=== PATIENT | male | born 1955 | race Caucasian/White ===

== ENCOUNTER 2019-06-12 08:02 | Outpatient (CLI) | payer BC, SELFPAY ==
--- NOTE | ~2019-06-12 | US_ITS ---
EXAMINATION: US art doppler w press LE BI EXAM DATE: 06/12/2019 08:48 INDICATION: Claudication at 3 blocks, 5 minute recovery time. High blood pressure. Cardiac stent. Atr ial fibrillation. TECHNIQUE: Segmental pressures and plethysmographic and Doppler waveforms of the brachial and lower e xtremity arteries were obtained. There is no prior study for comparison. FINDINGS: Right and left brachial artery pressures of 165 mm Hg and 183 mm Hg, respectively, are concordant (no rmal difference <= 30 mmHg). The right and left thigh-brachial pressure indices are 0.97, 0.97, resp ectively (normal > 1.2). RIGHT LEG: The ankle-brachial index (WERNER) is 0.89 (normal >= 0.9-1). The great toe-brachial index (TBI) is 0.37 (normal >= 0.65). The lower extremity ratios, segmental pressure gradients as follows; Proximal superficial femoral artery:- 0.97 (178 mmHg). Distal superficial femoral artery: ----- 0.96 (176 mmHg). Popliteal: 0.65 (119 mmHg). Dorsalis pedis: 0.89 (162 mmHg). Posterior tibial: 0.74 (136 mmHg). (Normal gradients <= 20-30 mmHg between adjacent levels on the same leg or the same levels on the two legs). Arterial waveforms are biphasic through popliteal, monophas ic below. LEFT LEG: The ankle-brachial index (WERNER) is 0.57 (normal >= 0.9-1). The great toe-brachial index (TBI) is 0.64 (normal >= 0.65). The lower extremity ratios, segmental pressure gradients as follows; Proximal superficial femoral artery:- 0.97 (177 mmHg). Distal superficial femoral artery: ----- 0.62 (114 mmHg). Popliteal: 0.56 (102 mmHg). Dorsalis pedis: 0.50 (91 mmHg). Posterior tibial: 0.57 (105 mmHg). (Normal gradients <= 20-30 mmHg between adjacent levels on the same leg or the same levels on the two legs). Arterial waveforms are monophasic. IMPRESSION: 1. Right ankle-brachial index 0.89, normal. 2. Left ankle-brachial index 0.57, moderately decreased. 3. Segmental pressures as above. Reviewed, dictated and finalized at location B. S [employer]
== END 2019-06-12 08:03 | disposition home or self-care (01) ==
LOC: ANHIMG 08:05
PROVIDERS: PCP Family Medicine; Visit Provider Internal Medicine Cardiovascular Disease
DX: I25.118 Atherosclerotic heart disease of native coronary artery with other forms of angina pectoris (principal); I73.9 Peripheral vascular disease, unspecified
CPT/HCPCS: 93923

== ENCOUNTER → 2020-09-09 08:39 | Outpatient (CLI) | payer BC, SELFPAY ==
--- NOTE | ~2020-09-09 | CT_ITS ---
EXAMINATION: CT lung screening DATE: 09/09/2020 08:52 INDICATION: History of nicotine dependence TECHNIQUE: Computed tomography (CT) of the chest was performed without intravenous contrast. The dose -length product was 193.71 mGy-cm. Automated exposure control and iterative reconstruction technique were employed. COMPARISON: CT dated 08/01/2011 FINDINGS: Heart size is normal. No significant pleural or pericardial effusion. There is atherosclero sis of the aorta and coronary arteries. No focal airspace consolidation. No endobronchial lesions. No thoracic lymphadenopathy. No suspicious pulmonary nodules or masses. 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 IMPRESSION: 1. Lung-RADS category 1: Negative. Continue annual screening with noncontrast low-dose chest CT in 12 months. Reviewed, dictated and finalized at location B. IMPRESSION: 1. Lung-RADS category 1: Negative. Continue annual screening with noncontrast l ow-dose chest CT in 12 months.
== END ==
PROVIDERS: PCP Emergency Medicine; Visit Provider Emergency Medicine
DX: Z12.2 Encounter for screening for malignant neoplasm of respiratory organs (principal); Z87.891 Personal history of nicotine dependence
CPT/HCPCS: 71271

== ENCOUNTER 2022-08-07 02:21 | Inpatient (IN) | payer MEDICARE, SELFPAY ==
[2022-08-07] VITALS (48 sets, daily range): BP systolic 107–174; BP diastolic 65–143; PULSE 94–142; RESP 16–34; TEMP 36.3–36.9; O2SAT 94–100; BMI 26.7
--- NOTE | ~2022-08-07 | CT_ITS ---
EXAMINATION: CTA brain carotid DATE: 08/07/2022 03:49 INDICATION: Slurred speech and left-sided numbness and weakness TECHNIQUE: Computed tomographic angiography (CTA) of the head was performed without and with 100 mL O mnipaque-350 intravenous contrast. CTA of the neck was performed with intravenous contrast. The dose- length product was 1208.72 mGy-cm. Maximum intensity projection and volume rendered 3D-reconstruction s were created by the technologist on a separate workstation. Automated exposure control and iterativ e reconstruction technique were employed. COMPARISON: None. FINDINGS: HEAD CTA: There is no acute intraparenchymal hemorrhage. No evidence of mass lesion. No evidence of a cute infarction. There are old lacunar infarcts of the right basal ganglia and left thalamus. There i s mild periventricular and subcortical hypodensity probably related to small vessel ischemic disease. There is mild prominence of the sulci and ventricles related to cerebral atrophy. Intracranial calci fied cerebral atherosclerosis is noted. There are no extra-axial collections. There is no mass effect or midline shift. The orbits and soft tissues are unremarkable. There is near complete opacification of the right maxillary sinus. There is no significant stenosis of the basilar artery or posterior cerebral arteries. There is no si gnificant stenosis of the intracranial internal carotid arteries or the anterior or middle cerebral a rteries. The anterior communicating artery and posterior communicating arteries are normal. There is no aneurysm. NECK CTA: The thyroid gland is unremarkable. The submandibular and parotid glands are symmetric. Ther e is no lymphadenopathy. There are no masses identified. The airway is unremarkable. There is mild ce rvical spondylosis. There is mediastinal lymphadenopathy. There is 35% stenosis of the proximal right internal carotid artery relative to normal distal artery lumen diameter (NASCET criteria). There is 39% stenosis of the proximal left internal carotid artery relative to normal distal artery lumen diameter. IMPRESSION: 1. No acute intracranial abnormality. Normal head CTA. 2. 35% stenosis of the proximal right internal carotid artery relative to normal distal artery lumen diameter (NASCET criteria). 3. 39% stenosis of the proximal left internal carotid artery relative to normal distal artery lumen d iameter. 4. Mediastinal lymphadenopathy of unclear etiology which could be reactive or reflect metastatic dise ase. Consider dedicated chest CT. Reviewed, dictated and finalized at location A. IMPRESSION: 1. No acute intracranial abnormality. Normal head CTA. 2. 35% stenosis of the proximal right internal carotid artery relative to rolando l distal artery lumen diameter (NASCET criteria). 3. 39% stenosis of the proximal left internal carotid artery relative to normal distal artery lumen diameter. 4. Mediastinal lymphadenopathy of unclear etiology which could be reactive or r eflect metastatic disease. Consider dedicated chest CT.
--- NOTE | ~2022-08-07 | XR_ITS ---
EXAMINATION: XR abdomen NG/feed tube insert DATE: 08/14/2022 09:41 INDICATION: Nasogastric tube placement. TECHNIQUE: A semierect view of the abdomen was obtained. COMPARISON: Chest CT 08/08/2022 FINDINGS: The lower abdomen is excluded. The nasogastric tube tip is in the stomach. There is mild at electasis at the lung bases. Cardiomegaly is noted. IMPRESSION: 1. Nasogastric tube tip in the stomach. Reviewed, dictated and finalized at location A.
--- NOTE | ~2022-08-07 | XR_ITS ---
EXAMINATION: XR chest 1V portable DATE: 08/18/2022 05:41 INDICATION: Respiratory failure TECHNIQUE: frontal view of the chest was obtained. COMPARISON: Chest radiograph dated 08/17/2022 FINDINGS: Near complete resolution of the prior opacities in the right mid and lower lung zones. Residual mild blunting at the right costophrenic angle consistent with tiny pleural effusion. No pneumothorax. Card iomegaly. IMPRESSION: 1. Near complete resolution of opacities in the right mid and lower lung consistent with improving at electasis or pneumonia. 2. Tiny right pleural effusion. 3. Cardiomegaly. Reviewed, dictated and finalized at location A. IMPRESSION: 1. Near complete resolution of opacities in the right mid and lower lung consis tent with improving atelectasis or pneumonia. 2. Tiny right pleural effusion. 3. Cardiomegaly.
--- NOTE | ~2022-08-07 | XR_ITS ---
EXAMINATION: XR chest 1V portable DATE: 08/09/2022 06:32 INDICATION: Chest congestion. TECHNIQUE: A single frontal view of the chest was obtained. COMPARISON: Chest single view 08/07/2022, chest CT 08/08/2022 FINDINGS: There are small pleural effusions. Morena B-lines are noted, consistent with mild pulmonary edema. No pneumothorax. Cardiomegaly is noted. IMPRESSION: 1. Mild pulmonary edema. 2. Small pleural effusions. 3. Cardiomegaly. Reviewed, dictated and finalized at location A.
--- NOTE | ~2022-08-07 | US_ITS ---
EXAMINATION: US venous doppler [facility] DATE: 08/07/2022 10:32 INDICATION: Bilateral lower limb swelling TECHNIQUE: [place] scale images without and with compression and Doppler images of the bilateral lower e xtremity veins were obtained. COMPARISON: None FINDINGS: The right common femoral vein, profunda femoral vein, femoral vein, popliteal vein, peroneal trunk, p osterior tibial veins, and greater saphenous vein are patent. The left common femoral vein, profunda femoral vein, femoral vein, popliteal vein, peroneal trunk, po sterior tibial veins, and greater saphenous vein are patent. IMPRESSION: 1. Patent bilateral lower extremity veins. No evidence of deep venous thrombosis. Reviewed, dictated and finalized at location A. IMPRESSION: 1. Patent bilateral lower extremity veins. No evidence of deep venous thrombosi s.
--- NOTE | ~2022-08-07 | XR_ITS ---
Portable chest x-ray Comparison: 08/09/2022 Clinical History: Pneumonia Findings: Stable interstitial prominence and mild groundglass opacity in the lungs. No definite pleu ral effusion. Cardiomediastinal silhouette is stable. Bones and soft tissues are unremarkable. Impression: Stable mild groundglass pulmonary disease with interstitial prominence. Correlate for chronic interst itial disease versus mild pulmonary edema or infection. Reviewed, dictated and finalized at [facility]. Impression: Stable mild groundglass pulmonary disease with interstitial prominence. Correla te for chronic interstitial disease versus mild pulmonary edema or infection.
--- NOTE | ~2022-08-07 | XR_ITS ---
EXAMINATION: XR chest 1V portable Exam Date/Time: 08/23/2022 13:35 CDT HISTORY: respiratory failure Comparison: 08/21/2022. RESULT: Lines, tubes, and devices: Right upper extremity PICC terminating in the distal SVC. Lungs and pleura: Interval decrease in the diffuse reticular opacities and bibasilar opacities, lung s essentially clear. Cardiomediastinal silhouette: Stable. Other: No acute osseous or upper abdominal finding. IMPRESSION: No acute cardiopulmonary process. Reviewed, dictated and finalized at location K.
--- NOTE | ~2022-08-07 | MR_ITS ---
EXAMINATION: MR brain/brain stem wo/w con DATE: 08/08/2022 14:55 INDICATION: Left-sided numbness and weakness. TECHNIQUE: Magnetic resonance imaging (MRI) of the brain and brainstem was performed without intraven ous contrast. The exam was terminated by the patient before injection of contrast. COMPARISON: Head CT 08/07/2022 FINDINGS: There is an acute infarct in the posterior right frontal lobe. There are scattered areas of nonspecific increased T2-weighted signal intensity in the cerebral white matter. There is no intrac ranial hemorrhage or abnormal mass lesion. The ventricles are normal in size. The orbits are normal. There is mucosal thickening in the paranasal sinuses. The mastoid air cells are normal. IMPRESSION: 1. Acute infarct in posterior right frontal lobe. 2. Moderate nonspecific cerebral white matter disease, which likely represents chronic small vessel i schemic disease. Reviewed, dictated and finalized at location A. IMPRESSION: 1. Acute infarct in posterior right frontal lobe. 2. Moderate nonspecific cerebral white matter disease, which likely represents chronic small vessel ischemic disease.
--- NOTE | ~2022-08-07 | XR_ITS ---
EXAMINATION: XR chest ET placement INDICATION: Endotracheal tube placement TECHNIQUE: Portable AP chest at 2105 hours COMPARISON: 0521 hours FINDINGS: The endotracheal tube ends approximately 2.9 cm above the virgen. The nasogastric tube is f ollowed as far as the stomach. Its tip is beyond the inferior margin of the radiograph. Cardiomegaly is noted. Diffuse interstitial and airspace opacities are present. No pleural effusion or pneumothora x. IMPRESSION: 1. Support tubes in adequate position. 2. Cardiomegaly. 3. Diffuse lung disease, consistent with pneumonia and/or pulmonary edema. Reviewed, dictated and finalized at location F.
--- NOTE | ~2022-08-07 | CT_ITS ---
EXAMINATION: CT brain wo con INDICATION: Transient alteration of awareness COMPARISON: 08/07/2022; MRI, 08/08/2022 TECHNIQUE: Standard unenhanced head CT. The dose-length product (DLP) was 681.00 mGy-cm. The mA was a djusted according to patient size. Iterative reconstruction technique was employed. FINDINGS: There is no acute intraparenchymal hemorrhage. No evidence of mass lesion. There is an evol ving subacute infarct in the posterior right frontal lobe. There is mild periventricular and subcorti elmer hypodensity probably related to small vessel ischemic disease. There is mild prominence of the cool lci and ventricles related to cerebral atrophy. Intracranial calcified cerebral atherosclerosis is no juan. There are no extra-axial collections. There is no mass effect or midline shift. The orbits and s oft tissues are unremarkable. There is moderate opacification of the right maxillary sinus. IMPRESSION: 1. Evolving subacute infarct in the posterior right frontal lobe. 2. Age related findings. As per stroke protocol, I called these results to the ICU and discussed with Dr. Bobbi Lawson MD at 08/10/2022 20:32 CDT. Reviewed, dictated and finalized at location F. IMPRESSION: 1. Evolving subacute infarct in the posterior right frontal lobe. 2. Age related findings. As per stroke protocol, I called these results to the ICU and discussed with Dr Chris Lawson MD at 08/10/2022 20:32 CDT.
--- NOTE | ~2022-08-07 | XR_ITS ---
EXAMINATION: XR chest 1V portable DATE: 08/13/2022 05:22 INDICATION: Respiratory failure. TECHNIQUE: A single frontal view of the chest was obtained. COMPARISON: Chest single view 08/12/22, chest CT 08/08/2022 FINDINGS: There are mild airspace opacities in the lower lung zones. There is a small right pleural e ffusion. No pneumothorax. Cardiomegaly is noted. The endotracheal tube tip is 4.0 cm above the virgen . The nasogastric tube tip is in the stomach. IMPRESSION: 1. Stable airspace opacities in the lower lung zones, consistent with atelectasis versus pneumonia. 2. Stable small right pleural effusion. 3. Cardiomegaly. Reviewed, dictated and finalized at location A. IMPRESSION: 1. Stable airspace opacities in the lower lung zones, consistent with atelectas is versus pneumonia. 2. Stable small right pleural effusion. 3. Cardiomegaly.
--- NOTE | ~2022-08-07 | CT_ITS ---
EXAMINATION:CT diagnostic chest w con DATE: 08/08/2022 09:30 INDICATION: Lymphadenopathy. TECHNIQUE: Computed tomography (CT) of the chest was performed with 75 mL Omnipaque 350 intravenous c ontrast. Automated exposure control and iterative reconstruction technique were employed. The dose-le ngth product (DLP) was 281.18 mGy-cm. COMPARISON: Chest CT 09/09/2020 FINDINGS: There is mild emphysema. There is septal thickening in the lungs bilaterally, consistent wi th mild pulmonary edema. There is a 10 mm nodule in superior segment right lower lobe. There is mild atelectasis bilaterally. There are small bilateral pleural effusions. There is pleural thickening on the right. The liver demonstrates a nodular surface contour, consistent with cirrhosis. There is a sm all volume of perihepatic ascites. 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 Cardiomega ly is noted. There are coronary artery calcifications. There are calcifications of aortic valve. No p ericardial effusion. There is no pulmonary embolus. There is bilateral gynecomastia. There is mild me diastinal lymphadenopathy. The largest node measures 2.3 x 1.2 cm. There are bridging endplate osteop hytes at multiple levels in the spine, consistent with diffuse idiopathic skeletal hyperostosis (DISH ). There is mild chronic anterior wedging of multiple vertebral bodies. IMPRESSION: 1. Mild pulmonary edema. 2. Small pleural effusions with right-sided pleural thickening. Right-sided ultrasound-guided thorace ntesis is recommended. 3. 10 mm nodule in superior segment right lower lobe suspicious for infection or malignancy. Noncontr ast chest CT is recommended in 3 months. 4. Mild mediastinal lymphadenopathy. 5. Mild emphysema. Reviewed, dictated and finalized at location A. IMPRESSION: 1. Mild pulmonary edema. 2. Small pleural effusions with right-sided pleural thickening. Right-sided ult rasound-guided thoracentesis is recommended. 3. 10 mm nodule in superior segment right lower lobe suspicious for infection o r malignancy. Noncontrast chest CT is recommended in 3 months. 4. Mild mediastinal lymphadenopathy. 5. Mild emphysema.
--- NOTE | ~2022-08-07 | XR_ITS ---
EXAMINATION: XR chest 1V portable DATE: 08/14/2022 06:52 INDICATION: Respiratory failure. TECHNIQUE: A single frontal view of the chest was obtained. COMPARISON: Chest single view 08/13/2022 FINDINGS: There are airspace opacities in the lower lung zones. No pleural effusion or pneumothorax. Cardiomediastinal is noted. The endotracheal tube tip is 2.6 cm above the virgen. The nasogastric tub e tip is in the stomach. IMPRESSION: 1. Stable airspace opacities in the lower lung zones, consistent with atelectasis versus pneumonia. 2. Cardiomegaly. Reviewed, dictated and finalized at location A. IMPRESSION: 1. Stable airspace opacities in the lower lung zones, consistent with atelectas is versus pneumonia. 2. Cardiomegaly.
--- NOTE | ~2022-08-07 | XR_ITS ---
MODIFIED ESOPHAGRAM HISTORY: Dysphagia post stroke. TECHNIQUE: Modified barium esophagram was performed on 08/15/2022. I administered fluoroscopy and perfo rmed the exam with speech pathologist. Patient was seated for lateral fluoroscopic imaging for inges tion of thin liquids, pudding, solids and quantified amounts, followed by thin liquids in uncontrolle d amounts. This was recorded on tape. A single fluoroscopic spot image was also recorded. The DAP for this procedure was 1.186 Gycm2. The amount of fluoroscopy time used during this procedure was 1.5 mi nutes. FINDINGS: Oral stage: Reduced lingual movement. Pharyngeal stage: Reduced laryngeal elevation and adduction, tongue base retraction and pharyngeal sq ueeze. Significant residue in the vallecula, piriform sinus and pharyngeal wall. There is recurrent l aryngeal penetration and aspiration with both thin liquid and pudding consistencies. Cervical/esophageal stage: Adequate function. IMPRESSION: Oral and pharyngeal dysphagia with recurrent laryngeal penetration and aspiration. Pleas e correlate with speech pathologist findings and specific feeding recommendations. Reviewed, dictated and finalized at location A. IMPRESSION: Oral and pharyngeal dysphagia with recurrent laryngeal penetration and aspiration. Please correlate with speech pathologist findings and specific feeding recommendations.
--- NOTE | ~2022-08-07 | XR_ITS ---
EXAMINATION: XR chest 1V portable INDICATION: Weakness and shortness of breath TECHNIQUE: Portable AP chest at 0255 hours COMPARISON: 08/25/2011 FINDINGS: Diffuse interstitial and airspace opacities are present. There are small pleural effusions. No pneumothorax is identified. The heart size is upper limits of normal for technique. IMPRESSION: 1. Diffuse lung disease, consistent with pneumonia and/or pulmonary edema. 2. Small pleural effusions. Reviewed, dictated and finalized at location A.
--- NOTE | ~2022-08-07 | XR_ITS ---
Portable chest x-ray Comparison: 08/11/2022 Clinical History: Respiratory failure Findings: Endotracheal tube, NG tube are in satisfactory positions. Probable minimal groundglass pul monary disease present. Cardiomediastinal silhouette is stable. Bones and soft tissues are unremarka ble. Impression: Probable minimal groundglass pulmonary disease present. Support tubes, as above. Reviewed, dictated and finalized at location . Impression: Probable minimal groundglass pulmonary disease present. Support tubes, as above.
--- NOTE | ~2022-08-07 | US_ITS ---
EXAMINATION: US arterial ankle brachial ind DATE: 08/11/2022 12:14 INDICATION: Peripheral arterial disease. TECHNIQUE: Segmental pressures and plethysmographic and Doppler waveforms of the brachial and lower e xtremity arteries were obtained. COMPARISON: None. FINDINGS: Right and left brachial artery pressures of 104 mm Hg and 101 mm Hg, respectively, are concordant (no rmal difference <= 30 mmHg). The right ankle-brachial index (WERNER) is 0.38 (normal >= 0.9-1.0). The right great toe-brachial index (TBI) is 0.01 (normal >= 0.65). Arterial Doppler waveforms are biphasic at the ankle. The left WERNER is 0.34. There is no detectable flow in left dorsalis pedis. The left TBI is 0.05. Arter ial Doppler waveforms are biphasic in posterior tibial artery. IMPRESSION: 1. Severely decreased bilateral ABIs, consistent with arterial occlusive disease. 2. Total occlusion of left dorsalis pedis. Reviewed, dictated and finalized at location A. IMPRESSION: 1. Severely decreased bilateral ABIs, consistent with arterial occlusive diseas e. 2. Total occlusion of left dorsalis pedis.
--- NOTE | ~2022-08-07 | XR_ITS ---
EXAMINATION: XR chest 1V portable INDICATION: Respiratory failure TECHNIQUE: Portable AP chest at 0518 hours COMPARISON: 08/16/2022 FINDINGS: The nasogastric tube has been removed. Airspace opacities of the lung bases and right midlu ng zone persist but have improved. A right upper extremity PICC ends with its tip at the superior cav oatrial junction. There is a small, stable right pleural effusion. No pneumothorax is identified. Car diomegaly is noted. IMPRESSION: 1. Improving airspace opacities of the lung bases and right midlung zone, consistent with atelectasis versus pneumonia. Reviewed, dictated and finalized at location F. IMPRESSION: 1. Improving airspace opacities of the lung bases and right midlung zone, consi stent with atelectasis versus pneumonia.
--- NOTE | ~2022-08-07 | XR_ITS ---
EXAMINATION: XR chest PICC line DATE: 08/14/2022 13:04 INDICATION: Central line placement. TECHNIQUE: A single frontal view of the chest was obtained. COMPARISON: Chest single view 08/14/2022 at 5:19 AM FINDINGS: There are airspace opacities in the right mid and lower lung zones and left lower lung zone . No pleural effusion or pneumothorax. Cardiomegaly is noted. The nasogastric tube tip is beyond the inferior margin of the radiograph, but at least to the stomach. A right upper extremity peripherally inserted central venous catheter (PICC) is seen with tip in the superior vena cava. IMPRESSION: 1. PICC tip in the superior vena cava. 2. Stable airspace opacities in the right mid and lower lung zones and left lower lung zone, consiste nt with atelectasis versus pneumonia. 3. Cardiomegaly. Reviewed, dictated and finalized at location A. IMPRESSION: 1. PICC tip in the superior vena cava. 2. Stable airspace opacities in the right mid and lower lung zones and left low er lung zone, consistent with atelectasis versus pneumonia. 3. Cardiomegaly.
--- NOTE | ~2022-08-07 | XR_ITS ---
EXAMINATION: XR chest 1V portable DATE: 08/19/2022 05:31 INDICATION: Respiratory failure TECHNIQUE: frontal view of the chest was obtained. COMPARISON: Chest radiograph dated 08/18/2022 FINDINGS: Right upper extremity peripherally inserted central venous catheter (PICC) tip at the cephalad super ior vena cava. Interval development of a mildly increased interstitial pattern in the perihilar regions and lower arnoldo ng zones. Tiny right pleural effusion with blunting at the costophrenic angle. No pneumothorax. Cardi omegaly. IMPRESSION: 1. Increasing interstitial pattern in the perihilar regions and lower lungs with differential includi ng mild pulmonary edema versus less likely pneumonia. 2. Cardiomegaly. 3. Tiny right pleural effusion. Reviewed, dictated and finalized at location A. IMPRESSION: 1. Increasing interstitial pattern in the perihilar regions and lower lungs wit h differential including mild pulmonary edema versus less likely pneumonia. 2. Cardiomegaly. 3. Tiny right pleural effusion.
--- NOTE | ~2022-08-07 | XR_ITS ---
EXAMINATION: XR abdomen NG/feed tube insert DATE: 08/15/2022 08:57 INDICATION: Nasogastric tube insertion TECHNIQUE: A supine view of the abdomen and lower chest was obtained for evaluation of feeding tube placement. COMPARISON: None. FINDINGS: Nasogastric tube tip in proximal side port in the body of the stomach. There is some oral contrast ma terial at the stomach from the median the prior modified swallow study. Mild bibasilar opacities whic h could represent atelectasis or pneumonia. Small right pleural effusion. Heart size is normal. IMPRESSION: 1. Nasogastric tube in the stomach. 2. Mild bibasilar opacities which could represent atelectasis or pneumonia. 3. Small right pleural effusion. Reviewed, dictated and finalized at location A.
--- NOTE | ~2022-08-07 | XR_ITS ---
EXAMINATION: XR abdomen NG/feed tube insert INDICATION: OG placement TECHNIQUE: Portable AP KUB-NG at 2104 hours COMPARISON: None FINDINGS: The OG tube is in the stomach. The bowel gas pattern is nonspecific. There are minimal airs pace opacities of the visualized lung bases. IMPRESSION: 1. OG tube in the stomach. Reviewed, dictated and finalized at location F. IMPRESSION: 1. OG tube in the stomach.
--- NOTE | ~2022-08-07 | XR_ITS ---
Portable chest x-ray Comparison: 08/10/2022 Clinical History: Respiratory failure Findings: Endotracheal tube and NG tube are in satisfactory positions. Probable minimal residual bib asilar pulmonary edema. Cardiomediastinal silhouette is stable. Bones and soft tissues are unremarka ble. Impression: Probable minimal residual bibasilar pulmonary edema/atelectasis, improved from prior exam. Support tubes, as above. Reviewed, dictated and finalized at location . Impression: Probable minimal residual bibasilar pulmonary edema/atelectasis, improved from prior exam. Support tubes, as above.
--- NOTE | ~2022-08-07 | XR_ITS ---
EXAMINATION: XR chest 1V portable DATE: 08/16/2022 05:51 INDICATION: Respiratory failure. TECHNIQUE: A single frontal view of the chest was obtained. COMPARISON: Chest one view 08/15/2022, chest CT 08/08/2022 FINDINGS: There are airspace opacities in right mid and lower lung zones and left lower lung zone. Th ere is a small right pleural effusion. No pneumothorax. Cardiomegaly is noted. The nasogastric tube t ip is beyond the inferior margin of the radiograph, but at least to the stomach. A right upper extrem ity peripherally inserted central venous catheter (PICC) is seen with tip at the superior cavoatrial junction. IMPRESSION: 1. Stable airspace opacities in right mid and lower lung zones and left lower lung zone, consistent w ith atelectasis versus pneumonia. 2. Stable small right pleural effusion. 3. Cardiomegaly. Reviewed, dictated and finalized at location A. IMPRESSION: 1. Stable airspace opacities in right mid and lower lung zones and left lower l laura zone, consistent with atelectasis versus pneumonia. 2. Stable small right pleural effusion. 3. Cardiomegaly.
--- NOTE | ~2022-08-07 | XR_ITS ---
EXAMINATION: XR chest 1V portable DATE: 08/15/2022 05:35 INDICATION: Respiratory failure TECHNIQUE: frontal view of the chest was obtained. COMPARISON: Chest radiograph dated 08/14/2022 FINDINGS: Persistent opacities in the bilateral mid and lower lung zones. Small right pleural effusion. No pneu mothorax. Heart size is normal. Right upper extremity peripherally inserted central venous catheter ( PICC) tip at the caudal superior vena cava. IMPRESSION: 1. Unchanged opacities in the bilateral mid and lower lung zones which could represent atelectasis or pneumonia. 2. Small right pleural effusion. Reviewed, dictated and finalized at location A. IMPRESSION: 1. Unchanged opacities in the bilateral mid and lower lung zones which could re present atelectasis or pneumonia. 2. Small right pleural effusion.
--- NOTE | ~2022-08-07 | XR_ITS ---
XR chest 1V portable DATE: 08/21/2022 05:22 INDICATION: Shortness of breath TECHNIQUE: Portable AP chest on August 21, 2022 at 0512 hours COMPARISON: August 19, 2022 portable AP chest at 0526 hours FINDINGS: Right upper extremity PIC catheter tip is situated near superior cavoatrial junction. Cardiomegaly is suggested. Is aortic arch calcification, mild aortic unfolding. Mild pulmonary vascular congestion and pulmonary interstitial prominence including Morena B-lines, cool ggesting mild congestive changes. There may be minimal pleural effusions. No pneumothorax. There is mild infiltrate or atelectasis in the lower lung zones, left greater than right. Left lower lobe infiltrate or atelectasis is improved 08/19/2022. IMPRESSION: Mild pulmonary vascular congestion and pulmonary interstitial edema Diminished left lower lobe infiltrate or atelectasis since 08/19/2022 Reviewed, dictated and finalized at location A.
--- NOTE | 2022-08-07 02:34 | ECG_ITS ---
Measurements Intervals [place] Rate: 141 P: NM: 0 QRS: 106 QRSD: 92 T: 25 QT: 279 QTc: 427 Interpretive Statements ATRIAL FIBRILLATION WITH RAPID VENTRICULAR RESPONSE RIGHT AXIS DEVIATION INCOMPLETE RIGHT BUNDLE BRANCH BLOCK NONSPECIFIC ST & T-WAVE ABNORMALITY- INF/LAT LEADS ABNORMAL ECG NO PREVIOUS ECG AVAILABLE FOR COMPARISON Electronically Signed On 08-07-2022 7:44:16 CDT by Inderjit Garcia D.O.
[2022-08-07 02:56] LABS: Basophils Percent Auto 0.7 % (0.2-1.2); Eosinophils Absolute Auto 0.1 K/mm3 (0-0.3); Eosinophils Percent Auto 2.3 % (0-4.4); Hematocrit 44.1 % (42.0-52.0); Hemoglobin 14.7 g/dL (14.0-18.0); Immature Granulocyte Absolute 0.01 K/mm3 (0.00-0.031); Immature Granulocyte Percent A 0.2 % (0-0.5); Lymphocytes Absolute Auto 1.48 K/mm3 (0.9-3.2); Lymphocytes Percent Auto 26.7 % (18.3-44.2); Mean Corpuscular HGB Conc 33.3 g/dl (32-36); Mean Corpuscular Hemoglobin 35.2 pg (26-34); Mean Corpuscular Volume 105.5 fl (80-100); Mean Platelet Volume 11.1 fl (7.4-10.4); Monocytes Absolute Auto 0.5 K/mm3 (0.1-0.6); Monocytes Percent Auto 8.7 % (2.6-8.5); Neutrophils Absolute Auto 3.4 K/mm3 (1.3-6.7); Neutrophils Percent Auto 61.4 % (45.5-73.1); Platelet Count Result 195 k/mm3 (150-375); Red Blood Count 4.18 M/mm3 (4.6-6.20); Red Cell Distribution Width 13.5 % (11.5-14.5); White Blood Count 5.5 K/mm3 (4.5-10.0)
--- NOTE | 2022-08-07 03:00 | PC.NURSE ---
Patient has obvious left sided facial droop and left sided weakness present.
[2022-08-07] MEDS: METOPROLOL TARTRATE INJ 5 MG/5 ML VIAL IV PUSH ×2 (03:04→05:36)
[2022-08-07 03:05] LABS: Alanine Aminotransferase 27 U/L (6-50); Albumin Level 3.8 g/dL (3.5-5.1); Alkaline Phosphatase 138 U/L (38-126); Anion Gap 5 mmol/L (8-16); Aspartate Amino Transferase 60 U/L (17-59); Bilirubin,Total 0.9 mg/dL (0.2-1.3); Blood Urea Nitrogen 8 mg/dL (9-20); Carbon Dioxide 25 mmol/L (22-30); Chloride 104 mmol/L (98-107); Estimated CRCL calculation 113 ml/min; Estimated Glomerular Filt Rate > 60; Glucose 196 mg/dL (65-110); Potassium 4.2 mmol/L (3.4-5.0); Sodium 134 mmol/L (137-145)
[2022-08-07 03:20] LABS: NT Pro B Type Natriuretic Pept 5800 pg/mL (19.9-100); Troponin I 0.083 ng/mL (0.000-0.034)
--- NOTE | 2022-08-07 03:22 | ED.GENADULT ---
HPI - General Adult General Chief complaint: Neuro Symptoms/Deficit Stated complaint: L hand numbness, slurred speech Time Seen by Provider: 08/07/22 02:33 History of Present Illness HPI narrative: Patient is 67-year-old gentleman who presents the emergency department with chief complaint of left-sided weakness slurred speech. The patient reports that he was last known well around 9 PM whenever he went to sleep. Patient states that he woke up approximately 1 hour prior to arrival and called EMS the patient was evaluated by EMS at the scene and the patient refused EMS transport. Patient does report that he has history of atrial fibrillation and is currently on a DOAC patient reports he has not missed any doses of his medications and reports that the symptoms or not improved by anything. Patient reports no prior history of stroke patient Related Data Allergies Allergy/AdvReac Type Severity Reaction Status Date / Time No Known Allergies Allergy Unverified 03/08/12 06:57 Review of Systems Review of Systems: A 10 system review of systems was completed on the patient and is negative except for what is stated in the HPI. Nursing and ancillary documentation was reviewed. [facility] Family History Family History Other Diabetes mellitus Family history of arthritis Family history of gout Hypertension Social History Social History Smoking status: Current every day smoker Alcohol intake: current Exam Narrative: GENERAL: Well-appearing, well-nourished, and in no acute distress. HEAD: Normocephalic, atraumatic. EYES: PERRLA and EOMI. ENT: Nares clear, no rhinorrhea or epistaxis. Mucous membranes moist. NECK: Supple. CHEST: Clear to auscultation. No respiratory distress. HEART: Tachycardic irregular rate and rhythm. No murmur heard. Normal peripheral pulses. ABDOMEN: Soft, nontender, nondistended, normal active bowel sounds. EXTREMITIES: Normal range of motion. +1 edema. SKIN: Warm, dry, no rash. NEURO: Speech somewhat slurred, mild left-sided weakness. Alert and oriented x3. PSYCH: Normal mood and affect. Course Vital Signs Vital signs: Vital Signs Temperature 36.8 C 08/07/22 02:28 Pulse Rate 137 H 08/07/22 02:28 Respiratory Rate 18 08/07/22 02:28 Blood Pressure 168/88 H 08/07/22 02:28 Pulse Oximetry 100 08/07/22 02:28 Oxygen Delivery Room Air 08/07/22 02:28 Temperature 36.8 C 08/07/22 02:28 Pulse Rate 126 H 08/07/22 03:16 Respiratory Rate 23 H 08/07/22 03:16 Blood Pressure 158/101 H 08/07/22 03:16 Pulse Oximetry 100 08/07/22 03:16 Oxygen Delivery Room Air 08/07/22 02:28 Medical Decision Making MDM Narrative Medical decision making narrative: Differential diagnosis includes CVA, large vessel occlusion, hemorrhagic stroke, dysrhythmia A-fib with RVR, electrolyte abnormality EKG is atrial fibrillation with rapid ventricular response with a rate of 141 Laboratory studies showed a mildly elevated troponin at 0.083 BNP was 5800 Vital Signs Vital Signs: Vital Signs Temperature 36.8 C 08/07/22 02:28 Pulse Rate 137 H 08/07/22 02:28 Respiratory Rate 18 08/07/22 02:28 Blood Pressure 168/88 H 08/07/22 02:28 Pulse Oximetry 100 08/07/22 02:28 Oxygen Delivery Room Air 08/07/22 02:28 Temperature 36.8 C 08/07/22 02:28 Pulse Rate 126 H 08/07/22 03:16 Respiratory Rate 23 H 08/07/22 03:16 Blood Pressure 158/101 H 08/07/22 03:16 Pulse Oximetry 100 08/07/22 03:16 Oxygen Delivery Room Air 08/07/22 02:28 Lab Data 08/07/22 02:43 08/07/22 02:43 Labs: Lab Results 08/07/22 08/07/22 08/07/22 Range/Units 02:43 02:43 02:43 WBC 5.5 (4.5-10.0) K/mm3 RBC 4.18 L (4.6-6.20) M/mm3 Hgb 14.7 (14.0-18.0) g/dL Hct 44.1 (42.0-52.0) % MCV 105.5 H (80-100) fl MCH 35.2
[2022-08-07 03:48] LABS: INR 1.1; Prothrombin Time 14.1 Seconds (11.1-14.7)
[2022-08-07 03:49] LABS: Partial Thromboplastin Time 32.3 SECONDS (22.3-36.8)
[2022-08-07 04:50] LABS: Appearance Urine Clear (Clear); Bacteria Urine None Seen /hpf; Bilirubin Urine Negative (Negative); Blood Urine Negative (Negative); Color Urine Dark Yellow (Yellow); Glucose Urine UA Negative (Negative); Ketones Urine Trace mg/dL (Negative); Leukocyte Esterase Ur Negative LEU/UL (Negative); Nitrate Urine Negative (Negative); Non Pathogenic Casts 0-2; Protein Urine 1+ mg/dL (Negative); RBC Urine 0-2 /hpf (0-2); Squamous Epithelial Cell Urine None seen /hpf (Few); WBC Urine 0-5 /hpf; pH Urine 5.5 (5.0-9.0)
[2022-08-07 05:01] LABS: Amphetamine Screen Urine Negative (Negative); Barbiturate Screen Urine Negative (Negative); Benzodiazepines Screen Urine Negative (Negative); Cannabinoid Screen Urine Negative (Negative); Cocaine Screen Urine Negative (Negative); Methadone Screen Urine Negative (Negative); Opiate Screen Urine Negative (Negative)
[2022-08-07 05:03] LABS: Add Urine Microscopic? YES; Specific Grav Ur 1.062 (1.001-1.035)
[2022-08-07 05:28] LABS: Phencyclidine Screen Urine Negative (Negative)
--- NOTE | 2022-08-07 05:47 | PM.IMHP ---
H&P: HPI History of Present Illness Date/Time: 08/07/22 05:47 Chief Complaint: Left-sided weakness Narrative: 67-year-old male with past medical history significant for atrial fibrillation rate controlled anticoagulated. Presented to the emergency room via EMS after waking up and having weakness of the left side and speech disturbance. Patient has been having shortness of breath and bilateral lower extremity swelling for the last 2 weeks, denies any chest pain, denies lightheadedness, near-syncope, syncope, denies vision changes denies headaches , denies chest pain, no fevers, no rigors, no chills, no cough, no sputum production. Patient is still complaining of left-sided weakness. Preliminary workup was significant for: FINDINGS: HEAD CTA: There is no acute intraparenchymal hemorrhage. No evidence of mass lesion. No evidence of acute infarction. There are old lacunar infarcts of the right basal ganglia and left thalamus. There is mild periventricular and subcortical hypodensity probably related to small vessel ischemic disease. There is mild prominence of the sulci and ventricles related to cerebral atrophy. Intracranial calcified cerebral atherosclerosis is noted. There are no extra-axial collections. There is no mass effect or midline shift. The orbits and soft tissues are unremarkable. There is near complete opacification of the right maxillary sinus. There is no significant stenosis of the basilar artery or posterior cerebral arteries. There is no significant stenosis of the intracranial internal carotid arteries or the anterior or middle cerebral arteries. The anterior communicating artery and posterior communicating arteries are normal. There is no aneurysm. NECK CTA: The thyroid gland is unremarkable. The submandibular and parotid glands are symmetric. There is no lymphadenopathy. There are no masses identified. The airway is unremarkable. There is mild cervical spondylosis. There is mediastinal lymphadenopathy. ? ? There is 35% stenosis of the proximal right internal carotid artery relative to normal distal artery lumen diameter (NASCET criteria). There is 39% stenosis of the proximal left internal carotid artery relative to normal distal artery lumen diameter. IMPRESSION: 1. No acute intracranial abnormality. Normal head CTA. 2. 35% stenosis of the proximal right internal carotid artery relative to normal distal artery lumen diameter (NASCET criteria). 3. 39% stenosis of the proximal left internal carotid artery relative to normal distal artery lumen diameter. 4. Mediastinal lymphadenopathy of unclear etiology which could be reactive or reflect metastatic disease. Consider dedicated chest CT. Review of Systems Review of Systems: Left-sided weakness Constitutional: Constitutional: Denies chills, Denies fatigue, Denies fever(s), Denies lethargy, Denies malaise and Denies poor appetite Eyes: Eyes: Denies change in vision ENT: Denies dysphagia and Denies odynophagia Cardiovascular: Cardiovascular: Denies chest pain, Denies syncope, Denies lightheadedness and Denies palpitations Respiratory: Respiratory: Denies chest congestion, Denies pain on inspiration, Denies dyspnea and Denies dyspnea on exertion Gastrointestinal: Gastrointestinal: Denies abdominal pain, Denies dyspepsia, Denies heartburn, Denies diarrhea, Denies nausea and Denies vomiting Genitourinary: Genitourinary: Denies dysuria Musculoskeletal: Musculoskeletal: Denies back pain Integumentary/Breasts: Skin/Breast: Denies rash Neurologic: Reports focal weakness (Left-sided) and Denies Sensory deficit (Neuro) Endocrine: Endocrine: Denies cold intolerance, Denies flushing, Denies heat intolerance, Denies polyphagia, Denies polydipsia and Denies palpitations Hematologic/Lymphatic: Hematologic/Lymphatic: Reports no additional hematologic/lymphatic complaints and Reports as per HPI [facility] Family History Family History (Updated 08/07/22 @ 07:32 by Kassi Ennis RN) [place]
--- NOTE | 2022-08-07 05:57 | PC.NURSE ---
Patient sitting up in recliner at this time, at bedside.
--- NOTE | 2022-08-07 07:00 | ADMGEN ---
This patient, Jere Mcallister, was admitted to IMU Room 209-01 on 08/07/22 at 0659. Patient/family oriented to hospital policies and general routines including ID bracelet, bed and alarms, visiting hours, pain management, procedures, bathroom and other care routines, personal items, smoking policy, room service/diet, and visiting hours. Information on how to activate the Rapid Response Team has been discussed. Patient/Family are encouraged to report perceived risks to care and to ask questions if they do not understand what they are told or what they should do.
--- NOTE | 2022-08-07 08:44 | PC.NURSE ---
Patient admitted to drinking a bottle of Vodka daily and a bottle of wine for 3 years since the pandemic began. He stated he most recently only drinks wine daily. Notified Dr. Portillo. [facility] protocol in place.
[2022-08-07] MEDS: METOPROLOL TARTRATE 50 MG TAB 100 MG PO ×2 (10:49→21:20)
[2022-08-07] MEDS: SERTRALINE HCL 50 MG TABLET PO (10:49)
[2022-08-07] MEDS: ATORVASTATIN 40 MG TABLET 80 MG PO (10:49)
[2022-08-07] MEDS: VALSARTAN 80 MG TABLET PO (10:49)
[2022-08-07] MEDS: EZETIMIBE 10 MG TABLET PO (10:49)
[2022-08-07] MEDS: CLOPIDOGREL BISULFATE 75 MG TABLET PO (10:49)
[2022-08-07] MEDS: chlordiazePOXIDE (*CRX) 25 MG CAPSULE PO ×2 (10:57→17:23)
[2022-08-07 11:44] LABS: Troponin I 0.099 ng/mL (0.000-0.034)
[2022-08-07] MEDS: cilostazoL 100 MG TABLET PO (17:22)
[2022-08-07] MEDS: APIXABAN 5 MG TABLET PO (17:22)
[2022-08-07] MEDS: metFORMIN HCL XR 500 MG TAB.SR.24H 1000 MG PO (17:22)
--- NOTE | 2022-08-07 17:25 | PC.NURSE ---
Patient was taken to MRI but he was missing a stent card. MRI was not able to be preformed. went home to find stent card and brought it back to the hospital. All stent card copies have been placed on the front of patient chart. MRI was called to notify and they had left for the day. will notify in the morning.
[2022-08-07 17:37] LABS: Glucose Point of Care 198 mg/dl (65-105)
[2022-08-07 18:23] LABS: Troponin I 0.097 ng/mL (0.000-0.034)
[2022-08-07] MEDS: LORazepam INJ (*CRX) 2 MG/ML VIAL IV PUSH (21:22)
[2022-08-08] VITALS (11 sets, daily range): BP systolic 101–133; BP diastolic 61–86; PULSE 88–116; RESP 20–24; TEMP 36.3–36.7; O2SAT 95–99
[2022-08-08 00:06] LABS: Glucose Point of Care 178 mg/dl (65-105)
[2022-08-08] MEDS: chlordiazePOXIDE (*CRX) 25 MG CAPSULE PO ×4 (05:19→23:38)
[2022-08-08 05:34] LABS: Basophils Percent Auto 0.6 % (0.2-1.2); Eosinophils Absolute Auto 0.1 K/mm3 (0-0.3); Eosinophils Percent Auto 0.9 % (0-4.4); Hematocrit 42.7 % (42.0-52.0); Hemoglobin 14.4 g/dL (14.0-18.0); Immature Granulocyte Absolute 0.02 K/mm3 (0.00-0.031); Immature Granulocyte Percent A 0.3 % (0-0.5); Lymphocytes Absolute Auto 1.55 K/mm3 (0.9-3.2); Lymphocytes Percent Auto 22.8 % (18.3-44.2); Mean Corpuscular HGB Conc 33.7 g/dl (32-36); Mean Corpuscular Hemoglobin 34.8 pg (26-34); Mean Corpuscular Volume 103.1 fl (80-100); Mean Platelet Volume 10.9 fl (7.4-10.4); Monocytes Absolute Auto 0.5 K/mm3 (0.1-0.6); Neutrophils Absolute Auto 4.6 K/mm3 (1.3-6.7); Neutrophils Percent Auto 67.4 % (45.5-73.1); Platelet Count Result 217 k/mm3 (150-375); Red Blood Count 4.14 M/mm3 (4.6-6.20); Red Cell Distribution Width 13.6 % (11.5-14.5); White Blood Count 6.8 K/mm3 (4.5-10.0)
[2022-08-08 05:44] LABS: Anion Gap 5 mmol/L (8-16); Blood Urea Nitrogen 8 mg/dL (9-20); Calcium 8.9 mg/dL (8.4-10.2); Carbon Dioxide 25 mmol/L (22-30); Chloride 107 mmol/L (98-107); Estimated CRCL calculation 113 ml/min; Estimated Glomerular Filt Rate > 60; Glucose 156 mg/dL (65-110); Sodium 137 mmol/L (137-145)
--- NOTE | 2022-08-08 06:00 | ECHO_ITS ---
Patient Info Name: Jere Mcallister Age: 67 years : 1955 Gender: Male Ht: 72 in Wt: 197 lbs BSA: 2.14 m2 BP: 125 / 74 mmHg Heart Rhythm: Atrial Fibrillation Exam Date: 08/08/2022 8:35 AM Exam Location: [facility] Patient Status: Inpatient Admit Date: 08/07/2022 Staff Ordering Physician: Porfirio Miguel MD Laundry Marker Supervisor: Ash Christianson, RDCS, RT Attending Provider: Bing Bautista MD Referring Physician: Myriam TONEY; Exam Type: CA echo dop color flow w con Study Info Indications - CVA Complete two-dimensional, color flow and Doppler transthoracic echocardiogram is performed with contrast to opacify the left ventricle and to improve the deliniation of the left ventricle endocardial borders. Summary 1. Four-chamber cardiac dilation. 2. Severe left ventricular systolic dysfunction ejection fraction 15-20%. 3. Mildly sclerotic aortic valve with no stenosis. 4. Mild to moderate mitral regurgitation resulting from mitral annular dilation. 5. Right ventricular systolic dysfunction. 6. Definity contrast injected to improve visualization. Left Ventricle Left ventricular chamber dimension is severely enlarged. Left ventricular systolic function is severely reduced, estimated at 15-20%. The left ventricular diastolic function is abnormal. Right Ventricle Right ventricular chamber dimension is moderately enlarged. Left Atria Left atrial chamber dimension is severely enlarged. Right Atria Right atrial chamber dimension is severely enlarged. Aortic Valve The aortic valve is trileaflet. There is mild aortic valve sclerosis. Pulmonic Valve The pulmonic valve is not well visualized. Mitral Valve The mitral valve has normal leaflets. There is mild to moderate mitral valve regurgitation. Tricuspid Valve The tricuspid valve leaflets are normal. There is mild tricuspid valve regurgitation. Pericardium/Pleural The pericardium appears normal. Aorta The aortic root size at the sinus of Valsalva is normal. Left Ventricular Outflow Tract Name Value Normal LVOT 2D LVOT Diameter 2.10 cm LVOT Doppler LVOT Peak Gradient 2 mmHg LVOT Mean Gradient 1 mmHg LVOT VTI 12.74 cm LVOT VTI/AV VTI Ratio 0.89 LVOT Stroke Volume 43.99 ml LVOT CO 3.11 l/min LVOT CI 1.45 L/min/m2 Mitral Valve Name Value Normal MV Doppler MV Peak Gradient 1 mmHg MV Mean Gradient 0 mmHg MV Decel Harlan 427.34 cm/s2 MV PHT 0 s MV Area (PHT) 8.45 cm2 4.00-5.00 MV Area (Cont Eq VTI) 9.57 cm2
[2022-08-08] MEDS: METOPROLOL TARTRATE 50 MG TAB 100 MG PO ×2 (08:23→20:42)
[2022-08-08] MEDS: metFORMIN HCL XR 500 MG TAB.SR.24H 1000 MG PO ×2 (08:23→17:14)
[2022-08-08] MEDS: ATORVASTATIN 40 MG TABLET 80 MG PO (08:23)
[2022-08-08] MEDS: CLOPIDOGREL BISULFATE 75 MG TABLET PO (08:23)
[2022-08-08] MEDS: APIXABAN 5 MG TABLET PO ×2 (08:23→17:14)
[2022-08-08] MEDS: VALSARTAN 80 MG TABLET PO (08:24)
[2022-08-08] MEDS: SERTRALINE HCL 50 MG TABLET PO (08:24)
[2022-08-08] MEDS: EZETIMIBE 10 MG TABLET PO (08:24)
[2022-08-08] MEDS: cilostazoL 100 MG TABLET PO ×2 (08:24→17:14)
[2022-08-08] MEDS: PERFLUTREN LIPID MICROSPHERES 1.5 ML VIAL DILUTED TO 10 ML TOTAL VOLUME IV PUSH (08:58)
--- NOTE | 2022-08-08 08:58 | IVDEFINITY ---
Prior to administration of IV Definity the patient was educated on the risks and benefits of the imaging enhancing agent including potential adverse side effects. The patient verbalized understanding. Allergies were verified. No exclusion criteria were identified and at least one of the following inclusion criteria were met: 1) physician request, 2) patient technically difficult to image (per the [place] [employer] guidelines of two or more segments not discernable within the apical view), or 3) questionable left ventricular function. ?
--- NOTE | 2022-08-08 10:05 | WPDNEURCNPN ---
Assessment and Plan Assessment and plan (1) Cerebrovascular accident: Code(s): I63.9 - Cerebral infarction, unspecified Status: Acute (2) Atrial fibrillation with rapid ventricular response: Code(s): I48.91 - Unspecified atrial fibrillation Status: Acute (3) T2DM (type 2 diabetes mellitus): Code(s): E11.9 - Type 2 diabetes mellitus without complications Status: Acute (4) Hypertension: Code(s): I10 - Essential (primary) hypertension Status: Acute (5) Diabetes: Code(s): E11.9 - Type 2 diabetes mellitus without complications Status: Acute (6) Hyperlipidemia: Code(s): E78.5 - Hyperlipidemia, unspecified Status: Acute Plan Jere Mcallister is a 67 year old male with a history of atrial fibrillation, hypertension, hyperlipidemia, diabetes, and chronic smoking presenting due to concerns for stroke/TIA. Presenting symptoms were L sided weakness and slurred speech. Concern for stroke in the setting of NOAC non-compliance. - MRI brain - Surface echo - Continue Eliquis 5mg BID -- discussed importance of medication compliance - Continue Lipitor and Ezetimibe - Counselled on smoking cessation Consult date: 08/08/22 Reason for consult: Concern for stroke/TIA HPI: Jere Mcallister is a 67 year old male with a history of atrial fibrillation, hypertension, hyperlipidemia, diabetes, and chronic smoking presenting due to concerns for stroke/TIA. Patient's last known well was about 2100 on 08/06. Patient woke up the following morning with left sided weakness and slurred speech. EMS was called and patient was transferred to [place] ED. His EKG showed atrial fibrillation with RVR. His blood pressure was in the 150-160s. CT head was negative for acute process. CTA brain/carotid showed 35% stenosis of the proximal R ICA and 39% stenosis of the proximal L ICA. There was also mediastinal LAD noted. CT chest showed 10mm nodule in the superior segments of the right lower lobe suspicious for infection or malignancy. Patient is supposed to take Eliquis 5mg BID, but he has not taken it in the past year (per ). He is also on Lipitor 80mg, Ezetimibe, and Plavix 75mg daily. He has been smoking about 2ppd since age 14. Review of Systems Constitutional: Constitutional: Reports no additional constitutional complaints Eyes: Eyes: Reports no additional eye complaints ENT: Reports system reviewed and no additional complaints, except as documented Cardiovascular: Cardiovascular: Reports no additional cardiovascular complaints Respiratory: Respiratory: Reports cough and Reports dyspnea Gastrointestinal: Gastrointestinal: Reports no additional gastrointestinal complaints Genitourinary: Genitourinary: Reports no additional male genitourinary complaints Musculoskeletal: Musculoskeletal: Reports no additional musculoskeletal complaints Integumentary/Breasts: Skin/Breast: Reports system reviewed and no additional complaints, except as docu Neurologic: Reports as per HPI Psychiatric: Psychiatric: Reports no additional psychiatric complaints PMFSH Family History Family History Father Diabetes mellitus Gout Hypertension Mother Diabetes mellitus Hypertension Social History Social History Smoking packs per day: 1.5 Smoking cigarettes per day: 30.0 Years smoked: 40 Smoking pack-years: 60.00 Smoking status: Current every day smoker Tobacco type: cigarettes Second hand tobacco smoke exposure: Yes Alcohol intake: current Substance use: never Other substance usage details: I bottle of wine daily Last use: 08/06/22 Lack of Transportation: No Lack of Food: Never True Current Housing: I Have Housing Concerned About Future Housing: No Difficulty Paying Gas/Electric Bills: No Difficulty Paying for Meds: No Currently Unemployed: No Education: Hi
--- NOTE | 2022-08-08 11:17 | PM.CNCAR ---
Assessment and Plan Assessment and plan (1) Cerebrovascular accident: Code(s): I63.9 - Cerebral infarction, unspecified Status: Acute (2) Atrial fibrillation with rapid ventricular response: Code(s): I48.91 - Unspecified atrial fibrillation Status: Acute (3) T2DM (type 2 diabetes mellitus): Code(s): E11.9 - Type 2 diabetes mellitus without complications Status: Acute (4) Hypertension: Code(s): I10 - Essential (primary) hypertension Status: Acute (5) Diabetes: Code(s): E11.9 - Type 2 diabetes mellitus without complications Status: Acute (6) Hyperlipidemia: Code(s): E78.5 - Hyperlipidemia, unspecified Status: Acute Plan This is a 67-year-old man with chronic atrial fibrillation coronary artery disease and peripheral vascular disease. He has ongoing cigarette smoking and ethanol abuse. He enters the hospital unfortunately after experiencing a CVA he has a left hemiplegia and slurring of his speech. Sadly this is almost certainly because of noncompliance with his anticoagulation regimen, ongoing cigarette smoking and alcohol abuse. His troponin levels are slightly elevated in a pattern that is not of any significant concern at this time. There is no reason to conduct an ischemia workup at this time. Obviously he will need rehab from a stroke and resumption of his anticoagulation and ongoing follow-up. His echocardiogram will be reviewed later to determine any other medical therapy that would be appropriate to/indicated. We will ensure following discharge that follow-up is scheduled in our office once again but the patient unfortunately has a much worse prognosis at this time given the fact that he has a sustained this CVA and sadly has been noncompliant with a medication presumably some degree of depression has been a very problematic in the last couple of years. Jhon Barrow MD [facility] History of Present Illness History of Present Illness Consult date/time: 08/08/22 11:17 Reason For Visit: CVA, troponin leak, afib w RVR Narrative: This is a 67-year-old man I am seeing at the request of the hospitalist today because of elevation in his troponin level at the request of the hospitalist. The patient is apparently known to my partner, Dr. Foley and has a history of chronic atrial fibrillation, coronary artery disease and peripheral vascular disease. The patient has not been seen by myself prior to this. He was brought to the emergency room yesterday when at home he was found to have a slowing of his speech and a left hemiplegia. Of course is felt to be having had a stroke. He is scheduled for a MRI of his brain later this morning which has not yet occurred. The patient is in atrial fibrillation with somewhat rapid ventricular response at admission his ventricular response is now controlled. He has slurring of the speech at this time a but does answer questions appropriately and does not have any active cardiovascular complaints. He is asking to get out of bed I told him he should not be getting up while OR without assistance. He denies any sense of chest pain palpitations orthopnea PND. The patient has a history of coronary artery disease with percutaneous stenting of his right coronary artery back in 2011. He has had more recent lower extremity revascularization with iliac stenting done at [facility] within the last several years. 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 He is supposed to be taking apixaban and clopidogrel as well as metoprolol and a glipizide with metformin. He is not taking any of his medication for a long time. They do not think he has had an appointment wi
--- NOTE | 2022-08-08 14:54 | PM.IMPN ---
Progress Note: A&P Assessment and Plan (1) Cerebrovascular accident: Code(s): I63.9 - Cerebral infarction, unspecified Status: Acute Assessment and Plan: Admit to IMU Neurochecks q.[address] of the head reviewed CTA of head and neck reviewed Supportive care Continue to monitor MRI in a.m. (2) Elevated troponin: Code(s): R77.8 - Other specified abnormalities of plasma proteins Status: Acute Assessment and Plan: Continue to trend Chest pain-free (3) Atrial fibrillation with rapid ventricular response: Code(s): I48.91 - Unspecified atrial fibrillation Status: Acute Assessment and Plan: Rate controlled and anticoagulated (4) T2DM (type 2 diabetes mellitus): Code(s): E11.9 - Type 2 diabetes mellitus without complications Status: Acute Assessment and Plan: Holding metformin Insulin sliding scale as needed Accu-Cheks AC and HS (5) Lymphadenopathy: Code(s): R59.1 - Generalized enlarged lymph nodes Status: Acute Assessment and Plan: ct scan chest ordered Subjective Date/time seen: 08/08/22 14:54 no new complaints Exam Narrative: Patient is sitting in chair Const: General: comfortable, no acute distress, well developed, alert, awake and average body habitus Nutritional Appearance: average body habitus Orientation/consciousness: patient oriented x3 HENMT: Head: normal to inspection, normocephalic and atraumatic Ears: hearing grossly normal bilaterally Face/Nose/Sinus: normal facial exam Face and sinus: normal facial exam Eyes: General: appearance normal, both eyes and all related structures Pupils: Equal, round and reactive pupils present EOM: EOMs intact bilaterally Neck: Neck: full ROM, no lymphadenopathy and no JVD Thyroid: thyroid normal Lymphatic: no lymphadenopathy noted Resp: Effort & Inspection: normal respiratory effort and able to speak in complete sentences Auscultation: clear to auscultation bilaterally Cardio: Jugular venous distension: no JVD Rate: regular rate Rhythm: regular rhythm Heart sounds: S1 normal heart sound present and S2 normal heart sound present : General: Yes deferred Skin: Rashes: no rashes Wounds: no wounds Neuro: General: patient oriented x3, CN's II-XI intact bilaterally and Unable to assess gait Cranial nerves: Yes CN's II-XII intact bilaterally and Yes Equal, round and reactive pupils present Cognition (Neuro): normal cognition Speech: normal speech Gait exam (Neuro): Normal gait present and Unable to assess gait Motor exam (neuro): 5/5 motor strength present throughout Sensory Exam: No Sensory deficit (Neuro) Extrem: General: normal to inspection, full ROM, no joint enlargement, no pedal edema and edema bilateral Objective Data Vital Signs Vital Signs: Vital Signs - 24 hr 08/07/22 16:00 08/07/22 16:00 08/07/22 16:00 Temperature Pulse Rate 109 H Pulse Rate [Bilateral Pedal (Dorsalis Pedis) Palpation] 112 H Respiratory Rate Blood Pressure Pulse Oximetry 98 Oxygen Delivery Room Air 08/07/22 16:00 08/07/22 18:00 08/07/22 20:00 Temperature 98.5 F 97.9 F Pulse Rate 108 H 94 110 H Pulse Rate [Bilateral Pedal (Dorsalis Pedis) Palpation] Respiratory Rate 16 20 Blood Pressure 107/75 119/85 Pulse Oximetry 96 96 Oxygen Delivery 08/07/22 21:20 08/07/22 20:00 08/07/22 20:00 Temperature Pulse Rate 122 H 122 H Pulse Rate [Bilateral Pedal (Dorsalis Pedis) Palpation] 122 H Respiratory Rate 20 Blood Pressure 119/85 Pulse Oximetry 96 Oxygen Delivery Room Air 08/07/22 20:00 08/07/22 21:58 08/08/22 00:00 Temperature 97.8 F Pulse Rate 107 H 100 116 H Pulse Rate [Bilateral Pedal (Dorsalis Pedis) Palpation] Respiratory Rate 20 Blood Pressure 101/61 Pulse Oximetry 95 Oxygen Delivery 08/08/22 00:00 08/08/22 00:00 08/08/22 00:00 Temperature Pulse Rate 111 H 106 H Pulse Rate [Bilateral Pedal (D
[2022-08-08 16:46] LABS: Glucose Point of Care 166 mg/dl (65-105)
[2022-08-08 17:47] LABS: Glucose Point of Care 135 mg/dl (65-105)
[2022-08-08 20:07] LABS: Glucose Point of Care 133 mg/dl (65-105)
--- NOTE | 2022-08-08 22:09 | PC.NURSE ---
This patient, Jere Mcallister, was transferred to [[id number]] on 08/08/22 at 2145. Personal belongings sent with patient. Report given to [[email or web address] ]. Appropriate documentation sent with patient.
[2022-08-09] VITALS (12 sets, daily range): BP systolic 100–155; BP diastolic 65–83; PULSE 59–116; RESP 14–20; TEMP 36.1–37.9; O2SAT 95–97
[2022-08-09 00:05] LABS: Glucose Point of Care 133 mg/dl (65-105)
[2022-08-09] MEDS: LEVALBUTEROL NEB 1.25 MG/3 ML (06:01)
[2022-08-09] MEDS: chlordiazePOXIDE (*CRX) 25 MG CAPSULE PO ×3 (06:13→17:09)
[2022-08-09] MEDS: ACETAMINOPHEN 500 MG TABLET 1000 MG PO (06:15)
[2022-08-09 08:38] LABS: Glucose Point of Care 123 mg/dl (65-105)
--- NOTE | 2022-08-09 10:36 | PM.PNCARD ---
Progress Note: A&P Assessment and Plan (1) Heart failure with reduced ejection fraction: Code(s): I50.20 - Unspecified systolic (congestive) heart failure Status: Acute Assessment and Plan: Echocardiogram shows LVEF 15-20%, mild-moderate MR, and right ventricular systolic dysfunction. CXR and CT imaging did show pulmonary edema/pleural effusions. I will give a one time dose of IV Lasix 40mg. As for GDMT: --Continue Valsartan 80mg daily. Will not plan to switch to Entresto at this time, as Entresto is a BID medication, and patient already has issues with medication noncompliance therefore a BID medication will make it more difficult for the patient. --Will switch his Metoprolol tartrate to succinate --Add Spironolactone 08/09 (2) Cerebrovascular accident: Code(s): I63.9 - Cerebral infarction, unspecified Status: Acute Assessment and Plan: Brain MRI shows acute infarct in posterior right frontal lobe. Neurology consulted. (3) Elevated troponin: Code(s): R77.8 - Other specified abnormalities of plasma proteins Status: Acute Assessment and Plan: No evidence of acute coronary syndrome (4) Atrial fibrillation with rapid ventricular response: Code(s): I48.91 - Unspecified atrial fibrillation Status: Acute Assessment and Plan: Continue Toprol Continue Eliquis 5mg BID (5) T2DM (type 2 diabetes mellitus): Code(s): E11.9 - Type 2 diabetes mellitus without complications Status: Acute Assessment and Plan: Management as per primary (6) Hypertension: Code(s): I10 - Essential (primary) hypertension Status: Acute Assessment and Plan: Blood pressure is stable. Continue with Valsartan, beta cherelle (7) Hyperlipidemia: Code(s): E78.5 - Hyperlipidemia, unspecified Status: Acute Assessment and Plan: Continue high-intensity statin Subjective Date/time seen: 08/09/22 10:36 Interval history: Reason for visit: Acute CVA, troponin leak, AFIB HPI: This is a 67-year-old man I am seeing at the request of the hospitalist today because of elevation in his troponin level at the request of the hospitalist.? The patient is apparently known to my partner, Dr. Foley and has a history of chronic atrial fibrillation, coronary artery disease and peripheral vascular disease.? The patient has not been seen by myself prior to this.? He was brought to the emergency room yesterday when at home he was found to have a slowing of his speech and a left hemiplegia.? Of course is felt to be having had a stroke.? He is scheduled for a MRI of his brain later this morning which has not yet occurred.? The patient is in atrial fibrillation with somewhat rapid ventricular response at admission his ventricular response is now controlled.? He has slurring of the speech at this time a but does answer questions appropriately and does not have any active cardiovascular complaints.? He is asking to get out of bed I told him he should not be getting up while OR without assistance.? He denies any sense of chest pain palpitations orthopnea PND.? The patient has a history of coronary artery disease with percutaneous stenting of his right coronary artery back in 2011.? He has had more recent lower extremity revascularization with iliac stenting done at [facility] within the last several years.? 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 He is supposed to be taking apixaban and clopidogrel as well as metoprolol and a glipizide with metformin.? He is not taking any of his medication for a long time.? They do not think he has had an appointment with Dr. Foley? in over a year. Date of servi
[2022-08-09] MEDS: FUROSEMIDE INJ 40 MG/4 ML VIAL IV PUSH (10:46)
[2022-08-09] MEDS: METOPROLOL TARTRATE 50 MG TAB 100 MG PO ×2 (10:49→21:07)
[2022-08-09] MEDS: CLOPIDOGREL BISULFATE 75 MG TABLET PO (10:49)
[2022-08-09] MEDS: EZETIMIBE 10 MG TABLET PO (10:49)
[2022-08-09] MEDS: ATORVASTATIN 40 MG TABLET 80 MG PO (10:49)
[2022-08-09] MEDS: cilostazoL 100 MG TABLET PO ×2 (10:50→17:09)
[2022-08-09] MEDS: VALSARTAN 80 MG TABLET PO (10:50)
[2022-08-09] MEDS: metFORMIN HCL XR 500 MG TAB.SR.24H 1000 MG PO ×2 (10:50→17:09)
[2022-08-09] MEDS: APIXABAN 5 MG TABLET PO ×2 (10:50→17:09)
[2022-08-09] MEDS: SERTRALINE HCL 50 MG TABLET PO (10:50)
[2022-08-09] MEDS: SPIRONOLACTONE 12.5 MG TABLET PO (11:05)
[2022-08-09 12:02] LABS: Glucose Point of Care 135 mg/dl (65-105)
--- NOTE | 2022-08-09 12:03 | PM.IMPN ---
Progress Note: A&P Assessment and Plan (1) Cerebrovascular accident: Code(s): I63.9 - Cerebral infarction, unspecified Status: Acute Assessment and Plan: Admit to IMU Neurochecks q.[address] of the head reviewed CTA of head and neck reviewed Supportive care Continue to monitor MRI noted to have acute stroke. Likely represent embolic. Patient is on anticoagulation. To note patient had a low-grade temperature overnight. Chest x-ray did not show any pneumonia. He does appear to have trouble clearing oral secretions. Will have speech therapy evaluate the patient. Repeat chest x-ray in the morning. (2) Elevated troponin: Code(s): R77.8 - Other specified abnormalities of plasma proteins Status: Acute Assessment and Plan: Likely noncardiac. Denies chest pain. (3) Atrial fibrillation with rapid ventricular response: Code(s): I48.91 - Unspecified atrial fibrillation Status: Acute Assessment and Plan: Rate controlled and anticoagulated (4) T2DM (type 2 diabetes mellitus): Code(s): E11.9 - Type 2 diabetes mellitus without complications Status: Acute Assessment and Plan: Holding metformin Insulin sliding scale as needed Accu-Cheks AC and HS (5) Lymphadenopathy: Code(s): R59.1 - Generalized enlarged lymph nodes Status: Acute Assessment and Plan: ct scan chest ordered Subjective Date/time seen: 08/09/22 12:03 Patient is doing well without any new complaints. Appears to have trouble clearing oral secretions. Low-grade temperature overnight. Exam Narrative: Patient is sitting in chair Const: General: comfortable, no acute distress, well developed, alert, awake and average body habitus Nutritional Appearance: average body habitus Orientation/consciousness: patient oriented x3 HENMT: Head: normal to inspection, normocephalic and atraumatic Ears: hearing grossly normal bilaterally Face/Nose/Sinus: normal facial exam Face and sinus: normal facial exam Eyes: General: appearance normal, both eyes and all related structures Pupils: Equal, round and reactive pupils present EOM: EOMs intact bilaterally Neck: Neck: full ROM, no lymphadenopathy and no JVD Thyroid: thyroid normal Lymphatic: no lymphadenopathy noted Resp: Effort & Inspection: normal respiratory effort and able to speak in complete sentences Auscultation: clear to auscultation bilaterally Cardio: Jugular venous distension: no JVD Rate: regular rate Rhythm: regular rhythm Heart sounds: S1 normal heart sound present and S2 normal heart sound present : General: Yes deferred Skin: Rashes: no rashes Wounds: no wounds Neuro: General: patient oriented x3, CN's II-XI intact bilaterally and Unable to assess gait Cranial nerves: Yes CN's II-XII intact bilaterally and Yes Equal, round and reactive pupils present Cognition (Neuro): normal cognition Speech: normal speech Gait exam (Neuro): Normal gait present and Unable to assess gait Motor exam (neuro): 5/5 motor strength present throughout Sensory Exam: No Sensory deficit (Neuro) Extrem: General: normal to inspection, full ROM, no joint enlargement, no pedal edema and edema bilateral Objective Data Vital Signs Vital Signs: Vital Signs - 24 hr 08/08/22 16:00 08/08/22 16:00 08/08/22 16:00 Temperature 97.9 F Pulse Rate 104 H 88 Pulse Rate [Bilateral Pedal (Dorsalis Pedis) Palpation] 88 Respiratory Rate 24 H Blood Pressure 124/77 Pulse Oximetry 99 Oxygen Delivery 08/08/22 20:42 08/08/22 20:00 08/08/22 20:00 Temperature Pulse Rate 99 99 Pulse Rate [Bilateral Pedal (Dorsalis Pedis) Palpation] 99 Respiratory Rate Blood Pressure 124/77 Pulse Oximetry Oxygen Delivery 08/08/22 20:00 08/09/22 00:00 08/09/22 00:00 Temperature 100.2 F H Pulse Rate 99 88 102 H Pulse Rate [Bilateral Pedal (Dorsalis Pedis) Palpation] Respiratory Rate 24 H 14 Blood Pressure 137/82
[2022-08-09 16:24] LABS: Glucose Point of Care 120 mg/dl (65-105)
[2022-08-09 22:34] LABS: Glucose Point of Care 128 mg/dl (65-105)
[2022-08-10] VITALS (29 sets, daily range): BP systolic 57–170; BP diastolic 44–112; PULSE 89–164; RESP 16–44; TEMP 36.1–40.2; O2SAT 94–100
[2022-08-10] MEDS: chlordiazePOXIDE (*CRX) 25 MG CAPSULE PO ×2 (01:06→05:47)
[2022-08-10] MEDS: metFORMIN HCL XR 500 MG TAB.SR.24H 1000 MG PO (08:25)
[2022-08-10] MEDS: VALSARTAN 80 MG TABLET PO (08:25)
[2022-08-10] MEDS: cilostazoL 100 MG TABLET PO (08:26)
[2022-08-10] MEDS: EZETIMIBE 10 MG TABLET PO (08:26)
[2022-08-10] MEDS: SPIRONOLACTONE 12.5 MG TABLET PO (08:26)
[2022-08-10] MEDS: ATORVASTATIN 40 MG TABLET 80 MG PO (08:26)
[2022-08-10] MEDS: CLOPIDOGREL BISULFATE 75 MG TABLET PO (08:26)
[2022-08-10] MEDS: APIXABAN 5 MG TABLET PO (08:26)
[2022-08-10] MEDS: SERTRALINE HCL 50 MG TABLET PO (08:26)
[2022-08-10] MEDS: METOPROLOL SUCCINATE EXT REL 100 MG TABCR 200 MG PO (08:27)
[2022-08-10 08:40] LABS: Glucose Point of Care 103 mg/dl (65-105)
[2022-08-10 10:06] LABS: Anion Gap 5 mmol/L (8-16); Blood Urea Nitrogen 10 mg/dL (9-20); Calcium 8.4 mg/dL (8.4-10.2); Carbon Dioxide 27 mmol/L (22-30); Chloride 106 mmol/L (98-107); Estimated CRCL calculation 113 ml/min; Estimated Glomerular Filt Rate > 60; Glucose 105 mg/dL (65-110); Potassium 3.4 mmol/L (3.4-5.0); Sodium 138 mmol/L (137-145)
--- NOTE | 2022-08-10 10:34 | PM.PNCARD ---
Progress Note: A&P Assessment and Plan (1) Heart failure with reduced ejection fraction: Code(s): I50.20 - Unspecified systolic (congestive) heart failure Status: Acute Assessment and Plan: Echocardiogram shows LVEF 15-20%, mild-moderate MR, and right ventricular systolic dysfunction. CXR and CT imaging did show pulmonary edema/pleural effusions. Given IV Lasix 40mg IV x 1 on 08/09. Repeat CXR 08/10 shows stable mild ground glass opacities with interstitial prominence, mild pulmonary edema vs chronic interstitial lung disease. Will repeat IV Lasix today. As for GDMT: --Continue Valsartan 80mg daily. Will not plan to switch to Entresto at this time, as Entresto is a BID medication, and patient already has issues with medication noncompliance therefore a BID medication will make it more difficult for the patient. --Switched his Metoprolol tartrate to succinate --Added Spironolactone 08/09 (2) Cerebrovascular accident: Code(s): I63.9 - Cerebral infarction, unspecified Status: Acute Assessment and Plan: Brain MRI shows acute infarct in posterior right frontal lobe. Neurology consulted. (3) Elevated troponin: Code(s): R77.8 - Other specified abnormalities of plasma proteins Status: Acute Assessment and Plan: No evidence of acute coronary syndrome (4) Atrial fibrillation with rapid ventricular response: Code(s): I48.91 - Unspecified atrial fibrillation Status: Acute Assessment and Plan: Continue Toprol Continue Eliquis 5mg BID (5) T2DM (type 2 diabetes mellitus): Code(s): E11.9 - Type 2 diabetes mellitus without complications Status: Acute Assessment and Plan: Management as per primary (6) Hypertension: Code(s): I10 - Essential (primary) hypertension Status: Acute Assessment and Plan: Blood pressure is stable. Continue with Valsartan, beta cherelle (7) Hyperlipidemia: Code(s): E78.5 - Hyperlipidemia, unspecified Status: Acute Assessment and Plan: Continue high-intensity statin Subjective Date/time seen: 08/10/22 10:34 Interval history: Reason for visit: Acute CVA, troponin leak, AFIB HPI: This is a 67-year-old man I am seeing at the request of the hospitalist today because of elevation in his troponin level at the request of the hospitalist.? The patient is apparently known to my partner, Dr. Foley and has a history of chronic atrial fibrillation, coronary artery disease and peripheral vascular disease.? The patient has not been seen by myself prior to this.? He was brought to the emergency room yesterday when at home he was found to have a slowing of his speech and a left hemiplegia.? Of course is felt to be having had a stroke.? He is scheduled for a MRI of his brain later this morning which has not yet occurred.? The patient is in atrial fibrillation with somewhat rapid ventricular response at admission his ventricular response is now controlled.? He has slurring of the speech at this time a but does answer questions appropriately and does not have any active cardiovascular complaints.? He is asking to get out of bed I told him he should not be getting up while OR without assistance.? He denies any sense of chest pain palpitations orthopnea PND.? The patient has a history of coronary artery disease with percutaneous stenting of his right coronary artery back in 2011.? He has had more recent lower extremity revascularization with iliac stenting done at [facility] within the last several years.? 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 He is supposed to be taking apixaban and clopidogrel as well as metoprolol and a glipizide
[2022-08-10] MEDS: FUROSEMIDE INJ 40 MG/4 ML VIAL IV PUSH (10:49)
[2022-08-10 11:55] LABS: Glucose Point of Care 118 mg/dl (65-105)
--- NOTE | 2022-08-10 12:08 | PCSTNOTE ---
Please refer to the Bedside Swallow Evaluation in the EMR. Please note, silent aspiration cannot be ruled out at bedside.
--- NOTE | 2022-08-10 15:12 | PC.NURSE ---
On 08/10/22, the student, Jaimee Gonzalez, provided care and completed [facility] documentation on this patient. I have reviewed the student's documentation and agree with the findings.
--- NOTE | 2022-08-10 16:34 | PM.IMPN ---
Progress Note: A&P Assessment and Plan (1) Cerebrovascular accident: Code(s): I63.9 - Cerebral infarction, unspecified Status: Acute Assessment and Plan: Admit to IMU Neurochecks q.[address] of the head reviewed CTA of head and neck reviewed Supportive care Continue to monitor MRI noted to have acute stroke. Likely represent embolic. Patient is on anticoagulation. To note patient had a low-grade temperature overnight. Chest x-ray did not show any pneumonia. He does appear to have trouble clearing oral secretions. Will have speech therapy evaluate the patient. Repeat chest x-ray in the morning. 08/10/2022 interval history: 67 y/o male with history of alcohol abuse and noncompliant with his medications, is fount to have acute infarct in posterior right frontal lobe, echo showed LVEF 15-20% and patient is being treated with IV Lasix, patient has diffictuly swallowing, due to alcohol withdrawal, will hold libiriium as patient CIWA scores are low and and somnolent, poor PO intake, (2) Elevated troponin: Code(s): R77.8 - Other specified abnormalities of plasma proteins Status: Acute Assessment and Plan: Likely noncardiac. Denies chest pain. (3) Atrial fibrillation with rapid ventricular response: Code(s): I48.91 - Unspecified atrial fibrillation Status: Acute Assessment and Plan: Rate controlled and anticoagulated (4) T2DM (type 2 diabetes mellitus): Code(s): E11.9 - Type 2 diabetes mellitus without complications Status: Acute Assessment and Plan: Holding metformin Insulin sliding scale as needed Accu-Cheks AC and HS (5) Lymphadenopathy: Code(s): R59.1 - Generalized enlarged lymph nodes Status: Acute Assessment and Plan: ct scan chest ordered Subjective Date/time seen: 08/10/22 16:34 08/10/2022 interval history: 67 y/o male with history of alcohol abuse and noncompliant with his medications, is fount to have acute infarct in posterior right frontal lobe, echo showed LVEF 15-20% and patient is being treated with IV Lasix, patient has diffictuly swallowing, due to alcohol withdrawal, will hold libiriium as patient CIWA scores are low and and somnolent, poor PO intake, Review of Systems Review of Systems: ROS unobtainable: Yes unobtainable due to medical condition Exam Narrative: Appears chronically ill older than his age Patient is comfortable, NAD HEENT: eyes are clear and none icteric LUNGS: Normal respiratory effort ABD: Not distended Lower extremities: no edema SKIN: nonjaundiced Neuro: grossly intact somnolent. Objective Data Vital Signs Vital Signs: Vital Signs - 24 hr 08/09/22 21:09 08/09/22 22:02 08/09/22 20:00 Temperature 97.7 F 98 F Pulse Rate 108 H 59 L 59 L Pulse Rate [Bilateral Pedal (Dorsalis Pedis) Palpation] Respiratory Rate 20 20 20 Blood Pressure 123/65 155/83 H Pulse Oximetry 97 97 Oxygen Delivery Room Air 08/09/22 20:00 08/10/22 00:00 08/09/22 20:00 Temperature Pulse Rate 116 H Pulse Rate [Bilateral Pedal (Dorsalis Pedis) Palpation] 99 99 Respiratory Rate Blood Pressure Pulse Oximetry Oxygen Delivery 08/10/22 00:00 08/10/22 04:00 08/10/22 04:00 Temperature Pulse Rate 98 96 Pulse Rate [Bilateral Pedal (Dorsalis Pedis) Palpation] 96 Respiratory Rate Blood Pressure Pulse Oximetry Oxygen Delivery 08/10/22 05:59 08/10/22 08:27 08/10/22 08:00 Temperature 97 F L Pulse Rate 101 H 99 99 Pulse Rate [Bilateral Pedal (Dorsalis Pedis) Palpation] Respiratory Rate 18 Blood Pressure 151/83 H Pulse Oximetry 96 Oxygen Delivery 08/10/22 12:00 08/10/22 13:30 08/10/22 14:41 Temperature 97.4 F L Pulse Rate 120 H 96 Pulse Rate [Bilateral Pedal (Dorsalis Pedis) Palpation] Respiratory Rate 16 Blood Pressure 134/70 Pulse Oximetry 99 Oxygen Delivery Room Air Intake/Output Intake/Output: Intake
[2022-08-10 16:58] LABS: Glucose Point of Care 125 mg/dl (65-105)
--- NOTE | 2022-08-10 20:00 | PC.NURSE ---
Came into patient room at this time after overhead page of rapid response. Per Charge Nurse, patient's telemetry showed patient was in Afib rvr with HR 160 and greater. She came to room and patient was not very responsive. Rapid response team came to the room and patient hooked up to monitors. Patient responding to commands at this time and squeezing right hand when asked. Patient has had garbled speech since admission. Pupils equal and responsive. Audible coarse, crackles noted with rapid abdominal breathing and SOB as well. Patient was taken to Stat CT and then transferred to ICU. Report given to ICU nurse and staff.
[2022-08-10] MEDS: METOPROLOL TARTRATE INJ 5 MG/5 ML VIAL (20:05)
[2022-08-10 20:06] LABS: Glucose Point of Care 140 mg/dl (65-105)
[2022-08-10 20:42] LABS: Alveolar/Arterial O2 Gradient 464.6 mmHg; Base Excess ABG -1.1 mEq/l (+/-2.0); Fractional Inspired Oxygen 100 %; HCO3 ABG 22.1 mEq/l (22.0-26.0); Oxygen Content ABG 23.1 %vol (16.0-22.0); Oxygen Saturation ABG 99.5 % (95.0-100.0); Oxyhemoglobin 97.9 % THb (90.0-100.0); PCO2 ABG 33.1 mmHg (35.0-45.0); PO2 ABG 215.3 mmHg (80.0-100.0); PO2 FiO2 Ratio Arterial Blood 2.15 %; Total Hemoglobin 16.5 g/dL (12.0-18.0); pH ABG 7.442 (7.350-7.450)
[2022-08-10 20:43] LABS: Device NON-REBREATHER MASK; Site Drawn RIGHT BRACHIAL
[2022-08-10 20:49] LABS: Hematocrit 47.7 % (42.0-52.0); Hemoglobin 16.1 g/dL (14.0-18.0); Mean Corpuscular HGB Conc 33.8 g/dl (32-36); Mean Corpuscular Hemoglobin 35.5 pg (26-34); Mean Corpuscular Volume 105.1 fl (80-100); Mean Platelet Volume 10.6 fl (7.4-10.4); Platelet Count Result 245 k/mm3 (150-375); Red Blood Count 4.54 M/mm3 (4.6-6.20); Red Cell Distribution Width 13.6 % (11.5-14.5); White Blood Count 9.4 K/mm3 (4.5-10.0)
[2022-08-10] MEDS: SUCCINYLCHOLINE CHLORIDE 20 MG/ML 10 ML VIAL 100 MG IV PUSH (20:50)
[2022-08-10] MEDS: FENTANYL 2,500MCG/NS250ML(*CRX 2,500 MCG/250 ML BAG IV CONT (20:52)
[2022-08-10] MEDS: MIDAZOLAM 100MG/NS 100ML(*CRX) 100 MG/100 ML BAG IV CONT (20:53)
[2022-08-10 21:01] LABS: INR 1.4; Prothrombin Time 16.7 Seconds (11.1-14.7)
[2022-08-10 21:02] LABS: Alanine Aminotransferase 24 U/L (6-50); Albumin Level 3.8 g/dL (3.5-5.1); Alkaline Phosphatase 125 U/L (38-126); Anion Gap 9 mmol/L (8-16); Aspartate Amino Transferase 48 U/L (17-59); Bilirubin,Total 1.5 mg/dL (0.2-1.3); Blood Urea Nitrogen 10 mg/dL (9-20); Calcium 8.7 mg/dL (8.4-10.2); Carbon Dioxide 27 mmol/L (22-30); Chloride 102 mmol/L (98-107); Estimated CRCL calculation 78 ml/min; Estimated Glomerular Filt Rate > 60; Glucose 138 mg/dL (65-110); Magnesium 1.4 mg/dL (1.6-2.3); Potassium 3.7 mmol/L (3.4-5.0); Sodium 138 mmol/L (137-145)
--- NOTE | 2022-08-10 21:18 | P.PCNBED_ITS ---
Procedures Intubation Intubation Date: 08/10/22 Intubation Time: 20:47 Consent: Patient and gave consent. A pre-procedural Time-Out was completed immediately before starting the procedure and confirmed: Patient Identification, Site, Procedure, Patient Position and the Availability of Requisite Equipment: Yes Sedative: etomidate Mg given: 20 Paralytic: succinylcholine Mg given: 100 Laryngoscope: fiber optic video scope Assist device used: fiber optic device ET tube size: 7.5 Tube secured depth (cm): 24 Tube secured location: lips Tube placement confirmation: visualized tube passing through cords, equal breath sounds bilaterally, no breath sounds over epigastrium and confirmation by capnometry Patient tolerated procedure: well Intubation complications: none Additional comments: Rapid response was called followed shortly by Michael Carrera. Patient was taken for stat brain CT and taken to the ICU thereafter. I received a phone call that the patient appeared to be in respiratory distress. I came to evaluate the patient immediately. He was tachycardic, in atrial fibrillation with rapid chas tricular response with rates in the 150s to 160s. He was also quite tachypneic with respiratory rates in the 40s with signs of respiratory distress and abdominal breathing. Decision was made to intubate pending respiratory failure. Patient had courses crackles and rhonchi throughout the lung lim. He was mottled on the trunk and extremities. He was alert but seemed disoriented but was able to shake his head yes when discussing intubation. His also gave verbal consent. He was preoxygenated on a non-rebreather mask to 100%. Etomidate and succinylcholine were given for rapid sequence intubation. He was intubated easily and atraumatically on 1st attempt with a 7.5 ET tube, which was visualized passing through the vocal cords. Equal breath sounds were auscultated bilaterally, mist was noted in the ET tube, and there was positive color change by capnometry. Chest x-ray was reviewed at bedside and ET tube looked in satisfactory position, about 3 cm above the virgen. Chest x-ray showed diffuse bilateral pulmonary infiltrates, right greater than left with concerns for pulmonary edema and pneumonia, possible aspiration has there were some reports that his had fed him mashed potatoes not long prior. Vital signs were stable throughout the procedure and he maintained his SpO2 in the high 90s the entire time. Blood pressures have been high/stable. Temperature has peaked at 104.4? F. Temporary vent settings include a tidal volume of 460, respiratory rate 18, peep of 5, FiO2 50%.
[2022-08-10 21:21] LABS: Troponin I 0.118 ng/mL (0.000-0.034)
[2022-08-10] MEDS: ETOMIDATE 20 MG/10 ML AMPUL IV PUSH (21:27)
--- NOTE | 2022-08-10 21:47 | PM.IMPN ---
Progress Note: A&P Assessment and Plan (1) Heart failure with reduced ejection fraction: Code(s): I50.20 - Unspecified systolic (congestive) heart failure Status: Acute Assessment and Plan: patient with EF of 15-20%, cardiology on board, maximize medical management (2) Cerebrovascular accident: Code(s): I63.9 - Cerebral infarction, unspecified Status: Acute Assessment and Plan: neurochecks q.4 hours, no new lesions on repeat CT scan (3) Atrial fibrillation with rapid ventricular response: Code(s): I48.91 - Unspecified atrial fibrillation Status: Acute Assessment and Plan: will start amiodarone drip for rate control. Given metoprolol by Cardiology. Already on Eliquis and clopidogrel. Plan Called for rapid response as patient was noted to be in rapid atrial fibrillation with altered mental status. Patient has known CVA with left-sided weakness and is now presenting with increased altered mental status and tachycardia. Patient was not following commands, not tracking, and seemed more confused according to the nurse. Patient immediately brought down to CT scan for repeat imaging due to concerns of worsening CVA with hemorrhagic transformation. Discussed with radiologist foreign law consultant, CT shows anticipated CVA changes, no bleeding seen. Patient was then transferred to the ICU for further monitoring. Case discussed with patient's and son Ash and they have agreed to proceed with all interventions necessary as per patient's wishes of being full code. He was having shallow respirations and was tachypneic to 40 a minute respiratory rate. A decision was made to intubate patient due to his respiratory failure. Initial vent settings tidal volume of 460 rate of 18, 100% FiO2 and PEEP of 5. Patient was given fentanyl and Versed for sedation. Patient initially given metoprolol IV push however continued to be in rapid AFib. patient was then started on an amiodarone drip due to persistent tachycardia. His blood pressure was on the lower side which prevented use of diltiazem drip. Computer was warning against drug interaction with cilostazol and so cilostazol was discontinued instead. Patient had chest x-ray done which showed increased opacities questionable for pneumonia versus pulmonary edema. As per nurse sign out, patient had choking episodes earlier in the day when his was trying to feed him so there was concern for aspiration pneumonia. Patient empirically started on some Zosyn. Case discussed with foreign law consultant Dr. Abbasi. Time Spent With Patient Time: over 60 minutes Subjective Date/time seen: 08/10/22 21:47 Review of Systems Review of Systems: Unable to obtain as patient with altered mental status Objective Data Vital Signs Vital Signs: Vital Signs - 24 hr 08/09/22 22:02 08/10/22 00:00 08/10/22 00:00 Temperature 98 F Pulse Rate 59 L 98 Pulse Rate [Bilateral Pedal (Dorsalis Pedis) Palpation] 99 Respiratory Rate 20 Blood Pressure 155/83 H Pulse Oximetry 97 Oxygen Delivery Fraction of Inspired Oxygen 08/10/22 04:00 08/10/22 04:00 08/10/22 05:59 Temperature 97 F L Pulse Rate 96 101 H Pulse Rate [Bilateral Pedal (Dorsalis Pedis) Palpation] 96 Respiratory Rate 18 Blood Pressure 151/83 H Pulse Oximetry 96 Oxygen Delivery Fraction of Inspired Oxygen 08/10/22 08:27 08/10/22 08:00 08/10/22 12:00 Temperature Pulse Rate 99 99 120 H Pulse Rate [Bilateral Pedal (Dorsalis Pedis) Palpation] Respiratory Rate Blood Pressure Pulse Oximetry Oxygen Delivery Fraction of Inspired Oxygen 08/10/22 13:30 08/10/22 14:41 08/10/22 16:00 Temperature 97.4 F L Pulse Rate 96 106 H Pulse Rate [Bilateral Pedal (Dorsalis Pedis) Palpation] Respiratory Rate 16 Blood Pressure 134/70 Pulse Oximetry 99 Oxygen Delivery Room Air Fraction of Inspired Oxygen 08/10/22 20:52 08/10/22 20:53
[2022-08-10] MEDS: NOREPINEPHRINE 8 MG/D5W 250 ML 8 MG/250 ML BAG 9.38 MG IV CONT (22:35)
[2022-08-10] MEDS: PIPERACILLN/TAZ 3.375GM/NS50ML 3.375 GM/50 ML BAG IVPB (22:40)
[2022-08-10] MEDS: SODIUM CHLORIDE 0.9% IV 500 ML 999 ML IV CONT (22:40)
[2022-08-10] MEDS: MINERAL OIL/WHITE PETROLATUM OINTMENT 1 APPLIC EACH EYE (23:07)
[2022-08-10 23:08] LABS: Alveolar/Arterial O2 Gradient 182.4 mmHg; Base Excess ABG -1.3 mEq/l (+/-2.0); Carboxyhemoglobin 0.4 % THb (0-2.0); Fractional Inspired Oxygen 50 %; HCO3 ABG 23.2 mEq/l (22.0-26.0); Methemoglobin ABG 0.4 %THb (0-1.5); Oxygen Content ABG 19.8 %vol (16.0-22.0); Oxygen Saturation ABG 98.6 % (95.0-100.0); Oxyhemoglobin 97.3 % THb (90.0-100.0); PCO2 ABG 38.1 mmHg (35.0-45.0); PO2 ABG 131.2 mmHg (80.0-100.0); PO2 FiO2 Ratio Arterial Blood 2.62 %; Reduced Hemoglobin 1.9 %THb (0-5.0); Total Hemoglobin 14.3 g/dL (12.0-18.0); pH ABG 7.402 (7.350-7.450)
[2022-08-10 23:11] LABS: Arterial Blood Gas PEEP 5 cmH2O; Arterial Blood Gas Tidal Volume 460 ml; Arterial Blood Gas Vent Mode CMV; Arterial Blood Gas Ventilator rate 18 /MIN; Device VENTILATOR; Site Drawn LEFT BRACHIAL
--- NOTE | 2022-08-10 23:50 | P.PCNBED_ITS ---
Procedures Central Line Placement Right Femoral: Central Line Date: 08/10/22 Central Line Time: 23:50 Discussed w/ the patient/family/POA,the placement of a central venous catheter, including its clinical necessity/indication & associated potential risks, benifits and alternatives.: Yes Consent: I have discussed with the patient and/or surrogate, the non-emergent placement of a central venous catheter, including its clinical necessity/indication and associated potential risks and complications. The patient and/or surrogate understand(s) and acknowledge(s) the need to proceed with central venous catheter insertion as an important element of the patient's clinical management. Time Out Performed: Yes Patient Position: supine Patient placed on monitor/pulse ox: Yes Provider Prep: mask, sterile gown, sterile gloves, Max. sterile barrier precautions, cap and hand hygiene with conventional soap/water or alcohol based hand rub Central line prep: 2% Chlorhexidine scrub Local anesthesia used: lidocaine 1% Amount of anesthesia used (ml): 5 Sterile US Technique with sterile gel/sterile probe covers: Yes Central line lumen inserted: triple Estonian: 7 Length (cm): 20 Post Procedure: sutured in place, good blood return, all ports aspirated, flushed, capped, transparent dressing, antimicrobial product, securement product and aseptic technique maintained throughout procedure Post procedure x-ray: other (n/a with femoral placement) Complications: none
[2022-08-11] VITALS (36 sets, daily range): BP systolic 63–141; BP diastolic 42–90; PULSE 77–112; RESP 18; TEMP 36.7–40.2; O2SAT 90–98; BMI 24.2
[2022-08-11 01:17] LABS: Glucose Point of Care 148 mg/dl (65-105)
[2022-08-11 01:27] LABS: Troponin I 0.236 ng/mL (0.000-0.034)
[2022-08-11 04:06] LABS: Hematocrit 41.2 % (42.0-52.0); Hemoglobin 14.1 g/dL (14.0-18.0); Mean Corpuscular HGB Conc 34.2 g/dl (32-36); Mean Corpuscular Hemoglobin 35.7 pg (26-34); Mean Corpuscular Volume 104.3 fl (80-100); Mean Platelet Volume 10.7 fl (7.4-10.4); Platelet Count Result 201 k/mm3 (150-375); Red Blood Count 3.95 M/mm3 (4.6-6.20); Red Cell Distribution Width 13.5 % (11.5-14.5); White Blood Count 10.4 K/mm3 (4.5-10.0)
[2022-08-11 04:21] LABS: Anion Gap 9 mmol/L (8-16); Blood Urea Nitrogen 13 mg/dL (9-20); Calcium 8.3 mg/dL (8.4-10.2); Carbon Dioxide 26 mmol/L (22-30); Chloride 102 mmol/L (98-107); Estimated CRCL calculation 70 ml/min; Estimated Glomerular Filt Rate > 60; Glucose 165 mg/dL (65-110); Lactic Acid Reflex 1.3 mmol/L (0.7-2.0); Magnesium 1.3 mg/dL (1.6-2.3); Sodium 137 mmol/L (137-145)
[2022-08-11] MEDS: PIPERACILLN/TAZ 3.375GM/NS50ML 3.375 GM/50 ML BAG IVPB ×3 (05:01→17:27)
[2022-08-11] MEDS: CENTRAL LINE FLUSH 10 ML IV PUSH ×4 (05:02→20:49)
[2022-08-11 05:49] LABS: Troponin I 0.215 ng/mL (0.000-0.034)
[2022-08-11 05:59] LABS: Alveolar/Arterial O2 Gradient 173.6 mmHg; Base Excess ABG -1.3 mEq/l (+/-2.0); Carboxyhemoglobin 0.5 % THb (0-2.0); Fractional Inspired Oxygen 40 %; HCO3 ABG 22.2 mEq/l (22.0-26.0); Methemoglobin ABG 0.4 %THb (0-1.5); Oxygen Content ABG 20.2 %vol (16.0-22.0); Oxygen Saturation ABG 95.2 % (95.0-100.0); Oxyhemoglobin 93.4 % THb (90.0-100.0); PO2 ABG 72.5 mmHg (80.0-100.0); PO2 FiO2 Ratio Arterial Blood 1.81 %; Reduced Hemoglobin 5.7 %THb (0-5.0); Total Hemoglobin 15.4 g/dL (12.0-18.0); pH ABG 7.433 (7.350-7.450)
[2022-08-11 06:02] LABS: Device VENTILATOR; Modified Allen's Test Pass; Site Drawn RIGHT RADIAL
[2022-08-11 06:03] LABS: Arterial Blood Gas PEEP 5 cmH2O; Arterial Blood Gas Tidal Volume 460 ml; Arterial Blood Gas Vent Mode CMV; Arterial Blood Gas Ventilator rate 18 /MIN
[2022-08-11] MEDS: POTASSIUM CHLORIDE 20 MEQ PACKET (FOR LIQUID) 40 MEQ PO (08:08)
[2022-08-11] MEDS: MAGNESIUM SULF 2 GM/WATER 50ML 2 GM/50 ML BAG IVPB (08:09)
[2022-08-11] MEDS: KCL 40 MEQ/WATER 100 ML 100 ML 25 ML IVPB (08:09)
--- NOTE | 2022-08-11 08:31 | PCOTNOTE ---
Pt. to be d/c from occupational therapy services at this time due to change in medical status, currently intubated. Re-order when appropriate for services.
[2022-08-11] MEDS: MINERAL OIL/WHITE PETROLATUM OINTMENT 1 APPLIC EACH EYE ×2 (08:54→20:50)
[2022-08-11] MEDS: ENOXAPARIN 100 MG/ML SYRINGE 90 MG SUB-Q ×2 (08:54→20:49)
[2022-08-11 08:55] LABS: Glucose Point of Care 166 mg/dl (65-105)
--- NOTE | 2022-08-11 09:31 | PCSTNOTE ---
Patient placed on mechanical ventilation last night. At this time discharge from speech therapy is recommended.
[2022-08-11] MEDS: ATORVASTATIN 40 MG TABLET 80 MG PO (09:45)
[2022-08-11] MEDS: EZETIMIBE 10 MG TABLET PO (09:45)
[2022-08-11] MEDS: CLOPIDOGREL BISULFATE 75 MG TABLET PO (09:45)
--- NOTE | 2022-08-11 11:01 | WPDCNINT ---
Assessment and Plan Assessment and plan (1) Hyperlipidemia: Code(s): E78.5 - Hyperlipidemia, unspecified Status: Acute Assessment and Plan: Continue Lipitor and Zetia (2) Diabetes: Code(s): E11.9 - Type 2 diabetes mellitus without complications Status: Acute Assessment and Plan: Sliding scale insulin Start tube feeds (3) Cardiomyopathy: Code(s): I42.9 - Cardiomyopathy, unspecified Status: Acute Assessment and Plan: Echo Summary ? 1. Four-chamber cardiac dilation. ? 2. Severe left ventricular systolic dysfunction ejection fraction 15-20%. ? 3. Mildly sclerotic aortic valve with no stenosis. ? 4. Mild to moderate mitral regurgitation resulting from mitral annular dilation. ? 5. Right ventricular systolic dysfunction. ? 6. Definity contrast injected to improve visualization. Cardiology following (4) Cerebrovascular accident: Code(s): I63.9 - Cerebral infarction, unspecified Status: Acute Assessment and Plan: Likely embolic from AFib Continue aspirin statin and Lovenox (5) Atrial fibrillation with rapid ventricular response: Code(s): I48.91 - Unspecified atrial fibrillation Status: Acute Assessment and Plan: Currently ventricular rate is controlled. Not on any rate control medication Anticoagulated with Lovenox (6) Acute respiratory failure: Code(s): J96.00 - Acute respiratory failure, unspecified whether with hypoxia or hypercapnia Status: Acute Assessment and Plan: Acute Respiratory failure secondary to pulmonary edema, aspiration pneumonia, encephalopathy and inability to protect airway Continue full mechanical ventilation support to prevent hypoxemia/hypercarbia and end organ damage. ABG and PCXR reviewed and will repeat in am. Low tidal volume ventilation strategy to prevent volutrauma Will attempt SBT when ready to wean. (7) Pulmonary edema: Code(s): J81.1 - Chronic pulmonary edema Status: Acute Assessment and Plan: Improved after intubation and positive pressure ventilation Hold diuretics as patient is hypertensive (8) Aspiration pneumonia: Code(s): J69.0 - Pneumonitis due to inhalation of food and vomit Status: Acute Assessment and Plan: Blood and sputum cultures ordered Continue empiric Zosyn (9) Encephalopathy: Code(s): G93.40 - Encephalopathy, unspecified Status: Acute Assessment and Plan: Multifactorial secondary to CVA and benzodiazepine Currently sedated with Versed and fentanyl for mechanical ventilation Repeat head CT 08/10 showed Evolving subacute infarct in the posterior right frontal lobe (10) Shock: Code(s): R57.9 - Shock, unspecified Status: Acute Assessment and Plan: Likely multifactorial with combination of sepsis from aspiration mode, cardiogenic, positive pressure ventilation and sedation Patient was given 500 cc of fluid bolus post intubation Continue Levophed 10 mean arterial pressure (11) Peripheral arterial disease: Code(s): I73.9 - Peripheral vascular disease, unspecified Status: Acute Assessment and Plan: Patient had WERNER is done in 2020 which showed a peripheral arterial disease. Patient is currently on Pletal and anticoagulation. Patient's both feet are cold below mid legs and toes are mottled. Unable to feel or Doppler bilateral dorsalis pedis but posterior tibial pulses are dopplerable. This is likely secondary to peripheral artery disease and cardiogenic shock rather than acute ischemia. I will repeat a WERNER Plan DVT prophylaxis -Lovenox Stress ulcer prophylaxis -add PPI Nutrition -start Tube Feeds Code Status - Full Code Total Critical Care Time - 40 minutes Due to a high probability of clinically significant, life threatening deterioration, the patient required my highest level of preparedness to intervene emergently and I personally spent this critical care t
--- NOTE | 2022-08-11 11:47 | PM.PNCARD ---
Progress Note: A&P Assessment and Plan (1) Heart failure with reduced ejection fraction: Code(s): I50.20 - Unspecified systolic (congestive) heart failure Status: Acute Assessment and Plan: Echocardiogram shows LVEF 15-20%, mild-moderate MR, and right ventricular systolic dysfunction. GDMT now on hold as patient requiring pressors. Resume GDMT once patient no longer has pressor requirements. (2) Cerebrovascular accident: Code(s): I63.9 - Cerebral infarction, unspecified Status: Acute Assessment and Plan: Brain MRI shows acute infarct in posterior right frontal lobe. Neurology consulted. (3) Elevated troponin: Code(s): R77.8 - Other specified abnormalities of plasma proteins Status: Acute Assessment and Plan: No evidence of acute coronary syndrome (4) Atrial fibrillation with rapid ventricular response: Code(s): I48.91 - Unspecified atrial fibrillation Status: Acute Assessment and Plan: Continue Eliquis 5mg BID If patient goes back into RVR while on pressors, would use Amiodarone then. Resume beta cherelle once no longer on pressors (5) T2DM (type 2 diabetes mellitus): Code(s): E11.9 - Type 2 diabetes mellitus without complications Status: Acute Assessment and Plan: Management as per primary (6) Hypertension: Code(s): I10 - Essential (primary) hypertension Status: Acute Assessment and Plan: Holding antihypertensives as patient now on pressors (7) Hyperlipidemia: Code(s): E78.5 - Hyperlipidemia, unspecified Status: Acute Assessment and Plan: Continue high-intensity statin (8) Aspiration pneumonia: Code(s): J69.0 - Pneumonitis due to inhalation of food and vomit Status: Acute Assessment and Plan: On antibiotics as per ICU team. (9) Acute respiratory failure: Code(s): J96.00 - Acute respiratory failure, unspecified whether with hypoxia or hypercapnia Status: Acute Assessment and Plan: Intubated and sedated. (10) Shock: Code(s): R57.9 - Shock, unspecified Status: Acute Assessment and Plan: Management as per ICU team. On pressors currently. Subjective Date/time seen: 08/11/22 11:47 Interval history: Reason for visit: Acute CVA, troponin leak, AFIB HPI: This is a 67-year-old man I am seeing at the request of the hospitalist today because of elevation in his troponin level at the request of the hospitalist.? The patient is apparently known to my partner, Dr. Foley and has a history of chronic atrial fibrillation, coronary artery disease and peripheral vascular disease.? The patient has not been seen by myself prior to this.? He was brought to the emergency room yesterday when at home he was found to have a slowing of his speech and a left hemiplegia.? Of course is felt to be having had a stroke.? He is scheduled for a MRI of his brain later this morning which has not yet occurred.? The patient is in atrial fibrillation with somewhat rapid ventricular response at admission his ventricular response is now controlled.? He has slurring of the speech at this time a but does answer questions appropriately and does not have any active cardiovascular complaints.? He is asking to get out of bed I told him he should not be getting up while OR without assistance.? He denies any sense of chest pain palpitations orthopnea PND.? The patient has a history of coronary artery disease with percutaneous stenting of his right coronary artery back in 2011.? He has had more recent lower extremity revascularization with iliac stenting done at [facility] within the last several years.? 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
[2022-08-11 12:02] LABS: Glucose Point of Care 169 mg/dl (65-105)
[2022-08-11 12:04] LABS: Anion Gap 4 mmol/L (8-16); Blood Urea Nitrogen 13 mg/dL (9-20); Calcium 8.4 mg/dL (8.4-10.2); Carbon Dioxide 29 mmol/L (22-30); Chloride 105 mmol/L (98-107); Estimated CRCL calculation 78 ml/min; Estimated Glomerular Filt Rate > 60; Glucose 154 mg/dL (65-110); Potassium 4.2 mmol/L (3.4-5.0); Sodium 138 mmol/L (137-145)
[2022-08-11 13:42] LABS: SARS-CoV-2 RNA PCR Negative
--- NOTE | 2022-08-11 15:26 | PM.IMPN ---
Progress Note: A&P Assessment and Plan (1) Heart failure with reduced ejection fraction: Code(s): I50.20 - Unspecified systolic (congestive) heart failure Status: Acute Assessment and Plan: patient with EF of 15-20%, cardiology on board, maximize medical management (2) Cerebrovascular accident: Code(s): I63.9 - Cerebral infarction, unspecified Status: Acute Assessment and Plan: neurochecks q.4 hours, no new lesions on repeat CT scan (3) Atrial fibrillation with rapid ventricular response: Code(s): I48.91 - Unspecified atrial fibrillation Status: Acute Assessment and Plan: will start amiodarone drip for rate control. Given metoprolol by Cardiology. Already on Eliquis and clopidogrel. Plan Cardiopulmonary Technician And Eeg Tech: Called for rapid response as patient was noted to be in rapid atrial fibrillation with altered mental status. Patient has known CVA with left-sided weakness and is now presenting with increased altered mental status and tachycardia. Patient was not following commands, not tracking, and seemed more confused according to the nurse. Patient immediately brought down to CT scan for repeat imaging due to concerns of worsening CVA with hemorrhagic transformation. Discussed with radiologist numerical control machine tool operator, CT shows anticipated CVA changes, no bleeding seen. Patient was then transferred to the ICU for further monitoring. Case discussed with patient's and son Ash and they have agreed to proceed with all interventions necessary as per patient's wishes of being full code. He was having shallow respirations and was tachypneic to 40 a minute respiratory rate. A decision was made to intubate patient due to his respiratory failure. Initial vent settings tidal volume of 460 rate of 18, 100% FiO2 and PEEP of 5. Patient was given fentanyl and Versed for sedation. Patient initially given metoprolol IV push however continued to be in rapid AFib. patient was then started on an amiodarone drip due to persistent tachycardia. His blood pressure was on the lower side which prevented use of diltiazem drip. Computer was warning against drug interaction with cilostazol and so cilostazol was discontinued instead. Patient had chest x-ray done which showed increased opacities questionable for pneumonia versus pulmonary edema. As per nurse sign out, patient had choking episodes earlier in the day when his was trying to feed him so there was concern for aspiration pneumonia. Patient empirically started on some Zosyn. Case discussed with steel unloader Dr. Abbasi. 08/11/2022 interval history:?67 y/o male with history of alcohol abuse and noncompliant with his medications,? is fount to have?acute infarct in posterior right frontal lobe, echo showed LVEF 15-20% and patient is being treated with IV Lasix, patient has difficulty swallowing, due to alcohol withdrawal, held his libiriium as patient CIWA scores are low and was somnolent, however last night patient became hypoxic went to respiratory failure and was intubated and currently on vent and seen by steel unloader and reliability specialist, today again discussed with patient's patient had been noncompliants with medication and had not seen his primary care provider for over 3 yrs. Subjective Date/time seen: 08/11/22 15:26 08/11/2022 interval history:?67 y/o male with history of alcohol abuse and noncompliant with his medications,? is fount to have?acute infarct in posterior right frontal lobe, echo showed LVEF 15-20% and patient is being treated with IV Lasix, patient has difficulty swallowing, due to alcohol withdrawal, held his libiriium as patient CIWA scores are low and was somnolent, however last night patient became hypoxic went to respiratory failure and was intubated and currently on vent and seen by steel unloader and reliability specialist, today again discussed with patient's patient had been noncompliants with medication and had not seen his primary care provider for o
[2022-08-11 16:21] LABS: Glucose Point of Care 171 mg/dl (65-105)
[2022-08-11] MEDS: cilostazoL 100 MG TABLET FEED TUBE (16:22)
[2022-08-11] MEDS: NOREPINEPHRINE 8 MG/D5W 250 ML 8 MG/250 ML BAG 11.25 MG IV CONT (17:27)
[2022-08-11 21:01] LABS: Glucose Point of Care 200 mg/dl (65-105)
[2022-08-12] VITALS (52 sets, daily range): BP systolic 65–121; BP diastolic 47–75; PULSE 88–137; RESP 8–25; TEMP 36.7–37.9; O2SAT 92–97
[2022-08-12] MEDS: PIPERACILLN/TAZ 3.375GM/NS50ML 3.375 GM/50 ML BAG IVPB ×4 (00:15→17:22)
[2022-08-12] MEDS: INSULIN ASPART (*BKC) 100 UNITS/ML SUB-Q ×5 (00:18→20:29)
[2022-08-12 00:20] LABS: Glucose Point of Care 224 mg/dl (65-105)
[2022-08-12] MEDS: MIDAZOLAM 100MG/NS 100ML(*CRX) 100 MG/100 ML BAG IV CONT (03:05)
[2022-08-12] MEDS: ACETAMINOPHEN ELIXIR 325 MG/10.15 ML UDC 650 MG PO (04:25)
[2022-08-12] MEDS: CENTRAL LINE FLUSH 10 ML IV PUSH ×3 (05:09→20:31)
[2022-08-12] MEDS: cilostazoL 100 MG TABLET FEED TUBE ×2 (05:09→17:21)
[2022-08-12 05:12] LABS: Glucose Point of Care 195 mg/dl (65-105)
[2022-08-12 05:13] LABS: Hematocrit 44.8 % (42.0-52.0); Hemoglobin 14.5 g/dL (14.0-18.0); Mean Corpuscular HGB Conc 32.4 g/dl (32-36); Mean Corpuscular Hemoglobin 34.5 pg (26-34); Mean Corpuscular Volume 106.7 fl (80-100); Mean Platelet Volume 10.8 fl (7.4-10.4); Platelet Count Result 197 k/mm3 (150-375); Red Cell Distribution Width 13.8 % (11.5-14.5); White Blood Count 9.2 K/mm3 (4.5-10.0)
[2022-08-12 05:25] LABS: Anion Gap 6 mmol/L (8-16); Blood Urea Nitrogen 17 mg/dL (9-20); Calcium 8.1 mg/dL (8.4-10.2); Carbon Dioxide 29 mmol/L (22-30); Chloride 105 mmol/L (98-107); Estimated CRCL calculation 78 ml/min; Estimated Glomerular Filt Rate > 60; Glucose 193 mg/dL (65-110); Magnesium 1.9 mg/dL (1.6-2.3); Potassium 3.4 mmol/L (3.4-5.0); Sodium 140 mmol/L (137-145)
[2022-08-12 05:37] LABS: Alveolar/Arterial O2 Gradient 226.3 mmHg; Base Excess ABG 1.9 mEq/l (+/-2.0); Carboxyhemoglobin 0.2 % THb (0-2.0); Device VENTILATOR; Fractional Inspired Oxygen 50 %; Methemoglobin ABG 0.4 %THb (0-1.5); Modified Allen's Test Pass; Oxygen Content ABG 20.4 %vol (16.0-22.0); Oxyhemoglobin 94.9 % THb (90.0-100.0); PCO2 ABG 43.7 mmHg (35.0-45.0); PO2 FiO2 Ratio Arterial Blood 1.62 %; Reduced Hemoglobin 4.5 %THb (0-5.0); Site Drawn RIGHT RADIAL; Total Hemoglobin 15.3 g/dL (12.0-18.0); pH ABG 7.408 (7.350-7.450)
[2022-08-12 05:38] LABS: Arterial Blood Gas PEEP 5 cmH2O; Arterial Blood Gas Tidal Volume 460 ml; Arterial Blood Gas Vent Mode CMV; Arterial Blood Gas Ventilator rate 18 /MIN
[2022-08-12] MEDS: POTASSIUM CHLORIDE 20 MEQ PACKET (FOR LIQUID) 40 MEQ FEED TUBE ×2 (08:28→13:32)
[2022-08-12] MEDS: FUROSEMIDE INJ 40 MG/4 ML VIAL 20 MG IV PUSH (08:28)
[2022-08-12] MEDS: PANTOPRAZOLE SODIUM IV 40 MG VIAL IV PUSH ×2 (08:29→20:31)
[2022-08-12] MEDS: MINERAL OIL/WHITE PETROLATUM OINTMENT 1 APPLIC EACH EYE ×2 (08:29→20:31)
[2022-08-12] MEDS: ENOXAPARIN 100 MG/ML SYRINGE 90 MG SUB-Q ×2 (08:31→20:30)
[2022-08-12] MEDS: EZETIMIBE 10 MG TABLET PO (08:31)
[2022-08-12] MEDS: ATORVASTATIN 40 MG TABLET 80 MG PO (08:31)
[2022-08-12] MEDS: CLOPIDOGREL BISULFATE 75 MG TABLET PO (08:31)
--- NOTE | 2022-08-12 09:20 | WPDINTPN ---
Progress Note: A&P Assessment and Plan (1) Acute respiratory failure: Code(s): J96.00 - Acute respiratory failure, unspecified whether with hypoxia or hypercapnia Status: Acute Assessment and Plan: Acute Respiratory failure secondary to pulmonary edema, aspiration pneumonia, encephalopathy and inability to protect airway Continue full mechanical ventilation support to prevent hypoxemia/hypercarbia and end organ damage. ABG and PCXR reviewed and will repeat in am. Lasix IV x1 ordered Low tidal volume ventilation strategy to prevent volutrauma Will attempt SBT when ready to wean. (2) Aspiration pneumonia: Code(s): J69.0 - Pneumonitis due to inhalation of food and vomit Status: Acute Assessment and Plan: Blood and sputum cultures ordered Continue empiric Zosyn (3) Pulmonary edema: Code(s): J81.1 - Chronic pulmonary edema Status: Acute Assessment and Plan: Improved after intubation and positive pressure ventilation Lasix IV x1 today (4) Peripheral arterial disease: Code(s): I73.9 - Peripheral vascular disease, unspecified Status: Acute Assessment and Plan: Patient had WERNER is done in 2019 which showed a peripheral arterial disease. Patient is currently on Pletal and anticoagulation. Patient's both feet are cold below mid legs. Left foot appears worse than right. Exam as above 08/12 WERNER IMPRESSION: 1. Severely decreased bilateral ABIs, consistent with arterial occlusive disease. 2. Total occlusion of left dorsalis pedis Likely worsened by patient shock which is combination of sepsis and cardiogenic. Embolic phenomena secondary to AFib and noncompliance with anticoagulation is also possibility. Discussed with Dr. Barrow from Cardiology. Not a candidate for mechanical intervention.. Patient not a candidate for tPA due to his recent large stroke. Recommends continuing conservative management anticoagulation and antiplatelet agent that patient is already on (5) Hyperlipidemia: Code(s): E78.5 - Hyperlipidemia, unspecified Status: Acute Assessment and Plan: Continue Lipitor and Zetia (6) Diabetes: Code(s): E11.9 - Type 2 diabetes mellitus without complications Status: Acute Assessment and Plan: Continue sliding scale insulin Continue tube feeds (7) Cardiomyopathy: Code(s): I42.9 - Cardiomyopathy, unspecified Status: Acute Assessment and Plan: Echo Summary ? 1. Four-chamber cardiac dilation. ? 2. Severe left ventricular systolic dysfunction ejection fraction 15-20%. ? 3. Mildly sclerotic aortic valve with no stenosis. ? 4. Mild to moderate mitral regurgitation resulting from mitral annular dilation. ? 5. Right ventricular systolic dysfunction. ? 6. Definity contrast injected to improve visualization. Cardiology following (8) Cerebrovascular accident: Code(s): I63.9 - Cerebral infarction, unspecified Status: Acute Assessment and Plan: Likely embolic from AFib Continue aspirin statin and Lovenox (9) Atrial fibrillation with rapid ventricular response: Code(s): I48.91 - Unspecified atrial fibrillation Status: Acute Assessment and Plan: Currently ventricular rate is controlled. Not requiring any rate control medication Anticoagulated with Lovenox Also on Plavix (10) Encephalopathy: Code(s): G93.40 - Encephalopathy, unspecified Status: Acute Assessment and Plan: Multifactorial secondary to CVA and benzodiazepine Currently sedated with Versed and fentanyl for mechanical ventilation Repeat head CT 08/10 showed Evolving subacute infarct in the posterior right frontal lobe (11) Shock: Code(s): R57.9 - Shock, unspecified Status: Acute Assessment and Plan: Likely multifactorial with combination of sepsis from aspiration mode, cardiogenic, positive pressure ventilation and sedation Patient was given 500 cc of flui
--- NOTE | 2022-08-12 09:31 | P.PNCA_ITS ---
Progress Note: A&P Assessment and Plan (1) Heart failure with reduced ejection fraction: Code(s): I50.20 - Unspecified systolic (congestive) heart failure Status: Acute Assessment and Plan: Echocardiogram shows LVEF 15-20%, mild-moderate MR, and right ventricular systolic dysfunction. GDMT now on hold as patient requiring pressors. Resume GDMT once patient no longer has pressor requirements. (2) Cerebrovascular accident: Code(s): I63.9 - Cerebral infarction, unspecified Status: Acute Assessment and Plan: Brain MRI shows acute infarct in posterior right frontal lobe. Neurology consulted. (3) Elevated troponin: Code(s): R77.8 - Other specified abnormalities of plasma proteins Status: Acute Assessment and Plan: No evidence of acute coronary syndrome (4) Atrial fibrillation with rapid ventricular response: Code(s): I48.91 - Unspecified atrial fibrillation Status: Acute Assessment and Plan: Continue Eliquis 5mg BID If patient goes back into RVR while on pressors, would use Amiodarone then. Resume beta cherelle once no longer on pressors (5) T2DM (type 2 diabetes mellitus): Code(s): E11.9 - Type 2 diabetes mellitus without complications Status: Acute Assessment and Plan: Management as per primary (6) Hypertension: Code(s): I10 - Essential (primary) hypertension Status: Acute Assessment and Plan: Holding antihypertensives as patient now on pressors (7) Hyperlipidemia: Code(s): E78.5 - Hyperlipidemia, unspecified Status: Acute Assessment and Plan: Continue high-intensity statin (8) Aspiration pneumonia: Code(s): J69.0 - Pneumonitis due to inhalation of food and vomit Status: Acute Assessment and Plan: On antibiotics as per ICU team. (9) Acute respiratory failure: Code(s): J96.00 - Acute respiratory failure, unspecified whether with hypoxia or hypercapnia Status: Acute Assessment and Plan: Intubated and sedated. (10) Shock: Code(s): R57.9 - Shock, unspecified Status: Acute Assessment and Plan: Management as per ICU team. On pressors currently. Subjective Date/time seen: 08/12/22 09:31 Interval history: Reason for visit: Acute CVA, troponin leak, AFIB HPI: This is a 67-year-old man I am seeing at the request of the hospitalist today because of elevation in his troponin level at the request of the hospitalist.? The patient is apparently known to my partner, Dr. Foley and has a history of chronic atrial fibrillation, coronary artery disease and peripheral vascular disease.? The patient has not been seen by myself prior to this.? He was brought to the emergency room yesterday when at home he was found to have a slowing of his speech and a left hemiplegia.? Of course is felt to be having had a stroke.? He is scheduled for a MRI of his brain later this morning which has not yet occurred.? The patient is in atrial fibrillation with somewhat rapid ventricular response at admission his ventricular response is now controlled.? He has slurring of the speech at this time a but does answer questions appropriately and does not have any active cardiovascular complaints.? He is asking to get out of bed I told him he should not be getting up while OR without assistance.? He denies any sense of chest pain palpitations orthopnea PND.? The patient has a history of coronary artery disease with percutaneous stenting of his right coronary artery back in 2011.? He has had more recent lower extremity gary
[2022-08-12 09:33] LABS: Glucose Point of Care 233 mg/dl (65-105)
--- NOTE | 2022-08-12 10:44 | PCNFU ---
Nutrition Follow-Up Complete: Inadequate Oral Intake as related to mechanical vent as evidenced by NPO. Goal: Meet estimated nutritional needs. Patient will continue current goal. Pt current nutrition is Vital AF 1.2. Nutrition recommendation: Formula change to Vital 1.5 at 60 ml/hr Last recorded weight is 81.3 kg. Bowel Motility:+Bm reported 08/09 Labs Reviewed:Glu 195 Meds Noted:Levo, Protonix, Zosyn Skin: WNL Additional Notes: Patient remains on mechanical vent and tube feedings of Vital AF 1.2 at 40 ml/hr. Residuals around 190 today. Plans for tube feeding change to Vital 1.5 goal rate at 60 ml/hr. Tube feeding at goal rate will providing 1980 kcals/89 gms protein/1008 ml water. Flush 30 ml q 4 hours. Recommend adding Reglan for GI motility. Agree with diet orders. Will monitor in ICU rounds and reassess skin,labs,meds every Monday and Monday.
[2022-08-12] MEDS: THIAMINE HCL 100 MG TABLET FEED TUBE (10:57)
[2022-08-12] MEDS: NOREPINEPHRINE 8 MG/D5W 250 ML 8 MG/250 ML BAG 15 MG IV CONT (10:57)
[2022-08-12] MEDS: FOLIC ACID 1 MG TABLET FEED TUBE (10:57)
[2022-08-12 11:41] LABS: Glucose Point of Care 238 mg/dl (65-105)
--- NOTE | 2022-08-12 14:04 | PM.IMPN ---
Progress Note: A&P Assessment and Plan (1) Heart failure with reduced ejection fraction: Code(s): I50.20 - Unspecified systolic (congestive) heart failure Status: Acute Assessment and Plan: patient with EF of 15-20%, cardiology on board, maximize medical management (2) Cerebrovascular accident: Code(s): I63.9 - Cerebral infarction, unspecified Status: Acute Assessment and Plan: neurochecks q.4 hours, no new lesions on repeat CT scan (3) Atrial fibrillation with rapid ventricular response: Code(s): I48.91 - Unspecified atrial fibrillation Status: Acute Assessment and Plan: will start amiodarone drip for rate control. Given metoprolol by Cardiology. Already on Eliquis and clopidogrel. Plan Fiberglasser: Called for rapid response as patient was noted to be in rapid atrial fibrillation with altered mental status. Patient has known CVA with left-sided weakness and is now presenting with increased altered mental status and tachycardia. Patient was not following commands, not tracking, and seemed more confused according to the nurse. Patient immediately brought down to CT scan for repeat imaging due to concerns of worsening CVA with hemorrhagic transformation. Discussed with radiologist documentation spec, CT shows anticipated CVA changes, no bleeding seen. Patient was then transferred to the ICU for further monitoring. Case discussed with patient's and son Ash and they have agreed to proceed with all interventions necessary as per patient's wishes of being full code. He was having shallow respirations and was tachypneic to 40 a minute respiratory rate. A decision was made to intubate patient due to his respiratory failure. Initial vent settings tidal volume of 460 rate of 18, 100% FiO2 and PEEP of 5. Patient was given fentanyl and Versed for sedation. Patient initially given metoprolol IV push however continued to be in rapid AFib. patient was then started on an amiodarone drip due to persistent tachycardia. His blood pressure was on the lower side which prevented use of diltiazem drip. Computer was warning against drug interaction with cilostazol and so cilostazol was discontinued instead. Patient had chest x-ray done which showed increased opacities questionable for pneumonia versus pulmonary edema. As per nurse sign out, patient had choking episodes earlier in the day when his was trying to feed him so there was concern for aspiration pneumonia. Patient empirically started on some Zosyn. Case discussed with airborne mission systems superintendent Dr. Abbasi. 08/12/2022 interval history:?67 y/o male with history of alcohol abuse and noncompliant with his medications,? is fount to have?acute infarct in posterior right frontal lobe, echo showed LVEF 15-20% and patient is being treated with IV Lasix, patient has difficulty swallowing, due to alcohol withdrawal, held his libiriium as patient CIWA scores were low and patient was somnolent, however on night of patient became hypoxic went to respiratory failure and was intubated and currently on vent and seen by airborne mission systems superintendent suspect patient has aspiration pneumonia and patient severe cardiomyopathy seen sfdc solution architect,today again discussed with patient's daughter today patient had been noncompliants with medication and had not seen his primary care provider for over 3 yrs. Subjective Date/time seen: 08/12/22 14:04 08/12/2022 interval history:?67 y/o male with history of alcohol abuse and noncompliant with his medications,? is fount to have?acute infarct in posterior right frontal lobe, echo showed LVEF 15-20% and patient is being treated with IV Lasix, patient has difficulty swallowing, due to alcohol withdrawal, held his libiriium as patient CIWA scores were low and patient was somnolent, however on night of patient became hypoxic went to respiratory failure and was intubated and currently on vent and seen by airborne mission systems superintendent suspect patient has aspiration pneumonia and
[2022-08-12 16:32] LABS: Glucose Point of Care 217 mg/dl (65-105)
[2022-08-12] MEDS: FENTANYL 2,500MCG/NS250ML(*CRX 2,500 MCG/250 ML BAG 7.5 MCG IV CONT (19:32)
[2022-08-12 21:29] LABS: Glucose Point of Care 217 mg/dl (65-105)
[2022-08-12] MEDS: METOCLOPRAMIDE HCL 10 MG/10 ML SOLN UDC PO (21:44)
[2022-08-13] VITALS (70 sets, daily range): BP systolic 77–163; BP diastolic 50–93; PULSE 72–180; RESP 14–29; TEMP 36.6–37.9; O2SAT 93–99
[2022-08-13 00:09] LABS: Glucose Point of Care 180 mg/dl (65-105)
[2022-08-13] MEDS: PIPERACILLN/TAZ 3.375GM/NS50ML 3.375 GM/50 ML BAG IVPB ×4 (00:09→17:16)
--- NOTE | 2022-08-13 04:52 | ECG_ITS ---
Measurements Intervals [place] Rate: 132 P: LA: 0 QRS: 124 QRSD: 120 T: -22 QT: 327 QTc: 485 Interpretive Statements ATRIAL FIBRILLATION WITH RAPID VENTRICULAR RESPONSE RIGHT BUNDLE BRANCH BLOCK LEFT POSTERIOR FASCICULAR BLOCK ST DEVIATION AND T-WAVE ABNORMALITY, CONSIDER ISCHEMIA COMPARED TO ECG 08/07/2022 02:43:19 RIGHT BUNDLE-BRANCH BLOCK NOW PRESENT LEFT POSTERIOR FASCICULAR BLOCK NOW PRESENT Electronically Signed On 08-13-2022 10:19:38 CDT by Joel Foley M.D.
[2022-08-13 04:57] LABS: Hematocrit 40.1 % (42.0-52.0); Hemoglobin 13.2 g/dL (14.0-18.0); Mean Corpuscular HGB Conc 32.9 g/dl (32-36); Mean Corpuscular Hemoglobin 34.6 pg (26-34); Mean Corpuscular Volume 105.2 fl (80-100); Mean Platelet Volume 11.1 fl (7.4-10.4); Platelet Count Result 186 k/mm3 (150-375); Red Blood Count 3.81 M/mm3 (4.6-6.20); Red Cell Distribution Width 13.9 % (11.5-14.5); White Blood Count 6.9 K/mm3 (4.5-10.0)
[2022-08-13] MEDS: INSULIN ASPART (*BKC) 100 UNITS/ML SUB-Q ×3 (04:58→20:11)
[2022-08-13] MEDS: ACETAMINOPHEN ELIXIR 325 MG/10.15 ML UDC 650 MG PO ×2 (04:58→16:54)
[2022-08-13] MEDS: METOCLOPRAMIDE HCL 10 MG/10 ML SOLN UDC PO ×4 (04:59→20:10)
[2022-08-13 05:03] LABS: Glucose Point of Care 232 mg/dl (65-105)
[2022-08-13 05:10] LABS: Anion Gap 2 mmol/L (8-16); Blood Urea Nitrogen 16 mg/dL (9-20); Calcium 8.1 mg/dL (8.4-10.2); Carbon Dioxide 31 mmol/L (22-30); Chloride 106 mmol/L (98-107); Estimated CRCL calculation 78 ml/min; Estimated Glomerular Filt Rate > 60; Glucose 232 mg/dL (65-110); Magnesium 1.6 mg/dL (1.6-2.3); Potassium 3.5 mmol/L (3.4-5.0); Sodium 139 mmol/L (137-145)
[2022-08-13 05:35] LABS: Alveolar/Arterial O2 Gradient 183.8 mmHg; Base Excess ABG 0.2 mEq/l (+/-2.0); Carboxyhemoglobin 1.4 % THb (0-2.0); Device VENTILATOR; Fractional Inspired Oxygen 45 %; HCO3 ABG 26.5 mEq/l (22.0-26.0); Methemoglobin ABG 0.1 %THb (0-1.5); Modified Allen's Test Pass; Oxygen Content ABG 19.4 %vol (16.0-22.0); Oxygen Saturation ABG 95.3 % (95.0-100.0); Oxyhemoglobin 93.8 % THb (90.0-100.0); PCO2 ABG 49.3 mmHg (35.0-45.0); Reduced Hemoglobin 4.7 %THb (0-5.0); Site Drawn RIGHT RADIAL; Total Hemoglobin 14.7 g/dL (12.0-18.0); pH ABG 7.348 (7.350-7.450)
[2022-08-13 05:36] LABS: Arterial Blood Gas PEEP 5 cmH2O; Arterial Blood Gas Tidal Volume 460 ml; Arterial Blood Gas Vent Mode CMV; Arterial Blood Gas Ventilator rate 18 /MIN
[2022-08-13] MEDS: CENTRAL LINE FLUSH 10 ML IV PUSH ×3 (06:09→20:12)
[2022-08-13] MEDS: cilostazoL 100 MG TABLET FEED TUBE (06:09)
[2022-08-13] MEDS: NOREPINEPHRINE 8 MG/D5W 250 ML 8 MG/250 ML BAG 16.88 MG IV CONT (06:42)
[2022-08-13] MEDS: POTASSIUM CHLORIDE 20 MEQ PACKET (FOR LIQUID) 40 MEQ FEED TUBE (08:42)
[2022-08-13] MEDS: FOLIC ACID 1 MG TABLET FEED TUBE (08:42)
[2022-08-13] MEDS: FUROSEMIDE INJ 40 MG/4 ML VIAL IV PUSH (08:42)
[2022-08-13] MEDS: MAGNESIUM SULF 2 GM/WATER 50ML 2 GM/50 ML BAG IVPB (08:42)
[2022-08-13] MEDS: ATORVASTATIN 40 MG TABLET 80 MG PO (08:43)
[2022-08-13] MEDS: EZETIMIBE 10 MG TABLET PO (08:43)
[2022-08-13] MEDS: THIAMINE HCL 100 MG TABLET FEED TUBE (08:43)
[2022-08-13] MEDS: PANTOPRAZOLE SODIUM IV 40 MG VIAL IV PUSH ×2 (08:43→20:11)
[2022-08-13] MEDS: INSULIN GLARGINE (*BKC) 100 UNITS/ML 15 UNITS SUB-Q (08:44)
[2022-08-13] MEDS: MINERAL OIL/WHITE PETROLATUM OINTMENT 1 APPLIC EACH EYE ×2 (08:44→20:11)
[2022-08-13] MEDS: ENOXAPARIN 100 MG/ML SYRINGE 90 MG SUB-Q ×2 (08:48→20:10)
[2022-08-13] MEDS: CLOPIDOGREL BISULFATE 75 MG TABLET PO (08:48)
[2022-08-13] MEDS: dexmedeTOMIDine 400 MCG/100 ML 400 MCG/100 ML BAG IV CONT (09:05)
--- NOTE | 2022-08-13 09:39 | WPDINTPN ---
Progress Note: A&P Assessment and Plan (1) Acute respiratory failure: Code(s): J96.00 - Acute respiratory failure, unspecified whether with hypoxia or hypercapnia Status: Acute Assessment and Plan: Acute Respiratory failure secondary to pulmonary edema, aspiration pneumonia, encephalopathy and inability to protect airway Continue full mechanical ventilation support to prevent hypoxemia/hypercarbia and end organ damage. ABG and PCXR reviewed and will repeat in am. Currently on 45%. Increased respiratory rate to 20 Repeat lasix IV x1 ordered Will perform sedation holiday and evaluate for a PSV trial (2) Aspiration pneumonia: Code(s): J69.0 - Pneumonitis due to inhalation of food and vomit Status: Acute Assessment and Plan: Blood and sputum cultures ordered Continue empiric Zosyn (3) Pulmonary edema: Code(s): J81.1 - Chronic pulmonary edema Status: Acute Assessment and Plan: Improved after intubation and positive pressure ventilation Repeat lasix IV x1 today (4) Peripheral arterial disease: Code(s): I73.9 - Peripheral vascular disease, unspecified Status: Acute Assessment and Plan: Patient had WERNER is done in 2019 which showed a peripheral arterial disease. Patient is currently on Pletal and anticoagulation. Patient's both feet are cold below mid legs. Left foot appears worse than right. Exam as above 08/12 WERNER IMPRESSION: 1. Severely decreased bilateral ABIs, consistent with arterial occlusive disease. 2. Total occlusion of left dorsalis pedis Likely worsened by patient shock which is combination of sepsis and cardiogenic. Embolic phenomena secondary to AFib and noncompliance with anticoagulation is also possibility. 08/[address] Barrow from Cardiology. Not a candidate for mechanical intervention.. Patient not a candidate for tPA due to his recent large stroke. Recommends continuing conservative management anticoagulation and antiplatelet agent that patient is already on (5) Hyperlipidemia: Code(s): E78.5 - Hyperlipidemia, unspecified Status: Acute Assessment and Plan: Continue Lipitor and Zetia (6) Diabetes: Code(s): E11.9 - Type 2 diabetes mellitus without complications Status: Acute Assessment and Plan: Continue sliding scale insulin Add Lantus Continue tube feeds (7) Cardiomyopathy: Code(s): I42.9 - Cardiomyopathy, unspecified Status: Acute Assessment and Plan: Echo Summary ? 1. Four-chamber cardiac dilation. ? 2. Severe left ventricular systolic dysfunction ejection fraction 15-20%. ? 3. Mildly sclerotic aortic valve with no stenosis. ? 4. Mild to moderate mitral regurgitation resulting from mitral annular dilation. ? 5. Right ventricular systolic dysfunction. ? 6. Definity contrast injected to improve visualization. Cardiology following (8) Cerebrovascular accident: Code(s): I63.9 - Cerebral infarction, unspecified Status: Acute Assessment and Plan: Likely embolic from AFib Continue aspirin statin and Lovenox (9) Atrial fibrillation with rapid ventricular response: Code(s): I48.91 - Unspecified atrial fibrillation Status: Acute Assessment and Plan: Currently ventricular rate is controlled. Not requiring any rate control medication Anticoagulated with Lovenox Also on Plavix (10) Encephalopathy: Code(s): G93.40 - Encephalopathy, unspecified Status: Acute Assessment and Plan: Multifactorial secondary to CVA and benzodiazepine Currently sedated with Versed and fentanyl for mechanical ventilation Repeat head CT 08/10 showed Evolving subacute infarct in the posterior right frontal lobe (11) Shock: Code(s): R57.9 - Shock, unspecified Status: Acute Assessment and Plan: Likely multifactorial with combination of sepsis from aspiration mode, cardiogenic, positive pressure ventilation an
[2022-08-13 09:44] LABS: Glucose Point of Care 251 mg/dl (65-105)
--- NOTE | 2022-08-13 10:55 | PM.PNCARD ---
Progress Note: A&P Assessment and Plan (1) Heart failure with reduced ejection fraction: Code(s): I50.20 - Unspecified systolic (congestive) heart failure Status: Acute Assessment and Plan: Patient has CHF with severely reduced ejection fraction with echocardiogram during this hospitalization showing LVEF 15-20%. GDMT now on hold as patient requiring pressors. Resume GDMT once patient Is hemodynamically stable. Due to LV dysfunction /CHF, discontinue cilostazol. (2) Cerebrovascular accident: Code(s): I63.9 - Cerebral infarction, unspecified Status: Acute Assessment and Plan: Brain MRI shows acute infarct in posterior right frontal lobe. Neurology consulted. Management as per primary team and Neurology. (3) Elevated troponin: Code(s): R77.8 - Other specified abnormalities of plasma proteins Status: Acute Assessment and Plan: No evidence of acute coronary syndrome (4) Atrial fibrillation with rapid ventricular response: Code(s): I48.91 - Unspecified atrial fibrillation Status: Acute Assessment and Plan: Patient has episodes of AFib with RVR. Is currently on pressor support. May use amiodarone if heart rates remain persistently elevated. Anticoagulation with low-molecular weight heparin at present. To be switched to apixaban later. (5) T2DM (type 2 diabetes mellitus): Code(s): E11.9 - Type 2 diabetes mellitus without complications Status: Acute Assessment and Plan: Management as per primary (6) Hypertension: Code(s): I10 - Essential (primary) hypertension Status: Acute Assessment and Plan: Holding antihypertensives as patient now on pressors (7) Hyperlipidemia: Code(s): E78.5 - Hyperlipidemia, unspecified Status: Acute Assessment and Plan: Continue high-intensity statin (8) Aspiration pneumonia: Code(s): J69.0 - Pneumonitis due to inhalation of food and vomit Status: Acute Assessment and Plan: On antibiotics as per ICU team. (9) Acute respiratory failure: Code(s): J96.00 - Acute respiratory failure, unspecified whether with hypoxia or hypercapnia Status: Acute Assessment and Plan: Intubated and sedated. (10) Shock: Code(s): R57.9 - Shock, unspecified Status: Acute Assessment and Plan: Management as per ICU team. On pressors currently. Subjective Date/time seen: 08/13/22 10:55 Interval history: Reason for visit: Acute CVA, troponin leak, AFIB HPI: This is a 67-year-old man I am seeing at the request of the hospitalist today because of elevation in his troponin level at the request of the hospitalist.? The patient is apparently known to my partner, Dr. Foley and has a history of chronic atrial fibrillation, coronary artery disease and peripheral vascular disease.? The patient has not been seen by myself prior to this.? He was brought to the emergency room yesterday when at home he was found to have a slowing of his speech and a left hemiplegia.? Of course is felt to be having had a stroke.? He is scheduled for a MRI of his brain later this morning which has not yet occurred.? The patient is in atrial fibrillation with somewhat rapid ventricular response at admission his ventricular response is now controlled.? He has slurring of the speech at this time a but does answer questions appropriately and does not have any active cardiovascular complaints.? He is asking to get out of bed I told him he should not be getting up while OR without assistance.? He denies any sense of chest pain palpitations orthopnea PND.? The patient has a history of coronary artery disease with percutaneous stenting of his right coronary artery back in 2011.? He has had more recent lower extremity revascularization with iliac stenting done at [facility] within the last several years.? 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
[2022-08-13 13:00] LABS: Alveolar/Arterial O2 Gradient 182.4 mmHg; Base Excess ABG 1.9 mEq/l (+/-2.0); Fractional Inspired Oxygen 45 %; Oxygen Content ABG 19.5 %vol (16.0-22.0); Oxygen Saturation ABG 95.8 % (95.0-100.0); Oxyhemoglobin 94.8 % THb (90.0-100.0); PCO2 ABG 48.9 mmHg (35.0-45.0); PO2 ABG 82.8 mmHg (80.0-100.0); PO2 FiO2 Ratio Arterial Blood 1.84 %; Total Hemoglobin 14.6 g/dL (12.0-18.0); pH ABG 7.375 (7.350-7.450)
[2022-08-13 13:01] LABS: Device VENTILATOR; Modified Allen's Test Pass; Site Drawn RIGHT RADIAL
[2022-08-13 13:02] LABS: Arterial Blood Gas PEEP 5 cmH2O; Arterial Blood Gas Vent Mode SPONTANEOUS
[2022-08-13 13:03] LABS: Arterial Blood Gas Pressure Support 5 cmH2O
[2022-08-13 13:49] LABS: Glucose Point of Care 167 mg/dl (65-105)
--- NOTE | 2022-08-13 14:47 | PM.IMPN ---
Progress Note: A&P Assessment and Plan (1) Heart failure with reduced ejection fraction: Code(s): I50.20 - Unspecified systolic (congestive) heart failure Status: Acute Assessment and Plan: patient with EF of 15-20%, cardiology on board, maximize medical management (2) Cerebrovascular accident: Code(s): I63.9 - Cerebral infarction, unspecified Status: Acute Assessment and Plan: neurochecks q.4 hours, no new lesions on repeat CT scan (3) Atrial fibrillation with rapid ventricular response: Code(s): I48.91 - Unspecified atrial fibrillation Status: Acute Assessment and Plan: will start amiodarone drip for rate control. Given metoprolol by Cardiology. Already on Eliquis and clopidogrel. Plan Judicial Assistant: Called for rapid response as patient was noted to be in rapid atrial fibrillation with altered mental status. Patient has known CVA with left-sided weakness and is now presenting with increased altered mental status and tachycardia. Patient was not following commands, not tracking, and seemed more confused according to the nurse. Patient immediately brought down to CT scan for repeat imaging due to concerns of worsening CVA with hemorrhagic transformation. Discussed with radiologist health outcomes liaison, CT shows anticipated CVA changes, no bleeding seen. Patient was then transferred to the ICU for further monitoring. Case discussed with patient's and son Ash and they have agreed to proceed with all interventions necessary as per patient's wishes of being full code. He was having shallow respirations and was tachypneic to 40 a minute respiratory rate. A decision was made to intubate patient due to his respiratory failure. Initial vent settings tidal volume of 460 rate of 18, 100% FiO2 and PEEP of 5. Patient was given fentanyl and Versed for sedation. Patient initially given metoprolol IV push however continued to be in rapid AFib. patient was then started on an amiodarone drip due to persistent tachycardia. His blood pressure was on the lower side which prevented use of diltiazem drip. Computer was warning against drug interaction with cilostazol and so cilostazol was discontinued instead. Patient had chest x-ray done which showed increased opacities questionable for pneumonia versus pulmonary edema. As per nurse sign out, patient had choking episodes earlier in the day when his was trying to feed him so there was concern for aspiration pneumonia. Patient empirically started on some Zosyn. Case discussed with mat packer Dr. Abbasi. 08/13/2022 interval history:?67 y/o male with history of alcohol abuse and noncompliant with his medications,? is fount to have?acute infarct in posterior right frontal lobe, echo showed LVEF 15-20% and patient is being treated with IV Lasix, patient has difficulty swallowing, due to alcohol withdrawal, held his libiriium as patient CIWA scores were low and patient was somnolent, however on night of 08/10 patient became hypoxic went to respiratory failure and was intubated and currently on vent and seen by mat packer suspect patient has aspiration pneumonia and patient severe cardiomyopathy seen account receivable associate,today again discussed with patient's daughter, and his today patient had been noncompliants with medication and had not seen his primary care provider for over 3 yrs. today discuss with mat packer no significant changes will CPM and monitor, Subjective Date/time seen: 08/13/22 14:47 08/13/2022 interval history:?67 y/o male with history of alcohol abuse and noncompliant with his medications,? is fount to have?acute infarct in posterior right frontal lobe, echo showed LVEF 15-20% and patient is being treated with IV Lasix, patient has difficulty swallowing, due to alcohol withdrawal, held his libiriium as patient CIWA scores were low and patient was somnolent, however on night of 08/10 patient became hypoxic went to respiratory failure and was intub
[2022-08-13 16:31] LABS: Glucose Point of Care 179 mg/dl (65-105)
[2022-08-13] MEDS: AMIODARONE 150 MG/D5W 100 ML 150 MG/100 ML BAG 600 MG IV CONT (16:53)
[2022-08-13] MEDS: AMIODARONE 360 MG/D5W 200 ML 360 MG/200 ML BAG 33.33 MG IV CONT (17:25)
[2022-08-13 20:08] LABS: Glucose Point of Care 233 mg/dl (65-105)
[2022-08-14] VITALS (65 sets, daily range): BP systolic 72–169; BP diastolic 52–103; PULSE 68–164; RESP 19–31; TEMP 36.4–38; O2SAT 91–100
[2022-08-14] MEDS: AMIODARONE 360 MG/D5W 200 ML 360 MG/200 ML BAG 16.67 MG IV CONT ×2 (00:14→10:30)
[2022-08-14] MEDS: PIPERACILLN/TAZ 3.375GM/NS50ML 3.375 GM/50 ML BAG IVPB ×4 (00:18→17:41)
[2022-08-14] MEDS: INSULIN ASPART (*BKC) 100 UNITS/ML SUB-Q ×3 (00:23→08:11)
[2022-08-14 00:24] LABS: Glucose Point of Care 238 mg/dl (65-105)
[2022-08-14] MEDS: METOCLOPRAMIDE HCL 10 MG/10 ML SOLN UDC PO ×2 (02:37→07:46)
[2022-08-14 04:39] LABS: Hematocrit 38.3 % (42.0-52.0); Hemoglobin 12.6 g/dL (14.0-18.0); Mean Corpuscular HGB Conc 32.9 g/dl (32-36); Mean Corpuscular Hemoglobin 34.5 pg (26-34); Mean Corpuscular Volume 104.9 fl (80-100); Mean Platelet Volume 11.2 fl (7.4-10.4); Platelet Count Result 182 k/mm3 (150-375); Red Blood Count 3.65 M/mm3 (4.6-6.20); Red Cell Distribution Width 13.7 % (11.5-14.5); White Blood Count 5.4 K/mm3 (4.5-10.0)
[2022-08-14 04:48] LABS: Anion Gap 3 mmol/L (8-16); Blood Urea Nitrogen 15 mg/dL (9-20); Carbon Dioxide 31 mmol/L (22-30); Chloride 104 mmol/L (98-107); Estimated CRCL calculation 87 ml/min; Estimated Glomerular Filt Rate > 60; Glucose 216 mg/dL (65-110); Magnesium 1.9 mg/dL (1.6-2.3); Potassium 3.1 mmol/L (3.4-5.0); Sodium 138 mmol/L (137-145)
[2022-08-14] MEDS: CENTRAL LINE FLUSH 10 ML IV PUSH ×4 (04:54→20:49)
[2022-08-14 05:30] LABS: Alveolar/Arterial O2 Gradient 192.8 mmHg; Base Excess ABG 3.7 mEq/l (+/-2.0); Carboxyhemoglobin 0.2 % THb (0-2.0); Fractional Inspired Oxygen 45 %; HCO3 ABG 28.2 mEq/l (22.0-26.0); Methemoglobin ABG 0.2 %THb (0-1.5); Oxygen Saturation ABG 96.2 % (95.0-100.0); Oxyhemoglobin 95.6 % THb (90.0-100.0); PCO2 ABG 42.4 mmHg (35.0-45.0); PO2 ABG 79.8 mmHg (80.0-100.0); PO2 FiO2 Ratio Arterial Blood 1.77 %; Total Hemoglobin 14.1 g/dL (12.0-18.0); pH ABG 7.441 (7.350-7.450)
[2022-08-14 05:32] LABS: Arterial Blood Gas Vent Mode CMV; Arterial Blood Gas Ventilator rate 20 /MIN; Device VENTILATOR; Modified Allen's Test Pass; Site Drawn RIGHT RADIAL
[2022-08-14 05:33] LABS: Arterial Blood Gas PEEP 5 cmH2O; Arterial Blood Gas Tidal Volume 460 ml
[2022-08-14] MEDS: POTASSIUM CHLORIDE 20 MEQ PACKET (FOR LIQUID) 40 MEQ FEED TUBE (07:46)
--- NOTE | 2022-08-14 07:53 | WPDINTPN ---
Progress Note: A&P Assessment and Plan (1) Acute respiratory failure: Code(s): J96.00 - Acute respiratory failure, unspecified whether with hypoxia or hypercapnia Status: Acute Assessment and Plan: Acute Respiratory failure secondary to pulmonary edema, aspiration pneumonia, encephalopathy and inability to protect airway Continue full mechanical ventilation support to prevent hypoxemia/hypercarbia and end organ damage. ABG and PCXR reviewed and will repeat in am. Currently on 45%. Increased respiratory rate to 20 08/13 patient tolerated PSV trial and had adequate ABG but but was not awake for extubation Continue Lasix today Will perform sedation holiday and and perform a PSV trial again today (2) Aspiration pneumonia: Code(s): J69.0 - Pneumonitis due to inhalation of food and vomit Status: Acute Assessment and Plan: Blood and sputum cultures ordered Continue empiric Zosyn (3) Pulmonary edema: Code(s): J81.1 - Chronic pulmonary edema Status: Acute Assessment and Plan: Improved after intubation and positive pressure ventilation Repeat lasix IV today (4) Peripheral arterial disease: Code(s): I73.9 - Peripheral vascular disease, unspecified Status: Acute Assessment and Plan: Patient had WERNER is done in 2019 which showed a peripheral arterial disease. Patient is currently on Pletal and anticoagulation. Patient's both feet are cold below mid legs. Left foot appears worse than right. Exam as above 08/12 WERNER IMPRESSION: 1. Severely decreased bilateral ABIs, consistent with arterial occlusive disease. 2. Total occlusion of left dorsalis pedis Likely worsened by patient shock which is combination of sepsis and cardiogenic. Embolic phenomena secondary to AFib and noncompliance with anticoagulation is also possibility. 08/[address] Barrow from Cardiology. Not a candidate for mechanical intervention.. Patient not a candidate for tPA due to his recent large stroke. Recommends continuing conservative management anticoagulation and antiplatelet agent that patient is already on 08/13 the overall color and the temperature of the foot seems to be improving although that was still are mottled (5) Hyperlipidemia: Code(s): E78.5 - Hyperlipidemia, unspecified Status: Acute Assessment and Plan: Continue Lipitor and Zetia (6) Diabetes: Code(s): E11.9 - Type 2 diabetes mellitus without complications Status: Acute Assessment and Plan: Continue sliding scale insulin Continue lantus Continue tube feeds (7) Cardiomyopathy: Code(s): I42.9 - Cardiomyopathy, unspecified Status: Acute Assessment and Plan: Echo Summary ? 1. Four-chamber cardiac dilation. ? 2. Severe left ventricular systolic dysfunction ejection fraction 15-20%. ? 3. Mildly sclerotic aortic valve with no stenosis. ? 4. Mild to moderate mitral regurgitation resulting from mitral annular dilation. ? 5. Right ventricular systolic dysfunction. ? 6. Definity contrast injected to improve visualization. Cardiology following (8) Cerebrovascular accident: Code(s): I63.9 - Cerebral infarction, unspecified Status: Acute Assessment and Plan: Likely embolic from AFib Continue aspirin statin and Lovenox (9) Atrial fibrillation with rapid ventricular response: Code(s): I48.91 - Unspecified atrial fibrillation Status: Acute Assessment and Plan: Currently ventricular rate is controlled. Not requiring any rate control medication Anticoagulated with Lovenox Also on Plavix (10) Encephalopathy: Code(s): G93.40 - Encephalopathy, unspecified Status: Acute Assessment and Plan: Multifactorial secondary to CVA and benzodiazepine Currently sedated with Versed and fentanyl for mechanical ventilation Repeat head CT 08/10 showed Evolving subacute infarct in the posterior right frontal lobe (11) Shock:
[2022-08-14 07:56] LABS: Glucose Point of Care 297 mg/dl (65-105)
[2022-08-14] MEDS: ENOXAPARIN 100 MG/ML SYRINGE 90 MG SUB-Q ×2 (08:10→20:49)
[2022-08-14] MEDS: CLOPIDOGREL BISULFATE 75 MG TABLET PO (08:10)
[2022-08-14] MEDS: ATORVASTATIN 40 MG TABLET 80 MG PO (08:10)
[2022-08-14] MEDS: EZETIMIBE 10 MG TABLET PO (08:10)
[2022-08-14] MEDS: FOLIC ACID 1 MG TABLET FEED TUBE (08:10)
[2022-08-14] MEDS: KCL 40 MEQ/WATER 100 ML 100 ML 25 ML IVPB (08:10)
[2022-08-14] MEDS: PANTOPRAZOLE SODIUM IV 40 MG VIAL IV PUSH ×2 (08:10→20:49)
[2022-08-14] MEDS: INSULIN GLARGINE (*BKC) 100 UNITS/ML 15 UNITS SUB-Q (08:11)
[2022-08-14] MEDS: THIAMINE HCL 100 MG TABLET FEED TUBE (08:11)
[2022-08-14] MEDS: MINERAL OIL/WHITE PETROLATUM OINTMENT 1 APPLIC EACH EYE ×2 (08:11→20:48)
[2022-08-14 08:50] LABS: Alveolar/Arterial O2 Gradient 185.3 mmHg; Base Excess ABG -1.3 mEq/l (+/-2.0); Fractional Inspired Oxygen 45 %; HCO3 ABG 23.8 mEq/l (22.0-26.0); Oxygen Content ABG 19.4 %vol (16.0-22.0); Oxygen Saturation ABG 96.6 % (95.0-100.0); Oxyhemoglobin 96.1 % THb (90.0-100.0); PCO2 ABG 41.3 mmHg (35.0-45.0); PO2 ABG 88.6 mmHg (80.0-100.0); PO2 FiO2 Ratio Arterial Blood 1.97 %; Total Hemoglobin 14.3 g/dL (12.0-18.0); pH ABG 7.379 (7.350-7.450)
[2022-08-14 08:51] LABS: Device VENTILATOR; Modified Allen's Test Pass; Site Drawn RIGHT RADIAL
[2022-08-14 08:52] LABS: Arterial Blood Gas PEEP 5 cmH2O; Arterial Blood Gas Pressure Support 5 cmH2O; Arterial Blood Gas Vent Mode SPONTANEOUS
--- NOTE | 2022-08-14 09:26 | PM.PNCARD ---
Progress Note: A&P Assessment and Plan (1) Heart failure with reduced ejection fraction: Code(s): I50.20 - Unspecified systolic (congestive) heart failure Status: Acute Assessment and Plan: Patient has CHF with severely reduced ejection fraction with echocardiogram during this hospitalization showing LVEF 15-20%. GDMT now on hold as patient has been requiring pressors. Resume GDMT once patient is hemodynamically stable. Due to LV dysfunction/CHF, cilastazol was discontinued yesterday. (2) Cerebrovascular accident: Code(s): I63.9 - Cerebral infarction, unspecified Status: Acute Assessment and Plan: Brain MRI shows acute infarct in posterior right frontal lobe. Neurology consulted. Management as per primary team and Neurology. Patient will need rehab. (3) Elevated troponin: Code(s): R77.8 - Other specified abnormalities of plasma proteins Status: Acute Assessment and Plan: No evidence of acute coronary syndrome (4) Atrial fibrillation with rapid ventricular response: Code(s): I48.91 - Unspecified atrial fibrillation Status: Acute Assessment and Plan: Patient has episodes of AFib with RVR. Continue IV amiodarone. May use IV esmolol as a supplement for rate control as necessary, if blood pressure allows. DC cardioversion for any hemodynamically unstable AFib with RVR. Anticoagulation with low-molecular weight heparin at present. To be switched to apixaban later. (5) T2DM (type 2 diabetes mellitus): Code(s): E11.9 - Type 2 diabetes mellitus without complications Status: Acute Assessment and Plan: Management as per primary (6) Hypertension: Code(s): I10 - Essential (primary) hypertension Status: Acute Assessment and Plan: Holding antihypertensives as patient now on pressors (7) Hyperlipidemia: Code(s): E78.5 - Hyperlipidemia, unspecified Status: Acute Assessment and Plan: Continue high-intensity statin (8) Aspiration pneumonia: Code(s): J69.0 - Pneumonitis due to inhalation of food and vomit Status: Acute Assessment and Plan: On antibiotics as per ICU team. (9) Acute respiratory failure: Code(s): J96.00 - Acute respiratory failure, unspecified whether with hypoxia or hypercapnia Status: Acute Assessment and Plan: Intubated and sedated. Plans on extubation today. (10) Shock: Code(s): R57.9 - Shock, unspecified Status: Acute Time Spent With Patient Time with patient: 25 - 35 minutes Subjective Date/time seen: 08/14/22 09:26 Interval history: Reason for visit: Acute CVA, troponin leak, AFIB HPI: This is a 67-year-old man I am seeing at the request of the hospitalist today because of elevation in his troponin level at the request of the hospitalist.? The patient is apparently known to my partner, Dr. Foley and has a history of chronic atrial fibrillation, coronary artery disease and peripheral vascular disease.? The patient has not been seen by myself prior to this.? He was brought to the emergency room yesterday when at home he was found to have a slowing of his speech and a left hemiplegia.? Of course is felt to be having had a stroke.? He is scheduled for a MRI of his brain later this morning which has not yet occurred.? The patient is in atrial fibrillation with somewhat rapid ventricular response at admission his ventricular response is now controlled.? He has slurring of the speech at this time a but does answer questions appropriately and does not have any active cardiovascular complaints.? He is asking to get out of bed I told him he should not be getting up while OR without assistance.? He denies any sense of chest pain palpitations orthopnea PND.? The patient has a history of coronary artery disease with percutaneous stenting of his right coronary artery back in 2011.? He has had more recent lower extremity revascularization
[2022-08-14] MEDS: FUROSEMIDE INJ 40 MG/4 ML VIAL IV PUSH ×2 (10:13→17:41)
[2022-08-14] MEDS: AMIODARONE 150 MG/D5W 100 ML 150 MG/100 ML BAG 600 MG IV CONT ×2 (12:27→14:36)
[2022-08-14 13:38] LABS: Glucose Point of Care 148 mg/dl (65-105)
[2022-08-14] MEDS: dexmedeTOMIDine 400 MCG/100 ML 400 MCG/100 ML BAG IV CONT (14:34)
[2022-08-14] MEDS: METOPROLOL TARTRATE INJ 5 MG/5 ML VIAL IV PUSH (15:32)
--- NOTE | 2022-08-14 16:08 | PC.NURSE ---
At 1545, this nurse went to assess patient. Patient was found with NG tube laying on lap. Patient drowsy and oriented x2 stating he does not know why he pulled the NG out it was bothering him . MD updated and notified for further care and management.
[2022-08-14 16:21] LABS: Glucose Point of Care 117 mg/dl (65-105)
--- NOTE | 2022-08-14 16:22 | PM.IMPN ---
Progress Note: A&P Assessment and Plan (1) Heart failure with reduced ejection fraction: Code(s): I50.20 - Unspecified systolic (congestive) heart failure Status: Acute Assessment and Plan: patient with EF of 15-20%, cardiology on board, maximize medical management (2) Cerebrovascular accident: Code(s): I63.9 - Cerebral infarction, unspecified Status: Acute Assessment and Plan: neurochecks q.4 hours, no new lesions on repeat CT scan (3) Atrial fibrillation with rapid ventricular response: Code(s): I48.91 - Unspecified atrial fibrillation Status: Acute Assessment and Plan: will start amiodarone drip for rate control. Given metoprolol by Cardiology. Already on Eliquis and clopidogrel. Plan Telegraph Office Manager: Called for rapid response as patient was noted to be in rapid atrial fibrillation with altered mental status. Patient has known CVA with left-sided weakness and is now presenting with increased altered mental status and tachycardia. Patient was not following commands, not tracking, and seemed more confused according to the nurse. Patient immediately brought down to CT scan for repeat imaging due to concerns of worsening CVA with hemorrhagic transformation. Discussed with radiologist operator electronic warfare, CT shows anticipated CVA changes, no bleeding seen. Patient was then transferred to the ICU for further monitoring. Case discussed with patient's and son Ash and they have agreed to proceed with all interventions necessary as per patient's wishes of being full code. He was having shallow respirations and was tachypneic to 40 a minute respiratory rate. A decision was made to intubate patient due to his respiratory failure. Initial vent settings tidal volume of 460 rate of 18, 100% FiO2 and PEEP of 5. Patient was given fentanyl and Versed for sedation. Patient initially given metoprolol IV push however continued to be in rapid AFib. patient was then started on an amiodarone drip due to persistent tachycardia. His blood pressure was on the lower side which prevented use of diltiazem drip. Computer was warning against drug interaction with cilostazol and so cilostazol was discontinued instead. Patient had chest x-ray done which showed increased opacities questionable for pneumonia versus pulmonary edema. As per nurse sign out, patient had choking episodes earlier in the day when his was trying to feed him so there was concern for aspiration pneumonia. Patient empirically started on some Zosyn. Case discussed with welfare director Dr. Abbasi. 08/14/2022 interval history:?67 y/o male with history of alcohol abuse and noncompliant with his medications,? is fount to have?acute infarct in posterior right frontal lobe, echo showed LVEF 15-20% and patient is being treated with IV Lasix, patient has difficulty swallowing, due to alcohol withdrawal, held his libiriium as patient CIWA scores were low and patient was somnolent, however on night of 08/10 patient became hypoxic went to respiratory failure and was intubated and currently on vent and seen by welfare director suspect patient has aspiration pneumonia and patient severe cardiomyopathy seen game agent,today, today patient was given weaning trial off ventilator patient was able to tolerate and patient was extubated, still somnolent unable to provide any review of symptoms will continue to monitor and further recommendation to follow. Subjective Date/time seen: 08/14/22 16:22 Telegraph Office Manager: Called for rapid response as patient was noted to be in rapid atrial fibrillation with altered mental status. Patient has known CVA with left-sided weakness and is now presenting with increased altered mental status and tachycardia. Patient was not following commands, not tracking, and seemed more confused according to the nurse. Patient immediately brought down to CT scan for repeat imaging due to concerns of worsening CVA with hemorrhagic transformation. Discussed wit
[2022-08-14] MEDS: AMIODARONE 360 MG/D5W 200 ML 360 MG/200 ML BAG 33.33 MG IV CONT (17:43)
[2022-08-14 21:04] LABS: Glucose Point of Care 109 mg/dl (65-105)
[2022-08-15] VITALS (28 sets, daily range): BP systolic 113–159; BP diastolic 52–93; PULSE 77–122; RESP 20–35; TEMP 36.6–37.3; O2SAT 92–100
[2022-08-15] MEDS: AMIODARONE 360 MG/D5W 200 ML 360 MG/200 ML BAG 33.33 MG IV CONT ×2 (00:28→06:32)
[2022-08-15] MEDS: PIPERACILLN/TAZ 3.375GM/NS50ML 3.375 GM/50 ML BAG IVPB ×4 (00:28→17:12)
[2022-08-15 00:33] LABS: Glucose Point of Care 104 mg/dl (65-105)
[2022-08-15 04:56] LABS: Hematocrit 41.4 % (42.0-52.0); Hemoglobin 13.5 g/dL (14.0-18.0); Mean Corpuscular HGB Conc 32.6 g/dl (32-36); Mean Corpuscular Hemoglobin 34.2 pg (26-34); Mean Corpuscular Volume 104.8 fl (80-100); Platelet Count Result 191 k/mm3 (150-375); Red Blood Count 3.95 M/mm3 (4.6-6.20); Red Cell Distribution Width 13.8 % (11.5-14.5); White Blood Count 6.6 K/mm3 (4.5-10.0)
[2022-08-15 05:23] LABS: Alveolar/Arterial O2 Gradient 47.8 mmHg; Base Excess ABG 3.4 mEq/l (+/-2.0); Carboxyhemoglobin 0.7 % THb (0-2.0); Fractional Inspired Oxygen 21 %; HCO3 ABG 26.5 mEq/l (22.0-26.0); Methemoglobin ABG 0.2 %THb (0-1.5); Oxygen Content ABG 19.3 %vol (16.0-22.0); Oxygen Saturation ABG 92.7 % (95.0-100.0); Oxyhemoglobin 91.5 % THb (90.0-100.0); PCO2 ABG 35.6 mmHg (35.0-45.0); PO2 ABG 59.3 mmHg (80.0-100.0); PO2 FiO2 Ratio Arterial Blood 2.82 %; Reduced Hemoglobin 7.6 %THb (0-5.0)
[2022-08-15 05:25] LABS: Device ROOM AIR; Modified Allen's Test Pass; Site Drawn LEFT RADIAL
[2022-08-15 05:50] LABS: Anion Gap 2 mmol/L (8-16); Blood Urea Nitrogen 11 mg/dL (9-20); Calcium 8.8 mg/dL (8.4-10.2); Carbon Dioxide 35 mmol/L (22-30); Chloride 101 mmol/L (98-107); Estimated CRCL calculation 87 ml/min; Estimated Glomerular Filt Rate > 60; Glucose 122 mg/dL (65-110); Magnesium 1.6 mg/dL (1.6-2.3); Potassium 3.4 mmol/L (3.4-5.0); Sodium 138 mmol/L (137-145)
[2022-08-15] MEDS: CENTRAL LINE FLUSH 10 ML IV PUSH ×4 (06:33→20:16)
[2022-08-15 07:24] LABS: Glucose Point of Care 120 mg/dl (65-105)
--- NOTE | 2022-08-15 07:54 | ECG_ITS ---
Measurements Intervals [place] Rate: 84 P: ND: 0 QRS: 110 QRSD: 138 T: 88 QT: 499 QTc: 591 Interpretive Statements ATRIAL FIBRILLATION RIGHT BUNDLE BRANCH BLOCK [120+ ms QRS DURATION, UPRIGHT V1, 40+ ms S IN I/aVL/V4/V5/V6] LEFT POSTERIOR FASCICULAR BLOCK [QRS AXIS > 109, INFERIOR Q] MODERATE T-WAVE ABNORMALITY, CONSIDER ANTEROLATERAL ISCHEMIA [-0.1+ mV T WAVE IN V3-V6] COMPARED TO ECG 08/13/2022 04:57:22 HEART RATE IS SLOWER NOW Electronically Signed On 08-15-2022 12:24:50 CDT by Luis Antonio Sellers M.D.
--- NOTE | 2022-08-15 08:36 | WPDINTPN ---
Progress Note: A&P Assessment and Plan (1) Acute respiratory failure: Code(s): J96.00 - Acute respiratory failure, unspecified whether with hypoxia or hypercapnia Status: Acute Assessment and Plan: Acute Respiratory failure secondary to pulmonary edema, aspiration pneumonia, encephalopathy and inability to protect airway 4/2 extubated after a successful weaning trial His main issue has been clearance of secretions as hypoxia has improved and he is on room air this morning. He did had some increased work of breathing last night but refused to wear BiPAP. He has been requiring frequent suctioning when nursing staff. Will order EzPAP q.6 hours to minimize atelectasis he probably would not be able to do IS Swallow evaluation today Continue Lasix Patient is still at risk of re-intubation if respiratory status worsens and he is not a candidate for or unable to use BiPAP (2) Aspiration pneumonia: Code(s): J69.0 - Pneumonitis due to inhalation of food and vomit Status: Acute Assessment and Plan: Blood and sputum cultures ordered Continue empiric Zosyn (3) Pulmonary edema: Code(s): J81.1 - Chronic pulmonary edema Status: Acute Assessment and Plan: Improved after intubation and positive pressure ventilation Repeat lasix IV today (4) Peripheral arterial disease: Code(s): I73.9 - Peripheral vascular disease, unspecified Status: Acute Assessment and Plan: Patient had WERNER is done in 2019 which showed a peripheral arterial disease. Patient is currently on Pletal and anticoagulation. Patient's both feet are cold below mid legs. Left foot appears worse than right. Exam as above 08/12 WERNER IMPRESSION: 1. Severely decreased bilateral ABIs, consistent with arterial occlusive disease. 2. Total occlusion of left dorsalis pedis Likely worsened by patient shock which is combination of sepsis and cardiogenic. Embolic phenomena secondary to AFib and noncompliance with anticoagulation is also possibility. 08/[address] Barrow from Cardiology. Not a candidate for mechanical intervention.. Patient not a candidate for tPA due to his recent large stroke. Recommends continuing conservative management anticoagulation and antiplatelet agent that patient is already on 08/13 the overall color and the temperature of the foot seems to be improving although that was still are mottled (5) Hyperlipidemia: Code(s): E78.5 - Hyperlipidemia, unspecified Status: Acute Assessment and Plan: Continue Lipitor and Zetia (6) Diabetes: Code(s): E11.9 - Type 2 diabetes mellitus without complications Status: Acute Assessment and Plan: Continue sliding scale insulin Hold lantus (7) Cardiomyopathy: Code(s): I42.9 - Cardiomyopathy, unspecified Status: Acute Assessment and Plan: Echo Summary ? 1. Four-chamber cardiac dilation. ? 2. Severe left ventricular systolic dysfunction ejection fraction 15-20%. ? 3. Mildly sclerotic aortic valve with no stenosis. ? 4. Mild to moderate mitral regurgitation resulting from mitral annular dilation. ? 5. Right ventricular systolic dysfunction. ? 6. Definity contrast injected to improve visualization. Cardiology following (8) Cerebrovascular accident: Code(s): I63.9 - Cerebral infarction, unspecified Status: Acute Assessment and Plan: Likely embolic from AFib Continue aspirin statin and Lovenox (9) Atrial fibrillation with rapid ventricular response: Code(s): I48.91 - Unspecified atrial fibrillation Status: Acute Assessment and Plan: Currently ventricular rate is controlled. Not requiring any rate control medication Anticoagulated with Lovenox Also on Plavix (10) Encephalopathy: Code(s): G93.40 - Encephalopathy, unspecified Status: Acute Assessment and Plan: Multifactorial secondary to CVA and benzodiazepine Currently sedat
[2022-08-15] MEDS: KCL 40 MEQ/WATER 100 ML 100 ML 25 ML IVPB (09:13)
[2022-08-15] MEDS: MAGNESIUM SULF 2 GM/WATER 50ML 2 GM/50 ML BAG IVPB (09:13)
[2022-08-15] MEDS: FUROSEMIDE INJ 40 MG/4 ML VIAL IV PUSH ×2 (09:14→16:12)
[2022-08-15] MEDS: FOLIC ACID 1 MG TABLET FEED TUBE (09:15)
[2022-08-15] MEDS: CLOPIDOGREL BISULFATE 75 MG TABLET PO (09:15)
[2022-08-15] MEDS: EZETIMIBE 10 MG TABLET PO (09:15)
[2022-08-15] MEDS: THIAMINE HCL 100 MG TABLET FEED TUBE (09:15)
[2022-08-15] MEDS: PANTOPRAZOLE SODIUM IV 40 MG VIAL IV PUSH ×2 (09:15→20:12)
[2022-08-15] MEDS: ATORVASTATIN 40 MG TABLET 80 MG PO (09:15)
[2022-08-15] MEDS: ENOXAPARIN 100 MG/ML SYRINGE 90 MG SUB-Q ×2 (09:15→20:12)
--- NOTE | 2022-08-15 09:46 | PCSTNOTE ---
Please refer to the Modified Barium Swallow Evaluation in the EMR. Speech Therapy will not be initiated until patient is more awake and alert and better able to actively participate.
--- NOTE | 2022-08-15 11:05 | PCFNICU ---
ICU Rounding Note: Pt current nutrition is Glucerna 1.2 at 75 ml/hr Last recorded weight is 81.4 kg. Bowel Motility: FMS Labs Reviewed:Glu 193 Meds Noted:Levophed, Zosyn, Lopressor, Protonix, Thiamine, Folic Acid, Levophed Skin: WNL Additional Notes: Patient was extubated on 08/14. Pulled NGT. MBS on 08/15-failed. Plans for tube feedings to restart. Tube feeding recommendations: Glucerna 1.2 goal rate at 75 ml/hr providing 1980 kcals/110 gms protein/1328 ml water. Flush 75 ml q 4 hours. Will monitor daily in ICU rounds and reassess skin,labs,Meds every Monday and Monday.
[2022-08-15 11:55] LABS: Glucose Point of Care 129 mg/dl (65-105)
--- NOTE | 2022-08-15 14:53 | WPDGICN ---
Assessment and Plan Assessment and plan (1) Dysphagia: Code(s): R13.10 - Dysphagia, unspecified Status: Acute Assessment and Plan: dysphagia/aphasia from recent stroke failed again speech evaluation he is on enteral tube feeding Shank Stapler recommending G-tube placement, recently extubated and earlier his O2 sat normal without oxygen- main problem is inability to handle own secretions (2) Aspiration pneumonia: Code(s): J69.0 - Pneumonitis due to inhalation of food and vomit Status: Acute Assessment and Plan: on treatment improved possible G-tube placement tomorrow (hold lovenox tomorrow) (3) Cardiomyopathy: Code(s): I42.9 - Cardiomyopathy, unspecified Status: Acute Assessment and Plan: medical management by cardiology (4) Acute respiratory failure: Code(s): J96.00 - Acute respiratory failure, unspecified whether with hypoxia or hypercapnia Status: Acute Assessment and Plan: improved bipap as needed (5) Cerebrovascular accident: Code(s): I63.9 - Cerebral infarction, unspecified Status: Acute Assessment and Plan: medical management (6) Atrial fibrillation with rapid ventricular response: Code(s): I48.91 - Unspecified atrial fibrillation Status: Acute (7) Peripheral arterial disease: Code(s): I73.9 - Peripheral vascular disease, unspecified Status: Acute (8) Encephalopathy: Code(s): G93.40 - Encephalopathy, unspecified Status: Acute GI Consult Note Consult date/time: 08/15/22 14:53 Reason for consult: aphasia, stroke HPI: Jere Mcallister is a 67 year old male with past medical history significant for atrial fibrillation rate anticoagulated, diabetes, hypertension and alcohol abuse with noncompliance was admitted on 08/07 left-sided weakness.? Patient was diagnosed with CVA and admitted the hospital (out of window for tPA), had brain MRI confirmed acute infarct in posterior right frontal lobe and moderate nonspecific cerebral white matter disease. Diagnosed also with cardiomyopathy- Echocardiogram was done and showed EF of 15-20% with 4 chamber dilation [id number] MR and right ventricular dysfunction, Cardiology on board.? Patient failed a swallow evaluation, had rapid response for AFib with RVR, poor mental status and respiratory failure.? He was not protecting his airway, intubated and moved to ICU. Recently extubated but still with aphasia and can not eat because failed speech evaluation. Now he has NGT for feeding. Shank Stapler called me to place G-tube tomorrow hopefully tomorrow, is agreeable. History obtained from records (poor historian and recent stroke). Review of Systems Constitutional: Constitutional: Reports difficulty sleeping Eyes: Eyes: Denies blurry vision ENT: Reports Normal hearing present Cardiovascular: Cardiovascular: Denies chest pain Respiratory: Respiratory: Reports cough Gastrointestinal: Gastrointestinal: Denies abdominal pain Integumentary/Breasts: Skin/Breast: Denies rash Neurologic: Reports confusion Comments: recent stroke Psychiatric: Psychiatric: Reports anxiety [facility] Past Medical History Medical History Atrial fibrillation Diabetes Hyperlipidemia Hypertension Family History Family History Father Diabetes mellitus Gout Hypertension Mother Diabetes mellitus Hypertension Social History Social History Smoking packs per day: 1.5 Smoking cigarettes per day: 30.0 Years smoked: 40 Smoking pack-years: 60.00 Smoking status: Current every day smoker Tobacco type: cigarettes Second hand tobacco smoke exposure: Yes Alcohol intake: current Substance use: never Other substance usage details: I bottle of wine daily Last use: 08/06/22 Lack of Transportat
--- NOTE | 2022-08-15 15:21 | PM.IMPN ---
Progress Note: A&P Assessment and Plan (1) Heart failure with reduced ejection fraction: Code(s): I50.20 - Unspecified systolic (congestive) heart failure Status: Acute Assessment and Plan: patient with EF of 15-20%, cardiology on board, maximize medical management (2) Cerebrovascular accident: Code(s): I63.9 - Cerebral infarction, unspecified Status: Acute Assessment and Plan: neurochecks q.4 hours, no new lesions on repeat CT scan (3) Atrial fibrillation with rapid ventricular response: Code(s): I48.91 - Unspecified atrial fibrillation Status: Acute Assessment and Plan: will start amiodarone drip for rate control. Given metoprolol by Cardiology. Already on Eliquis and clopidogrel. Plan [employer] Principal Solution Specialist: Called for rapid response as patient was noted to be in rapid atrial fibrillation with altered mental status. Patient has known CVA with left-sided weakness and is now presenting with increased altered mental status and tachycardia. Patient was not following commands, not tracking, and seemed more confused according to the nurse. Patient immediately brought down to CT scan for repeat imaging due to concerns of worsening CVA with hemorrhagic transformation. Discussed with radiologist economic development manager, CT shows anticipated CVA changes, no bleeding seen. Patient was then transferred to the ICU for further monitoring. Case discussed with patient's and son Ash and they have agreed to proceed with all interventions necessary as per patient's wishes of being full code. He was having shallow respirations and was tachypneic to 40 a minute respiratory rate. A decision was made to intubate patient due to his respiratory failure. Initial vent settings tidal volume of 460 rate of 18, 100% FiO2 and PEEP of 5. Patient was given fentanyl and Versed for sedation. Patient initially given metoprolol IV push however continued to be in rapid AFib. patient was then started on an amiodarone drip due to persistent tachycardia. His blood pressure was on the lower side which prevented use of diltiazem drip. Computer was warning against drug interaction with cilostazol and so cilostazol was discontinued instead. Patient had chest x-ray done which showed increased opacities questionable for pneumonia versus pulmonary edema. As per nurse sign out, patient had choking episodes earlier in the day when his was trying to feed him so there was concern for aspiration pneumonia. Patient empirically started on some Zosyn. Case discussed with tc operator Dr. Abbasi. 08/15/2022 interval history:?67 y/o male with history of alcohol abuse and noncompliant with his medications,? is fount to have?acute infarct in posterior right frontal lobe, echo showed LVEF 15-20% and patient is being treated with IV Lasix, patient has difficulty swallowing, due to alcohol withdrawal, held his libiriium as patient CIWA scores were low and patient was somnolent, however on night of 08/10 patient became hypoxic went to respiratory failure and was intubated and currently on vent and seen by tc operator suspect patient has aspiration pneumonia and patient severe cardiomyopathy seen patient carrier,today, on 08/14 patient was given weaning trial off ventilator patient was able to tolerate and patient was extubated, currently on BIPAP still somnolent unable to provide any review of symptoms, patient failed swallow study, will have PEG tomorrow, prognosis is guarded, patient and son are present and gave updates, will continue to monitor and further recommendation to follow. Subjective Date/time seen: 08/15/22 15:21 08/15/2022 interval history:?67 y/o male with history of alcohol abuse and noncompliant with his medications,? is fount to have?acute infarct in posterior right frontal lobe, echo showed LVEF 15-20% and patient is being treated with IV Lasix, patient has difficulty swallowing, due to alcohol withdrawal, held his libiriium as patient C
[2022-08-15] MEDS: AMIODARONE 360 MG/D5W 200 ML 360 MG/200 ML BAG 16.67 MG IV CONT (16:04)
[2022-08-15 16:15] LABS: Glucose Point of Care 146 mg/dl (65-105)
[2022-08-15] MEDS: ACETAMINOPHEN ELIXIR 325 MG/10.15 ML UDC 650 MG PO (18:23)
[2022-08-15] MEDS: INSULIN GLARGINE (*BKC) 100 UNITS/ML 15 UNITS SUB-Q (20:15)
[2022-08-15 20:30] LABS: Glucose Point of Care 161 mg/dl (65-105)
[2022-08-15] MEDS: dexmedeTOMIDine 400 MCG/100 ML 400 MCG/100 ML BAG IV CONT (22:01)
[2022-08-16] VITALS (43 sets, daily range): BP systolic 81–154; BP diastolic 49–81; PULSE 63–121; RESP 19–27; TEMP 35.9–37.1; O2SAT 92–98
[2022-08-16] MEDS: PIPERACILLN/TAZ 3.375GM/NS50ML 3.375 GM/50 ML BAG IVPB ×4 (00:04→16:42)
[2022-08-16 00:10] LABS: Glucose Point of Care 160 mg/dl (65-105)
[2022-08-16 04:32] LABS: Hematocrit 40.2 % (42.0-52.0); Hemoglobin 13.3 g/dL (14.0-18.0); Mean Corpuscular HGB Conc 33.1 g/dl (32-36); Mean Corpuscular Hemoglobin 34.5 pg (26-34); Mean Corpuscular Volume 104.4 fl (80-100); Mean Platelet Volume 10.9 fl (7.4-10.4); Platelet Count Result 227 k/mm3 (150-375); Red Blood Count 3.85 M/mm3 (4.6-6.20); Red Cell Distribution Width 13.6 % (11.5-14.5); White Blood Count 6.2 K/mm3 (4.5-10.0)
[2022-08-16 04:49] LABS: Anion Gap 4 mmol/L (8-16); Blood Urea Nitrogen 12 mg/dL (9-20); Calcium 8.6 mg/dL (8.4-10.2); Carbon Dioxide 36 mmol/L (22-30); Chloride 98 mmol/L (98-107); Estimated CRCL calculation 87 ml/min; Estimated Glomerular Filt Rate > 60; Glucose 128 mg/dL (65-110); Magnesium 1.9 mg/dL (1.6-2.3); Potassium 3.6 mmol/L (3.4-5.0); Sodium 138 mmol/L (137-145)
[2022-08-16] MEDS: CENTRAL LINE FLUSH 10 ML IV PUSH ×5 (05:38→21:13)
[2022-08-16 05:45] LABS: Alveolar/Arterial O2 Gradient 60.6 mmHg; Base Excess ABG 7.4 mEq/l (+/-2.0); Carboxyhemoglobin 0.8 % THb (0-2.0); Fractional Inspired Oxygen 28 %; HCO3 ABG 33.1 mEq/l (22.0-26.0); Methemoglobin ABG 0.2 %THb (0-1.5); Oxygen Saturation ABG 95.9 % (95.0-100.0); Oxyhemoglobin 94.9 % THb (90.0-100.0); PCO2 ABG 50.6 mmHg (35.0-45.0); PO2 ABG 79.3 mmHg (80.0-100.0); PO2 FiO2 Ratio Arterial Blood 2.83 %; Reduced Hemoglobin 4.1 %THb (0-5.0); Total Hemoglobin 14.2 g/dL (12.0-18.0); pH ABG 7.434 (7.350-7.450)
[2022-08-16 05:46] LABS: Device NASAL CANNULA; Modified Allen's Test Pass; Site Drawn LEFT RADIAL
[2022-08-16 07:41] LABS: Glucose Point of Care 136 mg/dl (65-105)
[2022-08-16] MEDS: FUROSEMIDE INJ 40 MG/4 ML VIAL IV PUSH ×2 (07:44→16:41)
[2022-08-16] MEDS: EZETIMIBE 10 MG TABLET PO (07:44)
[2022-08-16] MEDS: CLOPIDOGREL BISULFATE 75 MG TABLET PO (07:44)
[2022-08-16] MEDS: FOLIC ACID 1 MG TABLET FEED TUBE (07:44)
[2022-08-16] MEDS: ATORVASTATIN 40 MG TABLET 80 MG PO (07:44)
[2022-08-16] MEDS: PANTOPRAZOLE SODIUM IV 40 MG VIAL IV PUSH ×2 (07:45→20:04)
[2022-08-16] MEDS: THIAMINE HCL 100 MG TABLET FEED TUBE (07:45)
[2022-08-16] MEDS: POTASSIUM CHLORIDE 20 MEQ PACKET (FOR LIQUID) 40 MEQ FEED TUBE (07:46)
--- NOTE | 2022-08-16 08:01 | WPDINTPN ---
Progress Note: A&P Assessment and Plan (1) Acute respiratory failure: Code(s): J96.00 - Acute respiratory failure, unspecified whether with hypoxia or hypercapnia Status: Acute Assessment and Plan: Acute Respiratory failure secondary to pulmonary edema, aspiration pneumonia, encephalopathy and inability to protect airway / extubated after a successful weaning trial He did require BiPAP overnight due to increased work of breathing His main issue has been clearance of secretions as hypoxia has improved and he is on room air this morning. He has been requiring frequent suctioning I nursing staff. Continue BiPAP p.r.n. and ezPAP q.6 hours to minimize atelectasis he probably would not be able to do IS He is scheduled for PEG tube placement today Continue Lasix Patient is still at risk of re-intubation if respiratory status worsens and he is not a candidate for or unable to use BiPAP (2) Aspiration pneumonia: Code(s): J69.0 - Pneumonitis due to inhalation of food and vomit Status: Acute Assessment and Plan: Blood and sputum cultures ordered Continue empiric Zosyn (3) Pulmonary edema: Code(s): J81.1 - Chronic pulmonary edema Status: Acute Assessment and Plan: Improved after intubation and positive pressure ventilation Repeat lasix IV today (4) Peripheral arterial disease: Code(s): I73.9 - Peripheral vascular disease, unspecified Status: Acute Assessment and Plan: Patient had WERNER is done in 2019 which showed a peripheral arterial disease. Patient is currently on Pletal and anticoagulation. Patient's both feet are cold below mid legs. Left foot appears worse than right. Exam as above 08/12 WERNER IMPRESSION: 1. Severely decreased bilateral ABIs, consistent with arterial occlusive disease. 2. Total occlusion of left dorsalis pedis Likely worsened by patient shock which is combination of sepsis and cardiogenic. Embolic phenomena secondary to AFib and noncompliance with anticoagulation is also possibility. 08/[address] Barrow from Cardiology. Not a candidate for mechanical intervention.. Patient not a candidate for tPA due to his recent large stroke. Recommends continuing conservative management anticoagulation and antiplatelet agent that patient is already on 08/13 the overall color and the temperature of the foot seems to be improving although that was still are mottled (5) Hyperlipidemia: Code(s): E78.5 - Hyperlipidemia, unspecified Status: Acute Assessment and Plan: Continue Lipitor and Zetia (6) Diabetes: Code(s): E11.9 - Type 2 diabetes mellitus without complications Status: Acute Assessment and Plan: Continue sliding scale insulin Hold lantus (7) Cardiomyopathy: Code(s): I42.9 - Cardiomyopathy, unspecified Status: Acute Assessment and Plan: Echo Summary ? 1. Four-chamber cardiac dilation. ? 2. Severe left ventricular systolic dysfunction ejection fraction 15-20%. ? 3. Mildly sclerotic aortic valve with no stenosis. ? 4. Mild to moderate mitral regurgitation resulting from mitral annular dilation. ? 5. Right ventricular systolic dysfunction. ? 6. Definity contrast injected to improve visualization. Cardiology following (8) Cerebrovascular accident: Code(s): I63.9 - Cerebral infarction, unspecified Status: Acute Assessment and Plan: Likely embolic from AFib Continue aspirin statin and Lovenox (9) Atrial fibrillation with rapid ventricular response: Code(s): I48.91 - Unspecified atrial fibrillation Status: Acute Assessment and Plan: Off amnio infusion now. Start p.o. amiodarone p.o. metoprolol. P.r.n. IV metoprolol to be continued Anticoagulated with Lovenox Also on Plavix (10) Encephalopathy: Code(s): G93.40 - Encephalopathy, unspecified Status: Acute Assessment and Plan: Multifactorial secondary to CVA and
--- NOTE | 2022-08-16 08:37 | PC.NURSE ---
Patient pulled out NG while awaiting amiodarone and metoprolol tablets from pharmacy. Discussed with Dr. Abbasi. Patient to stay without NG until PEG tube insertion. Amio and metoprolol to be administered once PEG tube placed.
--- NOTE | 2022-08-16 11:04 | PCNFU ---
Nutrition Follow-Up Complete: Inadequate Oral Intake as related to mechanical vent as evidenced by NPO. Goal: Meet estimated nutritional needs. Patient is progressing towards goal. We will continue current goal. Pt current nutrition is Glucerna 1.2 at 75 ml/hr. Last recorded weight is 78.8 kg. Bowel Motility:+BM reported /4 Labs Reviewed:Hct 40.2,Hgb 13.3,Glu 128 Meds Noted:Protonix, Thiamine, Folic Acid, Lasix,Zosyn,Lopressor Skin: WNL Additional Notes: Patient pulled NGT today. NPO for PEG today. Recommend restarting tube feedings of Glucerna 1.2 goal rate at 75 ml/hr. Tube feedings providing 1980 kcals/110 gm protein/1328 ml water. Flush 75 ml q 4 hours. Agree with diet orders. Will monitor daily in ICU rounds and reassess skin,labs,meds every Monday and Monday.
--- NOTE | 2022-08-16 11:31 | PC.NURSE ---
Patient to OR for PEG tube placement. Report given to Donita JOSEPH.
[2022-08-16 11:32] LABS: Glucose Point of Care 121 mg/dl (65-105)
[2022-08-16] MEDS: LACTATED RINGERS 1,000 ML 150 ML IV CONT (11:48)
--- NOTE | 2022-08-16 12:01 | WPDANESEPPF ---
Anes - Initial Pre Proc Eval Procedure: Operation Date: 08/16/22 14:15 Proposed Procedures p Percutaneous Endoscopic Gastrostomy - Jeovany Ann MD Date/Time: 08/16/22 12:01 Surgeon: Bing Bautista MD Pre Op Diagnosis: CVA, troponin leak, afib w RVR Patient Data Age: 67 Gender: M Height: 1.83 m Weight: 78.8 kg Last Vital Signs Temp 96.7 F L 08/16/22 11:47 Pulse 75 08/16/22 11:47 Resp 20 08/16/22 11:47 BP 94/52 L 08/16/22 11:47 Pulse Ox 94 08/16/22 11:47 O2 Del Method Nasal Cannula 08/16/22 11:47 O2 Flow Rate 2 08/16/22 11:47 FiO2 28 08/16/22 08:26 Allergies Allergy/AdvReac Type Severity Reaction Status Date / Time No Known Allergies Allergy Verified 08/16/22 11:46 Home Medications Medication Instructions Recorded Confirmed Type apixaban 5 mg tablet (Eliquis) 5 mg PO BID 08/07/22 08/07/22 History atorvastatin 80 mg tablet 80 mg PO DAILY 08/07/22 08/07/22 History cilostazol 100 mg tablet 100 mg PO BID 08/07/22 08/07/22 History clopidogrel 75 mg tablet 75 mg PO DAILY 08/07/22 08/07/22 History ezetimibe 10 mg tablet 10 mg PO DAILY 08/07/22 08/07/22 History glipizide 5 mg tablet 5 mg PO DAILY 08/07/22 08/07/22 History metformin 1,000 mg tablet,extended 1,000 mg PO BID 08/07/22 08/07/22 History release 24hr metoprolol tartrate 100 mg tablet 100 mg PO Q12H 08/07/22 08/07/22 History nitroglycerin 0.4 mg sublingual 0.4 mg sublingual Q5M PRN Chest 08/07/22 08/07/22 History tablet Pain sertraline 50 mg tablet 50 mg PO DAILY 08/07/22 08/07/22 History valsartan 80 mg tablet 80 mg PO DAILY 08/07/22 08/07/22 History Laboratory Tests 08/15/22 08/15/22 08/16/22 16:05 20:15 00:05 WBC RBC Hgb Hct MCV MCH MCHC RDW Plt Count MPV Puncture Site ABG pH ABG pCO2 ABG pO2 ABG PO2/FiO2 Ratio ABG HCO3 ABG O2 Saturation ABG O2 Content ABG Base Excess A-a Gradient Oxyhemoglobin Carboxyhemoglobin Methemoglobin Reduced Hemoglobin Total Hemoglobin O2 Delivery Device O2 Liters/Min FiO2 Sodium Potassium Chloride Carbon Dioxide Anion Gap BUN Creatinine Estim Creat Clear Calc Estimated GFR Glucose POC Capillary Glucose 146 mg/dl H mg/dl 161 mg/dl H mg/dl 160 mg/dl H mg/dl (65-105) (65-105) (65-105) Calcium Magnesium 08/16/22 08/16/22 08/16/22 04:26 04:26 05:29 WBC 6.2 K/mm3 K/mm3 (4.5-10.0) RBC 3.85 M/mm3 L M/mm3 (4.6-6.20) Hgb 13.3 g/dL L g/dL (14.0-18.0) Hct 40.2 % L % (42.0-52.0) MCV 104.4 fl H fl (80-100) MCH 34.5 pg H pg (26-34) MCHC 33.1 g/dl g/dl (32-36) RDW 13.6 % % (11.5-14.5) Plt Count 227 k/mm3 k/mm3 (150-375) MPV 10.9 fl H fl (7.4-10.4) Puncture Site Left radial ABG pH 7.434 (7.350-7.450) ABG pCO2 50.6 mmHg H mmHg (35.0-45.0) ABG pO2 79.3 mmHg L mmHg (80.0-100.0) ABG PO2/FiO2 Ratio 2.83 % % ABG HCO3 33.1 mEq/l H mEq/l (22.0-26.0) ABG O2 Saturation 95.9 % % (95.0-100.0) ABG O2 Content 19.0 %vol %vol (16.0-22.0) ABG Base Excess 7.4 mEq/l mEq/l (+/-2.0) A-a Gradient 60.6 mmHg mmHg Oxyhemoglobin 94.9 % THb % THb (90.0-100.0) Carboxyhemoglobin 0.8 % THb % THb (0-2.0) Methemoglobin 0.2 %THb %THb (0-1.5) Reduced Hemoglobin 4.1 %THb %THb (0-5.0) Total Hemoglobin 14.2 g/dL g/dL
--- NOTE | 2022-08-16 12:22 | SUR.OPER ---
Report called to Jalyn JOSEPH
--- NOTE | 2022-08-16 12:38 | PC.NURSE ---
Patient returned from OR
[2022-08-16] MEDS: AMIODARONE HCL 200 MG TABLET PO (12:40)
[2022-08-16] MEDS: METOPROLOL TARTRATE 25 MG TABLET FEED TUBE ×2 (12:41→21:07)
--- NOTE | 2022-08-16 13:53 | PM.IMPN ---
Progress Note: A&P Assessment and Plan (1) Heart failure with reduced ejection fraction: Code(s): I50.20 - Unspecified systolic (congestive) heart failure Status: Acute Assessment and Plan: patient with EF of 15-20%, cardiology on board, maximize medical management (2) Cerebrovascular accident: Code(s): I63.9 - Cerebral infarction, unspecified Status: Acute Assessment and Plan: neurochecks q.4 hours, no new lesions on repeat CT scan (3) Atrial fibrillation with rapid ventricular response: Code(s): I48.91 - Unspecified atrial fibrillation Status: Acute Assessment and Plan: will start amiodarone drip for rate control. Given metoprolol by Cardiology. Already on Eliquis and clopidogrel. Plan Prison Guard Supervisor: Called for rapid response as patient was noted to be in rapid atrial fibrillation with altered mental status. Patient has known CVA with left-sided weakness and is now presenting with increased altered mental status and tachycardia. Patient was not following commands, not tracking, and seemed more confused according to the nurse. Patient immediately brought down to CT scan for repeat imaging due to concerns of worsening CVA with hemorrhagic transformation. Discussed with radiologist monitoring manager, CT shows anticipated CVA changes, no bleeding seen. Patient was then transferred to the ICU for further monitoring. Case discussed with patient's and son Ash and they have agreed to proceed with all interventions necessary as per patient's wishes of being full code. He was having shallow respirations and was tachypneic to 40 a minute respiratory rate. A decision was made to intubate patient due to his respiratory failure. Initial vent settings tidal volume of 460 rate of 18, 100% FiO2 and PEEP of 5. Patient was given fentanyl and Versed for sedation. Patient initially given metoprolol IV push however continued to be in rapid AFib. patient was then started on an amiodarone drip due to persistent tachycardia. His blood pressure was on the lower side which prevented use of diltiazem drip. Computer was warning against drug interaction with cilostazol and so cilostazol was discontinued instead. Patient had chest x-ray done which showed increased opacities questionable for pneumonia versus pulmonary edema. As per nurse sign out, patient had choking episodes earlier in the day when his was trying to feed him so there was concern for aspiration pneumonia. Patient empirically started on some Zosyn. Case discussed with print binding and finishing worker Dr. Abbasi. 08/16/2022 interval history:?67 y/o male with history of alcohol abuse and noncompliant with his medications,? is fount to have?acute infarct in posterior right frontal lobe, echo showed LVEF 15-20% and patient is being treated with IV Lasix, patient has difficulty swallowing, due to alcohol withdrawal, held his libiriium as patient CIWA scores were low and patient was somnolent, however on night of 08/10 patient became hypoxic went to respiratory failure and was intubated and currently on vent and seen by print binding and finishing worker suspect patient has aspiration pneumonia and patient severe cardiomyopathy seen health information director,today, on 08/14 patient was given weaning trial off ventilator patient was able to tolerate and patient was extubated, currently on BIPAP still somnolent unable to provide any review of symptoms, patient failed swallow study, had PEG placed today, discuss with print binding and finishing worker prognosis is guarded remains is ICU for close observation, patient is present and gave updates, will continue to monitor and further recommendation to follow. Subjective Date/time seen: 08/16/22 13:53 Prison Guard Supervisor: Called for rapid response as patient was noted to be in rapid atrial fibrillation with altered mental status. Patient has known CVA with left-sided weakness and is now presenting with increased altered mental status and tachycardia. Patient was not following commands, n
[2022-08-16 16:41] LABS: Glucose Point of Care 139 mg/dl (65-105)
[2022-08-16] MEDS: QUEtiapine FUMARATE 25 MG TABLET FEED TUBE (20:04)
[2022-08-16 20:18] LABS: Glucose Point of Care 180 mg/dl (65-105)
[2022-08-16] MEDS: ENOXAPARIN 100 MG/ML SYRINGE 90 MG SUB-Q (21:07)
[2022-08-16] MEDS: INSULIN GLARGINE (*BKC) 100 UNITS/ML 15 UNITS SUB-Q (21:07)
[2022-08-17] VITALS (28 sets, daily range): BP systolic 96–156; BP diastolic 49–89; PULSE 61–126; RESP 18–32; TEMP 37.3–38.1; O2SAT 90–100
[2022-08-17] MEDS: PIPERACILLN/TAZ 3.375GM/NS50ML 3.375 GM/50 ML BAG IVPB ×4 (00:04→18:07)
[2022-08-17 00:11] LABS: Glucose Point of Care 172 mg/dl (65-105)
[2022-08-17] MEDS: dexmedeTOMIDine 400 MCG/100 ML 400 MCG/100 ML BAG IV CONT ×2 (04:11→22:24)
[2022-08-17 04:15] LABS: Glucose Point of Care 187 mg/dl (65-105)
[2022-08-17 05:23] LABS: Alveolar/Arterial O2 Gradient 112.4 mmHg; Base Excess ABG 8.1 mEq/l (+/-2.0); Carboxyhemoglobin 0.5 % THb (0-2.0); Device BIPAP; Fractional Inspired Oxygen 35 %; HCO3 ABG 33.6 mEq/l (22.0-26.0); Methemoglobin ABG 0.3 %THb (0-1.5); Modified Allen's Test Pass; Oxygen Content ABG 20.1 %vol (16.0-22.0); Oxygen Saturation ABG 96.1 % (95.0-100.0); Oxyhemoglobin 95.2 % THb (90.0-100.0); PCO2 ABG 49.3 mmHg (35.0-45.0); PO2 ABG 79.8 mmHg (80.0-100.0); PO2 FiO2 Ratio Arterial Blood 2.28 %; Site Drawn RIGHT RADIAL; pH ABG 7.451 (7.350-7.450)
[2022-08-17 05:24] LABS: Expiratory Pressure 6 cmH2O; Inspiratory Pressure 12 cmH2O
[2022-08-17 05:31] LABS: Hematocrit 42.6 % (42.0-52.0); Hemoglobin 13.9 g/dL (14.0-18.0); Mean Corpuscular HGB Conc 32.6 g/dl (32-36); Mean Corpuscular Hemoglobin 34.5 pg (26-34); Mean Corpuscular Volume 105.7 fl (80-100); Mean Platelet Volume 11.2 fl (7.4-10.4); Platelet Count Result 225 k/mm3 (150-375); Red Blood Count 4.03 M/mm3 (4.6-6.20); Red Cell Distribution Width 13.6 % (11.5-14.5); White Blood Count 6.3 K/mm3 (4.5-10.0)
[2022-08-17] MEDS: METOPROLOL TARTRATE 25 MG TABLET FEED TUBE ×3 (05:46→20:48)
[2022-08-17] MEDS: CENTRAL LINE FLUSH 10 ML IV PUSH ×4 (05:51→22:23)
[2022-08-17 07:19] LABS: Glucose Point of Care 173 mg/dl (65-105)
[2022-08-17 07:53] LABS: Anion Gap 3 mmol/L (8-16); Blood Urea Nitrogen 15 mg/dL (9-20); Calcium 8.6 mg/dL (8.4-10.2); Carbon Dioxide 37 mmol/L (22-30); Chloride 97 mmol/L (98-107); Estimated CRCL calculation 87 ml/min; Estimated Glomerular Filt Rate > 60; Glucose 165 mg/dL (65-110); Magnesium 1.9 mg/dL (1.6-2.3); Potassium 3.5 mmol/L (3.4-5.0); Sodium 137 mmol/L (137-145)
--- NOTE | 2022-08-17 07:56 | WPDANESPN ---
Anes - Prog Note Post-Op Date/Time: 08/17/22 07:56 Cardiovascular status: normal and other (cardiology closely following. ) Respiratory status: other (on NC O2) Airway patency: baseline Mental status: baseline (confused) Post-Op hydration status: normal Vital Signs: Last Vital Signs Temp 37.3 C 08/17/22 07:36 Pulse 70 08/17/22 07:36 Resp 21 H 08/17/22 07:36 BP 125/73 08/17/22 07:36 Pulse Ox 100 08/17/22 07:36 O2 Del Method BiPAP 08/17/22 04:00 O2 Flow Rate 35 08/17/22 04:00 FiO2 28 08/16/22 08:26 Pain Score (VAS): 3 I/O: Intake & Output 08/16/22 08/16/22 08/17/22 15:59 23:59 07:59 Intake Total 50 412 1298.3 Output Total 1100 1100 Balance 50 -688 198.3 Laboratory Tests 08/17/22 05:25 08/17/22 07:12 08/16/22 08/16/22 08/16/22 11:23 16:38 20:04 WBC RBC Hgb Hct MCV MCH MCHC RDW Plt Count MPV Puncture Site ABG pH ABG pCO2 ABG pO2 ABG PO2/FiO2 Ratio ABG HCO3 ABG O2 Saturation ABG O2 Content ABG Base Excess A-a Gradient Oxyhemoglobin Carboxyhemoglobin Methemoglobin Reduced Hemoglobin Total Hemoglobin O2 Delivery Device O2 Liters/Min FiO2 Expiratory Pressure Inspiratory Pressure Sodium Potassium Chloride Carbon Dioxide Anion Gap BUN Creatinine Estim Creat Clear Calc Estimated GFR Glucose POC Capillary Glucose 121 H 139 H 180 H Calcium Magnesium 08/17/22 08/17/22 08/17/22 00:05 04:10 04:53 WBC RBC Hgb Hct MCV MCH MCHC RDW Plt Count MPV Puncture Site Right radial ABG pH 7.451 H ABG pCO2 49.3 H ABG pO2 79.8 L ABG PO2/FiO2 Ratio 2.28 ABG HCO3 33.6 H ABG O2 Saturation 96.1 ABG O2 Content 20.1 ABG Base Excess 8.1 A-a Gradient 112.4 Oxyhemoglobin 95.2 Carboxyhemoglobin 0.5 Methemoglobin 0.3 Reduced Hemoglobin 4.0 Total Hemoglobin 15.0 O2 Delivery Device Bipap O2 Liters/Min Not Reportable FiO2 35 Expiratory Pressure 6 Inspiratory Pressure 12 Sodium Potassium Chloride Carbon Dioxide Anion Gap BUN Creatinine Estim Creat Clear Calc Estimated GFR Glucose POC Capillary Glucose 172 H 187 H Calcium Magnesium 08/17/22 08/17/22 08/17/22 05:25 07:12 07:13 WBC 6.3 RBC 4.03 L Hgb 13.9 L Hct 42.6 MCV 105.7 H MCH 34.5 H MCHC 32.6 RDW 13.6 Plt Count 225 MPV 11.2 H Puncture Site ABG pH ABG pCO2 ABG pO2 ABG PO2/FiO2 Ratio ABG HCO3 ABG O2 Saturation ABG O2 Content ABG Base Excess A-a Gradient Oxyhemoglobin Carboxyhemoglobin Methemoglobin Reduced Hemoglobin Total Hemoglobin O2 Delivery Device O2 Liters/Min FiO2 Expiratory Pressure Inspiratory Pressure Sodium 137 Potassium 3.5 Chloride 97 L Carbon Dioxide 37 H Anion Gap 3 L BUN 15 Creatinine 0.80 Estim Creat Clear Calc 87 Estimated GFR > 60 Glucose 165 H POC Capillary Glucose 173 H Calcium 8.6 Magnesium 1.9 Microbiology 08/10/22 22:17 Blood Blood Culture - Final 08/10/22 22:22 Blood Blood Culture - Final Post-procedural complaints: none Patient Feedback: Patient satisfied with anesthetic care.
--- NOTE | 2022-08-17 08:02 | WPDINTPN ---
Progress Note: A&P Assessment and Plan (1) Acute respiratory failure: Code(s): J96.00 - Acute respiratory failure, unspecified whether with hypoxia or hypercapnia Status: Acute Assessment and Plan: Acute Respiratory failure secondary to pulmonary edema, aspiration pneumonia, encephalopathy and inability to protect airway 4/2 extubated after a successful weaning trial He has been requiring biPAP p.r.n. and at night for work of breathing Continue p.r.n. suctioning Continue BiPAP p.r.n. and ezPAP q.6 hours to minimize atelectasis he probably would not be able to do IS Continue Lasix but decrease dose to q.day Although he has improved, he is still at risk of re-intubation if respiratory status worsens and he is not a candidate for or unable to use BiPAP (2) Aspiration pneumonia: Code(s): J69.0 - Pneumonitis due to inhalation of food and vomit Status: Acute Assessment and Plan: Blood and sputum cultures ordered Currently on zosyn. Complete his course today (3) Pulmonary edema: Code(s): J81.1 - Chronic pulmonary edema Status: Acute Assessment and Plan: Improved after intubation and positive pressure ventilation Continue Lasix (4) Peripheral arterial disease: Code(s): I73.9 - Peripheral vascular disease, unspecified Status: Acute Assessment and Plan: Patient had WERNER is done in 2019 which showed a peripheral arterial disease. Patient is currently on Pletal and anticoagulation. Patient's both feet are cold below mid legs. Left foot appears worse than right. Exam as above 08/12 WERNER IMPRESSION: 1. Severely decreased bilateral ABIs, consistent with arterial occlusive disease. 2. Total occlusion of left dorsalis pedis Likely worsened by patient shock which is combination of sepsis and cardiogenic. Embolic phenomena secondary to AFib and noncompliance with anticoagulation is also possibility. 08/[address] Barrow from Cardiology. Not a candidate for mechanical intervention.. Patient not a candidate for tPA due to his recent large stroke. Recommends continuing conservative management anticoagulation and antiplatelet agent that patient is already on 08/13 the overall color and the temperature of the foot seems to be improving although that was still are mottled (5) Hyperlipidemia: Code(s): E78.5 - Hyperlipidemia, unspecified Status: Acute Assessment and Plan: Continue Lipitor and Zetia (6) Diabetes: Code(s): E11.9 - Type 2 diabetes mellitus without complications Status: Acute Assessment and Plan: Continue sliding scale insulin Continue lantus (7) Cardiomyopathy: Code(s): I42.9 - Cardiomyopathy, unspecified Status: Acute Assessment and Plan: Echo Summary ? 1. Four-chamber cardiac dilation. ? 2. Severe left ventricular systolic dysfunction ejection fraction 15-20%. ? 3. Mildly sclerotic aortic valve with no stenosis. ? 4. Mild to moderate mitral regurgitation resulting from mitral annular dilation. ? 5. Right ventricular systolic dysfunction. ? 6. Definity contrast injected to improve visualization. Cardiology following (8) Cerebrovascular accident: Code(s): I63.9 - Cerebral infarction, unspecified Status: Acute Assessment and Plan: Likely embolic from AFib Continue aspirin statin and Lovenox (9) Atrial fibrillation with rapid ventricular response: Code(s): I48.91 - Unspecified atrial fibrillation Status: Acute Assessment and Plan: Off amnio infusion now. Continue p.o. amiodarone p.o. metoprolol. P.r.n. IV metoprolol to be continued Anticoagulated with Lovenox Also on Plavix (10) Encephalopathy: Code(s): G93.40 - Encephalopathy, unspecified Status: Acute Assessment and Plan: Multifactorial secondary to CVA and benzodiazepine Currently sedated with Versed and fentanyl for mechanical ventilation Repeat head CT 08/10 show
[2022-08-17] MEDS: PANTOPRAZOLE SODIUM IV 40 MG VIAL IV PUSH ×2 (08:29→20:48)
[2022-08-17] MEDS: FUROSEMIDE INJ 40 MG/4 ML VIAL IV PUSH (08:30)
[2022-08-17] MEDS: EZETIMIBE 10 MG TABLET PO (08:30)
[2022-08-17] MEDS: ENOXAPARIN 100 MG/ML SYRINGE 90 MG SUB-Q ×2 (08:30→20:48)
[2022-08-17] MEDS: FOLIC ACID 1 MG TABLET FEED TUBE (08:30)
[2022-08-17] MEDS: POTASSIUM CHLORIDE 20 MEQ PACKET (FOR LIQUID) 40 MEQ FEED TUBE (08:31)
[2022-08-17] MEDS: ATORVASTATIN 40 MG TABLET 80 MG PO (08:31)
[2022-08-17] MEDS: CLOPIDOGREL BISULFATE 75 MG TABLET PO (08:31)
[2022-08-17] MEDS: AMIODARONE HCL 200 MG TABLET PO (08:32)
[2022-08-17] MEDS: THIAMINE HCL 100 MG TABLET FEED TUBE (08:45)
--- NOTE | 2022-08-17 11:16 | PCFNICU ---
ICU Rounding Note: Pt current nutrition is Glucerna 1.2 at 75 ml/hr Last recorded weight is 78.2 kg. Bowel Motility:+Bm reported 4/ Labs Reviewed:Glu 165 Meds Noted:Protonix, Thiamine, Folic Acid, Lasix,Zosyn,Lopressor Skin: WNL Additional Notes: Patient had PEG 4/. Tolerating tube feedings of Glucerna 1.2 at 75 ml/hr. Flush 75 ml q 4 hours. Agree with diet orders. Following daily in ICU rounds. Will monitor daily in ICU rounds and reassess skin,labs,meds every Monday and Monday.
[2022-08-17 11:53] LABS: Glucose Point of Care 168 mg/dl (65-105)
--- NOTE | 2022-08-17 13:44 | PM.IMPN ---
Progress Note: A&P Assessment and Plan (1) Heart failure with reduced ejection fraction: Code(s): I50.20 - Unspecified systolic (congestive) heart failure Status: Acute Assessment and Plan: patient with EF of 15-20%, cardiology on board, maximize medical management (2) Cerebrovascular accident: Code(s): I63.9 - Cerebral infarction, unspecified Status: Acute Assessment and Plan: neurochecks q.4 hours, no new lesions on repeat CT scan (3) Atrial fibrillation with rapid ventricular response: Code(s): I48.91 - Unspecified atrial fibrillation Status: Acute Assessment and Plan: will start amiodarone drip for rate control. Given metoprolol by Cardiology. Already on Eliquis and clopidogrel. Plan Spinning Mule Operator: Called for rapid response as patient was noted to be in rapid atrial fibrillation with altered mental status. Patient has known CVA with left-sided weakness and is now presenting with increased altered mental status and tachycardia. Patient was not following commands, not tracking, and seemed more confused according to the nurse. Patient immediately brought down to CT scan for repeat imaging due to concerns of worsening CVA with hemorrhagic transformation. Discussed with radiologist delivery and installation subcontractor, CT shows anticipated CVA changes, no bleeding seen. Patient was then transferred to the ICU for further monitoring. Case discussed with patient's and son Ash and they have agreed to proceed with all interventions necessary as per patient's wishes of being full code. He was having shallow respirations and was tachypneic to 40 a minute respiratory rate. A decision was made to intubate patient due to his respiratory failure. Initial vent settings tidal volume of 460 rate of 18, 100% FiO2 and PEEP of 5. Patient was given fentanyl and Versed for sedation. Patient initially given metoprolol IV push however continued to be in rapid AFib. patient was then started on an amiodarone drip due to persistent tachycardia. His blood pressure was on the lower side which prevented use of diltiazem drip. Computer was warning against drug interaction with cilostazol and so cilostazol was discontinued instead. Patient had chest x-ray done which showed increased opacities questionable for pneumonia versus pulmonary edema. As per nurse sign out, patient had choking episodes earlier in the day when his was trying to feed him so there was concern for aspiration pneumonia. Patient empirically started on some Zosyn. Case discussed with pigs feet finisher Dr. Abbasi. 08/17/2022 interval history:?67 y/o male with history of alcohol abuse and noncompliant with his medications,? is fount to have?acute infarct in posterior right frontal lobe, echo showed LVEF 15-20% and patient is being treated with IV Lasix, patient has difficulty swallowing, due to alcohol withdrawal, held his libiriium as patient CIWA scores were low and patient was somnolent, however on night of 08/10 patient became hypoxic went to respiratory failure and was intubated and currently on vent and seen by pigs feet finisher suspect patient has aspiration pneumonia and patient severe cardiomyopathy seen medical sales,today, on 08/14 patient was given weaning trial off ventilator patient was able to tolerate and patient was extubated, currently on BIPAP still somnolent unable to provide any review of symptoms, patient failed swallow study, had PEG placed on 08/15, today patient is off Precedex, discuss with pigs feet finisher prognosis is guarded remains is ICU for close observation, patient is present and gave updates, will continue to monitor and further recommendation to follow. Subjective Date/time seen: 08/17/22 13:44 Spinning Mule Operator: Called for rapid response as patient was noted to be in rapid atrial fibrillation with altered mental status. Patient has known CVA with left-sided weakness and is now presenting with increased altered mental status and tachycardia. Pat
[2022-08-17] MEDS: ACETAMINOPHEN 325 MG TABLET 650 MG PO (13:48)
--- NOTE | 2022-08-17 15:13 | WPDGIPROGNO ---
Progress Note: A&P Assessment and Plan (1) Dysphagia: Code(s): R13.10 - Dysphagia, unspecified Status: Acute Assessment and Plan: s/p g-tube and tolerating tube feeding without difficulty is at bedside will follow from afar, call if questions (2) Delirium: Code(s): R41.0 - Disorientation, unspecified Status: Acute (3) Aspiration pneumonia: Code(s): J69.0 - Pneumonitis due to inhalation of food and vomit Status: Acute Assessment and Plan: treated (4) Encephalopathy: Code(s): G93.40 - Encephalopathy, unspecified Status: Acute (5) Cardiomyopathy: Code(s): I42.9 - Cardiomyopathy, unspecified Status: Acute Assessment and Plan: medical management (6) Cerebrovascular accident: Code(s): I63.9 - Cerebral infarction, unspecified Status: Acute Subjective Date/time seen: 08/17/22 15:13 Interval history: he is in a chair and tolerating tube feeding by G-tube Review of Systems Review of Systems: All systems reviewed & are unremarkable except as noted in HPI and below Exam Narrative: General: Pt is alert awake and partially oriented, slow to respond very weak Lungs/Chest: Trachea central Coarse BS B/L, No crackles or wheezing. Upper airway secretions Cardiac: Irregular rate and rhythm controlled ventricular rate. Normal S1 S2. No murmurs Abdomen: G-tube in position, Soft. NT. ND. Extremities: No clubbing, cyanosis bilateral pitting edema present : Mayorga in place Neurologic: Moves all 4 extremities, left is weak, AO x2 pERRL Objective Data Vital Signs Vital Signs: Vital Signs - 24 hr 08/16/22 16:00 08/16/22 16:00 08/16/22 16:00 Temperature 98.5 F Pulse Rate 72 72 72 Pulse Rate [With Activity During Therapy Session] Respiratory Rate 27 H 27 H Blood Pressure 109/57 L Pulse Oximetry 98 98 Pulse Oximetry [With Activity During Therapy Session] Oxygen Delivery BiPAP Oxygen Flow Rate 35 08/16/22 16:50 08/16/22 16:42 08/16/22 18:00 Temperature Pulse Rate 71 66 71 Pulse Rate [With Activity During Therapy Session] Respiratory Rate 23 H 22 H Blood Pressure Pulse Oximetry 98 Pulse Oximetry [With Activity During Therapy Session] Oxygen Delivery BiPAP Oxygen Flow Rate 08/16/22 18:00 08/16/22 18:50 08/16/22 20:24 Temperature 98.6 F Pulse Rate 72 70 72 Pulse Rate [With Activity During Therapy Session] Respiratory Rate 21 H 22 H 22 H Blood Pressure 99/58 L Pulse Oximetry 97 97 Pulse Oximetry [With Activity During Therapy Session] Oxygen Delivery BiPAP Oxygen Flow Rate 08/16/22 20:00 08/16/22 20:00 08/16/22 21:07 Temperature 98.7 F Pulse Rate 68 72 73 Pulse Rate [With Activity During Therapy Session] Respiratory Rate 20 Blood Pressure 98/62 L Pulse Oximetry 96 Pulse Oximetry [With Activity During Therapy Session] Oxygen Delivery Oxygen Flow Rate 08/16/22 22:00 08/16/22 20:00 08/17/22 01:35 Temperature Pulse Rate 71 69 Pulse Rate [With Activity During Therapy Session] Respiratory Rate 20 Blood Pressure Pulse Oximetry 98 98 Pulse Oximetry [With Activity During Therapy Session] Oxygen Delivery BiPAP BiPAP Oxygen Flow Rate 35 08/17/22 00:00 08/17/22 04:11 08/17/22 05:46 Temperature Pulse Rate 77 80 Pulse Rate [With Activity During Therapy Session] Respiratory Rate 23 H Blood Pressure Pulse Oximetry 100 Pulse Oximetry [With Activity During Therapy Session] Oxygen Delivery BiPAP Oxygen Flow Rate 35 08/16/22 22:00 08/17/22 00:00 08/17/22 02:00 Temperature 98.8 F 99.1 F 99.1 F Pulse Rate 68 72 70 Pulse Rate [With Activity During Therapy Session] Respiratory Rate 19 19 19 Blood Pressure 111/65 114/59 L 113/66 Pulse Oximetry 98 99 99 Pulse Oximetry [With Activity During Therapy Session] Oxygen Delivery Oxygen Flow Rate 08/17/22 04:00 08/17/22 02:00
[2022-08-17 16:12] LABS: Glucose Point of Care 188 mg/dl (65-105)
[2022-08-17] MEDS: QUEtiapine FUMARATE 25 MG TABLET FEED TUBE (20:48)
[2022-08-17] MEDS: INSULIN GLARGINE (*BKC) 100 UNITS/ML 15 UNITS SUB-Q (20:48)
[2022-08-17] MEDS: METOPROLOL TARTRATE INJ 5 MG/5 ML VIAL IV PUSH (21:06)
[2022-08-17 22:07] LABS: Glucose Point of Care 183 mg/dl (65-105)
[2022-08-17] MEDS: ALTEPLASE 2 MG VIAL (CATHFLO) IV PUSH ×2 (23:32→23:33)
[2022-08-18] VITALS (32 sets, daily range): BP systolic 95–154; BP diastolic 44–83; PULSE 59–104; RESP 17–29; TEMP 36.3–38.3; O2SAT 92–100
[2022-08-18] MEDS: DEXTROSE 50% 25 GM/50 ML SYRINGE IV PUSH (01:45)
[2022-08-18 04:25] LABS: Glucose Point of Care 59 mg/dl (65-105)
[2022-08-18 04:25] LABS: Glucose Point of Care 222 mg/dl (65-105)
[2022-08-18 05:30] LABS: Hematocrit 38.6 % (42.0-52.0); Hemoglobin 12.5 g/dL (14.0-18.0); Mean Corpuscular HGB Conc 32.4 g/dl (32-36); Mean Corpuscular Hemoglobin 33.8 pg (26-34); Mean Corpuscular Volume 104.3 fl (80-100); Mean Platelet Volume 11.6 fl (7.4-10.4); Platelet Count Result 222 k/mm3 (150-375); Red Cell Distribution Width 13.2 % (11.5-14.5); White Blood Count 6.1 K/mm3 (4.5-10.0)
[2022-08-18 05:39] LABS: Glucose Point of Care 189 mg/dl (65-105)
[2022-08-18] MEDS: CENTRAL LINE FLUSH 10 ML IV PUSH ×4 (05:40→21:26)
[2022-08-18] MEDS: METOPROLOL TARTRATE 25 MG TABLET FEED TUBE ×3 (05:40→21:25)
[2022-08-18 06:11] LABS: Alveolar/Arterial O2 Gradient 73.6 mmHg; Base Excess ABG 6.8 mEq/l (+/-2.0); Carboxyhemoglobin 0.5 % THb (0-2.0); Fractional Inspired Oxygen 30 %; HCO3 ABG 32.7 mEq/l (22.0-26.0); Methemoglobin ABG 0.3 %THb (0-1.5); Oxygen Content ABG 19.1 %vol (16.0-22.0); Oxygen Saturation ABG 95.9 % (95.0-100.0); Oxyhemoglobin 94.6 % THb (90.0-100.0); PCO2 ABG 51.3 mmHg (35.0-45.0); PO2 FiO2 Ratio Arterial Blood 2.67 %; Reduced Hemoglobin 4.6 %THb (0-5.0); Total Hemoglobin 14.3 g/dL (12.0-18.0); pH ABG 7.422 (7.350-7.450)
[2022-08-18 06:12] LABS: Device NON-INVASIVE VENT; Modified Allen's Test Pass; Site Drawn RIGHT RADIAL
[2022-08-18 06:13] LABS: Non-Invasive Expiratory Pressure 6 CMH2O; Non-Invasive Inspiratory Pressure 12 CMH2O; Non-Invasive Vent Rate 12 /MIN
[2022-08-18 06:32] LABS: Anion Gap 0 mmol/L (8-16); Blood Urea Nitrogen 15 mg/dL (9-20); Calcium 8.7 mg/dL (8.4-10.2); Carbon Dioxide 39 mmol/L (22-30); Chloride 100 mmol/L (98-107); Estimated CRCL calculation 113 ml/min; Estimated Glomerular Filt Rate > 60; Glucose 191 mg/dL (65-110); Potassium 3.6 mmol/L (3.4-5.0); Sodium 139 mmol/L (137-145)
[2022-08-18 07:21] LABS: Glucose Point of Care 172 mg/dl (65-105)
[2022-08-18] MEDS: ATORVASTATIN 40 MG TABLET 80 MG PO (07:48)
[2022-08-18] MEDS: QUEtiapine FUMARATE 25 MG TABLET FEED TUBE ×2 (07:48→21:25)
[2022-08-18] MEDS: POTASSIUM CHLORIDE 20 MEQ PACKET (FOR LIQUID) 40 MEQ FEED TUBE (07:48)
[2022-08-18] MEDS: THIAMINE HCL 100 MG TABLET FEED TUBE (07:49)
[2022-08-18] MEDS: PANTOPRAZOLE SODIUM IV 40 MG VIAL IV PUSH ×2 (07:49→21:25)
[2022-08-18] MEDS: FOLIC ACID 1 MG TABLET FEED TUBE (07:49)
[2022-08-18] MEDS: CLOPIDOGREL BISULFATE 75 MG TABLET PO (07:49)
[2022-08-18] MEDS: ENOXAPARIN 100 MG/ML SYRINGE 90 MG SUB-Q ×2 (07:49→21:24)
[2022-08-18] MEDS: EZETIMIBE 10 MG TABLET PO (07:49)
[2022-08-18] MEDS: AMIODARONE HCL 200 MG TABLET PO (07:50)
[2022-08-18] MEDS: FUROSEMIDE INJ 40 MG/4 ML VIAL IV PUSH (08:25)
--- NOTE | 2022-08-18 11:19 | PCFNICU ---
ICU Rounding Note: Pt current nutrition is Glucerna 1.2 at 75 ml/hr Last recorded weight is 79.2 kg. Bowel Motility:FMS Labs Reviewed:Glu 191, Cr 0.6,Hct 38.6,Hgb 12.5 Meds Noted:Lasix,Protonix, Lopressor, Folic Acid, Zosyn,Thiamine, Seroquel. Skin: WNL Additional Notes: Patient current on Bipap, plans for nasal canula today. PT treatment today. Patient current with Glucerna 1.2 @ 75 ml/hr. Flush 75 ml q 4 hours. Elevated residuals at 300-360 ml. Recommend starting Reglan for GI motility. Patient also starting on Banatrol TF for stool bulking BID. Following daily in ICU rounds. Will monitor daily in ICU rounds and reassess skin,labs,meds every Monday and Monday. .
[2022-08-18 12:00] LABS: Glucose Point of Care 182 mg/dl (65-105)
--- NOTE | 2022-08-18 12:26 | WPDINTPN ---
Progress Note: A&P Assessment and Plan (1) Acute respiratory failure: Code(s): J96.00 - Acute respiratory failure, unspecified whether with hypoxia or hypercapnia Status: Acute Assessment and Plan: Acute Respiratory failure secondary to pulmonary edema, aspiration pneumonia, encephalopathy and inability to protect airway 4/2 extubated after a successful weaning trial He has been requiring biPAP p.r.n. and at night for work of breathing Continue p.r.n. suctioning Continue BiPAP p.r.n. and ezPAP q.6 hours to minimize atelectasis he probably would not be able to do IS Continue Lasix daily Although he has improved, he is still at risk of re-intubation if respiratory status worsens and he is not a candidate for or unable to use BiPAP -chest x-ray this morning is much improved (2) Aspiration pneumonia: Code(s): J69.0 - Pneumonitis due to inhalation of food and vomit Status: Acute Assessment and Plan: Blood sputum and urine cultures are negative -completed a course of Zosyn (3) Pulmonary edema: Code(s): J81.1 - Chronic pulmonary edema Status: Acute Assessment and Plan: Improved after intubation and positive pressure ventilation Continue Lasix (4) Peripheral arterial disease: Code(s): I73.9 - Peripheral vascular disease, unspecified Status: Acute Assessment and Plan: Patient had WERNER is done in 2019 which showed a peripheral arterial disease. Patient is currently on Pletal and anticoagulation. Patient's both feet are cold below mid legs. Left foot appears worse than right. Exam as above 08/12 WERNER IMPRESSION: 1. Severely decreased bilateral ABIs, consistent with arterial occlusive disease. 2. Total occlusion of left dorsalis pedis Likely worsened by patient shock which is combination of sepsis and cardiogenic. Embolic phenomena secondary to AFib and noncompliance with anticoagulation is also possibility. 08/[address] Barrow from Cardiology. Not a candidate for mechanical intervention.. Patient not a candidate for tPA due to his recent large stroke. Recommends continuing conservative management anticoagulation and antiplatelet agent that patient is already on 08/18 the overall color and the temperature of the foot seems to be improving (5) Hyperlipidemia: Code(s): E78.5 - Hyperlipidemia, unspecified Status: Acute Assessment and Plan: Continue Lipitor and Zetia (6) Diabetes: Code(s): E11.9 - Type 2 diabetes mellitus without complications Status: Acute Assessment and Plan: Continue sliding scale insulin Continue lantus (7) Cardiomyopathy: Code(s): I42.9 - Cardiomyopathy, unspecified Status: Acute Assessment and Plan: Echo Summary ? 1. Four-chamber cardiac dilation. ? 2. Severe left ventricular systolic dysfunction ejection fraction 15-20%. ? 3. Mildly sclerotic aortic valve with no stenosis. ? 4. Mild to moderate mitral regurgitation resulting from mitral annular dilation. ? 5. Right ventricular systolic dysfunction. ? 6. Definity contrast injected to improve visualization. Cardiology following (8) Cerebrovascular accident: Code(s): I63.9 - Cerebral infarction, unspecified Status: Acute Assessment and Plan: Likely embolic from AFib Continue aspirin, statin and therapeutic Lovenox -continue PT/OT (9) Atrial fibrillation with rapid ventricular response: Code(s): I48.91 - Unspecified atrial fibrillation Status: Acute Assessment and Plan: Off amnio infusion now. Continue p.o. amiodarone p.o. metoprolol. P.r.n. IV metoprolol to be continued Anticoagulated with therapeutic Lovenox Also on Plavix (10) Encephalopathy: Code(s): G93.40 - Encephalopathy, unspecified Status: Acute Assessment and Plan: Multifactorial secondary to CVA and benzodiazepine -patient more awake, follows simple commands, opens eyes and participate
[2022-08-18 16:31] LABS: Glucose Point of Care 195 mg/dl (65-105)
[2022-08-18] MEDS: ACETAMINOPHEN ELIXIR 325 MG/10.15 ML UDC 650 MG PO (16:51)
--- NOTE | 2022-08-18 18:17 | PM.IMPN ---
Progress Note: A&P Assessment and Plan (1) Heart failure with reduced ejection fraction: Code(s): I50.20 - Unspecified systolic (congestive) heart failure Status: Acute Assessment and Plan: patient with EF of 15-20%, cardiology on board, maximize medical management (2) Cerebrovascular accident: Code(s): I63.9 - Cerebral infarction, unspecified Status: Acute Assessment and Plan: neurochecks q.4 hours, no new lesions on repeat CT scan (3) Atrial fibrillation with rapid ventricular response: Code(s): I48.91 - Unspecified atrial fibrillation Status: Acute Assessment and Plan: started on amiodarone drip for rate control. Given metoprolol by Cardiology. Already on Eliquis and clopidogrel. (4) Acute respiratory failure: Code(s): J96.00 - Acute respiratory failure, unspecified whether with hypoxia or hypercapnia Status: Acute Assessment and Plan: Acute Respiratory failure secondary to pulmonary edema, aspiration pneumonia, encephalopathy and inability to protect airway / extubated after a successful weaning trial He has been requiring biPAP p.r.n. and at night for work of breathing Continue p.r.n. suctioning Continue BiPAP p.r.n. and ezPAP q.6 hours to minimize atelectasis he probably would not be able to do IS Continue Lasix daily Although he has improved, he is still at risk of re-intubation if respiratory status worsens and he is not a candidate for or unable to use BiPAP cxr 08/18/22: improved. (5) Aspiration pneumonia: Code(s): J69.0 - Pneumonitis due to inhalation of food and vomit Status: Acute Assessment and Plan: Blood sputum and urine cultures are negative -completed a course of Zosyn (6) Pulmonary edema: Code(s): J81.1 - Chronic pulmonary edema Status: Acute Assessment and Plan: Improved after intubation and positive pressure ventilation Continue Lasix (7) Peripheral arterial disease: Code(s): I73.9 - Peripheral vascular disease, unspecified Status: Acute Assessment and Plan: Patient had WERNER is done in 2019 which showed a peripheral arterial disease. Patient is currently on Pletal and anticoagulation. Patient's both feet are cold below mid legs. Left foot appears worse than right. Exam as above 08/12 WERNER IMPRESSION: 1. Severely decreased bilateral ABIs, consistent with arterial occlusive disease. 2. Total occlusion of left dorsalis pedis Likely worsened by patient shock which is combination of sepsis and cardiogenic. Embolic phenomena secondary to AFib and noncompliance with anticoagulation is also possibility. 08/[address] Barrow from Cardiology. Not a candidate for mechanical intervention.. Patient not a candidate for tPA due to his recent large stroke. Recommends continuing conservative management anticoagulation and antiplatelet agent that patient is already on 08/18 the overall color and the temperature of the foot seems to be improving (8) Hyperlipidemia: Code(s): E78.5 - Hyperlipidemia, unspecified Status: Acute Assessment and Plan: Continue Lipitor and Zetia (9) Diabetes: Code(s): E11.9 - Type 2 diabetes mellitus without complications Status: Acute Assessment and Plan: Continue sliding scale insulin Continue lantus (10) Cardiomyopathy: Code(s): I42.9 - Cardiomyopathy, unspecified Status: Acute Assessment and Plan: Echo Summary ? 1. Four-chamber cardiac dilation. ? 2. Severe left ventricular systolic dysfunction ejection fraction 15-20%. ? 3. Mildly sclerotic aortic valve with no stenosis. ? 4. Mild to moderate mitral regurgitation resulting from mitral annular dilation. ? 5. Right ventricular systolic dysfunction. ? 6. Definity contrast injected to improve visualization. Cardiology following and fiarly compensated (11) Encephalopathy: Code(s): G93.40 - Encephalopathy, unspecified
[2022-08-18] MEDS: INSULIN ASPART (*BKC) 100 UNITS/ML SUB-Q (21:23)
[2022-08-18] MEDS: INSULIN GLARGINE (*BKC) 100 UNITS/ML 15 UNITS SUB-Q (21:24)
[2022-08-18 21:45] LABS: Glucose Point of Care 207 mg/dl (65-105)
[2022-08-19] VITALS (27 sets, daily range): BP systolic 132–167; BP diastolic 48–86; PULSE 66–124; RESP 18–30; TEMP 37.2–38.4; O2SAT 94–99
[2022-08-19 00:26] LABS: Glucose Point of Care 149 mg/dl (65-105)
--- NOTE | 2022-08-19 02:16 | PC.NURSE ---
DOCUMENTATION/ MAR CORRECTION: 08/18/22 BS @ 0023: 149 0100 SLIDING SCALE INSULIN ASPART HELD PER PROTOCOL BS @ 0617: 191 0500 SLIDING SCALE INSULIN ASPART HELD PER PROTOCOL 0600 SODIUM CHLORIDE 0.9% 10 ml IV PUSH: ADMINISTERED-SCANNER ERROR CAUSED MAR TO REFLECT NON-ADMINISTRATION
[2022-08-19 04:59] LABS: Base Excess ABG 8.5 mEq/l (+/-2.0); Carboxyhemoglobin 0.7 % THb (0-2.0); Fractional Inspired Oxygen 30 %; HCO3 ABG 34.5 mEq/l (22.0-26.0); Methemoglobin ABG 0.3 %THb (0-1.5); Oxygen Content ABG 18.9 %vol (16.0-22.0); Oxygen Saturation ABG 96.3 % (95.0-100.0); Oxyhemoglobin 94.9 % THb (90.0-100.0); PCO2 ABG 52.5 mmHg (35.0-45.0); PO2 ABG 83.2 mmHg (80.0-100.0); PO2 FiO2 Ratio Arterial Blood 2.77 %; Reduced Hemoglobin 4.1 %THb (0-5.0); Total Hemoglobin 14.1 g/dL (12.0-18.0); pH ABG 7.435 (7.350-7.450)
[2022-08-19 05:01] LABS: Device NON-INVASIVE VENT; Modified Allen's Test Pass; Site Drawn LEFT RADIAL
[2022-08-19 05:02] LABS: Non-Invasive Expiratory Pressure 6 CMH2O; Non-Invasive Inspiratory Pressure 12 CMH2O; Non-Invasive Vent Rate 12 /MIN
[2022-08-19] MEDS: METOPROLOL TARTRATE 25 MG TABLET FEED TUBE (05:04)
[2022-08-19] MEDS: CENTRAL LINE FLUSH 10 ML IV PUSH ×3 (05:05→20:41)
[2022-08-19 05:31] LABS: Basophils Absolute Auto 0.1 K/mm3 (0.0-0.1); Basophils Percent Auto 0.6 % (0.2-1.2); Eosinophils Absolute Auto 0.1 K/mm3 (0-0.3); Hematocrit 41.6 % (42.0-52.0); Hemoglobin 13.4 g/dL (14.0-18.0); Immature Granulocyte Absolute 0.03 K/mm3 (0.00-0.031); Immature Granulocyte Percent A 0.4 % (0-0.5); Lymphocytes Absolute Auto 1.63 K/mm3 (0.9-3.2); Lymphocytes Percent Auto 20.5 % (18.3-44.2); Mean Corpuscular HGB Conc 32.2 g/dl (32-36); Mean Corpuscular Hemoglobin 34.2 pg (26-34); Mean Corpuscular Volume 106.1 fl (80-100); Mean Platelet Volume 11.5 fl (7.4-10.4); Monocytes Absolute Auto 0.8 K/mm3 (0.1-0.6); Monocytes Percent Auto 10.2 % (2.6-8.5); Neutrophils Absolute Auto 5.4 K/mm3 (1.3-6.7); Neutrophils Percent Auto 67.3 % (45.5-73.1); Platelet Count Result 273 k/mm3 (150-375); Red Blood Count 3.92 M/mm3 (4.6-6.20); Red Cell Distribution Width 13.3 % (11.5-14.5)
[2022-08-19 05:40] LABS: Anion Gap 2 mmol/L (8-16); Blood Urea Nitrogen 14 mg/dL (9-20); Calcium 9.1 mg/dL (8.4-10.2); Carbon Dioxide 38 mmol/L (22-30); Chloride 99 mmol/L (98-107); Estimated CRCL calculation 113 ml/min; Estimated Glomerular Filt Rate > 60; Glucose 157 mg/dL (65-110); Magnesium 2.1 mg/dL (1.6-2.3); Potassium 3.7 mmol/L (3.4-5.0); Sodium 139 mmol/L (137-145)
[2022-08-19 05:45] LABS: Glucose Point of Care 162 mg/dl (65-105)
--- NOTE | 2022-08-19 07:25 | WPDINTPN ---
Progress Note: A&P Assessment and Plan (1) Acute respiratory failure: Code(s): J96.00 - Acute respiratory failure, unspecified whether with hypoxia or hypercapnia Status: Acute Assessment and Plan: Acute Respiratory failure secondary to pulmonary edema, aspiration pneumonia, encephalopathy and inability to protect airway 4/2 extubated after a successful weaning trial He has been requiring biPAP p.r.n. and at night for work of breathing Continue p.r.n. suctioning Continue BiPAP p.r.n. and ezPAP q.6 hours to minimize atelectasis he probably would not be able to do IS Continue Lasix daily -chest x-ray this mornin. Increasing interstitial pattern in the perihilar regions and lower lungs with differential including mild pulmonary edema versus less likely pneumonia. 2. Cardiomegaly. 3. Tiny right pleural effusion. (2) Aspiration pneumonia: Code(s): J69.0 - Pneumonitis due to inhalation of food and vomit Status: Acute Assessment and Plan: Blood sputum and urine cultures are negative -completed a course of Zosyn (3) Pulmonary edema: Code(s): J81.1 - Chronic pulmonary edema Status: Acute Assessment and Plan: Likely secondary to cardiomyopathy Continue BiPAP p.r.n. Continue Lasix (4) Peripheral arterial disease: Code(s): I73.9 - Peripheral vascular disease, unspecified Status: Acute Assessment and Plan: Patient had WERNER is done in 2019 which showed a peripheral arterial disease. Patient is currently on Pletal and anticoagulation. Patient's both feet are cold below mid legs. Left foot appears worse than right. Exam as above 08/12 WERNER IMPRESSION: 1. Severely decreased bilateral ABIs, consistent with arterial occlusive disease. 2. Total occlusion of left dorsalis pedis Likely worsened by patient shock which is combination of sepsis and cardiogenic. Embolic phenomena secondary to AFib and noncompliance with anticoagulation is also possibility. 08/[address] Barrow from Cardiology. Not a candidate for mechanical intervention.. Patient not a candidate for tPA due to his recent large stroke. Recommends continuing conservative management anticoagulation and antiplatelet agent that patient is already on 08/18 the overall color and the temperature of the foot seems to be improving (5) Hyperlipidemia: Code(s): E78.5 - Hyperlipidemia, unspecified Status: Acute Assessment and Plan: Continue Lipitor and Zetia (6) Diabetes: Code(s): E11.9 - Type 2 diabetes mellitus without complications Status: Acute Assessment and Plan: Continue sliding scale insulin Continue lantus (7) Cardiomyopathy: Code(s): I42.9 - Cardiomyopathy, unspecified Status: Acute Assessment and Plan: Echo Summary ? 1. Four-chamber cardiac dilation. ? 2. Severe left ventricular systolic dysfunction ejection fraction 15-20%. ? 3. Mildly sclerotic aortic valve with no stenosis. ? 4. Mild to moderate mitral regurgitation resulting from mitral annular dilation. ? 5. Right ventricular systolic dysfunction. ? 6. Definity contrast injected to improve visualization. Cardiology following (8) Cerebrovascular accident: Code(s): I63.9 - Cerebral infarction, unspecified Status: Acute Assessment and Plan: Likely embolic from AFib Continue aspirin, statin and therapeutic Lovenox -continue PT/OT (9) Atrial fibrillation with rapid ventricular response: Code(s): I48.91 - Unspecified atrial fibrillation Status: Acute Assessment and Plan: Off amnio infusion now. Continue p.o. amiodarone p.o. metoprolol. P.r.n. IV metoprolol to be continued Anticoagulated with therapeutic Lovenox Also on Plavix -remains in AFib but rate controlled (10) Encephalopathy: Code(s): G93.40 - Encephalopathy, unspecified Status: Acute Assessment and Plan: Multifactorial secondary to CVA and critical
[2022-08-19 07:34] LABS: Glucose Point of Care 169 mg/dl (65-105)
[2022-08-19] MEDS: THIAMINE HCL 100 MG TABLET FEED TUBE (08:31)
[2022-08-19] MEDS: ENOXAPARIN 100 MG/ML SYRINGE 90 MG SUB-Q (08:32)
[2022-08-19] MEDS: PANTOPRAZOLE SODIUM IV 40 MG VIAL IV PUSH ×2 (08:32→20:20)
[2022-08-19] MEDS: EZETIMIBE 10 MG TABLET PO (08:32)
[2022-08-19] MEDS: ATORVASTATIN 40 MG TABLET 80 MG PO (08:32)
[2022-08-19] MEDS: CLOPIDOGREL BISULFATE 75 MG TABLET PO (08:32)
[2022-08-19] MEDS: FUROSEMIDE INJ 40 MG/4 ML VIAL IV PUSH (08:32)
[2022-08-19] MEDS: FOLIC ACID 1 MG TABLET FEED TUBE (08:32)
[2022-08-19] MEDS: POTASSIUM CHLORIDE 20 MEQ PACKET (FOR LIQUID) 40 MEQ FEED TUBE (08:33)
[2022-08-19] MEDS: AMIODARONE HCL 200 MG TABLET PO (08:33)
[2022-08-19] MEDS: ACETAMINOPHEN ELIXIR 325 MG/10.15 ML UDC 650 MG PO ×3 (08:55→20:44)
--- NOTE | 2022-08-19 10:26 | PM.PNCARD ---
Progress Note: A&P Assessment and Plan (1) Heart failure with reduced ejection fraction: Code(s): I50.20 - Unspecified systolic (congestive) heart failure Status: Acute (2) Atrial fibrillation with rapid ventricular response: Code(s): I48.91 - Unspecified atrial fibrillation Status: Acute Plan 67-year-old man with: Severe left ventricular systolic dysfunction as well as chronic atrial fibrillation admitted with presumably cardioembolic CVA. Patient was very dynamic Johanna and unable to protect airway and was intubated until earlier this week. Patient is extubated now plans are to move him out of ICU. He is off of pressors and stable hemodynamically. Today I will transition his beta-cherelle back to metoprolol succinate and start Entresto. We will discontinue the Lovenox and transition back to his previous NOAC/apixaban. He appears to be euvolemic I am going to stop the IV furosemide at this time. Will consider starting Aldactone or eplerenone subsequently. Obviously prognosis is limited in this situation. Jhon Barrow MD [facility] Subjective Date/time seen: date of service:08/19/22 10:26 Interval history: Follow-up visit in this 67-year-old man with: Chronic atrial fibrillation and left ventricular dysfunction with embolic stroke prompting admission. Patient has been noncompliant with medication for both LV dysfunction as well as anticoagulation and obviously therefore likely had a cardioembolic event. He is now off of ventilator support off of pressor support and ready to move out of ICU. He has been receiving intravenous metoprolol and off of ARB treatment that he was on were should have been on as an outpatient. Patient is awake and responsive slow mentation, garbled speech but does respond to questions appropriately. Exam Const: General: comfortable and no acute distress Other: Well-developed well-nourished disheveled gentleman chronically ill-appearing no distress HENMT: Mouth: Yes moist mucous membranes Eyes: Sclera: sclerae normal Neck: Neck: supple and no JVD Resp: Effort & Inspection: normal respiratory effort Auscultation: clear to auscultation bilaterally Cardio: Rate: regular rate Rhythm: abnormal rhythm irregularly irregular GI: GI Palp: Yes Soft to palpation Auscultation: normal bowel sounds Skin: General skin exam: normal color Neuro: Other: alert and responsive speech difficult to understand Extrem: General: normal to inspection Other: no edema, adequate perfuse Objective Data Vital Signs Vital Signs: Vital Signs - 24 hr 08/18/22 10:54 08/18/22 10:52 08/18/22 10:52 Temperature Pulse Rate Respiratory Rate Blood Pressure Pulse Oximetry 100 100 100 Oxygen Delivery Nasal Cannula Nasal Cannula Nasal Cannula Oxygen Flow Rate 2 2 Fraction of Inspired Oxygen 28 08/18/22 12:00 08/18/22 12:00 08/18/22 12:00 Temperature 37.5 C Pulse Rate 82 79 Respiratory Rate 22 H Blood Pressure 109/44 L Pulse Oximetry 99 100 Oxygen Delivery Nasal Cannula Oxygen Flow Rate 1 Fraction of Inspired Oxygen 08/18/22 13:51 08/18/22 14:20 08/18/22 14:00 Temperature Pulse Rate 90 90 Respiratory Rate Blood Pressure Pulse Oximetry 96 Oxygen Delivery Room Air Oxygen Flow Rate Fraction of Inspired Oxygen 21 08/18/22 14:00 08/18/22 16:00 08/18/22 14:00 Temperature 37.7 C H Pulse Rate 90 Respiratory Rate 27 H Blood Pressure 118/58 L Pulse Oximetry 98 97 100 Oxygen Delivery Room Air Room Air Oxygen Flow Rate Fraction of Inspired Oxygen 08/18/22 16:00 08/18/22 16:00 08/18/22 16:51 Temperature 38.3 C H 38.3 C H Pulse Rate 101 H 91 Respiratory Rate 20 Blood Pressure 150/83 H Pulse Oximetry 99 Oxygen Delivery Oxygen Flow Rate Fraction of Inspired Oxygen 08/18/22 18:00 08/18/22 18:00 08/18/22 17:51 Temperature 37.9 C H 37.9 C H Pulse Rate 88 88 Resp
--- NOTE | 2022-08-19 10:49 | PCNFU ---
Nutrition Follow-Up Complete: Inadequate Oral Intake as related to mechanical vent as evidenced by NPO. Goal: Meet estimated nutritional needs. Patient is progressing towards goal. We will continue current goal. Pt current nutrition is Glucerna 1.2 at 75 ml/hr. Last recorded weight is 78.5 kg. Bowel Motility:+Bm reported 08/19, FMS discontinued. Labs Reviewed:Glu 157, Cr 0.6,Hct 41.6,Hgb 13.4 Meds Noted:Thiamine, Lopressor, Protonix, Folic Acid, Seroquel Skin: WNL Additional Notes:Patient is current with PEG tube feedings of Glucerna 1.2 at 75 ml/hr and tolerating per nursing. Tube feeding is providing 1980 kcals/10 gms protein/1328 ml water. Flush 75 ml q 4 hours. Room air today, Bipap at night. Banatrol TF for stool bulking. Agree with diet orders. Will monitor daily in ICU rounds and reassess skin,labs,meds every Monday and Monday.
[2022-08-19 12:01] LABS: Glucose Point of Care 180 mg/dl (65-105)
[2022-08-19 16:27] LABS: Glucose Point of Care 211 mg/dl (65-105)
[2022-08-19] MEDS: INSULIN ASPART (*BKC) 100 UNITS/ML SUB-Q ×2 (16:28→20:31)
--- NOTE | 2022-08-19 17:01 | PM.IMPN ---
Progress Note: A&P Assessment and Plan (1) Heart failure with reduced ejection fraction: Code(s): I50.20 - Unspecified systolic (congestive) heart failure Status: Acute Assessment and Plan: patient with EF of 15-20%, cardiology on board, maximize medical management Underlying chronic atrial fibrillation Beta-cherelle and Entresto as per Cardiology Consider Aldactone or eplerenone (2) Cerebrovascular accident: Code(s): I63.9 - Cerebral infarction, unspecified Status: Acute Assessment and Plan: Acute stroke right frontal lobe Likely embolic from AFib On aspirin and therapeutic Lovenox neurochecks q.4 hours, no new lesions on repeat CT scan (3) Atrial fibrillation with rapid ventricular response: Code(s): I48.91 - Unspecified atrial fibrillation Status: Acute Assessment and Plan: started on amiodarone drip for rate control. Given metoprolol by Cardiology. Already on Eliquis and clopidogrel. (4) Acute respiratory failure: Code(s): J96.00 - Acute respiratory failure, unspecified whether with hypoxia or hypercapnia Status: Acute Assessment and Plan: Acute Respiratory failure secondary to pulmonary edema, aspiration pneumonia, encephalopathy and inability to protect airway 4/2 extubated after a successful weaning trial He has been requiring biPAP p.r.n. and at night for work of breathing Continue p.r.n. suctioning Continue BiPAP p.r.n. and ezPAP q.6 hours to minimize atelectasis he probably would not be able to do IS Continue Lasix daily Although he has improved, he is still at risk of re-intubation if respiratory status worsens and he is not a candidate for or unable to use BiPAP cxr 08/18/22: improved. intermittent fever henny antunez inplace, will rmeove that. use purewick if needed (5) Aspiration pneumonia: Code(s): J69.0 - Pneumonitis due to inhalation of food and vomit Status: Acute Assessment and Plan: Blood sputum and urine cultures are negative -completed a course of Zosyn still intermittent fever present (6) Pulmonary edema: Code(s): J81.1 - Chronic pulmonary edema Status: Acute Assessment and Plan: Improved after intubation and positive pressure ventilation Continue Lasix (7) Peripheral arterial disease: Code(s): I73.9 - Peripheral vascular disease, unspecified Status: Acute Assessment and Plan: Patient had WERNER is done in 2019 which showed a peripheral arterial disease. Patient is currently on Pletal and anticoagulation. Patient's both feet are cold below mid legs. Left foot appears worse than right. Exam as above 08/12 WERNER IMPRESSION: 1. Severely decreased bilateral ABIs, consistent with arterial occlusive disease. 2. Total occlusion of left dorsalis pedis Likely worsened by patient shock which is combination of sepsis and cardiogenic. Embolic phenomena secondary to AFib and noncompliance with anticoagulation is also possibility. 08/[address] Barrow from Cardiology. Not a candidate for mechanical intervention.. Patient not a candidate for tPA due to his recent large stroke. Recommends continuing conservative management anticoagulation and antiplatelet agent that patient is already on 08/18 the overall color and the temperature of the foot seems to be improving (8) Hyperlipidemia: Code(s): E78.5 - Hyperlipidemia, unspecified Status: Acute Assessment and Plan: Continue Lipitor and Zetia (9) Diabetes: Code(s): E11.9 - Type 2 diabetes mellitus without complications Status: Acute Assessment and Plan: Continue sliding scale insulin Continue lantus (10) Cardiomyopathy: Code(s): I42.9 - Cardiomyopathy, unspecified Status: Acute Assessment and Plan: Echo Summary ? 1. Four-chamber cardiac dilation. ? 2. Severe left ventricular systolic dysfunction ejection fraction 15-20%. ? 3. Mildly sclerotic aortic valve
[2022-08-19] MEDS: SACUBITRIL/VALSARTAN 24-26 MG TABLET 1 TAB PO (20:20)
[2022-08-19] MEDS: QUEtiapine FUMARATE 25 MG TABLET FEED TUBE (20:20)
[2022-08-19] MEDS: APIXABAN 5 MG TABLET PO (20:20)
[2022-08-19 20:27] LABS: Glucose Point of Care 215 mg/dl (65-105)
[2022-08-19] MEDS: INSULIN GLARGINE (*BKC) 100 UNITS/ML 15 UNITS SUB-Q (20:31)
[2022-08-20] VITALS (18 sets, daily range): BP systolic 111–146; BP diastolic 59–81; PULSE 95–129; RESP 22–34; TEMP 36.6–38.4; O2SAT 95–100
[2022-08-20 01:15] LABS: Glucose Point of Care 177 mg/dl (65-105)
[2022-08-20] MEDS: MORPHINE SULFATE (*CRX) 2 MG/ML INJ 1 MG IV PUSH (02:54)
[2022-08-20] MEDS: LORazepam INJ (*CRX) 2 MG/ML VIAL 1 MG IV PUSH (02:55)
[2022-08-20] MEDS: CENTRAL LINE FLUSH 10 ML IV PUSH ×3 (04:51→20:16)
[2022-08-20 04:54] LABS: Glucose Point of Care 185 mg/dl (65-105)
[2022-08-20 05:05] LABS: Hematocrit 40.6 % (42.0-52.0); Hemoglobin 13.4 g/dL (14.0-18.0); Mean Corpuscular Hemoglobin 34.5 pg (26-34); Mean Corpuscular Volume 104.6 fl (80-100); Mean Platelet Volume 11.6 fl (7.4-10.4); Platelet Count Result 270 k/mm3 (150-375); Red Blood Count 3.88 M/mm3 (4.6-6.20); Red Cell Distribution Width 13.5 % (11.5-14.5); White Blood Count 12.8 K/mm3 (4.5-10.0)
[2022-08-20 05:28] LABS: Anion Gap 2 mmol/L (8-16); Blood Urea Nitrogen 11 mg/dL (9-20); Calcium 9.3 mg/dL (8.4-10.2); Carbon Dioxide 32 mmol/L (22-30); Chloride 103 mmol/L (98-107); Estimated CRCL calculation 130 ml/min; Estimated Glomerular Filt Rate > 60; Glucose 197 mg/dL (65-110); Magnesium 1.8 mg/dL (1.6-2.3); Sodium 137 mmol/L (137-145)
[2022-08-20] MEDS: AMIODARONE HCL 200 MG TABLET PO (07:32)
[2022-08-20 07:45] LABS: Glucose Point of Care 215 mg/dl (65-105)
[2022-08-20] MEDS: ACETAMINOPHEN ELIXIR 325 MG/10.15 ML UDC 650 MG PO ×2 (07:49→18:29)
[2022-08-20] MEDS: THIAMINE HCL 100 MG TABLET FEED TUBE (08:00)
[2022-08-20] MEDS: SACUBITRIL/VALSARTAN 24-26 MG TABLET 1 TAB PO ×2 (08:00→20:15)
[2022-08-20] MEDS: PANTOPRAZOLE SODIUM IV 40 MG VIAL IV PUSH ×2 (08:00→20:15)
[2022-08-20] MEDS: ATORVASTATIN 40 MG TABLET 80 MG PO (08:00)
[2022-08-20] MEDS: FOLIC ACID 1 MG TABLET FEED TUBE (08:01)
[2022-08-20] MEDS: APIXABAN 5 MG TABLET PO ×2 (08:01→20:15)
[2022-08-20] MEDS: CLOPIDOGREL BISULFATE 75 MG TABLET PO (08:01)
[2022-08-20] MEDS: EZETIMIBE 10 MG TABLET PO (08:01)
[2022-08-20] MEDS: METOPROLOL SUCCINATE EXT REL 50 MG TABCR PO (08:01)
[2022-08-20] MEDS: INSULIN ASPART (*BKC) 100 UNITS/ML SUB-Q ×4 (08:04→20:17)
--- NOTE | 2022-08-20 12:16 | PCOTNOTE ---
Attempted to see pt for Occupational Therapy treatment. Pt is very lethargic and has difficulty staying awake. Pt will open eyes and mumble phrases, however, is not able to keep alert for participation in therapy treatment. Will attempt at a later time.
[2022-08-20 12:33] LABS: Glucose Point of Care 235 mg/dl (65-105)
[2022-08-20] MEDS: PIPERACILLN/TAZ 3.375GM/NS50ML 3.375 GM/50 ML BAG IVPB ×2 (16:01→20:15)
[2022-08-20 16:52] LABS: Glucose Point of Care 220 mg/dl (65-105)
--- NOTE | 2022-08-20 17:17 | PM.IMPN ---
Progress Note: A&P Assessment and Plan (1) Heart failure with reduced ejection fraction: Code(s): I50.20 - Unspecified systolic (congestive) heart failure Status: Acute Assessment and Plan: patient with EF of 15-20%, cardiology on board, maximize medical management Underlying chronic atrial fibrillation Beta-cherelle and Entresto as per Cardiology Consider Aldactone or eplerenone (2) Cerebrovascular accident: Code(s): I63.9 - Cerebral infarction, unspecified Status: Acute Assessment and Plan: Acute stroke right frontal lobe Likely embolic from AFib On aspirin and therapeutic Lovenox neurochecks q.4 hours, no new lesions on repeat CT scan (3) Atrial fibrillation with rapid ventricular response: Code(s): I48.91 - Unspecified atrial fibrillation Status: Acute Assessment and Plan: started on amiodarone drip for rate control. Given metoprolol by Cardiology. Already on Eliquis and clopidogrel. Intermittently fluid RVR. (4) Acute respiratory failure: Code(s): J96.00 - Acute respiratory failure, unspecified whether with hypoxia or hypercapnia Status: Acute Assessment and Plan: Acute Respiratory failure secondary to pulmonary edema, aspiration pneumonia, encephalopathy and inability to protect airway 4/2 extubated after a successful weaning trial He has been requiring biPAP p.r.n. and at night for work of breathing Continue p.r.n. suctioning Continue BiPAP p.r.n. and ezPAP q.6 hours to minimize atelectasis he probably would not be able to do IS Continue Lasix daily Although he has improved, he is still at risk of re-intubation if respiratory status worsens and he is not a candidate for or unable to use BiPAP cxr 08/18/22: improved. intermittent fever henny antunez inplace, will rmeove that. use purewick if needed Will add Zosyn for possible coverage for aspiration pneumonia was treated with 7 days course earlier (5) Aspiration pneumonia: Code(s): J69.0 - Pneumonitis due to inhalation of food and vomit Status: Acute Assessment and Plan: Blood sputum and urine cultures are negative -completed a course of Zosyn still intermittent fever present Restart Zosyn breathing status still tenuous. On BiPAP at night (6) Pulmonary edema: Code(s): J81.1 - Chronic pulmonary edema Status: Acute Assessment and Plan: Improved after intubation and positive pressure ventilation Continue Lasix (7) Peripheral arterial disease: Code(s): I73.9 - Peripheral vascular disease, unspecified Status: Acute Assessment and Plan: Patient had WERNER is done in 2019 which showed a peripheral arterial disease. Patient is currently on Pletal and anticoagulation. Patient's both feet are cold below mid legs. Left foot appears worse than right. Exam as above 08/12 WERNER IMPRESSION: 1. Severely decreased bilateral ABIs, consistent with arterial occlusive disease. 2. Total occlusion of left dorsalis pedis Likely worsened by patient shock which is combination of sepsis and cardiogenic. Embolic phenomena secondary to AFib and noncompliance with anticoagulation is also possibility. 08/[address] Barrow from Cardiology. Not a candidate for mechanical intervention.. Patient not a candidate for tPA due to his recent large stroke. Recommends continuing conservative management anticoagulation and antiplatelet agent that patient is already on 08/18 the overall color and the temperature of the foot seems to be improving (8) Hyperlipidemia: Code(s): E78.5 - Hyperlipidemia, unspecified Status: Acute Assessment and Plan: Continue Lipitor and Zetia (9) Diabetes: Code(s): E11.9 - Type 2 diabetes mellitus without complications Status: Acute Assessment and Plan: Continue sliding scale insulin Continue lantus (10) Cardiomyopathy: Code(s): I42.9 - Cardiomyopathy, unspecified Status: Acute
[2022-08-20] MEDS: QUEtiapine FUMARATE 25 MG TABLET FEED TUBE (20:14)
[2022-08-20] MEDS: INSULIN GLARGINE (*BKC) 100 UNITS/ML 15 UNITS SUB-Q (20:16)
[2022-08-20 20:30] LABS: Glucose Point of Care 276 mg/dl (65-105)
[2022-08-20] MEDS: LEVALBUTEROL NEB 1.25 MG/3 ML 0.63 MG INHALATION (21:34)
[2022-08-20] MEDS: IPRATROPIUM BR 0.02% INH SOLN 0.5 MG/2.5 ML VIAL INHALATION (21:35)
[2022-08-20 21:53] LABS: Alveolar/Arterial O2 Gradient 39.7 mmHg; Device NON-INVASIVE VENT; Fractional Inspired Oxygen 25 %; HCO3 ABG 26.2 mEq/l (22.0-26.0); Modified Allen's Test Pass; Oxygen Content ABG 18.6 %vol (16.0-22.0); Oxygen Saturation ABG 97.8 % (95.0-100.0); Oxyhemoglobin 96.7 % THb (90.0-100.0); PCO2 ABG 35.8 mmHg (35.0-45.0); PO2 FiO2 Ratio Arterial Blood 3.84 %; Site Drawn LEFT RADIAL; Total Hemoglobin 13.6 g/dL (12.0-18.0); pH ABG 7.483 (7.350-7.450)
[2022-08-20 21:54] LABS: Non-Invasive Expiratory Pressure 6 CMH2O; Non-Invasive Inspiratory Pressure 12 CMH2O; Non-Invasive Vent Rate 12 /MIN
--- NOTE | 2022-08-20 23:08 | PC.NURSE ---
Assumed care of pt at this time. Report received from JAKE Gotti.
[2022-08-21] VITALS (18 sets, daily range): BP systolic 104–132; BP diastolic 56–72; PULSE 96–115; RESP 19–30; TEMP 36.5–37.4; O2SAT 98–100
[2022-08-21 00:18] LABS: Glucose Point of Care 189 mg/dl (65-105)
[2022-08-21] MEDS: LEVALBUTEROL NEB 1.25 MG/3 ML 0.63 MG INHALATION ×2 (03:10→08:41)
[2022-08-21] MEDS: IPRATROPIUM BR 0.02% INH SOLN 0.5 MG/2.5 ML VIAL INHALATION ×2 (03:10→08:40)
[2022-08-21] MEDS: PIPERACILLN/TAZ 3.375GM/NS50ML 3.375 GM/50 ML BAG IVPB ×4 (03:55→20:20)
[2022-08-21 04:07] LABS: Hematocrit 38.9 % (42.0-52.0); Hemoglobin 12.8 g/dL (14.0-18.0); Mean Corpuscular HGB Conc 32.9 g/dl (32-36); Mean Corpuscular Hemoglobin 34.2 pg (26-34); Mean Platelet Volume 11.5 fl (7.4-10.4); Platelet Count Result 265 k/mm3 (150-375); Red Blood Count 3.74 M/mm3 (4.6-6.20); Red Cell Distribution Width 13.4 % (11.5-14.5); White Blood Count 10.7 K/mm3 (4.5-10.0)
[2022-08-21] MEDS: CENTRAL LINE FLUSH 10 ML IV PUSH ×3 (04:16→20:20)
[2022-08-21 05:15] LABS: Anion Gap 2 mmol/L (8-16); Blood Urea Nitrogen 14 mg/dL (9-20); Calcium 8.9 mg/dL (8.4-10.2); Carbon Dioxide 33 mmol/L (22-30); Chloride 103 mmol/L (98-107); Estimated CRCL calculation 109 ml/min; Estimated Glomerular Filt Rate > 60; Glucose 203 mg/dL (65-110); Potassium 3.9 mmol/L (3.4-5.0); Sodium 138 mmol/L (137-145)
[2022-08-21] MEDS: INSULIN ASPART (*BKC) 100 UNITS/ML SUB-Q ×2 (05:44→12:31)
[2022-08-21 07:48] LABS: Glucose Point of Care 189 mg/dl (65-105)
[2022-08-21] MEDS: AMIODARONE HCL 200 MG TABLET PO (08:11)
[2022-08-21] MEDS: ATORVASTATIN 40 MG TABLET 80 MG PO (08:11)
[2022-08-21] MEDS: EZETIMIBE 10 MG TABLET PO (08:11)
[2022-08-21] MEDS: CLOPIDOGREL BISULFATE 75 MG TABLET PO (08:11)
[2022-08-21] MEDS: THIAMINE HCL 100 MG TABLET FEED TUBE (08:12)
[2022-08-21] MEDS: APIXABAN 5 MG TABLET PO ×2 (08:12→20:20)
[2022-08-21] MEDS: SACUBITRIL/VALSARTAN 24-26 MG TABLET 1 TAB PO ×2 (08:12→20:20)
[2022-08-21] MEDS: PANTOPRAZOLE SODIUM IV 40 MG VIAL IV PUSH ×2 (08:12→20:19)
[2022-08-21] MEDS: METOPROLOL SUCCINATE EXT REL 50 MG TABCR PO (08:12)
[2022-08-21] MEDS: FOLIC ACID 1 MG TABLET FEED TUBE (08:12)
[2022-08-21 11:34] LABS: Glucose Point of Care 219 mg/dl (65-105)
--- NOTE | 2022-08-21 13:04 | PCPTNOTE ---
Pt was declined session after lunch. Pt stated he wanted to sleep some more.
--- NOTE | 2022-08-21 13:10 | PCOTNOTE ---
Pt request that therapy be attempted at a later time due to still wanting to sleep. Per RN, pt was given medication that can make him sleepy/drowsy recently. Will attempt at a later time today.
--- NOTE | 2022-08-21 13:33 | PM.IMPN ---
Progress Note: A&P Assessment and Plan (1) Heart failure with reduced ejection fraction: Code(s): I50.20 - Unspecified systolic (congestive) heart failure Status: Acute Assessment and Plan: patient with EF of 15-20%, cardiology on board, maximize medical management Underlying chronic atrial fibrillation Beta-cherelle and Entresto as per Cardiology Consider Aldactone or eplerenone Chest x-ray with mild pulmonary congestion dose Lasix today (2) Cerebrovascular accident: Code(s): I63.9 - Cerebral infarction, unspecified Status: Acute Assessment and Plan: Acute stroke right frontal lobe Likely embolic from AFib On aspirin and therapeutic Lovenox neurochecks q.4 hours, no new lesions on repeat CT scan (3) Atrial fibrillation with rapid ventricular response: Code(s): I48.91 - Unspecified atrial fibrillation Status: Acute Assessment and Plan: started on amiodarone drip for rate control. Given metoprolol by Cardiology. Already on Eliquis and clopidogrel. Intermittently fluid RVR. (4) Acute respiratory failure: Code(s): J96.00 - Acute respiratory failure, unspecified whether with hypoxia or hypercapnia Status: Acute Assessment and Plan: Acute Respiratory failure secondary to pulmonary edema, aspiration pneumonia, encephalopathy and inability to protect airway / extubated after a successful weaning trial He has been requiring biPAP p.r.n. and at night for work of breathing Continue p.r.n. suctioning Continue BiPAP p.r.n. and ezPAP q.6 hours to minimize atelectasis he probably would not be able to do IS Continue Lasix daily Although he has improved, he is still at risk of re-intubation if respiratory status worsens and he is not a candidate for or unable to use BiPAP cxr 08/18/22: improved. intermittent fever prsent, folley inplace, will rmeove that. use purewick if needed Will add Zosyn for possible coverage for aspiration pneumonia was treated with 7 days course earlier (5) Aspiration pneumonia: Code(s): J69.0 - Pneumonitis due to inhalation of food and vomit Status: Acute Assessment and Plan: Blood sputum and urine cultures are negative -completed a course of Zosyn still intermittent fever present Restart Zosyn breathing status still tenuous. On BiPAP at night (6) Pulmonary edema: Code(s): J81.1 - Chronic pulmonary edema Status: Acute Assessment and Plan: Improved after intubation and positive pressure ventilation Continue Lasix (7) Peripheral arterial disease: Code(s): I73.9 - Peripheral vascular disease, unspecified Status: Acute Assessment and Plan: Patient had WERNER is done in 2019 which showed a peripheral arterial disease. Patient is currently on Pletal and anticoagulation. Patient's both feet are cold below mid legs. Left foot appears worse than right. Exam as above 08/12 WERNER IMPRESSION: 1. Severely decreased bilateral ABIs, consistent with arterial occlusive disease. 2. Total occlusion of left dorsalis pedis Likely worsened by patient shock which is combination of sepsis and cardiogenic. Embolic phenomena secondary to AFib and noncompliance with anticoagulation is also possibility. 08/[address] Barrow from Cardiology. Not a candidate for mechanical intervention.. Patient not a candidate for tPA due to his recent large stroke. Recommends continuing conservative management anticoagulation and antiplatelet agent that patient is already on 08/18 the overall color and the temperature of the foot seems to be improving (8) Hyperlipidemia: Code(s): E78.5 - Hyperlipidemia, unspecified Status: Acute Assessment and Plan: Continue Lipitor and Zetia (9) Diabetes: Code(s): E11.9 - Type 2 diabetes mellitus without complications Status: Acute Assessment and Plan: Continue sliding scale insulin Continue lantus (10) Cardiomyopathy: Cod
[2022-08-21] MEDS: FUROSEMIDE INJ 40 MG/4 ML VIAL IV PUSH (13:50)
[2022-08-21 16:35] LABS: Glucose Point of Care 200 mg/dl (65-105)
[2022-08-21] MEDS: INSULIN GLARGINE (*BKC) 100 UNITS/ML 15 UNITS SUB-Q (20:16)
[2022-08-21] MEDS: QUEtiapine FUMARATE 12.5 MG TABLET FEED TUBE (20:20)
[2022-08-21 20:37] LABS: Glucose Point of Care 189 mg/dl (65-105)
[2022-08-21 23:48] LABS: Glucose Point of Care 187 mg/dl (65-105)
[2022-08-22] VITALS (16 sets, daily range): BP systolic 115–154; BP diastolic 54–88; PULSE 104–137; RESP 18–22; TEMP 36.5–37.1; O2SAT 94–100
[2022-08-22] MEDS: PIPERACILLN/TAZ 3.375GM/NS50ML 3.375 GM/50 ML BAG IVPB ×4 (03:35→20:54)
--- NOTE | 2022-08-22 04:37 | PC.NURSE ---
This patient, Jere Mcallister, was received from [ICU-3] on 08/22/22 at 0438. Patient/family oriented to unit policies and routines. PATIENT TUBE FEEDING RESTARTED AT GOAL RATE OF 75 ML/HR. PURE WICK CONNECTED TO SUCTION AT THIS TIME. BIPAP BEDSIDE BUT PATIENT REFUSES TO WEAR ANY LONGER.
--- NOTE | 2022-08-22 04:39 | PC.NURSE ---
This patient, Jere Mcallister, was transferred to [facility] on 08/22/22 at 0425. Personal belongings sent with patient. Report given to JAKE Forrest. Appropriate documentation sent with patient. Will call pt's to update on transfer.
[2022-08-22 05:46] LABS: Hematocrit 39.6 % (42.0-52.0); Hemoglobin 13.1 g/dL (14.0-18.0); Mean Corpuscular HGB Conc 33.1 g/dl (32-36); Mean Corpuscular Hemoglobin 34.1 pg (26-34); Mean Corpuscular Volume 103.1 fl (80-100); Mean Platelet Volume 11.2 fl (7.4-10.4); Platelet Count Result 287 k/mm3 (150-375); Red Blood Count 3.84 M/mm3 (4.6-6.20); Red Cell Distribution Width 13.3 % (11.5-14.5); White Blood Count 8.3 K/mm3 (4.5-10.0)
[2022-08-22 06:32] LABS: Glucose Point of Care 202 mg/dl (65-105)
[2022-08-22] MEDS: INSULIN ASPART (*BKC) 100 UNITS/ML SUB-Q ×2 (06:38→17:15)
[2022-08-22] MEDS: CENTRAL LINE FLUSH 10 ML IV PUSH ×3 (06:39→20:54)
[2022-08-22 07:42] LABS: Anion Gap 2 mmol/L (8-16); Blood Urea Nitrogen 14 mg/dL (9-20); Calcium 9.2 mg/dL (8.4-10.2); Carbon Dioxide 32 mmol/L (22-30); Chloride 105 mmol/L (98-107); Estimated CRCL calculation 111 ml/min; Estimated Glomerular Filt Rate > 60; Glucose 178 mg/dL (65-110); Potassium 3.9 mmol/L (3.4-5.0); Sodium 139 mmol/L (137-145)
[2022-08-22] MEDS: AMIODARONE HCL 200 MG TABLET PO (08:35)
[2022-08-22] MEDS: CLOPIDOGREL BISULFATE 75 MG TABLET PO (08:36)
[2022-08-22] MEDS: METOPROLOL SUCCINATE EXT REL 50 MG TABCR PO (08:36)
[2022-08-22] MEDS: THIAMINE HCL 100 MG TABLET FEED TUBE (08:36)
[2022-08-22] MEDS: APIXABAN 5 MG TABLET PO ×2 (08:36→20:34)
[2022-08-22] MEDS: SACUBITRIL/VALSARTAN 24-26 MG TABLET 1 TAB PO ×2 (08:36→20:34)
[2022-08-22] MEDS: EZETIMIBE 10 MG TABLET PO (08:36)
[2022-08-22] MEDS: FOLIC ACID 1 MG TABLET FEED TUBE (08:36)
[2022-08-22] MEDS: ATORVASTATIN 40 MG TABLET 80 MG PO (08:36)
[2022-08-22] MEDS: PANTOPRAZOLE SODIUM IV 40 MG VIAL IV PUSH ×2 (08:36→20:34)
[2022-08-22 12:04] LABS: Glucose Point of Care 161 mg/dl (65-105)
--- NOTE | 2022-08-22 14:42 | PM.IMPN ---
Progress Note: A&P Assessment and Plan (1) Heart failure with reduced ejection fraction: Code(s): I50.20 - Unspecified systolic (congestive) heart failure Status: Acute Assessment and Plan: patient with EF of 15-20%, cardiology on board, maximize medical management Underlying chronic atrial fibrillation Beta-cherelle and Entresto as per Cardiology Consider Aldactone or eplerenone Chest x-ray with mild pulmonary congestion 08/21. Received 1 dose Lasix (2) Cerebrovascular accident: Code(s): I63.9 - Cerebral infarction, unspecified Status: Acute Assessment and Plan: Acute stroke right frontal lobe Likely embolic from AFib On aspirin and therapeutic Lovenox neurochecks q.4 hours, no new lesions on repeat CT scan (3) Atrial fibrillation with rapid ventricular response: Code(s): I48.91 - Unspecified atrial fibrillation Status: Acute Assessment and Plan: started on amiodarone drip for rate control. Given metoprolol by Cardiology. Already on Eliquis and clopidogrel. Intermittently fluid RVR. On metoprolol 50 mg daily will uptitrate to 75 mg daily as tolerated (4) Acute respiratory failure: Code(s): J96.00 - Acute respiratory failure, unspecified whether with hypoxia or hypercapnia Status: Acute Assessment and Plan: Acute Respiratory failure secondary to pulmonary edema, aspiration pneumonia, encephalopathy and inability to protect airway 08/14 extubated after a successful weaning trial He has been requiring biPAP p.r.n. and at night for work of breathing Continue p.r.n. suctioning Continue BiPAP p.r.n. and ezPAP q.6 hours to minimize atelectasis he probably would not be able to do IS Continue Lasix daily Although he has improved, he is still at risk of re-intubation if respiratory status worsens and he is not a candidate for or unable to use BiPAP cxr 08/18/22: improved. intermittent fever henny antunez inplace, will rmeove that. use purewick if needed added Zosyn for possible coverage for aspiration pneumonia was treated with 7 days course earlier (5) Aspiration pneumonia: Code(s): J69.0 - Pneumonitis due to inhalation of food and vomit Status: Acute Assessment and Plan: Blood sputum and urine cultures are negative -completed a course of Zosyn still intermittent fever present Restart Zosyn breathing status still tenuous. On BiPAP at night Will hold BiPAP at night (6) Pulmonary edema: Code(s): J81.1 - Chronic pulmonary edema Status: Acute Assessment and Plan: Improved after intubation and positive pressure ventilation Continue Lasix (7) Peripheral arterial disease: Code(s): I73.9 - Peripheral vascular disease, unspecified Status: Acute Assessment and Plan: Patient had WERNER is done in 2019 which showed a peripheral arterial disease. Patient is currently on Pletal and anticoagulation. Patient's both feet are cold below mid legs. Left foot appears worse than right. Exam as above 08/12 WERNER IMPRESSION: 1. Severely decreased bilateral ABIs, consistent with arterial occlusive disease. 2. Total occlusion of left dorsalis pedis Likely worsened by patient shock which is combination of sepsis and cardiogenic. Embolic phenomena secondary to AFib and noncompliance with anticoagulation is also possibility. 08/[address] Barrow from Cardiology. Not a candidate for mechanical intervention.. Patient not a candidate for tPA due to his recent large stroke. Recommends continuing conservative management anticoagulation and antiplatelet agent that patient is already on 08/18 the overall color and the temperature of the foot seems to be improving (8) Hyperlipidemia: Code(s): E78.5 - Hyperlipidemia, unspecified Status: Acute Assessment and Plan: Continue Lipitor and Zetia (9) Diabetes: Code(s): E11.9 - Type 2 diabetes mellitus without complications Status: Acute
[2022-08-22] MEDS: METOPROLOL TARTRATE 25 MG TABLET PO (17:14)
[2022-08-22 17:38] LABS: Glucose Point of Care 218 mg/dl (65-105)
[2022-08-22] MEDS: QUEtiapine FUMARATE 12.5 MG TABLET FEED TUBE (20:34)
[2022-08-22] MEDS: INSULIN GLARGINE (*BKC) 100 UNITS/ML 15 UNITS SUB-Q (20:38)
[2022-08-22] MEDS: HALOPERIDOL LACTATE 5 MG/ML VIAL IM (20:59)
[2022-08-22 21:38] LABS: Glucose Point of Care 174 mg/dl (65-105)
[2022-08-23] VITALS (11 sets, daily range): BP systolic 115–124; BP diastolic 54–64; PULSE 90–118; RESP 14–18; TEMP 36.4–36.8; O2SAT 96–100; BMI 22.7
[2022-08-23 00:09] LABS: Glucose Point of Care 162 mg/dl (65-105)
[2022-08-23] MEDS: PIPERACILLN/TAZ 3.375GM/NS50ML 3.375 GM/50 ML BAG IVPB ×2 (02:12→09:04)
[2022-08-23 06:24] LABS: Hematocrit 38.4 % (42.0-52.0); Hemoglobin 12.6 g/dL (14.0-18.0); Mean Corpuscular HGB Conc 32.8 g/dl (32-36); Mean Corpuscular Hemoglobin 34.1 pg (26-34); Mean Corpuscular Volume 104.1 fl (80-100); Mean Platelet Volume 11.3 fl (7.4-10.4); Platelet Count Result 304 k/mm3 (150-375); Red Blood Count 3.69 M/mm3 (4.6-6.20); Red Cell Distribution Width 13.5 % (11.5-14.5); White Blood Count 6.4 K/mm3 (4.5-10.0)
[2022-08-23 06:41] LABS: Glucose Point of Care 203 mg/dl (65-105)
[2022-08-23] MEDS: CENTRAL LINE FLUSH 10 ML IV PUSH ×3 (06:42→19:56)
[2022-08-23] MEDS: INSULIN ASPART (*BKC) 100 UNITS/ML SUB-Q ×2 (06:43→17:38)
[2022-08-23 07:03] LABS: Anion Gap 3 mmol/L (8-16); Blood Urea Nitrogen 13 mg/dL (9-20); Calcium 9.1 mg/dL (8.4-10.2); Carbon Dioxide 29 mmol/L (22-30); Chloride 108 mmol/L (98-107); Estimated CRCL calculation 111 ml/min; Estimated Glomerular Filt Rate > 60; Glucose 198 mg/dL (65-110); Potassium 4.1 mmol/L (3.4-5.0); Sodium 140 mmol/L (137-145)
[2022-08-23] MEDS: METOPROLOL SUCCINATE EXT REL 25 MG TABCR 75 MG PO (09:00)
[2022-08-23] MEDS: THIAMINE HCL 100 MG TABLET FEED TUBE (09:01)
[2022-08-23] MEDS: AMIODARONE HCL 200 MG TABLET PO (09:01)
[2022-08-23] MEDS: EZETIMIBE 10 MG TABLET PO (09:01)
[2022-08-23] MEDS: FOLIC ACID 1 MG TABLET FEED TUBE (09:01)
[2022-08-23] MEDS: APIXABAN 5 MG TABLET PO ×2 (09:01→19:51)
[2022-08-23] MEDS: ATORVASTATIN 40 MG TABLET 80 MG PO (09:01)
[2022-08-23] MEDS: CLOPIDOGREL BISULFATE 75 MG TABLET PO (09:01)
[2022-08-23] MEDS: PANTOPRAZOLE SODIUM IV 40 MG VIAL IV PUSH ×2 (09:01→19:51)
[2022-08-23] MEDS: SACUBITRIL/VALSARTAN 24-26 MG TABLET 1 TAB PO ×2 (09:01→19:52)
[2022-08-23 12:25] LABS: Glucose Point of Care 178 mg/dl (65-105)
--- NOTE | 2022-08-23 13:05 | PCNFU ---
Nutrition Follow-Up Complete: Inadequate Oral Intake as related to mechanical vent as evidenced by NPO. Goal: Meet estimated nutritional needs. We will continue current goal. Pt current nutrition is Glucerna 1.2 at 75 ml/hr. Last recorded weight is 76 kg. Bowel Motility:+Bm reported 08/23 Labs Reviewed:Glu 198, Cr 0.6,Hct 38.4,Hgb 12.6 Meds Noted:Thiamine, Folic Acid, Protonix, Eliquis,Lipitor Skin: WNL Additional Notes: Patient is current with tube feedings of Glucerna 1.2 at 75 ml/hr and tolerating per nursing. Tube feeding is providing patient with 1980 kcals/99 gm protein/1328 ml water. Meeting 100% of kcal and protein needs. Banatrol TF for stool bulking BID providing an additional 80 kcals. Flush 75 ml q 4 hours. Agree with diet orders. Monitoring: reassess skin,labs,meds,tube feedings every Monday and Monday.
--- NOTE | 2022-08-23 17:06 | PM.IMPN ---
Progress Note: A&P Assessment and Plan (1) Heart failure with reduced ejection fraction: Code(s): I50.20 - Unspecified systolic (congestive) heart failure Status: Acute Assessment and Plan: patient with EF of 15-20%, cardiology on board, maximize medical management Underlying chronic atrial fibrillation Beta-cherelle and Entresto as per Cardiology Consider Aldactone or eplerenone Chest x-ray with mild pulmonary congestion 08/21. Received 1 dose Lasix repeat cxr 08/23 with improvement (2) Cerebrovascular accident: Code(s): I63.9 - Cerebral infarction, unspecified Status: Acute Assessment and Plan: Acute stroke right frontal lobe Likely embolic from AFib On aspirin and therapeutic Lovenox neurochecks q.4 hours, no new lesions on repeat CT scan (3) Atrial fibrillation with rapid ventricular response: Code(s): I48.91 - Unspecified atrial fibrillation Status: Acute Assessment and Plan: started on amiodarone drip for rate control. Given metoprolol by Cardiology. Already on Eliquis and clopidogrel. Intermittently fluid RVR. On metoprolol 50 mg daily will uptitrate to 75 mg daily as tolerated (4) Acute respiratory failure: Code(s): J96.00 - Acute respiratory failure, unspecified whether with hypoxia or hypercapnia Status: Acute Assessment and Plan: Acute Respiratory failure secondary to pulmonary edema, aspiration pneumonia, encephalopathy and inability to protect airway 08/14 extubated after a successful weaning trial He has been requiring biPAP p.r.n. and at night for work of breathing Continue p.r.n. suctioning Continue BiPAP p.r.n. and ezPAP q.6 hours to minimize atelectasis he probably would not be able to do IS Continue Lasix daily Although he has improved, he is still at risk of re-intubation if respiratory status worsens and he is not a candidate for or unable to use BiPAP cxr 08/18/22: improved. intermittent fever henny antunez inplace, will rmeove that. use purewick if needed added Zosyn for possible coverage for aspiration pneumonia was treated with 7 days course earlier will switch to augmentin and finish 5 day course. (5) Aspiration pneumonia: Code(s): J69.0 - Pneumonitis due to inhalation of food and vomit Status: Acute Assessment and Plan: Blood sputum and urine cultures are negative -completed a course of Zosyn still intermittent fever present Restart Zosyn breathing status still tenuous. On BiPAP at night Will hold BiPAP at night (6) Pulmonary edema: Code(s): J81.1 - Chronic pulmonary edema Status: Acute Assessment and Plan: Improved after intubation and positive pressure ventilation Continue Lasix (7) Peripheral arterial disease: Code(s): I73.9 - Peripheral vascular disease, unspecified Status: Acute Assessment and Plan: Patient had WERNER is done in 2019 which showed a peripheral arterial disease. Patient is currently on Pletal and anticoagulation. Patient's both feet are cold below mid legs. Left foot appears worse than right. Exam as above 08/12 WERNER IMPRESSION: 1. Severely decreased bilateral ABIs, consistent with arterial occlusive disease. 2. Total occlusion of left dorsalis pedis Likely worsened by patient shock which is combination of sepsis and cardiogenic. Embolic phenomena secondary to AFib and noncompliance with anticoagulation is also possibility. 08/[address] Barrow from Cardiology. Not a candidate for mechanical intervention.. Patient not a candidate for tPA due to his recent large stroke. Recommends continuing conservative management anticoagulation and antiplatelet agent that patient is already on 08/18 the overall color and the temperature of the foot seems to be improving (8) Hyperlipidemia: Code(s): E78.5 - Hyperlipidemia, unspecified Status: Acute Assessment and Plan: Continue Lipitor and Zetia (9) Diabetes: Code(s
[2022-08-23 17:34] LABS: Glucose Point of Care 209 mg/dl (65-105)
[2022-08-23] MEDS: AMOXICILLIN/CLAVULANATE K 875-125 MG TAB 1 TABLET PO (17:37)
[2022-08-23] MEDS: QUEtiapine FUMARATE 12.5 MG TABLET FEED TUBE (19:51)
[2022-08-23] MEDS: INSULIN GLARGINE (*BKC) 100 UNITS/ML 15 UNITS SUB-Q (19:53)
[2022-08-23 21:14] LABS: Glucose Point of Care 159 mg/dl (65-105)
[2022-08-23] MEDS: HALOPERIDOL LACTATE 5 MG/ML VIAL IM (22:51)
[2022-08-24] VITALS (10 sets, daily range): BP systolic 119–144; BP diastolic 66–74; PULSE 94–104; RESP 18; TEMP 36.6–36.8; O2SAT 95–99
--- NOTE | 2022-08-24 01:44 | PC.NURSE ---
From start of shift on 08/23/22 till midnight, charting was accidentally done on Nakia Weller RN (day shift nurse) profile. Correction to be made that all charting and medication administration was done by ramp agent nurse Gordo Mascorro RN.
--- NOTE | 2022-08-24 04:25 | PC.NURSE ---
pt picc line was pulled out unwitnessed due to pt being confused. Picc line was laying down on the floor, and minimum blood was noticed from the arm. Site was cleaned and dressed. No sign of infection was noticed. will continue to monitor.
[2022-08-24 05:29] LABS: Glucose Point of Care 151 mg/dl (65-105)
[2022-08-24 05:29] LABS: Glucose Point of Care 164 mg/dl (65-105)
[2022-08-24] MEDS: AMOXICILLIN/CLAVULANATE K 875-125 MG TAB 1 TABLET PO ×2 (05:43→18:19)
[2022-08-24 05:46] LABS: Hematocrit 39.5 % (42.0-52.0); Hemoglobin 12.8 g/dL (14.0-18.0); Mean Corpuscular HGB Conc 32.4 g/dl (32-36); Mean Corpuscular Hemoglobin 33.5 pg (26-34); Mean Corpuscular Volume 103.4 fl (80-100); Mean Platelet Volume 11.3 fl (7.4-10.4); Platelet Count Result 342 k/mm3 (150-375); Red Blood Count 3.82 M/mm3 (4.6-6.20); White Blood Count 6.8 K/mm3 (4.5-10.0)
[2022-08-24 06:02] LABS: Anion Gap 4 mmol/L (8-16); Blood Urea Nitrogen 11 mg/dL (9-20); Calcium 9.2 mg/dL (8.4-10.2); Carbon Dioxide 26 mmol/L (22-30); Chloride 111 mmol/L (98-107); Estimated CRCL calculation 130 ml/min; Estimated Glomerular Filt Rate > 60; Glucose 153 mg/dL (65-110); Magnesium 2.1 mg/dL (1.6-2.3); Potassium 4.1 mmol/L (3.4-5.0); Sodium 141 mmol/L (137-145)
--- NOTE | 2022-08-24 08:41 | PCPTNOTE ---
Attempted to see patient for PT, however patient is very drowsy and declined therapy.
[2022-08-24] MEDS: AMIODARONE HCL 200 MG TABLET PO (09:09)
[2022-08-24] MEDS: CLOPIDOGREL BISULFATE 75 MG TABLET PO (09:10)
[2022-08-24] MEDS: PANTOPRAZOLE SODIUM IV 40 MG VIAL IV PUSH ×2 (09:10→20:31)
[2022-08-24] MEDS: ATORVASTATIN 40 MG TABLET 80 MG PO (09:10)
[2022-08-24] MEDS: METOPROLOL SUCCINATE EXT REL 25 MG TABCR 75 MG PO (09:10)
[2022-08-24] MEDS: APIXABAN 5 MG TABLET PO ×2 (09:10→20:30)
[2022-08-24] MEDS: EZETIMIBE 10 MG TABLET PO (09:10)
[2022-08-24] MEDS: FOLIC ACID 1 MG TABLET FEED TUBE (09:10)
[2022-08-24] MEDS: THIAMINE HCL 100 MG TABLET FEED TUBE (09:11)
[2022-08-24] MEDS: SACUBITRIL/VALSARTAN 24-26 MG TABLET 1 TAB PO ×2 (09:11→20:31)
--- NOTE | 2022-08-24 11:15 | PCOTNOTE ---
Attempted to see Patient at this time. Patient had increased behaviors and decreased safety awareness lastnight and was given medication to assist in calming him down. Patient unable to participate at this time due to sleepiness.
[2022-08-24 12:20] LABS: Glucose Point of Care 222 mg/dl (65-105)
[2022-08-24] MEDS: INSULIN ASPART (*BKC) 100 UNITS/ML SUB-Q (13:02)
--- NOTE | 2022-08-24 14:15 | PCOTNOTE ---
Attempted to see Patient this afternoon. Patient was more awake and alert. Patient was upset with staff not letting him do things he wants to do due to decreased safety. Patient refused to participate in any activity at this time.
--- NOTE | 2022-08-24 15:15 | PM.IMPN ---
Progress Note: A&P Assessment and Plan (1) Cerebrovascular accident: Code(s): I63.9 - Cerebral infarction, unspecified Status: Acute Assessment and Plan: Presents with left sided weakness and found to have an acute stroke right frontal lobe. Likely embolic from AFib. Was on aspirin and therapeutic Lovenox. No new lesions on repeat CT scan. Patient currently on Eliquis and Plavix. (2) Heart failure with reduced ejection fraction: Code(s): I50.20 - Unspecified systolic (congestive) heart failure Status: Acute Assessment and Plan: Patient with EF of 15-20%, cardiology on board, maximize medical management Patient with acute on chronic systolic and diastolic CHF exacerbation. CXR with mild pulmonary congestion 08/21. Received 1 dose Lasix repeat CXR 08/23 with improvement. Underlying chronic atrial fibrillation Toprol XL and Entresto as per Cardiology Consider Aldactone. Add Empagliflozin (3) Atrial fibrillation with rapid ventricular response: Code(s): I48.91 - Unspecified atrial fibrillation Status: Acute Assessment and Plan: Started on amiodarone drip for rate control. Given metoprolol by Cardiology. Already on Eliquis and clopidogrel. Intermittent RVR initially but now heart rate better controlled. Remains on Toprol-XL 75 mg daily and amiodarone 200 mg daily. Okay to stop telemetry (4) Acute respiratory failure: Code(s): J96.00 - Acute respiratory failure, unspecified whether with hypoxia or hypercapnia Status: Acute Assessment and Plan: Acute Respiratory failure secondary to pulmonary edema, aspiration pneumonia, encephalopathy and inability to protect airway / extubated after a successful weaning trial He was requiring biPAP p.r.n. and at night for work of breathing Continue p.r.n. suctioning Continue BiPAP p.r.n. and ezPAP q.6 hours to minimize atelectasis he probably would not be able to do IS cxr 08/18/22: improved. Fevers so Zosyn added for possible coverage for aspiration pneumonia. Completing Augmentin today (5) Aspiration pneumonia: Code(s): J69.0 - Pneumonitis due to inhalation of food and vomit Status: Acute Assessment and Plan: Blood sputum and urine cultures are negative -completed a course of Zosyn and fishing Augmentin today. Continue supportive care per (6) Peripheral arterial disease: Code(s): I73.9 - Peripheral vascular disease, unspecified Status: Acute Assessment and Plan: Patient had WERNER is done in 2020 which showed peripheral arterial disease. Patient is currently on Pletal and anticoagulation. Patient's both feet are cold below mid legs. Left foot appears worse than right. WERNER showing severely decreased bilateral ABIs, consistent with arterial occlusive disease and total occlusion of left dorsalis pedis. Likely worsened by patient shock which is combination of sepsis and cardiogenic. Embolic phenomena secondary to AFib and noncompliance with anticoagulation is also possibility. Was felt patient was not a candidate for mechanical intervention not a candidate for tPA. Plan is for medical management. (7) Hyperlipidemia: Code(s): E78.5 - Hyperlipidemia, unspecified Status: Acute Assessment and Plan: Stable. continue Lipitor and Zetia (8) Diabetes: Code(s): E11.9 - Type 2 diabetes mellitus without complications Status: Acute Assessment and Plan: The patient's blood glucose was reviewed on 08/24 Glucose remains reasonably well controlled. Continue AccuCheks covering with sliding scale. Hypoglycemia protocol available as needed. Continue current medications. (9) Cardiomyopathy: Code(s): I42.9 - Cardiomyopathy, unspecified Status: Acute Assessment and Plan: Echo 08/08/22 ? 1. Four-chamber cardiac dilation. ? 2. Severe left ventricular systolic dysfunction ejection fraction 15-20%. ? 3. Mildly sclerotic aort
[2022-08-24 17:22] LABS: Glucose Point of Care 165 mg/dl (65-105)
[2022-08-24] MEDS: QUEtiapine FUMARATE 12.5 MG TABLET FEED TUBE (20:30)
[2022-08-25] VITALS (8 sets, daily range): BP systolic 144–148; BP diastolic 70–85; PULSE 56–109; RESP 16–18; TEMP 36.4–36.8; O2SAT 92–100
[2022-08-25 00:11] LABS: Glucose Point of Care 205 mg/dl (65-105)
[2022-08-25] MEDS: INSULIN GLARGINE (*BKC) 100 UNITS/ML 15 UNITS SUB-Q (01:05)
[2022-08-25 06:44] LABS: Glucose Point of Care 202 mg/dl (65-105)
[2022-08-25 07:13] LABS: Anion Gap 6 mmol/L (8-16); Blood Urea Nitrogen 11 mg/dL (9-20); Calcium 9.3 mg/dL (8.4-10.2); Carbon Dioxide 27 mmol/L (22-30); Chloride 108 mmol/L (98-107); Estimated CRCL calculation 127 ml/min; Estimated Glomerular Filt Rate > 60; Glucose 204 mg/dL (65-110); Potassium 4.2 mmol/L (3.4-5.0); Sodium 141 mmol/L (137-145)
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
[2022-08-25] MEDS: SACUBITRIL/VALSARTAN 24-26 MG TABLET 1 TAB PO ×2 (08:58→19:58)
[2022-08-25] MEDS: PANTOPRAZOLE SODIUM IV 40 MG VIAL IV PUSH (08:58)
[2022-08-25] MEDS: AMIODARONE HCL 200 MG TABLET PO (08:58)
[2022-08-25] MEDS: CLOPIDOGREL BISULFATE 75 MG TABLET PO (08:58)
[2022-08-25] MEDS: APIXABAN 5 MG TABLET PO ×2 (08:58→19:58)
[2022-08-25] MEDS: ATORVASTATIN 40 MG TABLET 80 MG PO (08:58)
[2022-08-25] MEDS: THIAMINE HCL 100 MG TABLET FEED TUBE (08:58)
[2022-08-25] MEDS: FOLIC ACID 1 MG TABLET FEED TUBE (08:59)
[2022-08-25] MEDS: METOPROLOL SUCCINATE EXT REL 25 MG TABCR 75 MG PO (08:59)
[2022-08-25] MEDS: EZETIMIBE 10 MG TABLET PO (08:59)
[2022-08-25] MEDS: EMPAGLIFLOZIN 10 MG TABLET PO (09:00)
--- NOTE | 2022-08-25 11:23 | PCSTNOTE ---
Please refer to the Bedside Swallow Evaluation in the EMR. Please note, silent aspiration cannot be ruled out at bedside.
[2022-08-25 11:42] LABS: Glucose Point of Care 195 mg/dl (65-105)
--- NOTE | 2022-08-25 14:42 | PM.IMPN ---
Progress Note: A&P Assessment and Plan (1) Cerebrovascular accident: Code(s): I63.9 - Cerebral infarction, unspecified Status: Acute Assessment and Plan: Presents with left sided weakness and found to have an acute stroke right frontal lobe. Likely embolic from AFib. Was on aspirin and therapeutic Lovenox. No new lesions on repeat CT scan. Patient currently on Eliquis and Plavix. (2) Heart failure with reduced ejection fraction: Code(s): I50.20 - Unspecified systolic (congestive) heart failure Status: Acute Assessment and Plan: Patient with EF of 15-20%, cardiology on board, maximize medical management Patient with acute on chronic systolic and diastolic CHF exacerbation. CXR with mild pulmonary congestion 08/21. Received 1 dose Lasix repeat CXR 08/23 with improvement. Underlying chronic atrial fibrillation Toprol XL, Empag and Entresto as per Cardiology Consider Aldactone. (3) Atrial fibrillation with rapid ventricular response: Code(s): I48.91 - Unspecified atrial fibrillation Status: Acute Assessment and Plan: Started on amiodarone drip for rate control. Given metoprolol by Cardiology. Already on Eliquis and clopidogrel. Intermittent RVR initially but now heart rate better controlled. Remains on Toprol-XL 75 mg daily and amiodarone 200 mg daily. (4) Acute respiratory failure: Code(s): J96.00 - Acute respiratory failure, unspecified whether with hypoxia or hypercapnia Status: Acute Assessment and Plan: Acute Respiratory failure secondary to pulmonary edema, aspiration pneumonia, encephalopathy and inability to protect airway 08/14 extubated after a successful weaning trial He was requiring biPAP p.r.n. and at night for work of breathing Continue p.r.n. suctioning Continue BiPAP p.r.n. and ezPAP q.6 hours to minimize atelectasis he probably would not be able to do IS cxr 08/18/22: improved. Fevers so Zosyn added for possible coverage for aspiration pneumonia. Completed Abx (5) Aspiration pneumonia: Code(s): J69.0 - Pneumonitis due to inhalation of food and vomit Status: Acute Assessment and Plan: Blood sputum and urine cultures are negative -completed a course of abx Continue supportive care per (6) Peripheral arterial disease: Code(s): I73.9 - Peripheral vascular disease, unspecified Status: Acute Assessment and Plan: Patient had WERNER is done in 2020 which showed peripheral arterial disease. Patient is currently on Pletal and anticoagulation. Patient's both feet are cold below mid legs. Left foot appears worse than right. WERNER showing severely decreased bilateral ABIs, consistent with arterial occlusive disease and total occlusion of left dorsalis pedis. Likely worsened by patient shock which is combination of sepsis and cardiogenic. Embolic phenomena secondary to AFib and noncompliance with anticoagulation is also possibility. Was felt patient was not a candidate for mechanical intervention not a candidate for tPA. Plan is for medical management. (7) Hyperlipidemia: Code(s): E78.5 - Hyperlipidemia, unspecified Status: Acute Assessment and Plan: Stable. continue Lipitor and Zetia (8) Diabetes: Code(s): E11.9 - Type 2 diabetes mellitus without complications Status: Acute Assessment and Plan: The patient's blood glucose was reviewed on 08/25 Glucose remains reasonably well controlled. Continue AccuCheks covering with sliding scale. Hypoglycemia protocol available as needed. Advance Lantus (9) Cardiomyopathy: Code(s): I42.9 - Cardiomyopathy, unspecified Status: Acute Assessment and Plan: Echo 08/08/22 ? 1. Four-chamber cardiac dilation. ? 2. Severe left ventricular systolic dysfunction ejection fraction 15-20%. ? 3. Mildly sclerotic aortic valve with no stenosis. ? 4. Mild to moderate mitral regurgitation resulting from mitral edy
[2022-08-25 16:51] LABS: Glucose Point of Care 154 mg/dl (65-105)
[2022-08-25 19:47] LABS: Glucose Point of Care 150 mg/dl (65-105)
[2022-08-25] MEDS: INSULIN GLARGINE (*BKC) 100 UNITS/ML 18 UNITS SUB-Q (19:56)
[2022-08-25] MEDS: QUEtiapine FUMARATE 12.5 MG TABLET FEED TUBE (19:58)
[2022-08-25] MEDS: FAMOTIDINE 20 MG TABLET FEED TUBE (20:01)
[2022-08-25] MEDS: MELATONIN 5 MG TABLET FEED TUBE (20:01)
[2022-08-25 20:57] LABS: Hemoglobin A1C 7.5 % (<5.7)
[2022-08-25 22:08] LABS: Hemoglobin A1C 7.2 % (<5.7)
[2022-08-26 00:25] LABS: Glucose Point of Care 156 mg/dl (65-105)
[2022-08-26 00:25] LABS: Glucose Point of Care 163 mg/dl (65-105)
[2022-08-26 05:31] LABS: Glucose Point of Care 184 mg/dl (65-105)
[2022-08-26 06:00] VITALS: BP 132/70; PULSE 99; RESP 22; TEMP 36.7; O2SAT 98
[2022-08-26 08:41] VITALS: PULSE 85; RESP 18; O2SAT 98
[2022-08-26] MEDS: ATORVASTATIN 40 MG TABLET 80 MG PO (09:41)
[2022-08-26 09:42] VITALS: PULSE 89
[2022-08-26] MEDS: THIAMINE HCL 100 MG TABLET FEED TUBE (09:42)
[2022-08-26] MEDS: APIXABAN 5 MG TABLET PO (09:42)
[2022-08-26] MEDS: METOPROLOL SUCCINATE EXT REL 25 MG TABCR 75 MG PO (09:42)
[2022-08-26 09:43] VITALS: PULSE 89
[2022-08-26] MEDS: SACUBITRIL/VALSARTAN 24-26 MG TABLET 1 TAB PO (09:43)
[2022-08-26] MEDS: EMPAGLIFLOZIN 10 MG TABLET PO (09:43)
[2022-08-26] MEDS: EZETIMIBE 10 MG TABLET PO (09:43)
[2022-08-26] MEDS: AMIODARONE HCL 200 MG TABLET PO (09:43)
[2022-08-26] MEDS: FOLIC ACID 1 MG TABLET FEED TUBE (09:43)
[2022-08-26] MEDS: CLOPIDOGREL BISULFATE 75 MG TABLET PO (09:43)
[2022-08-26] MEDS: FAMOTIDINE 20 MG TABLET FEED TUBE (09:44)
--- NOTE | 2022-08-26 10:54 | PCNFU ---
Nutrition Follow-Up Complete: Inadequate Oral Intake as related to mechanical vent as evidenced by NPO. goal: Meet estimated nutritional needs. Patient is progressing towards goal. We will continue current goal. Pt current nutrition is Glucerna 1.2 at 75 ml/hr Last recorded weight is 73 kg. Bowel Motility:+Bm reported 08/25 Labs Reviewed:Glu 204, Cr 0.5 Meds Noted:Thiamine, Jardiance, Lipitor, Lantus, Folic Acid Skin: WNL Additional Notes: Patient remains on tube feedings of Glucerna 1.2 at 75 ml/hr and tolerating per nursing. Tube feedings providing 1980 kcals/99 gms protein/1328 kcals. Meeting 100% kcal and protein needs. Flush 75 ml q 4 hours. Agree with diet orders. Monitoring: reassess skin,labs,meds every Monday and Monday.
[2022-08-26 11:20] VITALS: O2SAT 99
[2022-08-26 12:23] LABS: Glucose Point of Care 164 mg/dl (65-105)
[2022-08-26 14:00] VITALS: BP 122/78; PULSE 106; RESP 18; TEMP 36.9; O2SAT 99
--- NOTE | 2022-08-26 14:16 | PM.DS ---
DS: Admitting Diagnosis Discharge Date 08/26/22 Admitting Diagnosis Left-sided weakness DS: Discharge Diagnosis Discharge Diagnosis (1) Cerebrovascular accident: Code(s): I63.9 - Cerebral infarction, unspecified Status: Acute (2) Heart failure with reduced ejection fraction: Code(s): I50.20 - Unspecified systolic (congestive) heart failure Status: Acute (3) Atrial fibrillation with rapid ventricular response: Code(s): I48.91 - Unspecified atrial fibrillation Status: Acute (4) Acute respiratory failure: Code(s): J96.00 - Acute respiratory failure, unspecified whether with hypoxia or hypercapnia Status: Acute (5) Aspiration pneumonia: Code(s): J69.0 - Pneumonitis due to inhalation of food and vomit Status: Acute (6) Peripheral arterial disease: Code(s): I73.9 - Peripheral vascular disease, unspecified Status: Acute (7) Hyperlipidemia: Code(s): E78.5 - Hyperlipidemia, unspecified Status: Acute (8) Diabetes: Code(s): E11.9 - Type 2 diabetes mellitus without complications Status: Acute (9) Cardiomyopathy: Code(s): I42.9 - Cardiomyopathy, unspecified Status: Acute (10) Encephalopathy: Code(s): G93.40 - Encephalopathy, unspecified Status: Acute (11) Dysphagia: Code(s): R13.10 - Dysphagia, unspecified Status: Acute (12) Delirium: Code(s): R41.0 - Disorientation, unspecified Status: Acute DS: Summary Hospital Course Reason for hospitalization: 67yo male with CAD, PAD, AFib here for left sided weakness and found to have CVA. Please see H&P for details. Hospital Course: Patient presents with left sided weakness and found to have an acute stroke posterior right frontal lobe by MRI. Likely embolic from AFib. Was on aspirin and therapeutic Lovenox. CTA head/neck showing no acute intracranial abnormalities but showed 35% right and 39% left ICA stenosis. No new lesions on repeat CT scan.? Patient currently on Lipitor, Eliquis and Plavix. Patient with acute on chronic systolic and diastolic CHF exacerbation. Patient with EF of 15-20%. Cardiology consulted and appreciate their input. CT chest showed small pleural effusion bith right sided pleural thickening. Repeat CXR close to discharge showing clear lung lim. Patient also had a 10mm nodule RLL concerning for infection or malignancy. Plan for repeat CT chest in 3 months. Patients mdications were adjusted to Toprol XL, Empag and Entresto as per Cardiology. Patient also with known AFib and had RVR. He was started on amiodarone drip for rate control. Metoprolol continued and adjusted. Currently on Eliquis, Toprol-XL 75 mg daily and amiodarone 200 mg daily.? Patient developed acute Respiratory failure secondary to pulmonary edema, aspiration pneumonia, encephalopathy and inability to protect airway. Able to be extubated after a successful weaning trial. He was requiring BiPAP p.r.n. and at night for work of breathing. Zosyn was added for possible aspiration pneumonia and he completed a course of abx. Patient had WERNER is done in 2019 which showed peripheral arterial disease.? Patient was on Pletal, statin and anticoagulation. Patient's both feet were cold below mid legs.? Left foot appears worse than right. WERNER showing severely decreased bilateral ABIs, consistent with arterial occlusive disease and total occlusion of left dorsalis pedis. Likely worsened by patient shock which is combination of sepsis and cardiogenic.? Embolic phenomena secondary to AFib and noncompliance with anticoagulation is also possibility.? Was felt patient was not a candidate for mechanical intervention not a candidate for tPA.? Plan is for medical management. Patient with encephalopathy felt to multifactorial secondary to CVA and benzodiazepine. Repeat head CT 08/10 showed?evolving subacute infarct in the posterior right frontal lobe.Patient more awake and able to follow sim
== END 2022-08-26 16:18 | DRG 64 ==
LOC: ANHED 05:29 → ANHIMU 06:52 → ANH3MEDSUR 08-08 22:11 → ANHICU 08-10 20:36 → ANH3MED 08-22 04:45
PROVIDERS: Chiropractor; Family Medicine; Internal Medicine; Internal Medicine Gastroenterology; Physician Assistant; Admitting Provider Internal Medicine; Emergency Provider Emergency Medicine; PCP Emergency Medicine; Visit Provider Internal Medicine
PROC: 0DH63UZ Insertion of Feeding Device into Stomach, Percutaneous Approach (ICD-10-PCS; CPT 43246; principal; 2022-08-16 14:15)
DX: I63.431 Cerebral infarction due to embolism of right posterior cerebral artery (principal); I50.43 Acute on chronic combined systolic (congestive) and diastolic (congestive) heart failure; J69.0 Pneumonitis due to inhalation of food and vomit; J96.00 Acute respiratory failure, unspecified whether with hypoxia or hypercapnia; G81.94 Hemiplegia, unspecified affecting left nondominant side; G93.49 Other encephalopathy; I48.91 Unspecified atrial fibrillation; R47.81 Slurred speech; F17.210 Nicotine dependence, cigarettes, uncomplicated; E11.51 Type 2 diabetes mellitus with diabetic peripheral angiopathy without gangrene; I70.209 Unspecified atherosclerosis of native arteries of extremities, unspecified extremity; Z91.148 Patient's other noncompliance with medication regimen for other reason; Z20.822 Contact with and (suspected) exposure to COVID-19
CPT/HCPCS: 31500; 36415; 36569; 36600; 43246; 70450; 70496; 70498; 70553; 71045; 71260; 80048; 80053; 80307; 81001; 82375; 82805; 82948; 83036; 83050; 83605; 83735; 83880; 84484; 85025; 85027; 85610; 85730; 87040; 87070; 87086; 87205; 92522; 92610; 92611; 93005; 93922; 93970; 94002; 94003; 94640; 94667; 94668; 96374; 96376; 97110; 97112; 97116; 97161; 97166; 97530; 97535; 99285; A9270; C1751; C8929; C9113; G0378; J0131; J0282; J0330; J1630; J1650; J1815; J1940; J2060; J2250; J2270; J2543; J2704; J2997; J3010; J3475; J3480; J7040; J7120; Q9957; Q9967; U0003; U0005

== ENCOUNTER 2022-10-07 11:03 | Outpatient (NON) | payer MEDICARE, SELFPAY ==
[2022-10-07 11:45] LABS: Basophils Absolute Auto 0.1 K/mm3 (0.0-0.1); Basophils Percent Auto 1.3 % (0.2-1.2); Eosinophils Absolute Auto 0.1 K/mm3 (0-0.3); Eosinophils Percent Auto 2.4 % (0-4.4); Hematocrit 45.7 % (42.0-52.0); Hemoglobin 14.8 g/dL (14.0-18.0); Immature Granulocyte Absolute 0.01 K/mm3 (0.00-0.031); Immature Granulocyte Percent A 0.2 % (0-0.5); Lymphocytes Absolute Auto 1.96 K/mm3 (0.9-3.2); Lymphocytes Percent Auto 41.9 % (18.3-44.2); Mean Corpuscular HGB Conc 32.4 g/dl (32-36); Mean Corpuscular Hemoglobin 33.4 pg (26-34); Mean Corpuscular Volume 103.2 fl (80-100); Mean Platelet Volume 11.2 fl (7.4-10.4); Monocytes Absolute Auto 0.4 K/mm3 (0.1-0.6); Monocytes Percent Auto 8.3 % (2.6-8.5); Neutrophils Absolute Auto 2.2 K/mm3 (1.3-6.7); Neutrophils Percent Auto 45.9 % (45.5-73.1); Platelet Count Result 200 k/mm3 (150-375); Red Blood Count 4.43 M/mm3 (4.6-6.20); Red Cell Distribution Width 13.7 % (11.5-14.5); White Blood Count 4.7 K/mm3 (4.5-10.0)
[2022-10-07 11:55] LABS: Alanine Aminotransferase 36 U/L (6-50); Alkaline Phosphatase 111 U/L (38-126); Anion Gap 5 mmol/L (8-16); Aspartate Amino Transferase 54 U/L (17-59); Bilirubin,Total 0.6 mg/dL (0.2-1.3); Blood Urea Nitrogen 8 mg/dL (9-20); Calcium 9.3 mg/dL (8.4-10.2); Carbon Dioxide 30 mmol/L (22-30); Chloride 105 mmol/L (98-107); Estimated Glomerular Filt Rate > 60; Glucose 121 mg/dL (65-110); Potassium 4.2 mmol/L (3.4-5.0); Sodium 140 mmol/L (137-145)
[2022-10-07 12:04] LABS: NT Pro B Type Natriuretic Pept 1580 pg/mL (19.9-100)
== END 2022-10-07 11:04 | disposition home or self-care (01) ==
LOC: HOME HLTH 11:05
PROVIDERS: PCP Emergency Medicine; Visit Provider Internal Medicine Cardiovascular Disease
DX: I69.321 Dysphasia following cerebral infarction (principal); J69.0 Pneumonitis due to inhalation of food and vomit; Z43.1 Encounter for attention to gastrostomy; I11.0 Hypertensive heart disease with heart failure; I50.9 Heart failure, unspecified
CPT/HCPCS: 80053; 83880; 85025

== ENCOUNTER 2022-11-07 12:30 | Outpatient (RCR) | payer MEDICARE, SELFPAY ==
--- NOTE | 2022-10-19 16:58 | STOPEVAL1 ---
Assessment and note entered by Carmen Multani [employer] Evaluation Information Assessment Status Evaluation Diagnosis Dysarthria/Dysphagia Onset 07/07 Subjective Information Patient reports that he feels that his swallowing is going good. He has been eating some regular meat, chili, etc. but just has to cut the food into small pieces. Patient reports he stopped using thickener in liquids approximately 2-3 weeks ago and he reports he notices that he still can choke on thin liquids. Patient also reports that he feels although his speech had improved during home health speech therapy, he feels it is more slurred and now he has less precise /t/ sounds along with the /s/ sound as observed in the home. Reported Pain Level Pain Score 0: Self Report Assessment ST Clinical Summary BEDSIDE SWALLOW EVALUATION AND COMMUNICATION EVALUATION Patient was seen for a Bedside Swallow Evaluation and a Communication Evaluation in order to assess his current skills following CVA several months ago. He has been seen by this therapist on acute care at [facility] and then again during Home Health services following discharge from [facility]. Patient today presented with mild labial/lingual weakness, slowed rate for diadochokinetic assessment of labial/lingual sounds, and then imprecise labial and lingual consonant productions secondary to labial/lingual weakness. Patient also exhibited a wet, gurgly vocal quality while drinking water although no overt coughing was noted. Patient will be seen twice weekly for four weeks to address labial/lingual strength and for improved speech and swallowing skills. Therapist requested resume using thickener in the liquids until patient is stronger overall. She voiced understanding. Plan of Care Interventions Treatment of Speech,Treatment of Swallowing D ST Services Indicated Yes These treatments will address the objective and functional deficits as defined above. The patient will be advanced safely and appropriately in order for the patient to progress towards his/her prior level of function. Additional exercises will be introduced and as well a
--- NOTE | 2022-10-31 12:34 | PCSTNOTE ---
The patient treatment was not able to be completed on 10/26/20 due to illness. Will plan to continue treatment per plan of care.
--- NOTE | 2022-11-07 14:40 | STOPDC ---
Assessment and note entered by GISELE Graham Evaluation Information Assessment Status Discharge Reported Pain Level Pain Score 0: Self Report Assessment ST Clinical Summary The patient was seen for an initial evaluation on 10/19/22 and then four treatment sessions at this outpatient facility focusing on safe swallowing and speech intelligibility. Patient had Speech Therapy services while on acute care at [facility] and then again through [facility] services after discharge from [facility]. Today the patient reports that he feels his swallowing is going pretty good. He denied difficulty swallowing liquids at this time, and stated that he is better able to masticate and swallow solid foods. He admitted to difficulty masticating the thin crust from a pizza yesterday but stated he ended up enjoying the toppings from the pizza. stated they will experiment with a softer pizza crust next time. Therapist suggested they try [place] or [place] foods for variety and stated they have tried a variety and he is generally successful. Patient has been refusing the use of thickener in the liquids and he does have a wet throat/vocal quality at times which clears when he clears his throat and swallows so more frequent throat clearing is recommended. Patient voices understanding. Also patient was allowed to discontinue speech and swallowing exercises unless he is concerned and feels he needs to restart them. Patient is discharged with all goals achieved. Plan of Care ST Services Indicated No
== END 2022-11-07 14:54 | disposition home or self-care (01) ==
LOC: ANHST 12:30
PROVIDERS: PCP Emergency Medicine; Visit Provider Emergency Medicine
DX: I69.321 Dysphasia following cerebral infarction (principal); I69.328 Other speech and language deficits following cerebral infarction
CPT/HCPCS: 92507; 92522; 92526; 92610

== ENCOUNTER 2022-11-07 14:58 | Outpatient (RCR) | payer MEDICARE, SELFPAY | END 2022-11-07 14:58 | disposition home or self-care (01) | LOC: ANHOT 14:58 | PROVIDERS: PCP Emergency Medicine; Visit Provider Emergency Medicine | DX: I69.321 Dysphasia following cerebral infarction (principal); I69.328 Other speech and language deficits following cerebral infarction | CPT/HCPCS: 99199 ==

== ENCOUNTER 2022-11-25 01:20 | Day surgery (SDC) | payer MEDICARE, SELFPAY ==
[2022-10-31 16:00] VITALS: BMI 20.7
[2022-11-25 07:43] VITALS: BMI 20.9
[2022-11-25 07:50] VITALS: BP 130/70; PULSE 106; RESP 18; O2SAT 100
[2022-11-25 07:56] LABS: Glucose Point of Care 141 mg/dl (65-105)
[2022-11-25] MEDS: LACTATED RINGERS 1,000 ML 150 ML IV CONT (08:01)
--- NOTE | 2022-11-25 08:12 | PM.HPGS ---
History of Present Illness History of Present Illness Consent: Risks, benefits, and alternatives have been discussed and questions answered. Patient agrees to proceed with procedure. Chief complaint: melena,abnormal weightloss Narrative: Jere Mcallister is a 67 year old male here for first screening colonoscopy, months ago had cva and required peg tube but removed since and eating better now, he had some weight loss and also will get another egd Review of Systems Constitutional: Constitutional: Denies headache(s) and Denies weakness Eyes: Eyes: Denies blurry vision ENT: Reports Normal hearing present, Denies headache(s) and Denies neck pain Cardiovascular: Cardiovascular: Denies chest pain and Denies dyspnea Respiratory: Respiratory: Denies dyspnea Gastrointestinal: Gastrointestinal: Reports no additional gastrointestinal complaints Genitourinary: Genitourinary: Denies dysuria Musculoskeletal: Musculoskeletal: Denies neck pain Integumentary/Breasts: Skin/Breast: Denies dry skin Neurologic: Reports Normal hearing present, Denies headache(s) and Denies weakness Psychiatric: Psychiatric: Denies anxiety Endocrine: Endocrine: Denies change in body appearance Hematologic/Lymphatic: Hematologic/Lymphatic: Denies easy bleeding Allergic/Immunologic: Allergic/Immunologic: Denies urticaria PMFSH Past Medical History Medical History (Updated 11/25/22 @ 08:14 by Jeovany Ann MD) Atrial fibrillation Blood in stool Colon cancer screening CVA (cerebral vascular accident) Diabetes Gastrostomy tube in place Hyperlipidemia Hypertension Family History Family History Father Diabetes mellitus Gout Hypertension Mother Diabetes mellitus Hypertension Social History Social History (Updated 11/08/22 @ 11:37 by SISSY Royal) Smoking packs per day: 0.5 Smoking cigarettes per day: 10.0 Years smoked: 40 Smoking pack-years: 20.00 Smoking status: Current every day smoker Tobacco type: cigarettes Second hand tobacco smoke exposure: No Alcohol intake: former Substance use: never Substance use type: does not use Other substance usage details: patient states drinks 1/2 bottle of vodka everyday for last 3 years Last use: 08/06/22 Lack of Transportation: No Lack of Food: Never True Current Housing: I Have Housing Concerned About Future Housing: No Difficulty Paying Gas/Electric Bills: No Difficulty Paying for Meds: No Currently Unemployed: No Education: High School Diploma/GED Difficulty w/ Childcare or Family Care: No Living arrangements: with family Occupation/Education: retired Gender identity (if verbalized by the patient): Male Spiritual care concerns: No Meds Home Medications and Allergies Home Medications Medication Instructions Recorded Confirmed Type nitroglycerin 0.4 mg sublingual 0.4 mg sublingual Q5M PRN Chest 08/07/22 11/08/22 History tablet Pain acetaminophen 160 mg/5 mL oral 650 mg (20.3125 mL) PO Q4H PRN 09/14/22 11/08/22 Rx suspension (Nortemp) Mild Pain (1-3) Or Fever #30 mL apixaban 5 mg tablet (Eliquis) 5 mg PO Q12HR #60 tabs 09/14/22 11/08/22 Rx atorvastatin 80 mg tablet 80 mg PO DAILY #30 tabs 09/14/22 11/08/22 Rx empagliflozin 10 mg tablet 10 mg PO DAILY #30 tabs 09/14/22 10/31/22 Rx (Jardiance) ezetimibe 10 mg tablet 10 mg PO DAILY #30 tabs 09/14/22 10/31/22 Rx folic acid 1 mg tablet 1 mg PO DAILY #30 tabs 09/14/22 11/08/22 Rx melatonin 5 mg tablet 5 mg PO HS #30 tabs 09/14/22 11/08/22 Rx midodrine 5 mg tablet 5 mg PO TID PRN Hypotension #30 09/14/22 11/08/22 Rx tabs sacubitril 24 mg-valsartan 26 mg 1 tab PO Q12HR #60 tabs 09/14/22 11/08/22 Rx tablet (Entresto) thiamine HCl (vitamin B1) 100 mg 100 mg PO QAM #30 tabs 09/14/22 11/08/22 Rx tablet (Vitamin B-1) quetiapine 25 mg tablet (Seroquel) 12.5 mg PO HS 11/08/22 11/25/22 History clopidog
--- NOTE | 2022-11-25 08:24 | WPDANESEPPF ---
Anes - Initial Pre Proc Eval Procedure: Operation Date: 11/25/22 08:30 Proposed Procedures p Esophagogastroduodenoscopy & Colonoscopy - Jeovany Ann MD Date/Time: 11/25/22 08:24 Surgeon: Jeovany Ann MD Pre Op Diagnosis: melena,abnormal weightloss Patient Data Age: 67 Gender: M Height: 1.83 m Weight: 69.9 kg Last Vital Signs Pulse 106 H 11/25/22 07:50 Resp 18 11/25/22 07:50 BP 130/70 11/25/22 07:50 Pulse Ox 100 11/25/22 07:50 O2 Del Method Room Air 11/25/22 07:50 Allergies Allergy/AdvReac Type Severity Reaction Status Date / Time No Known Allergies Allergy Verified 11/08/22 11:34 Home Medications Medication Instructions Recorded Confirmed Type nitroglycerin 0.4 mg sublingual 0.4 mg sublingual Q5M PRN Chest 08/07/22 11/08/22 History tablet Pain acetaminophen 160 mg/5 mL oral 650 mg (20.3125 mL) PO Q4H PRN 09/14/22 11/08/22 Rx suspension (Nortemp) Mild Pain (1-3) Or Fever #30 mL apixaban 5 mg tablet (Eliquis) 5 mg PO Q12HR #60 tabs 09/14/22 11/08/22 Rx atorvastatin 80 mg tablet 80 mg PO DAILY #30 tabs 09/14/22 11/08/22 Rx empagliflozin 10 mg tablet 10 mg PO DAILY #30 tabs 09/14/22 10/31/22 Rx (Jardiance) ezetimibe 10 mg tablet 10 mg PO DAILY #30 tabs 09/14/22 10/31/22 Rx folic acid 1 mg tablet 1 mg PO DAILY #30 tabs 09/14/22 11/08/22 Rx melatonin 5 mg tablet 5 mg PO HS #30 tabs 09/14/22 11/08/22 Rx midodrine 5 mg tablet 5 mg PO TID PRN Hypotension #30 09/14/22 11/08/22 Rx tabs sacubitril 24 mg-valsartan 26 mg 1 tab PO Q12HR #60 tabs 09/14/22 11/08/22 Rx tablet (Entresto) thiamine HCl (vitamin B1) 100 mg 100 mg PO QAM #30 tabs 09/14/22 11/08/22 Rx tablet (Vitamin B-1) quetiapine 25 mg tablet (Seroquel) 12.5 mg PO HS 11/08/22 11/25/22 History clopidogrel 75 mg tablet 75 mg PO DAILY 11/11/22 11/11/22 History Laboratory Tests 11/25/22 07:53 POC Capillary Glucose 141 H mg/dl (65-105) Patient hx anesthesia problems: none Family hx anesthesia problems: none Results Review: All pre-operative results and documents have been reviewed as part of the pre-operative evaluation. [facility] Past Medical History Medical History (Updated 11/25/22 @ 08:14 by Jeovany Ann MD) Atrial fibrillation Blood in stool Colon cancer screening CVA (cerebral vascular accident) Diabetes Gastrostomy tube in place Hyperlipidemia Hypertension Family History Family History Father Diabetes mellitus Gout Hypertension Mother Diabetes mellitus Hypertension Social History Social History (Updated 11/08/22 @ 11:37 by SISSY Royal) Smoking packs per day: 0.5 Smoking cigarettes per day: 10.0 Years smoked: 40 Smoking pack-years: 20.00 Smoking status: Current every day smoker Tobacco type: cigarettes Second hand tobacco smoke exposure: No Alcohol intake: former Substance use: never Substance use type: does not use Other substance usage details: patient states drinks 1/2 bottle of vodka everyday for last 3 years Last use: 08/06/22 Lack of Transportation: No Lack of Food: Never True Current Housing: I Have Housing Concerned About Future Housing: No Difficulty Paying Gas/Electric Bills: No Difficulty Paying for Meds: No Currently Unemployed: No Education: High School Diploma/GED Difficulty w/ Childcare or Family Care: No Living arrangements: with family Occupation/Education: retired Gender identity (if verbalized by the patient): Male Spiritual care concerns: No Anes - Eval Final PreProcedure Day of Procedure 11/25/22 08:24 Patient weight: normal Heart: regular rate and rhythm Lungs: clear to auscultation Airway: Mallampati scale class II Neurological: alert and oriented Last oral intake: >/= 8 hours ASA classification: IV Emergent: no Anesthetic plan: proceed Anesthesia type and monitoring: gene
--- NOTE | 2022-11-25 08:36 | SUR.OPER ---
EGD ENDED AT 08, COLON BEGAN AT 0836.
[2022-11-25 09:50] VITALS: BP 121/70; PULSE 88; RESP 25; O2SAT 100
[2022-11-25 10:00] VITALS: BP 132/83; PULSE 83; RESP 20; O2SAT 100
[2022-11-25 10:10] VITALS: BP 123/74; PULSE 83; RESP 21; O2SAT 98
[2022-11-25] MEDS: BENZOCAINE (*SP) 60 ML SPRAY CAN (HURRICAINE) 1 SPRAY MUCOUS MEM (11:28)
== END 2022-11-25 10:33 | disposition home or self-care (01) ==
PROVIDERS: PCP Emergency Medicine; Visit Provider Internal Medicine Gastroenterology
PROC: 0DJ08ZZ Inspection of Upper Intestinal Tract, Via Natural or Artificial Opening Endoscopic (ICD-10-PCS; CPT 43235; principal; 2022-11-25 08:30)
DX: Z12.11 Encounter for screening for malignant neoplasm of colon (principal); D12.0 Benign neoplasm of cecum; D12.2 Benign neoplasm of ascending colon; K63.5 Polyp of colon; K57.30 Diverticulosis of large intestine without perforation or abscess without bleeding; K64.8 Other hemorrhoids; I48.91 Unspecified atrial fibrillation; E11.9 Type 2 diabetes mellitus without complications; E78.5 Hyperlipidemia, unspecified; I10 Essential (primary) hypertension; Z86.73 Personal history of transient ischemic attack (TIA), and cerebral infarction without residual deficits; F17.210 Nicotine dependence, cigarettes, uncomplicated; Z79.01 Long term (current) use of anticoagulants; Z79.82 Long term (current) use of aspirin; Z79.02 Long term (current) use of antithrombotics/antiplatelets; Z79.84 Long term (current) use of oral hypoglycemic drugs
CPT/HCPCS: 45385; 45381; 82948; 88305; J2704; J7120

== ENCOUNTER 2022-12-02 07:44 | Outpatient (CLI) | payer MEDICARE, SELFPAY ==
--- NOTE | ~2022-12-02 | CT_ITS ---
EXAMINATION:CT diagnostic chest wo con DATE: 12/02/2022 09:11 INDICATION: Right lung lower lobe nodule. TECHNIQUE: Computed tomography (CT) of the chest was performed without intravenous contrast. Automate d exposure control and iterative reconstruction technique were employed. The dose-length product (DLP ) was 103.97 mGy-cm. COMPARISON: Chest CT 08/08/2022 FINDINGS: There is a 15 mm nodule in right lung lower lobe, worsened from 10 mm on 08/08/2022. There i s mild atelectasis bilaterally. There is mild emphysema. There is mild pleural thickening on the righ t with interval improvement. There is left atrial enlargement of the heart. There are coronary artery calcifications. No pericardial effusion. There are no pathologically enlarged lymph nodes. There is bilateral gynecomastia. There are bridging endplate osteophytes at multiple levels in the spine, cons istent with diffuse idiopathic skeletal hyperostosis (DISH). IMPRESSION: 1. Right lung lower lobe nodule with interval worsening, which may be infection or malignancy. CT-calin ded biopsy is recommended. 2. Mild emphysema. Reviewed, dictated and finalized at location A. IMPRESSION: 1. Right lung lower lobe nodule with interval worsening, which may be infection or malignancy. CT-guided biopsy is recommended. 2. Mild emphysema.
--- NOTE | 2022-12-02 13:47 | WPDPFTINT ---
PFT Procedure Performed PFT Procedure Performed Spirometry with Pre/Post Bronchodilator Plethysmography (Lung Vol) Diffusing Cap (DLCO) Flow Vol Loop PFT Interpretation This is a pulmonary function test with pre and post-bronchodilator spirometry, plethysmography and diffusing capacity. The test was performed and results interpreted in accordance with the 2019 and 2005 ATS/ERS Task Force guidelines respectively using the Global Lung Function Initiative-2012 reference equations. Patient demonstrated good effort and cooperation. Reproducibility criteria were met. The quality of the pre bronchodilator spirometry maneuver was Grade A and post bronchodilator spirometry maneuver was Grade A. Findings: Spirometry: The contour of the expiratory flow tracing demonstrates and early notched pattern in 3 of 3 pre bronchodilator efforts and 3 of 3 post bronchodilator efforts. In addition there is decreased maximal expiratory airflow at all lung volumes with concave expiratory flow tracing. The contour the inspiratory flow tracing is normal. The pre bronchodilator FVC is 3.35 L, 71% predicted. The pre bronchodilator FEV1 is 2.06 L, 57% predicted. The pre bronchodilator FEV1: FVC ratio 61%. The post bronchodilator FVC is 3.09 L, representing a 5% decrease. The post bronchodilator FEV1 is 2.11 L, representing a 2% increase. The post bronchodilator FEV1: FVC ratio 66%. Plethysmography: The total lung capacity is 6.04 L, 81% predicted. The functional residual capacity is 4.59 L, 116% predicted. The residual volume is 2.66 L, 107% predicted. Diffusing capacity: The diffusing capacity unadjusted for hemoglobin and carboxyhemoglobin is 13.0, 47% predicted. The diffusing capacity adjusted for alveolar volume is 4.21, 107% predicted. Impression: There is a reproducible early notched pattern in the expiratory flow tracing. 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 Clinical correlation is recommended. There is a moderately severe obstructive abnormality without significant improvement after inhaling a single dose of albuterol. The lung volumes are normal. The diffusing capacity unadjusted for hemoglobin and carboxyhemoglobin is moderately decreased and normalizes when adjusted for alveolar volume. There are no prior studies for comparison
== END 2022-12-02 07:45 | disposition home or self-care (01) ==
PROVIDERS: PCP Emergency Medicine; Visit Provider Internal Medicine Critical Care Medicine
DX: R91.1 Solitary pulmonary nodule (principal); R94.2 Abnormal results of pulmonary function studies; J43.9 Emphysema, unspecified
CPT/HCPCS: 71250; 94060; 94726

== ENCOUNTER 2022-12-09 08:45 | Outpatient (CLI) | payer MEDICARE, SELFPAY ==
[2022-12-05 14:24] VITALS: BMI 20.9
--- NOTE | 2022-12-05 14:26 | PC.NURSE ---
Pre Radiology instructions Report to the outpatient donna islasilipavel on date __12/09/22___ at time _9:00AM for procedure Time: _11:00AM___ YOU MAY BE MONITORED AT HOSPITAL FOR UP TO 4 HOURS AFTER YOUR PROCEDURE. A visitor will be allowed to accompany the patient into the hospital. You and your visitor will be asked to self-screen and do not enter if you have any COVID symptoms. A mask is OPTIONAL within the hospital. Patients are to have no food or drink 6 hours prior to procedure time Driving will be restricted after the procedure, you must have a person to drive you home. Labs will be drawn in preop area and once reviewed, you will be taken to radiology area for procedure. When the procedure is completed, you will be taken to outpatient where you will be monitored for several hours. You may have one visitor in this area. Other than holding anti-coagulants, patient may take other medication(s) as scheduled. Prior to your appointment date patients are instructed to hold anti-coagulants after discussing with ordering provider to stop. If unable to discontinue anti-coagulants please notify radiologist. ? No aspirin or warfarin (Coumadin) for 7 days prior to the procedure. ? No clopidogrel (Plavix), ticagrelor (Brilinta), prasugrel (Effient) or dabigatran (Pradaxa) for 5 days prior to the procedure. ? No rivaroxaban (Xarelto), apixaban (Eliquis), dipyridamole (Aggrenox or Persantine) or cilostazol (Pletal) for 2 days prior to the procedure. Medications to discontinue per physician: __HOLD ELIQUIS 2 DAYS PRE-OP- LAST DOSE 12/06/22. HOLD PLAVIX 5 DAYS PRE-OP- LAST DOSE 12/03/22 *BUT PATIENT TOOK THE MONDAY DOSE. WILL START HOLDING PLAVIX NOW. RADIOLOGY CALLED TO CONFIRM PLAVIX HOLDING WITH DR OQUENDO AND IF OK TO PROCEED WITH PROCEDURE. Please leave all valuables, including medications, at home the day of procedure. The hospital will not accept responsibility for valuables. Wear comfortable, loose fitting clothing.? Follow any additional instructions given to you from ordering provider. Telephone instructions given to __PATIENT'S WIFE and asked if any additional questions and then verbalized understanding. Patient advised to call scheduling provider office or registration scheduling [phone] if any additional questions.
[2022-12-09] VITALS (10 sets, daily range): BP systolic 120–156; BP diastolic 70–89; PULSE 80–96; RESP 20–22; TEMP 37.2; O2SAT 100
--- NOTE | ~2022-12-09 | XR_ITS ---
XR chest 1V portable 12/09/2022 14:12 Indication: Post image guided biopsy Procedure: AP portable chest Comparison: Comparison to multiple prior studies sequentially, with oldest reviewed study dated 11/2022. Findings: Borderline heart size. No pneumothorax identified post biopsy. Right lower lobe nodule amanda entified in the right perihilar location. Heart size normal. Left lung clear. Impression: 1: No pneumothorax identified post biopsy. Reviewed, dictated and finalized at location A. Impression: 1: No pneumothorax identified post biopsy.
--- NOTE | ~2022-12-09 | XR_ITS ---
EXAMINATION: XR chest 1V DATE: 12/09/2022 11:54 INDICATION: Status post right lung percutaneous biopsy TECHNIQUE: frontal view of the chest was obtained. COMPARISON: Chest CT dated 12/02/2022 FINDINGS: The biopsied right lower lobe nodule can be seen in the perihilar right midlung zone. No other airspa ce opacities, pulmonary edema, pleural effusion or pneumothorax. The cardiomediastinal silhouette is normal. IMPRESSION: 1. No pneumothorax or other acute cardiopulmonary disease post percutaneous biopsy of a right lower l obe nodule which is concerning for primary bronchogenic carcinoma. Reviewed, dictated and finalized at location A. IMPRESSION: 1. No pneumothorax or other acute cardiopulmonary disease post percutaneous bio psy of a right lower lobe nodule which is concerning for primary bronchogenic c arcinoma.
--- NOTE | ~2022-12-09 | XR_ITS ---
EXAMINATION: XR chest 1V portable DATE: 12/09/2022 14:48 INDICATION: Right lower lobe nodule post percutaneous lung biopsy TECHNIQUE: frontal view of the chest was obtained. COMPARISON: Chest radiograph dated 12/09/2022 at 1:45 PM FINDINGS: Again seen is the biopsied right lower lobe nodule which projects over the perihilar right midlung zo ne. No new airspace opacities, pulmonary edema, pleural effusion or pneumothorax. The cardiomediastin al silhouette is normal. IMPRESSION: 1. No pneumothorax post percutaneous biopsy of a right lower lobe nodule which is concerning for prim ricardo bronchogenic carcinoma. Reviewed, dictated and finalized at location A. IMPRESSION: 1. No pneumothorax post percutaneous biopsy of a right lower lobe nodule which is concerning for primary bronchogenic carcinoma.
--- NOTE | ~2022-12-09 | CT_ITS ---
EXAMINATION: CT biopsy lung w/imaging DATE: 12/09/2022 12:00 INDICATION: Right lower lobe nodule TECHNIQUE: The procedure including the risks and benefits was discussed with the patient. Risks discu ssed included infection, approximately 1/20 risk of symptomatic hemorrhage beyond mild hemoptysis, ap proximately 1/3 risk of pneumothorax, and approximately 1/10 risk of pneumothorax severe enough to wa rrant chest tube placement. The patient understood the risks and agreed to proceed. The patient was p laced prone. The skin overlying the posterior lower right chest was prepped and draped in sterile fa shion. Anesthetic was administered with 1% lidocaine subcutaneously. A 19 gauge outer needle was ad vanced under CT guidance to the lesion of interest. A 20 gauge core biopsy needle was then used to ob tain 4 core biopsy specimens. The needle was removed and the entry site was cleaned and dressed. The re were no immediate complications. The dose-length product was 121.30 mGy-cm. FINDINGS: CT images demonstrate the outer needle tip adjacent to a 1.2 cm subpleural nodule in the ri ght lower lobe. IMPRESSION: 1. Successful CT-guided biopsy of a 1.2 cm right lower lobe nodule. Reviewed, dictated and finalized at location A.
[2022-12-09 09:44] LABS: Mean Platelet Volume 10.6 fl (7.4-10.4); Platelet Count Result 230 k/mm3 (150-375)
[2022-12-09 09:57] LABS: INR 0.9; Prothrombin Time 13.1 Seconds (11.1-14.7)
--- NOTE | 2022-12-09 15:04 | SUR.PHASEII ---
1500 - dr. hastings talking with pt and pt's family
== END 2022-12-09 15:05 | disposition home or self-care (01) ==
PROVIDERS: PCP Emergency Medicine; Referring Provider Internal Medicine Critical Care Medicine; Visit Provider Radiology Diagnostic Radiology
PROC: BB24ZZZ Computerized Tomography (CT Scan) of Bilateral Lungs (ICD-10-PCS; CPT 32408; principal; 2022-12-09 11:00)
DX: C34.31 Malignant neoplasm of lower lobe, right bronchus or lung (principal)
CPT/HCPCS: 32408; 36415; 71045; 85049; 85610; 88305; 88342

== ENCOUNTER 2022-12-29 07:28 | Outpatient (CLI) | payer MEDICARE, SELFPAY ==
--- NOTE | ~2022-12-29 | PE_ITS ---
EXAMINATION: PET skull to mid thigh DATE: 12/29/2022 09:48 INDICATION: Adenocarcinoma of the right lung TECHNIQUE: Blood glucose level was 188 mg/dL. 9.915 mCi of 18-fluorodeoxyglucose (18-FDG) was adminis tered i.v. Low dose computed tomography (CT) images were acquired from the base of the brain to the p roximal thighs for attenuation correction and anatomic localization. Positron emission tomography (PE T) images were acquired in the same distribution beginning 67 minutes after injection. The dose-lengt h product (DLP) was 520.90 mGy-cm. COMPARISON: 12/02/2022 FINDINGS: Head/neck: No abnormal FDG uptake is identified. There is mild mucosal thickening of the right maxill ricardo sinus. Chest: There is a 1.8 x 1.3 cm nodule in the superior segment of the right lower lobe with an SUV max of 13.4, consistent with patient's biopsy-proven adenocarcinoma. There is mild emphysema. No additio nal pulmonary nodules are identified. No pathologically enlarged thoracic lymph nodes are identified. There is left atrial enlargement of the heart. Calcified coronary artery atherosclerosis is noted. N o pleural effusion or pneumothorax. Mild bilateral gynecomastia is noted. Abdomen/pelvis/proximal thighs: Physiologic FDG activity is present in the bowel and urinary tract. N o abnormal FDG uptake is identified. There is calcified atherosclerosis of the aorta and many of the other arteries. The liver, spleen, pancreas, gallbladder, and adrenal glands are normal. The kidneys are unremarkable. No pathologically enlarged abdominal or pelvic lymph nodes are identified. No free intraperitoneal gas or evidence of bowel obstruction. Musculoskeletal: No abnormal FDG uptake is identified. There are bridging osteophytes at multiple lev els in the thoracic spine, consistent with diffuse idiopathic skeletal hyperostosis (DISH). There is moderate cervical and lumbar spondylosis. IMPRESSION: 1. 1.8 cm nodule in the superior segment of the right lower lobe with abnormal FDG uptake, consistent with biopsy-proven adenocarcinoma. No evidence of metastatic disease. Reviewed, dictated and finalized at location L. IMPRESSION: 1. 1.8 cm nodule in the superior segment of the right lower lobe with abnormal FDG uptake, consistent with biopsy-proven adenocarcinoma. No evidence of metast atic disease.
[2022-12-29 07:57] LABS: Glucose Point of Care 188 mg/dl (65-105)
== END 2022-12-29 07:29 | disposition home or self-care (01) ==
PROVIDERS: PCP Emergency Medicine; Visit Provider Internal Medicine Critical Care Medicine
DX: R91.1 Solitary pulmonary nodule (principal); R94.2 Abnormal results of pulmonary function studies
CPT/HCPCS: 78815; A9552

== ENCOUNTER 2023-03-02 11:23 | Inpatient (IN) | payer MEDICARE, SELFPAY ==
[2023-03-02] VITALS (28 sets, daily range): BP systolic 102–139; BP diastolic 62–98; PULSE 89–119; RESP 14–20; TEMP 36.1–36.4; O2SAT 98–100; BMI 19.2
--- NOTE | ~2023-03-02 | CT_ITS ---
EXAMINATION: CT diagnostic chest w con DATE: 03/02/2023 17:01 INDICATION: AMS, recent surgery TECHNIQUE: Computed tomography (CT) of the chest was performed with 75 mL Omnipaque-350 intravenous c ontrast. Additional 3D reconstructions utilizing coronal maximum intensity projection (MIP) were perf ormed. Automated exposure control and iterative reconstruction technique were employed. The dose-deena th product was 162.92 mGy-cm. COMPARISON: CT dated 12/02/2022 FINDINGS: Status post right middle and lower lobectomy with moderate-sized right hydropneumothorax with larger gas component and smaller dependently layering fluid component. Suture lines are seen at several loca tions along the posterior margin of the right upper lobe. Extending along the most caudal suture line is a region of atelectasis with surrounding architectural distortion indicating the associated volum e loss. There is a small amount of thrombus in situ at the remaining stump of the pulmonary artery pr eviously spine the right middle and lower lobes. No other pulmonary arterial filling defects to sugge st pulmonary embolism. Small airspace opacities, tree-in-bud pattern and septal line thickening in th e dependent aspect of the remaining right upper lobe suspicious for aspiration or pneumonia. 1.7 x 1. 2 cm soft tissue density nodule surrounded by gas in the pleural space along the posterior right brianne diaphragm likely representing small amount of clot related to the earlier surgery. Left lung remains clear with no suspicious pulmonary nodules, pneumonia, pulmonary edema or pleural effusion. Moderate emphysema at the left apex. Heart size is normal. Atherosclerotic coronary artery calcifications. No pericardial effusion. Minimal likely postoperative pneumomediastinum in the anterior mediastinum. Rig ht seventh and eighth rib thoracotomy defects. Thoracic aorta is normal in caliber with no dissection . No pathologically enlarged abdominal or pelvic lymphadenopathy. Subtle increased attenuation layeri ng dependently in the otherwise normal-appearing gallbladder consistent with sludge or gallstones. Se johann stenosis in the proximal superior mesenteric artery. Also appear to be likely hemodynamically si gnificant stenosis in the proximal bilateral renal arteries. There are a few subcentimeter cysts in t he right kidney. Bridging osteophytes at multiple levels in the thoracic spine consistent with diffus e idiopathic skeletal hyperostosis (DISH). IMPRESSION: 1. Postoperative change of recent right thoracotomy and right middle and lower lobectomies with resid ual moderate-sized right hydropneumothorax. 2. Interstitial and airspace opacities in the dependent right upper lobe suspicious for aspiration or pneumonia. 3. Cardiomegaly. 4. Likely hemodynamically significant stenosis at the superior mesenteric and bilateral renal arterie s. Reviewed, dictated and finalized at location A. IMPRESSION: 1. Postoperative change of recent right thoracotomy and right middle and lower lobectomies with residual moderate-sized right hydropneumothorax. 2. Interstitial and airspace opacities in the dependent right upper lobe suspic ious for aspiration or pneumonia. 3. Cardiomegaly. 4. Likely hemodynamically significant stenosis at the superior mesenteric and b ilateral renal arteries.
--- NOTE | ~2023-03-02 | CT_ITS ---
EXAMINATION: CT brain wo con INDICATION: Altered mental status COMPARISON: 08/10/2022 TECHNIQUE: Standard unenhanced head CT. The dose-length product (DLP) was 681.00 mGy-cm. The mA was a djusted according to patient size. Iterative reconstruction technique was employed. FINDINGS: No acute intraparenchymal hemorrhage. No evidence of mass lesion. No evidence of acute infa rction. There is an old posterior right frontal lobe infarct. There are punctate areas of interval in farction in the bilateral basal ganglia. There is mild periventricular and subcortical hypodensity pr obably related to small vessel ischemic disease. There is mild prominence of the sulci and ventricles related to cerebral atrophy. Intracranial calcified cerebral atherosclerosis is noted. No extra-axia l collections. No mass effect or midline shift. The orbits and soft tissues are unremarkable. There i s mild mucosal thickening of the paranasal sinuses. IMPRESSION: 1. Areas of prior an interval infarction without acute intracranial abnormality. 2. Age related findings. Reviewed, dictated and finalized at location F. IMPRESSION: 1. Areas of prior an interval infarction without acute intracranial abnormality . 2. Age related findings.
--- NOTE | 2023-03-02 11:49 | ECG_ITS ---
Measurements Intervals [place] Rate: 106 P: CT: 0 QRS: 109 QRSD: 138 T: 13 QT: 381 QTc: 507 Interpretive Statements ATRIAL FIBRILLATION WITH RAPID VENTRICULAR RESPONSE MARKED RIGHT AXIS DEVIATION [QRS AXIS > 100] RIGHT BUNDLE BRANCH BLOCK [120+ ms QRS DURATION, UPRIGHT V1, 40+ ms S IN I/aVL/V4/V5/V6] ABNORMAL ECG COMPARED TO ECG 08/15/2022 07:58:11 NO SIGNIFICANT CHANGES Electronically Signed On 03-02-2023 17:24:51 CDT by Hari Yao M.D.
[2023-03-02 12:03] LABS: Basophils Percent Auto 0.4 % (0.2-1.2); Eosinophils Absolute Auto 0.1 K/mm3 (0-0.3); Hematocrit 45.8 % (42.0-52.0); Hemoglobin 14.5 g/dL (14.0-18.0); Immature Granulocyte Absolute 0.02 K/mm3 (0.00-0.031); Immature Granulocyte Percent A 0.2 % (0-0.5); Lymphocytes Absolute Auto 1.89 K/mm3 (0.9-3.2); Lymphocytes Percent Auto 20.6 % (18.3-44.2); Mean Corpuscular HGB Conc 31.7 g/dl (32-36); Mean Corpuscular Hemoglobin 31.2 pg (26-34); Mean Corpuscular Volume 98.5 fl (80-100); Mean Platelet Volume 10.7 fl (7.4-10.4); Monocytes Absolute Auto 0.6 K/mm3 (0.1-0.6); Monocytes Percent Auto 6.9 % (2.6-8.5); Neutrophils Absolute Auto 6.5 K/mm3 (1.3-6.7); Neutrophils Percent Auto 70.9 % (45.5-73.1); Platelet Count Result 382 k/mm3 (150-375); Red Blood Count 4.65 M/mm3 (4.6-6.20); Red Cell Distribution Width 14.6 % (11.5-14.5); White Blood Count 9.2 K/mm3 (4.5-10.0)
[2023-03-02 12:13] LABS: INR 1.2; Prothrombin Time 15.9 Seconds (11.1-14.7)
[2023-03-02 12:14] LABS: Partial Thromboplastin Time 37.6 SECONDS (22.3-36.8)
[2023-03-02 12:17] LABS: Alanine Aminotransferase 25 U/L (6-50); Albumin Level 3.9 g/dL (3.5-5.1); Alkaline Phosphatase 210 U/L (38-126); Anion Gap 8 mmol/L (8-16); Aspartate Amino Transferase 30 U/L (17-59); Bilirubin,Total 0.9 mg/dL (0.2-1.3); Blood Urea Nitrogen 11 mg/dL (9-20); Calcium 9.7 mg/dL (8.4-10.2); Carbon Dioxide 26 mmol/L (22-30); Chloride 104 mmol/L (98-107); Estimated CRCL calculation 69 ml/min; Estimated Glomerular Filt Rate > 60; Glucose 160 mg/dL (65-110); Potassium 4.2 mmol/L (3.4-5.0); Sodium 138 mmol/L (137-145)
--- NOTE | 2023-03-02 13:20 | PC.NURSE ---
Pt family member came to intake desk and reported pt is now feeling light headed. VS taken and charted. VSS.
[2023-03-02 15:53] LABS: Appearance Urine Cloudy (Clear); Bacteria Urine 4+ /hpf; Bilirubin Urine Negative (Negative); Blood Urine Negative (Negative); Color Urine Yellow (Yellow); Glucose Urine UA 3+ mg/dL (Negative); Ketones Urine Trace mg/dL (Negative); Leukocyte Esterase Ur 1+ LEU/UL (Negative); Nitrate Urine Positive (Negative); Non Pathogenic Casts 0-2; Protein Urine Negative (Negative); RBC Urine 0-2 /hpf (0-2); Specific Grav Ur 1.035 (1.001-1.035); Squamous Epithelial Cell Urine None seen /hpf (Few); WBC Urine 51-100 /hpf
[2023-03-02 15:57] LABS: Add Urine Microscopic? YES
[2023-03-02 16:18] LABS: Influenza A QL RT-PCR Negative (Negative); Influenza B QL RT-PCR Negative (Negative); RSV RNA, RT-PCR Negative (Negative); SARS-CoV-2 RNA PCR Negative (Negative)
--- NOTE | 2023-03-02 16:41 | ED.AMS ---
HPI - Altered Mental Status General Chief Complaint: Altered Mental Status Stated Complaint: stroke side effects from 1 month ago Time Seen by Provider: 03/02/23 14:48 History of Present Illness HPI narrative: 67-year-old male present to the emergency department for evaluation of increased altered mental status. Patient had a previous stroke in July and had a recent lobectomy at [facility]. [facility] initially wanted to get the patient admitted to [facility] after being discharged but patient initially declined. states that the patient has been more lethargic over the last few days. Related Data Home Medications Medication Instructions Recorded Confirmed nitroglycerin 0.4 mg sublingual 0.4 mg sublingual Q5M PRN Chest 08/07/22 12/21/22 tablet Pain quetiapine 25 mg tablet (Seroquel) 12.5 mg PO HS 11/08/22 12/21/22 clopidogrel 75 mg tablet 75 mg PO DAILY 11/11/22 12/21/22 bupropion HCl (smoking deter) 150 150 mg PO BID 12/05/22 12/21/22 mg tablet,12 hr sustained-release(smoking deterrent) empagliflozin 10 mg tablet 10 mg PO QAM 12/05/22 12/21/22 (Jardiance) famotidine 20 mg tablet 20 mg PO BID 12/05/22 12/21/22 folic acid 800 mcg tablet 0.8 mg PO DAILY 12/05/22 12/21/22 melatonin 10 mg capsule 10 mg PO HS 12/05/22 12/21/22 metoprolol succinate 50 mg 50 mg PO QAM 12/05/22 12/21/22 tablet,extended release 24 hr sacubitril 24 mg-valsartan 26 mg 0.5 tab PO Q12HR 12/05/22 12/21/22 tablet (Entresto) Allergies Allergy/AdvReac Type Severity Reaction Status Date / Time No Known Allergies Allergy Verified 12/21/22 12:40 Review of Systems Review of Systems: All systems reviewed & are unremarkable except as noted in HPI and below PMFSH Past Medical History Medical History (Updated 03/02/23 @ 19:12 by Pj Stuart MD) Atrial fibrillation Blood in stool Colon cancer screening CVA (cerebral vascular accident) Diabetes Gastrostomy tube in place Hyperlipidemia Hypertension Family History Family History Father Diabetes mellitus Gout Hypertension Mother Diabetes mellitus Hypertension Social History Social History (Updated 12/21/22 @ 12:38 by Denisa De La Vega MA) Smoking packs per day: 0.5 Smoking cigarettes per day: 10.0 Years smoked: 40 Smoking pack-years: 20.00 Smoking status: Current every day smoker Tobacco type: cigarettes Second hand tobacco smoke exposure: No Alcohol intake: former Alcohol use details: occasionally Substance use: never Substance use type: does not use Other substance usage details: patient states drinks 1/2 bottle of vodka everyday for last 3 years Last use: 08/06/22 Lack of Transportation: No Lack of Food: Never True Current Housing: I Have Housing Concerned About Future Housing: No Difficulty Paying Gas/Electric Bills: No Difficulty Paying for Meds: No Currently Unemployed: No Education: High School Diploma/GED Difficulty w/ Childcare or Family Care: No Living arrangements: with family Occupation/Education: retired Gender identity (if verbalized by the patient): Male Spiritual care concerns: No Exam Narrative: APPEARANCE: Well-appearing HEAD: normocephalic, atraumatic. EYES: PERRLA/EOMI, conjunctivae clear. NOSE: Normal no drainage EARS:TMS clear with good light reflex. THROAT: Pharynx clear, no exudate. NECK: Supple. No adenopathy, no masses. RESPIRATORY: Airway patent, respirations nonlabored. Clear to auscultation bilaterally, no rales, rhonchi, wheezing. CARDIOVASCULAR: Regular rate and rhythm without murmurs rubs or gallops. ABDOMINAL: Soft, nontender, nondistended, normal bowel sounds MUSCULOSKELETAL: Moves all extremities. Strength/ROM intact, No edema, No calf tenderness. NEURO: Alert. Cranial nerves II through XII intact. Grossly intact SKIN: Warm, dry. Normal Color Course Course Emergency Course: 67-year-old male present e
[2023-03-02] MEDS: AZITHROMYCIN 500 MG/NS 250 ML 500 MG/250 ML BAG 250 MG IVPB (18:01)
--- NOTE | 2023-03-02 18:57 | ADMGEN ---
This patient, Jere Mcallister, was admitted to IMU Room 203-01 at 1857. Patient/family oriented to hospital policies and general routines including ID bracelet, bed and alarms, visiting hours, pain management, procedures, bathroom and other care routines, personal items, smoking policy, room service/diet, and visiting hours. Information on how to activate the Rapid Response Team has been discussed. Patient/Family are encouraged to report perceived risks to care and to ask questions if they do not understand what they are told or what they should do.
--- NOTE | 2023-03-02 20:04 | PM.IMHP ---
H&P: HPI History of Present Illness Date/Time: 03/02/23 20:04 Chief Complaint: AMS Narrative: THIS IS A 67-YEAR-OLD MALE WITH PAST MEDICAL HISTORY SIGNIFICANT FOR ATRIAL FIBRILLATION RATE CONTROLLED ANTICOAGULATED, TYPE 2 DIABETES MELLITUS, CONGESTIVE HEART FAILURE, PERIPHERAL DIABETIC NEUROPATHY, TOBACCO DEPENDENCE, STROKE. PATIENT IS STATUS POST RIGHT LOWER LOBE LOBECTOMY DUE TO LUNG NODULE LESS THAN 1 MONTH AGO. PATIENT PRESENTS TO THE EMERGENCY ROOM DUE TO ALTERED MENTAL STATUS PER PATIENT HAS BEEN VERY LETHARGIC. PATIENT IS UNABLE TO GIVE MUCH HISTORY PERTAIN THIS LAST FEW DAYS HAS HAD SIGNIFICANT WEIGHT LOSS AND UNDERWENT SURGERY DENIES ANY COUGH SPUTUM PRODUCTION SHORTNESS OF BREATH OR NIGHT SWEATS. PRELIMINARY WORKUP WAS SIGNIFICANT FOR: EXAMINATION: CT brain wo con ? INDICATION: Altered mental status ? COMPARISON: 08/10/2022 TECHNIQUE: Standard unenhanced head CT. The dose-length product (DLP) was 681.00 mGy-cm. The mA was adjusted according to patient size. Iterative reconstruction technique was employed. ? FINDINGS: No acute intraparenchymal hemorrhage. No evidence of mass lesion. No evidence of acute infarction. There is an old posterior right frontal lobe infarct. There are punctate areas of interval infarction in the bilateral basal ganglia. There is mild periventricular and subcortical hypodensity probably related to small vessel ischemic disease. There is mild prominence of the sulci and ventricles related to cerebral atrophy. Intracranial calcified cerebral atherosclerosis is noted. No extra-axial collections. No mass effect or midline shift. The orbits and soft tissues are unremarkable. There is mild mucosal thickening of the paranasal sinuses. IMPRESSION: 1. Areas of prior an interval infarction without acute intracranial abnormality. 2. Age related findings. EXAMINATION: CT diagnostic chest w con DATE: 03/02/2023 17:01 INDICATION: AMS, recent surgery TECHNIQUE: Computed tomography (CT) of the chest was performed with 75 mL Omnipaque-350 intravenous contrast. Additional 3D reconstructions utilizing coronal maximum intensity projection (MIP) were performed. Automated exposure control and iterative reconstruction technique were employed. The dose-length product was 162.92 mGy-cm. COMPARISON: CT dated 12/02/2022 FINDINGS: Status post right middle and lower lobectomy with moderate-sized right hydropneumothorax with larger gas component and smaller dependently layering fluid component. Suture lines are seen at several locations along the posterior margin of the right upper lobe. Extending along the most caudal suture line is a region of atelectasis with surrounding architectural distortion indicating the associated volume loss. There is a small amount of thrombus in situ at the remaining stump of the pulmonary artery previously spine the right middle and lower lobes. No other pulmonary arterial filling defects to suggest pulmonary embolism. Small airspace opacities, tree-in-bud pattern and septal line thickening in the dependent aspect of the remaining right upper lobe suspicious for aspiration or pneumonia. 1.7 x 1.2 cm soft tissue density nodule surrounded by gas in the pleural space along the posterior right hemidiaphragm likely representing small amount of clot related to the earlier surgery. Left lung remains clear with no suspicious pulmonary nodules, pneumonia, pulmonary edema or pleural effusion. Moderate emphysema at the left apex. Heart size is normal. Atherosclerotic coronary artery calcifications. No pericardial effusion. Minimal likely postoperative pneumomediastinum in the anterior mediastinum. Right seventh and eighth rib thoracotomy defects. Thoracic aorta is normal in caliber with no dissection. No pathologically enlarged abdominal or pelvic lymphadenopathy. Subtle increased attenuation layering dependently in the otherwise normal-appearing gallbladder consistent with sludge or gallstones. Severe stenosis in t
[2023-03-03] VITALS (17 sets, daily range): BP systolic 117–157; BP diastolic 68–83; PULSE 86–108; RESP 16–20; TEMP 36.3–36.8; O2SAT 97–100
[2023-03-03] MEDS: CEFEPIME 2 GM/NS 50 ML 2 GM/50 ML BAG IVPB ×2 (06:36→16:32)
[2023-03-03 07:39] LABS: Glucose Point of Care 256 mg/dl (65-105)
[2023-03-03 07:47] LABS: MRSA (PCR) NOT DETECTED (NOT DETECTE)
[2023-03-03] MEDS: FLUTICASONE/UMECLIDIN/VILANTER 100-62.5-25 MCG ELLIPTA 1 PUFF INHALATION (08:04)
[2023-03-03] MEDS: VARENICLINE 1 MG TABLET PO ×2 (09:40→16:32)
[2023-03-03] MEDS: SACUBITRIL/VALSARTAN 24-26 MG TABLET 1 TAB PO ×2 (09:40→22:16)
[2023-03-03] MEDS: THIAMINE HCL 100 MG TABLET PO (09:40)
[2023-03-03] MEDS: METOPROLOL SUCCINATE EXT REL 50 MG TABCR PO (09:41)
[2023-03-03] MEDS: buPROPion HCL SR (12 HR) 150 MG TAB PO ×2 (09:41→22:16)
[2023-03-03] MEDS: CLOPIDOGREL BISULFATE 75 MG TABLET PO (09:41)
[2023-03-03] MEDS: FOLIC ACID 0.4 MG TABLET 0.8 MG PO (09:41)
[2023-03-03] MEDS: ATORVASTATIN 40 MG TABLET 80 MG PO (09:41)
[2023-03-03] MEDS: FAMOTIDINE 20 MG TABLET PO ×2 (09:41→16:32)
[2023-03-03] MEDS: dilTIAZem HCL CD 180 MG CAP.24HR PO (09:41)
[2023-03-03] MEDS: APIXABAN 5 MG TABLET PO ×2 (09:42→22:16)
[2023-03-03] MEDS: traMADol HCL (*CRX) 50 MG TABLET PO (11:16)
--- NOTE | 2023-03-03 12:02 | PM.IMPN ---
Progress Note: A&P Assessment and Plan (1) Pneumonia: Code(s): J18.9 - Pneumonia, unspecified organism Status: Acute Assessment and Plan: ADMIT TO IMU PATIENT RECEIVED CEFTRIAXONE AND ZITHROMAX SWITCHED TO CEFEPIME PLUS VANC CONTINUE ZITHROMAX AWAIT CULTURES SUPPORTIVE CARE (2) AMS (altered mental status): Code(s): R41.82 - Altered mental status, unspecified Status: Acute Assessment and Plan: LIKELY MULTIFACTORIAL SUPPORTIVE CARE (3) Acute UTI: Code(s): N39.0 - Urinary tract infection, site not specified Status: Acute Assessment and Plan: AWAIT CULTURES RECEIVED INITIALLY ROCEPHIN IN EMERGENCY ROOM SWITCHED TO CEFEPIME FOR PNEUMONIA COVERAGE (4) Adenocarcinoma, lung: Code(s): C34.90 - Malignant neoplasm of unspecified part of unspecified bronchus or lung Status: Acute Assessment and Plan: STATUS POST LOBECTOMY FOLLOW-UP IN OUTPATIENT SETTING (5) Atrial fibrillation: Code(s): I48.91 - Unspecified atrial fibrillation Status: Acute Assessment and Plan: RATE CONTROLLED ANTICOAGULATED (6) Tobacco abuse: Code(s): Z72.0 - Tobacco use Status: Acute Assessment and Plan: ON CURRENTLY ON CHANTIX FOLLOW-UP IN OUTPATIENT SETTING (7) COPD (chronic obstructive pulmonary disease): Code(s): J44.9 - Chronic obstructive pulmonary disease, unspecified Status: Acute Assessment and Plan: NOT ACTIVELY WHEEZING CONTINUE HOME MEDS (8) CVA (cerebral vascular accident): Code(s): I63.9 - Cerebral infarction, unspecified Status: Acute Assessment and Plan: UNCHANGED (9) T2DM (type 2 diabetes mellitus): Code(s): E11.9 - Type 2 diabetes mellitus without complications Status: Acute Assessment and Plan: PATIENT IS ON JARDIANCE WILL HOLD JARDIANCE INSULIN SLIDING SCALE NEEDED Subjective Date/time seen: 03/03/23 12:02 Interval history: Feeling better. No new complaints. No confusion noted Exam Narrative: PATIENT IS LAYING IN BED Const: General: cooperative, comfortable, no acute distress, well developed, alert, awake, ill appearing chronically, average body habitus and underweight Nutritional Appearance: average body habitus and underweight Orientation/consciousness: oriented to person, oriented to place and patient oriented x3 HENMT: Head: normal to inspection, normocephalic and atraumatic Ears: hearing grossly normal bilaterally Face/Nose/Sinus: normal facial exam Face and sinus: normal facial exam Eyes: General: appearance normal, both eyes and all related structures Pupils: Equal, round and reactive pupils present EOM: EOMs intact bilaterally Neck: Neck: full ROM, no lymphadenopathy and no JVD Thyroid: thyroid normal Lymphatic: no lymphadenopathy noted Resp: Effort & Inspection: normal respiratory effort and able to speak in complete sentences Auscultation: clear to auscultation bilaterally and breath sounds absent on the right (BASE) Cardio: Jugular venous distension: no JVD Rate: regular rate Rhythm: regular rhythm Heart sounds: S1 normal heart sound present and S2 normal heart sound present : General: Yes deferred Skin: Rashes: no rashes Wounds: no wounds Neuro: General: oriented to person, oriented to place, patient oriented x3, no focal motor deficits, CN's II-XI intact bilaterally and Unable to assess gait Cranial nerves: Yes CN's II-XII intact bilaterally and Yes Equal, round and reactive pupils present Cognition (Neuro): abnormal cognition (LETHARGY) Speech: normal speech Gait exam (Neuro): Unable to assess gait Motor exam (neuro): 5/5 motor strength present throughout Extrem: General: normal to inspection, full ROM, no joint enlargement and no pedal edema Objective Data Vital Signs Vital Signs: Vital Signs - 24 hr 03/02/23 13:19 03/02/23 14:05 03/02/23 15:15 Temperature 97.3 F L 97.3 F L 97.3 F L Pulse Rate 1
[2023-03-03 12:27] LABS: Glucose Point of Care 165 mg/dl (65-105)
[2023-03-03] MEDS: AZITHROMYCIN 500 MG/NS 250 ML 500 MG/250 ML BAG 250 MG IVPB (12:48)
[2023-03-03 16:32] LABS: Glucose Point of Care 151 mg/dl (65-105)
[2023-03-03 20:24] LABS: Glucose Point of Care 238 mg/dl (65-105)
[2023-03-03] MEDS: QUEtiapine FUMARATE 12.5 MG TABLET PO (22:16)
[2023-03-04] VITALS (13 sets, daily range): BP systolic 110–140; BP diastolic 56–81; PULSE 76–100; RESP 14–20; TEMP 36.2–37; O2SAT 100
[2023-03-04] MEDS: CEFEPIME 2 GM/NS 50 ML 2 GM/50 ML BAG IVPB ×2 (04:17→16:35)
[2023-03-04] MEDS: FLUTICASONE/UMECLIDIN/VILANTER 100-62.5-25 MCG ELLIPTA 1 PUFF INHALATION (07:56)
[2023-03-04 08:00] LABS: Glucose Point of Care 156 mg/dl (65-105)
[2023-03-04] MEDS: METOPROLOL SUCCINATE EXT REL 50 MG TABCR PO (09:34)
[2023-03-04] MEDS: VARENICLINE 1 MG TABLET PO ×2 (09:34→17:38)
[2023-03-04] MEDS: SACUBITRIL/VALSARTAN 24-26 MG TABLET 1 TAB PO ×2 (09:34→20:04)
[2023-03-04] MEDS: THIAMINE HCL 100 MG TABLET PO (09:34)
[2023-03-04] MEDS: APIXABAN 5 MG TABLET PO ×2 (09:35→20:04)
[2023-03-04] MEDS: FAMOTIDINE 20 MG TABLET PO ×2 (09:35→17:38)
[2023-03-04] MEDS: dilTIAZem HCL CD 180 MG CAP.24HR PO (09:35)
[2023-03-04] MEDS: buPROPion HCL SR (12 HR) 150 MG TAB PO ×2 (09:35→20:04)
[2023-03-04] MEDS: ATORVASTATIN 40 MG TABLET 80 MG PO (09:35)
[2023-03-04] MEDS: CLOPIDOGREL BISULFATE 75 MG TABLET PO (09:35)
[2023-03-04] MEDS: FOLIC ACID 0.4 MG TABLET 0.8 MG PO (09:35)
[2023-03-04 11:33] LABS: Glucose Point of Care 199 mg/dl (65-105)
--- NOTE | 2023-03-04 12:26 | PC.NURSE ---
This patient, Jere Mcallister, was transferred to [facility] on 03/04/23 at 1219. Personal belongings sent with patient. Report given to Noni JOSEPH. Appropriate documentation sent with patient.
--- NOTE | 2023-03-04 12:30 | PM.IMPN ---
Progress Note: A&P Assessment and Plan (1) Pneumonia: Code(s): J18.9 - Pneumonia, unspecified organism Status: Acute Assessment and Plan: ADMIT TO IMU PATIENT RECEIVED CEFTRIAXONE AND ZITHROMAX SWITCHED TO CEFEPIME PLUS VANC CONTINUE ZITHROMAX AWAIT CULTURES SUPPORTIVE CARE (2) AMS (altered mental status): Code(s): R41.82 - Altered mental status, unspecified Status: Acute Assessment and Plan: LIKELY MULTIFACTORIAL SUPPORTIVE CARE (3) Acute UTI: Code(s): N39.0 - Urinary tract infection, site not specified Status: Acute Assessment and Plan: AWAIT CULTURES RECEIVED INITIALLY ROCEPHIN IN EMERGENCY ROOM SWITCHED TO CEFEPIME FOR PNEUMONIA COVERAGE (4) Adenocarcinoma, lung: Code(s): C34.90 - Malignant neoplasm of unspecified part of unspecified bronchus or lung Status: Acute Assessment and Plan: STATUS POST LOBECTOMY FOLLOW-UP IN OUTPATIENT SETTING (5) Atrial fibrillation: Code(s): I48.91 - Unspecified atrial fibrillation Status: Acute Assessment and Plan: RATE CONTROLLED ANTICOAGULATED (6) Tobacco abuse: Code(s): Z72.0 - Tobacco use Status: Acute Assessment and Plan: ON CURRENTLY ON CHANTIX FOLLOW-UP IN OUTPATIENT SETTING (7) COPD (chronic obstructive pulmonary disease): Code(s): J44.9 - Chronic obstructive pulmonary disease, unspecified Status: Acute Assessment and Plan: NOT ACTIVELY WHEEZING CONTINUE HOME MEDS (8) CVA (cerebral vascular accident): Code(s): I63.9 - Cerebral infarction, unspecified Status: Acute Assessment and Plan: UNCHANGED (9) T2DM (type 2 diabetes mellitus): Code(s): E11.9 - Type 2 diabetes mellitus without complications Status: Acute Assessment and Plan: PATIENT IS ON JARDIANCE WILL HOLD JARDIANCE INSULIN SLIDING SCALE NEEDED Subjective Date/time seen: 03/04/23 12:30 Interval history: No complaints Exam Narrative: PATIENT IS LAYING IN BED Const: General: cooperative, comfortable, no acute distress, well developed, alert, awake, ill appearing chronically, average body habitus and underweight Nutritional Appearance: average body habitus and underweight Orientation/consciousness: oriented to person, oriented to place and patient oriented x3 HENMT: Head: normal to inspection, normocephalic and atraumatic Ears: hearing grossly normal bilaterally Face/Nose/Sinus: normal facial exam Face and sinus: normal facial exam Eyes: General: appearance normal, both eyes and all related structures Pupils: Equal, round and reactive pupils present EOM: EOMs intact bilaterally Neck: Neck: full ROM, no lymphadenopathy and no JVD Thyroid: thyroid normal Lymphatic: no lymphadenopathy noted Resp: Effort & Inspection: normal respiratory effort and able to speak in complete sentences Auscultation: clear to auscultation bilaterally and breath sounds absent on the right (BASE) Cardio: Jugular venous distension: no JVD Rate: regular rate Rhythm: regular rhythm Heart sounds: S1 normal heart sound present and S2 normal heart sound present : General: Yes deferred Skin: Rashes: no rashes Wounds: no wounds Neuro: General: oriented to person, oriented to place, patient oriented x3, no focal motor deficits, CN's II-XI intact bilaterally and Unable to assess gait Cranial nerves: Yes CN's II-XII intact bilaterally and Yes Equal, round and reactive pupils present Cognition (Neuro): abnormal cognition (LETHARGY) Speech: normal speech Gait exam (Neuro): Unable to assess gait Motor exam (neuro): 5/5 motor strength present throughout Extrem: General: normal to inspection, full ROM, no joint enlargement and no pedal edema Objective Data Vital Signs Vital Signs: Vital Signs - 24 hr 03/03/23 14:03 03/03/23 15:36 03/03/23 16:00 Temperature 98.1 F Pulse Rate 86 94 Respiratory Rate 16 Blood Pressure 117/68 Pulse
[2023-03-04] MEDS: AZITHROMYCIN 500 MG/NS 250 ML 500 MG/250 ML BAG 250 MG IVPB (13:07)
[2023-03-04 17:47] LABS: Glucose Point of Care 206 mg/dl (65-105)
[2023-03-04] MEDS: INSULIN ASPART (*BKC) 100 UNITS/ML SUB-Q (17:49)
[2023-03-04] MEDS: QUEtiapine FUMARATE 12.5 MG TABLET PO (20:04)
[2023-03-04] MEDS: MELATONIN 5 MG TABLET 10 MG PO (20:07)
[2023-03-04 20:12] LABS: Glucose Point of Care 157 mg/dl (65-105)
[2023-03-05 06:31] VITALS: BP 138/79; PULSE 85; RESP 16; TEMP 36.5; O2SAT 99
[2023-03-05 07:40] VITALS: PULSE 90; RESP 18; O2SAT 97
[2023-03-05] MEDS: FLUTICASONE/UMECLIDIN/VILANTER 100-62.5-25 MCG ELLIPTA 1 PUFF INHALATION (07:40)
[2023-03-05 08:31] LABS: Glucose Point of Care 159 mg/dl (65-105)
[2023-03-05] MEDS: CEFEPIME 2 GM/NS 50 ML 2 GM/50 ML BAG IVPB ×2 (10:01→16:22)
[2023-03-05] MEDS: ATORVASTATIN 40 MG TABLET 80 MG PO (10:05)
[2023-03-05] MEDS: buPROPion HCL SR (12 HR) 150 MG TAB PO ×2 (10:05→20:11)
[2023-03-05] MEDS: METOPROLOL SUCCINATE EXT REL 50 MG TABCR PO (10:06)
[2023-03-05] MEDS: THIAMINE HCL 100 MG TABLET PO (10:06)
[2023-03-05] MEDS: FAMOTIDINE 20 MG TABLET PO ×2 (10:06→16:22)
[2023-03-05] MEDS: SACUBITRIL/VALSARTAN 24-26 MG TABLET 1 TAB PO ×2 (10:06→20:11)
[2023-03-05] MEDS: FOLIC ACID 0.4 MG TABLET 0.8 MG PO (10:06)
[2023-03-05] MEDS: APIXABAN 5 MG TABLET PO ×2 (10:06→20:11)
[2023-03-05] MEDS: dilTIAZem HCL CD 180 MG CAP.24HR PO (10:06)
[2023-03-05] MEDS: CLOPIDOGREL BISULFATE 75 MG TABLET PO (10:06)
[2023-03-05] MEDS: VARENICLINE 1 MG TABLET PO ×2 (10:10→16:22)
[2023-03-05 10:58] LABS: Anion Gap 6 mmol/L (8-16); Blood Urea Nitrogen 8 mg/dL (9-20); Calcium 9.2 mg/dL (8.4-10.2); Carbon Dioxide 25 mmol/L (22-30); Chloride 107 mmol/L (98-107); Estimated CRCL calculation 69 ml/min; Estimated Glomerular Filt Rate > 60; Glucose 232 mg/dL (65-110); Potassium 3.9 mmol/L (3.4-5.0); Sodium 138 mmol/L (137-145)
--- NOTE | 2023-03-05 11:18 | PM.IMPN ---
Progress Note: A&P Assessment and Plan (1) Pneumonia: Code(s): J18.9 - Pneumonia, unspecified organism Status: Acute Assessment and Plan: ADMIT TO IMU PATIENT RECEIVED CEFTRIAXONE AND ZITHROMAX SWITCHED TO CEFEPIME PLUS VANC CONTINUE ZITHROMAX AWAIT CULTURES SUPPORTIVE CARE (2) AMS (altered mental status): Code(s): R41.82 - Altered mental status, unspecified Status: Acute Assessment and Plan: LIKELY MULTIFACTORIAL SUPPORTIVE CARE (3) Acute UTI: Code(s): N39.0 - Urinary tract infection, site not specified Status: Acute Assessment and Plan: AWAIT CULTURES RECEIVED INITIALLY ROCEPHIN IN EMERGENCY ROOM SWITCHED TO CEFEPIME FOR PNEUMONIA COVERAGE (4) Adenocarcinoma, lung: Code(s): C34.90 - Malignant neoplasm of unspecified part of unspecified bronchus or lung Status: Acute Assessment and Plan: STATUS POST LOBECTOMY FOLLOW-UP IN OUTPATIENT SETTING (5) Atrial fibrillation: Code(s): I48.91 - Unspecified atrial fibrillation Status: Acute Assessment and Plan: RATE CONTROLLED ANTICOAGULATED (6) Tobacco abuse: Code(s): Z72.0 - Tobacco use Status: Acute Assessment and Plan: ON CURRENTLY ON CHANTIX FOLLOW-UP IN OUTPATIENT SETTING (7) COPD (chronic obstructive pulmonary disease): Code(s): J44.9 - Chronic obstructive pulmonary disease, unspecified Status: Acute Assessment and Plan: NOT ACTIVELY WHEEZING CONTINUE HOME MEDS (8) CVA (cerebral vascular accident): Code(s): I63.9 - Cerebral infarction, unspecified Status: Acute Assessment and Plan: UNCHANGED (9) T2DM (type 2 diabetes mellitus): Code(s): E11.9 - Type 2 diabetes mellitus without complications Status: Acute Assessment and Plan: PATIENT IS ON JARDIANCE WILL HOLD JARDIANCE INSULIN SLIDING SCALE NEEDED Subjective Date/time seen: 03/05/23 11:18 Interval history: no complaints Exam Narrative: PATIENT IS LAYING IN BED Const: General: cooperative, comfortable, no acute distress, well developed, alert, awake, ill appearing chronically, average body habitus and underweight Nutritional Appearance: average body habitus and underweight Orientation/consciousness: oriented to person, oriented to place and patient oriented x3 HENMT: Head: normal to inspection, normocephalic and atraumatic Ears: hearing grossly normal bilaterally Face/Nose/Sinus: normal facial exam Face and sinus: normal facial exam Eyes: General: appearance normal, both eyes and all related structures Pupils: Equal, round and reactive pupils present EOM: EOMs intact bilaterally Neck: Neck: full ROM, no lymphadenopathy and no JVD Thyroid: thyroid normal Lymphatic: no lymphadenopathy noted Resp: Effort & Inspection: normal respiratory effort and able to speak in complete sentences Auscultation: clear to auscultation bilaterally and breath sounds absent on the right (BASE) Cardio: Jugular venous distension: no JVD Rate: regular rate Rhythm: regular rhythm Heart sounds: S1 normal heart sound present and S2 normal heart sound present : General: Yes deferred Skin: Rashes: no rashes Wounds: no wounds Neuro: General: oriented to person, oriented to place, patient oriented x3, no focal motor deficits, CN's II-XI intact bilaterally and Unable to assess gait Cranial nerves: Yes CN's II-XII intact bilaterally and Yes Equal, round and reactive pupils present Cognition (Neuro): abnormal cognition (LETHARGY) Speech: normal speech Gait exam (Neuro): Unable to assess gait Motor exam (neuro): 5/5 motor strength present throughout Extrem: General: normal to inspection, full ROM, no joint enlargement and no pedal edema Objective Data Vital Signs Vital Signs: Vital Signs - 24 hr 03/04/23 11:20 03/04/23 14:00 03/04/23 16:00 Temperature 98.6 F 97.8 F 97.7 F Pulse Rate 93 100 76 Respiratory Rate 20 14 14 Blood Press
[2023-03-05 12:09] LABS: Glucose Point of Care 248 mg/dl (65-105)
[2023-03-05] MEDS: AZITHROMYCIN 500 MG/NS 250 ML 500 MG/250 ML BAG 250 MG IVPB (13:09)
[2023-03-05] MEDS: INSULIN ASPART (*BKC) 100 UNITS/ML SUB-Q (13:10)
[2023-03-05 13:53] VITALS: BP 109/71; PULSE 80; RESP 18; TEMP 36.3; O2SAT 98
--- NOTE | 2023-03-05 14:14 | PCOTNOTE ---
Attempted to see pt for Occupational Therapy treatment. Pt declined to participate in therapeutic activities/Strengthening or ADLs. Pt expresses that he is not feeling good and is pretty sore due to having to have several attempts at blood draws recently. Pt states that he was up in the chair earlier for about 1hr. Pt was educated on the importance of continued strengthening and activity tolerance for decrease caregiver assistance. Will continue per poc duration/frequency tomorrow.
[2023-03-05 16:51] LABS: Glucose Point of Care 150 mg/dl (65-105)
[2023-03-05 19:18] VITALS: BP 119/73; PULSE 75; RESP 18; TEMP 36.3; O2SAT 99
[2023-03-05] MEDS: QUEtiapine FUMARATE 12.5 MG TABLET PO (20:11)
[2023-03-06] VITALS (7 sets, daily range): BP systolic 120–130; BP diastolic 61–70; PULSE 78–85; RESP 14–18; TEMP 36.3–36.6; O2SAT 99–100
[2023-03-06 01:33] LABS: Glucose Point of Care 211 mg/dl (65-105)
[2023-03-06] MEDS: CEFEPIME 2 GM/NS 50 ML 2 GM/50 ML BAG IVPB ×2 (04:57→16:36)
[2023-03-06] MEDS: FLUTICASONE/UMECLIDIN/VILANTER 100-62.5-25 MCG ELLIPTA 1 PUFF INHALATION (08:03)
[2023-03-06 08:08] LABS: Glucose Point of Care 182 mg/dl (65-105)
[2023-03-06] MEDS: VARENICLINE 1 MG TABLET PO ×2 (09:11→16:36)
[2023-03-06] MEDS: FOLIC ACID 0.4 MG TABLET 0.8 MG PO (09:13)
[2023-03-06] MEDS: ATORVASTATIN 40 MG TABLET 80 MG PO (09:13)
[2023-03-06] MEDS: dilTIAZem HCL CD 180 MG CAP.24HR PO (09:13)
[2023-03-06] MEDS: CLOPIDOGREL BISULFATE 75 MG TABLET PO (09:13)
[2023-03-06] MEDS: buPROPion HCL SR (12 HR) 150 MG TAB PO ×2 (09:14→20:49)
[2023-03-06] MEDS: SACUBITRIL/VALSARTAN 24-26 MG TABLET 1 TAB PO ×2 (09:14→20:49)
[2023-03-06] MEDS: THIAMINE HCL 100 MG TABLET PO (09:14)
[2023-03-06] MEDS: METOPROLOL SUCCINATE EXT REL 50 MG TABCR PO (09:14)
[2023-03-06] MEDS: APIXABAN 5 MG TABLET PO ×2 (09:14→20:49)
[2023-03-06] MEDS: FAMOTIDINE 20 MG TABLET PO ×2 (09:14→16:36)
--- NOTE | 2023-03-06 10:37 | PM.IMPN ---
Progress Note: A&P Assessment and Plan (1) Pneumonia: Code(s): J18.9 - Pneumonia, unspecified organism Status: Acute Assessment and Plan: ADMIT TO IMU PATIENT RECEIVED CEFTRIAXONE AND ZITHROMAX SWITCHED TO CEFEPIME PLUS VANC CONTINUE ZITHROMAX AWAIT CULTURES SUPPORTIVE CARE (2) AMS (altered mental status): Code(s): R41.82 - Altered mental status, unspecified Status: Acute Assessment and Plan: LIKELY MULTIFACTORIAL SUPPORTIVE CARE (3) Acute UTI: Code(s): N39.0 - Urinary tract infection, site not specified Status: Acute Assessment and Plan: AWAIT CULTURES RECEIVED INITIALLY ROCEPHIN IN EMERGENCY ROOM SWITCHED TO CEFEPIME FOR PNEUMONIA COVERAGE (4) Adenocarcinoma, lung: Code(s): C34.90 - Malignant neoplasm of unspecified part of unspecified bronchus or lung Status: Acute Assessment and Plan: STATUS POST LOBECTOMY FOLLOW-UP IN OUTPATIENT SETTING (5) Atrial fibrillation: Code(s): I48.91 - Unspecified atrial fibrillation Status: Acute Assessment and Plan: RATE CONTROLLED ANTICOAGULATED (6) Tobacco abuse: Code(s): Z72.0 - Tobacco use Status: Acute Assessment and Plan: ON CURRENTLY ON CHANTIX FOLLOW-UP IN OUTPATIENT SETTING (7) COPD (chronic obstructive pulmonary disease): Code(s): J44.9 - Chronic obstructive pulmonary disease, unspecified Status: Acute Assessment and Plan: NOT ACTIVELY WHEEZING CONTINUE HOME MEDS (8) CVA (cerebral vascular accident): Code(s): I63.9 - Cerebral infarction, unspecified Status: Acute Assessment and Plan: UNCHANGED ongoing weakness and debility will need rehab for this patient unable to go home with deficits (9) T2DM (type 2 diabetes mellitus): Code(s): E11.9 - Type 2 diabetes mellitus without complications Status: Acute Assessment and Plan: PATIENT IS ON JARDIANCE WILL HOLD JARDIANCE INSULIN SLIDING SCALE NEEDED Subjective Date/time seen: 03/06/23 10:37 Interval history: no new complaints Exam Narrative: PATIENT IS LAYING IN BED Const: General: cooperative, comfortable, no acute distress, well developed, alert, awake, ill appearing chronically, average body habitus and underweight Nutritional Appearance: average body habitus and underweight Orientation/consciousness: oriented to person, oriented to place and patient oriented x3 HENMT: Head: normal to inspection, normocephalic and atraumatic Ears: hearing grossly normal bilaterally Face/Nose/Sinus: normal facial exam Face and sinus: normal facial exam Eyes: General: appearance normal, both eyes and all related structures Pupils: Equal, round and reactive pupils present EOM: EOMs intact bilaterally Neck: Neck: full ROM, no lymphadenopathy and no JVD Thyroid: thyroid normal Lymphatic: no lymphadenopathy noted Resp: Effort & Inspection: normal respiratory effort and able to speak in complete sentences Auscultation: clear to auscultation bilaterally and breath sounds absent on the right (BASE) Cardio: Jugular venous distension: no JVD Rate: regular rate Rhythm: regular rhythm Heart sounds: S1 normal heart sound present and S2 normal heart sound present : General: Yes deferred Skin: Rashes: no rashes Wounds: no wounds Neuro: General: oriented to person, oriented to place, patient oriented x3, no focal motor deficits, CN's II-XI intact bilaterally and Unable to assess gait Cranial nerves: Yes CN's II-XII intact bilaterally and Yes Equal, round and reactive pupils present Cognition (Neuro): abnormal cognition (LETHARGY) Speech: normal speech Gait exam (Neuro): Unable to assess gait Motor exam (neuro): 5/5 motor strength present throughout Extrem: General: normal to inspection, full ROM, no joint enlargement and no pedal edema Objective Data Vital Signs Vital Signs: Vital Signs - 24 hr 03/05/23 13:53 03/05/23 19:18 03/05/23
[2023-03-06] MEDS: polyethylene glycoL 3350 17 GM POWD.PACK PO (10:41)
[2023-03-06 11:19] LABS: Glucose Point of Care 229 mg/dl (65-105)
[2023-03-06] MEDS: INSULIN ASPART (*BKC) 100 UNITS/ML SUB-Q (11:33)
[2023-03-06] MEDS: AZITHROMYCIN 500 MG/NS 250 ML 500 MG/250 ML BAG 250 MG IVPB (12:19)
--- NOTE | 2023-03-06 16:23 | PC.NURSE ---
Assessment, care and medications performed by Dustin Bucio SHAAN Student RN under supervision of instructor and hospital staff. Assessment reviewed and agree with same.
[2023-03-06 16:35] LABS: Glucose Point of Care 179 mg/dl (65-105)
[2023-03-06] MEDS: QUEtiapine FUMARATE 12.5 MG TABLET PO (20:49)
[2023-03-06 21:30] LABS: Glucose Point of Care 172 mg/dl (65-105)
[2023-03-07 05:23] VITALS: BP 115/62; PULSE 84; RESP 16; TEMP 36.5; O2SAT 100
[2023-03-07 07:38] VITALS: RESP 16; O2SAT 100
[2023-03-07 08:17] LABS: Glucose Point of Care 161 mg/dl (65-105)
[2023-03-07] MEDS: dilTIAZem HCL CD 180 MG CAP.24HR PO (08:33)
[2023-03-07] MEDS: ATORVASTATIN 40 MG TABLET 80 MG PO (08:33)
[2023-03-07 08:34] VITALS: PULSE 80
[2023-03-07] MEDS: FOLIC ACID 0.4 MG TABLET 0.8 MG PO (08:34)
[2023-03-07] MEDS: FAMOTIDINE 20 MG TABLET PO ×2 (08:34→17:18)
[2023-03-07] MEDS: buPROPion HCL SR (12 HR) 150 MG TAB PO ×2 (08:34→20:07)
[2023-03-07] MEDS: APIXABAN 5 MG TABLET PO ×2 (08:34→20:07)
[2023-03-07] MEDS: THIAMINE HCL 100 MG TABLET PO (08:34)
[2023-03-07] MEDS: METOPROLOL SUCCINATE EXT REL 50 MG TABCR PO (08:34)
[2023-03-07] MEDS: VARENICLINE 1 MG TABLET PO ×2 (08:35→17:17)
[2023-03-07] MEDS: SACUBITRIL/VALSARTAN 24-26 MG TABLET 1 TAB PO ×2 (08:35→20:07)
[2023-03-07] MEDS: CLOPIDOGREL BISULFATE 75 MG TABLET PO (08:35)
--- NOTE | 2023-03-07 10:30 | PC.NURSE ---
On 03/07/23, the student, [León Johansen], provided care and completed [facility] documentation on this patient. I have reviewed the student's documentation and agree with the findings.
[2023-03-07 10:51] VITALS: O2SAT 97
[2023-03-07] MEDS: FLUTICASONE/UMECLIDIN/VILANTER 100-62.5-25 MCG ELLIPTA 1 PUFF INHALATION (10:51)
[2023-03-07 11:55] LABS: Glucose Point of Care 191 mg/dl (65-105)
--- NOTE | 2023-03-07 12:42 | PM.IMPN ---
Progress Note: A&P Assessment and Plan (1) Pneumonia: Code(s): J18.9 - Pneumonia, unspecified organism Status: Acute Assessment and Plan: completed abx (2) AMS (altered mental status): Code(s): R41.82 - Altered mental status, unspecified Status: Acute Assessment and Plan: resolved (3) Acute UTI: Code(s): N39.0 - Urinary tract infection, site not specified Status: Acute Assessment and Plan: completed abx (4) Adenocarcinoma, lung: Code(s): C34.90 - Malignant neoplasm of unspecified part of unspecified bronchus or lung Status: Acute Assessment and Plan: STATUS POST LOBECTOMY FOLLOW-UP IN OUTPATIENT SETTING (5) Atrial fibrillation: Code(s): I48.91 - Unspecified atrial fibrillation Status: Acute Assessment and Plan: RATE CONTROLLED ANTICOAGULATED (6) Tobacco abuse: Code(s): Z72.0 - Tobacco use Status: Acute Assessment and Plan: ON CURRENTLY ON CHANTIX FOLLOW-UP IN OUTPATIENT SETTING (7) COPD (chronic obstructive pulmonary disease): Code(s): J44.9 - Chronic obstructive pulmonary disease, unspecified Status: Acute Assessment and Plan: NOT ACTIVELY WHEEZING CONTINUE HOME MEDS (8) CVA (cerebral vascular accident): Code(s): I63.9 - Cerebral infarction, unspecified Status: Acute Assessment and Plan: UNCHANGED ongoing weakness and debility will need rehab for this patient unable to go home with deficits (9) T2DM (type 2 diabetes mellitus): Code(s): E11.9 - Type 2 diabetes mellitus without complications Status: Acute Assessment and Plan: monitor bs ssi as needed Plan awaiting snf placement Subjective Date/time seen: 03/07/23 12:42 Interval history: no new complaints Exam Narrative: PATIENT IS LAYING IN BED Const: General: cooperative, comfortable, no acute distress, well developed, alert, awake, ill appearing chronically, average body habitus and underweight Nutritional Appearance: average body habitus and underweight Orientation/consciousness: oriented to person, oriented to place and patient oriented x3 HENMT: Head: normal to inspection, normocephalic and atraumatic Ears: hearing grossly normal bilaterally Face/Nose/Sinus: normal facial exam Face and sinus: normal facial exam Eyes: General: appearance normal, both eyes and all related structures Pupils: Equal, round and reactive pupils present EOM: EOMs intact bilaterally Neck: Neck: full ROM, no lymphadenopathy and no JVD Thyroid: thyroid normal Lymphatic: no lymphadenopathy noted Resp: Effort & Inspection: normal respiratory effort and able to speak in complete sentences Auscultation: clear to auscultation bilaterally and breath sounds absent on the right (BASE) Cardio: Jugular venous distension: no JVD Rate: regular rate Rhythm: regular rhythm Heart sounds: S1 normal heart sound present and S2 normal heart sound present : General: Yes deferred Skin: Rashes: no rashes Wounds: no wounds Neuro: General: oriented to person, oriented to place, patient oriented x3, no focal motor deficits, CN's II-XI intact bilaterally and Unable to assess gait Cranial nerves: Yes CN's II-XII intact bilaterally and Yes Equal, round and reactive pupils present Cognition (Neuro): abnormal cognition (LETHARGY) Speech: normal speech Gait exam (Neuro): Unable to assess gait Motor exam (neuro): 5/5 motor strength present throughout Extrem: General: normal to inspection, full ROM, no joint enlargement and no pedal edema Objective Data Vital Signs Vital Signs: Vital Signs - 24 hr 03/06/23 14:48 03/06/23 20:00 03/06/23 21:21 Temperature 97.6 F 97.8 F Pulse Rate 80 78 Respiratory Rate 14 14 Blood Pressure 120/61 128/70 Pulse Oximetry 100 100 Oxygen Delivery Room Air 03/07/23 05:23 03/07/23 07:38 03/07/23 08:34 Temperature 97.7 F Pulse Rate 84 80 Respiratory Ra
[2023-03-07 13:57] VITALS: BP 155/87; PULSE 85; RESP 16; TEMP 36.3; O2SAT 100
[2023-03-07 17:11] LABS: Glucose Point of Care 249 mg/dl (65-105)
[2023-03-07] MEDS: INSULIN ASPART (*BKC) 100 UNITS/ML SUB-Q (17:19)
[2023-03-07] MEDS: QUEtiapine FUMARATE 12.5 MG TABLET PO (20:07)
[2023-03-07 21:37] VITALS: BP 108/65; PULSE 83; RESP 16; TEMP 36.8; O2SAT 100
--- NOTE | 2023-03-07 21:44 | PC.NURSE ---
POC accucheck @2139 was 426, pt has not been high since admission rechecked blood sugar in opposite hand @2142 and was 210.
[2023-03-07 21:47] LABS: Glucose Point of Care 210 mg/dl (65-105)
[2023-03-07 21:47] LABS: Glucose Point of Care 426 mg/dl (65-105)
[2023-03-08 06:09] VITALS: BP 111/63; PULSE 99; RESP 16; TEMP 36.5; O2SAT 100
[2023-03-08 08:00] VITALS: PULSE 70; RESP 16; O2SAT 100
[2023-03-08 08:38] LABS: Glucose Point of Care 157 mg/dl (65-105)
[2023-03-08] MEDS: SACUBITRIL/VALSARTAN 24-26 MG TABLET 1 TAB PO (09:04)
[2023-03-08] MEDS: ATORVASTATIN 40 MG TABLET 80 MG PO (09:04)
[2023-03-08] MEDS: FOLIC ACID 0.4 MG TABLET 0.8 MG PO (09:04)
[2023-03-08] MEDS: dilTIAZem HCL CD 180 MG CAP.24HR PO (09:04)
[2023-03-08] MEDS: FAMOTIDINE 20 MG TABLET PO (09:04)
[2023-03-08] MEDS: THIAMINE HCL 100 MG TABLET PO (09:04)
[2023-03-08 09:05] VITALS: PULSE 70
[2023-03-08] MEDS: METOPROLOL SUCCINATE EXT REL 50 MG TABCR PO (09:05)
[2023-03-08] MEDS: buPROPion HCL SR (12 HR) 150 MG TAB PO (09:05)
[2023-03-08] MEDS: CLOPIDOGREL BISULFATE 75 MG TABLET PO (09:05)
[2023-03-08] MEDS: VARENICLINE 1 MG TABLET PO (09:05)
[2023-03-08] MEDS: APIXABAN 5 MG TABLET PO (09:05)
[2023-03-08] MEDS: polyethylene glycoL 3350 17 GM POWD.PACK PO (09:49)
[2023-03-08] MEDS: FLUTICASONE/UMECLIDIN/VILANTER 100-62.5-25 MCG ELLIPTA 1 PUFF INHALATION (09:54)
[2023-03-08 09:57] VITALS: O2SAT 100
[2023-03-08 11:00] LABS: Basophils Percent Auto 0.4 % (0.2-1.2); Eosinophils Absolute Auto 0.1 K/mm3 (0-0.3); Eosinophils Percent Auto 0.9 % (0-4.4); Hematocrit 42.9 % (42.0-52.0); Hemoglobin 13.5 g/dL (14.0-18.0); Immature Granulocyte Absolute 0.02 K/mm3 (0.00-0.031); Immature Granulocyte Percent A 0.3 % (0-0.5); Lymphocytes Absolute Auto 1.73 K/mm3 (0.9-3.2); Lymphocytes Percent Auto 23.4 % (18.3-44.2); Mean Corpuscular HGB Conc 31.5 g/dl (32-36); Mean Corpuscular Hemoglobin 30.7 pg (26-34); Mean Corpuscular Volume 97.5 fl (80-100); Mean Platelet Volume 10.9 fl (7.4-10.4); Monocytes Absolute Auto 0.4 K/mm3 (0.1-0.6); Monocytes Percent Auto 5.4 % (2.6-8.5); Neutrophils Absolute Auto 5.2 K/mm3 (1.3-6.7); Neutrophils Percent Auto 69.6 % (45.5-73.1); Platelet Count Result 334 k/mm3 (150-375); Red Cell Distribution Width 14.6 % (11.5-14.5); White Blood Count 7.4 K/mm3 (4.5-10.0)
[2023-03-08 11:29] LABS: Albumin Level 3.5 g/dL (3.5-5.1); Anion Gap 10 mmol/L (8-16); Blood Urea Nitrogen 9 mg/dL (9-20); Calcium 9.7 mg/dL (8.4-10.2); Carbon Dioxide 24 mmol/L (22-30); Chloride 104 mmol/L (98-107); Estimated CRCL calculation 80 ml/min; Estimated Glomerular Filt Rate > 60; Glucose 233 mg/dL (65-110); Phosphorus 3.4 mg/dL (2.5-4.5); Potassium 4.3 mmol/L (3.4-5.0); Sodium 138 mmol/L (137-145)
--- NOTE | 2023-03-08 12:26 | PM.DS ---
DS: Admitting Diagnosis Discharge Date 03/08/2023 Admitting Diagnosis Pneumonia DS: Discharge Diagnosis Discharge Diagnosis (1) Pneumonia: Code(s): J18.9 - Pneumonia, unspecified organism Status: Acute DS: Summary Hospital Course Hospital Course: Assessment and Plan (1) Pneumonia: ?Code(s): J18.9 - Pneumonia, unspecified organism ?Status:?Acute ?Assessment and Plan: Imaging reviewed: Completed antibiotics. on room air period. (2) AMS (altered mental status): ?Code(s): R41.82 - Altered mental status, unspecified ?Status:?Acute ?Assessment and Plan: resolved (3) Acute UTI: ?Code(s): N39.0 - Urinary tract infection, site not specified ?Status:?Acute ?Assessment and Plan: completed abx (4) Adenocarcinoma, lung: ?Code(s): C34.90 - Malignant neoplasm of unspecified part of unspecified bronchus or lung ?Status:?Acute ?Assessment and Plan: STATUS POST LOBECTOMY FOLLOW-UP oncology as scheduled (5) Atrial fibrillation: ?Code(s): I48.91 - Unspecified atrial fibrillation ?Status:?Acute ?Assessment and Plan: RATE CONTROLLED ANTICOAGULATED continue home meds (6) Tobacco abuse: ?Code(s): Z72.0 - Tobacco use ?Status:?Acute ?Assessment and Plan: ON CURRENTLY ON CHANTIX FOLLOW-UP IN OUTPATIENT SETTING (7) COPD (chronic obstructive pulmonary disease): ?Code(s): J44.9 - Chronic obstructive pulmonary disease, unspecified ?Status:?Acute ?Assessment and Plan: NOT ACTIVELY WHEEZING CONTINUE HOME MEDS (8) CVA (cerebral vascular accident): ?Code(s): I63.9 - Cerebral infarction, unspecified ?Status:?Acute ?Assessment and Plan: UNCHANGED ongoing weakness and debility will need rehab for this patient unable to go home with deficits (9) T2DM (type 2 diabetes mellitus): ?Code(s): E11.9 - Type 2 diabetes mellitus without complications ?Status:?Acute ?Assessment and Plan: monitor bs ssi as needed Discharged to SNF f/u with PCP in 3-5 days F/u with oncology as scheduled Time Spent with Patient Time attestation: Total time spent providing and/or coordinating discharge services: DS: Data Data Completed and Pending Labs on day of discharge: Labs from last 24 hours 03/08/23 03/08/23 03/07/23 10:53 08:31 21:43 WBC 7.4 RBC 4.40 L Hgb 13.5 L Hct 42.9 MCV 97.5 MCH 30.7 MCHC 31.5 L RDW 14.6 H Plt Count 334 MPV 10.9 H Immature Gran % (Auto) 0.3 Neut % (Auto) 69.6 Lymph % (Auto) 23.4 Millard % (Auto) 5.4 Eos % (Auto) 0.9 Baso % (Auto) 0.4 Lymph # (Auto) 1.73 Millard # (Auto) 0.4 Eos # (Auto) 0.1 Baso # (Auto) 0.0 Abs Immat Gran (auto) 0.02 Absolute Neuts (auto) 5.2 Absolute Nucleated RBC 0.0 Nucleated RBC % 0.0 Sodium 138 Potassium 4.3 Chloride 104 Carbon Dioxide 24 Anion Gap 10 BUN 9 Creatinine 0.70 Estim Creat Clear Calc 80 Estimated GFR > 60 Glucose 233 H POC Capillary Glucose 157 H 210 H Calcium 9.7 Phosphorus 3.4 Albumin 3.5 03/07/23 03/07/23 21:40 17:07 WBC RBC Hgb Hct MCV MCH MCHC RDW Plt Count MPV Immature Gran % (Auto) Neut % (Auto) Lymph % (Auto) Millard % (Auto) Eos % (Auto) Baso % (Auto) Lymph # (Auto) Millard # (Auto) Eos # (Auto) Baso # (Auto) Abs Immat Gran (auto) Absolute Neuts (auto) Absolute Nucleated RBC Nucleated RBC % Sodium Potassium Chloride Carbon Dioxide Anion Gap BUN Creatinine Estim Creat Clear Calc Estimated GFR Glucose POC Capillary Glucose 426 H 249 H Calcium Phosphorus Albumin Preliminary micro results at discharge 03/03/23 06:29 Blood Culture - Preliminary Blood 03/03/23 06:36 Blood Culture - Preliminary Blood Discharge Plan Discharge Discharging Clinician: Macy Pickett
[2023-03-08 12:32] LABS: Glucose Point of Care 219 mg/dl (65-105)
[2023-03-08] MEDS: INSULIN ASPART (*BKC) 100 UNITS/ML SUB-Q (12:39)
== END 2023-03-08 15:14 | DRG 194 ==
LOC: ANHED 15:02 → ANHIMU 18:45 → ANH2MED 03-04 12:11
PROVIDERS: Internal Medicine; Nurse Practitioner; Admitting Provider Chiropractor; Emergency Provider Emergency Medicine; PCP Emergency Medicine; Visit Provider Internal Medicine
DX: J18.9 Pneumonia, unspecified organism (principal); I48.20 Chronic atrial fibrillation, unspecified; N39.0 Urinary tract infection, site not specified; J44.0 Chronic obstructive pulmonary disease with (acute) lower respiratory infection; I11.0 Hypertensive heart disease with heart failure; I50.9 Heart failure, unspecified; E78.5 Hyperlipidemia, unspecified; E11.42 Type 2 diabetes mellitus with diabetic polyneuropathy; F17.210 Nicotine dependence, cigarettes, uncomplicated; Z20.822 Contact with and (suspected) exposure to COVID-19; Z79.02 Long term (current) use of antithrombotics/antiplatelets; Z90.2 Acquired absence of lung [part of]; Z85.118 Personal history of other malignant neoplasm of bronchus and lung
CPT/HCPCS: 36415; 70450; 71260; 80048; 80053; 80069; 81001; 82948; 85025; 85610; 85730; 87040; 87086; 87147; 87181; 87186; 87637; 87641; 93005; 94640; 96365; 96366; 96367; 96375; 97110; 97161; 97166; 97530; 97535; 99285; A9270; G0378; J0456; J0692; J0696; J1815; J3370; Q9967

== ENCOUNTER 2023-03-08 16:07 | Inpatient (IN) | payer MEDICARE, SELFPAY ==
--- NOTE | ~2023-03-08 | CT_ITS ---
EXAMINATION: CT brain wo con DATE: 03/10/2023 14:57 INDICATION: Slurred speech and lethargy TECHNIQUE: Computed tomography (CT) of the head was performed without intravenous contrast. Sagittal and coronal reconstructions were performed. The mA was adjusted according to patient size. Iterative reconstruction technique was employed. The dose-length product was 681.00 mGy-cm. COMPARISON: head CT dated 03/02/2023 FINDINGS: No acute intracranial hemorrhage, acute infarction or abnormal extra axial fluid collection. Unchange d small region of encephalomalacia consistent with old infarct in the posterior right frontal lobe. A dditional small old lacunar infarcts at the bilateral caudate nuclei, bilateral lentiform nuclei, rig ht subinsular white matter and in the left thalamus. There is mild scattered white matter hypoattenua tion consistent with chronic small vessel ischemic disease. Symmetric prominence of the sulci and chas tricles consistent with mild age-appropriate diffuse cerebral volume loss. No mass/mass effect. Mild mucosal thickening the paranasal sinuses. The orbits and mastoid air cells are normal. Intracranial c alcified cerebral atherosclerosis is noted. IMPRESSION: 1. No acute intracranial process. Per stroke protocol the signs were discussed with the patient's evaristo se Kellie Trevizo at 3:00 PM. 2. Small old infarct in the posterior right frontal lobe and several additional small old lacunar inf arcts at the bilateral basal ganglia, left thalamus and right subinsular white matter. 3. Age-related changes including mild diffuse volume loss and mild scattered white matter hypoattenua tion consistent with chronic small vessel ischemic disease. Reviewed, dictated and finalized at location A. IMPRESSION: 1. No acute intracranial process. Per stroke protocol the signs were discussed with the patient's nurse Kellie Trevizo at 3:00 PM. 2. Small old infarct in the posterior right frontal lobe and several additional small old lacunar infarcts at the bilateral basal ganglia, left thalamus and r ight subinsular white matter. 3. Age-related changes including mild diffuse volume loss and mild scattered wh ite matter hypoattenuation consistent with chronic small vessel ischemic diseas e.
--- NOTE | ~2023-03-08 | XR_ITS ---
EXAMINATION: XR chest 1V portable DATE: 03/21/2023 08:43 INDICATION: Shortness of breath and cough TECHNIQUE: frontal view of the chest was obtained. COMPARISON: Chest CT dated 03/02/2023 FINDINGS: Again seen are postoperative change of prior partial right pneumonectomy with suture lines along the medial margin of the remaining lung. There is a moderate-sized right hydropneumothorax in the lower a nd medial mid lung zones. The comparison opacities along the margins of the remaining right mid to lo wer lung most likely related to associated atelectasis/scarring or pneumonia. Left lung is clear. No pulmonary edema or left pleural effusion or pneumothorax. Cardiomegaly. IMPRESSION: 1. Status post partial right pneumonectomy with moderate-sized hydropneumothorax in the mid to lower lung zone. 2. Mild opacities along the margin of the remaining right mid to lower lung most likely atelectasis/s carring although pneumonia not excludable. Reviewed, dictated and finalized at location A. NICIAN IMPRESSION: 1. Status post partial right pneumonectomy with moderate-sized hydropneumothora x in the mid to lower lung zone. 2. Mild opacities along the margin of the remaining right mid to lower lung mos t likely atelectasis/scarring although pneumonia not excludable.
--- NOTE | ~2023-03-08 | CT_ITS ---
EXAMINATION: CT brain wo con DATE: 03/20/2023 16:50 INDICATION: Confusion TECHNIQUE: Computed tomography (CT) of the head was performed without intravenous contrast. Sagittal and coronal reconstructions were performed. The mA was adjusted according to patient size. Iterative reconstruction technique was employed. The dose-length product was 756.67 mGy-cm. COMPARISON: head CT dated 03/10/2023 FINDINGS: Unchanged small region of encephalomalacia in the posterior right frontal lobe consistent with chroni c infarct. Additional small old lacunar infarcts at the bilateral caudate nuclei, bilateral lentiform nuclei, the right subinsular white matter and left thalamus. No acute intracranial hemorrhage, acute infarction or abnormal extra axial fluid collection. There is mild scattered white matter hypoattenu ation consistent with chronic small vessel ischemic disease. Symmetric prominence of the sulci and ve ntricles consistent with mild age-appropriate diffuse cerebral volume loss. No mass/mass effect. Mil d mucosal thickening the right maxillary sinus. Trace left mastoid effusion. The orbits are normal. I ntracranial calcified cerebral atherosclerosis is noted. IMPRESSION: 1. No acute intracranial process. 2. Small old infarct in the posterior right frontal lobe and several additional small old lacunar inf arcts at the bilateral basal ganglia, left thalamus and right subinsular white matter. 3. Age-related changes including mild diffuse volume loss and mild scattered white matter hypoattenua tion consistent with chronic small vessel ischemic disease. Reviewed, dictated and finalized at location A. [employer] IMPRESSION: 1. No acute intracranial process. 2. Small old infarct in the posterior right frontal lobe and several additional small old lacunar infarcts at the bilateral basal ganglia, left thalamus and r ight subinsular white matter. 3. Age-related changes including mild diffuse volume loss and mild scattered wh ite matter hypoattenuation consistent with chronic small vessel ischemic diseas e.
[2023-03-08 17:14] LABS: Glucose Point of Care 176 mg/dl (65-105)
[2023-03-08 17:15] VITALS: BMI 18.6
--- NOTE | 2023-03-08 17:19 | ADMGEN ---
9018 This patient, Jere Mcallister, was admitted to 2nd Floor Room 208-2 as a skilled swing bed from [facility]. . Patient/family oriented to hospital policies and general routines including ID bracelet, bed and alarms, visiting hours, pain management, procedures, bathroom and other care routines, personal items, smoking policy, room service/diet, and visiting hours. Information on how to activate the Rapid Response Team has been discussed. Patient/Family are encouraged to report perceived risks to care and to ask questions if they do not understand what they are told or what they should do.
[2023-03-08] MEDS: FAMOTIDINE 20 MG TABLET PO (17:44)
[2023-03-08] MEDS: SACUBITRIL/VALSARTAN 24-26 MG TABLET 1 TAB PO (20:33)
[2023-03-08] MEDS: APIXABAN 2.5 MG TABLET 5 MG PO (20:33)
[2023-03-08] MEDS: QUEtiapine FUMARATE 25 MG TABLET 12.5 MG PO (20:34)
[2023-03-08] MEDS: buPROPion HCL SR (12 HR) 150 MG TAB PO (20:34)
[2023-03-08 20:39] LABS: Glucose Point of Care 193 mg/dl (65-105)
[2023-03-09] VITALS: BP 120/76; PULSE 86; RESP 15; TEMP 36.8; O2SAT 100
--- NOTE | 2023-03-09 07:11 | PM.IMHP ---
H&P: HPI History of Present Illness Date/Time: 03/09/23 07:11 Chief Complaint: Physical debility s/p pneumonia s/p right middle and lower lobectomy with history of CVA with left sided residual defects Narrative: This is a 67-year-old male patient being admitted to swing bed status for rehabilitation related to Physical debility s/p pneumonia s/p right middle and lower lobectomy with history of CVA with left sided residual defects. Patient had right middle and lower lobe lobectomy at [facility] about 3 weeks ago for a lung nodule that was presumed to be cancerous. Patient has a history of COPD and smoking, atrial fibrillation, diabetes, hypertension and hyperlipidemia. After lobectomy at [facility] patient was going to be discharged to acute rehabilitation but insurance did not approve of such so patient went home. While at home he developed altered mental status after a couple of days and had to be brought to the emergency department where he was admitted to [facility] due to altered mental status, pneumonia and UTI. Status improved after IV antibiotics. However, patient remains too weak to resume all normal activities in a home setting. For this reason patient is admitted to swing bed for acute rehabilitation PT and OT. Speech therapy will also be consulted due to residual dysphagia and left-sided facial droop. Patient previously had G-tube in place but no longer does. Overall patient feels well today just feeling a little short of breath. Patient seemed unaware that he would no longer a deep breath on the right side status post lobectomy. Review of Systems Review of Systems: All systems reviewed & are unremarkable except as noted in HPI and below PMFSH Past Medical History Medical History Atrial fibrillation Blood in stool Colon cancer screening COPD (chronic obstructive pulmonary disease) CVA (cerebral vascular accident) Diabetes Gastrostomy tube in place Heart failure with reduced ejection fraction Hyperlipidemia Hypertension Surgical History Surgical History S/P lobectomy of lung Family History Family History Father Diabetes mellitus Gout Hypertension Mother Diabetes mellitus Hypertension Social History Social History Smoking packs per day: 2 Smoking cigarettes per day: 40.0 Years smoked: 45 Smoking pack-years: 90.00 Smoking status: Current every day smoker Tobacco type: cigarettes Second hand tobacco smoke exposure: Yes Additional smoking assessment comments: currently down to 2 cigarettes per day Alcohol intake: current Drinks per week: 10 Alcohol use details: occasionally Substance use: never Substance use type: does not use Other substance usage details: patient states drinks 1/2 bottle of vodka everyday for last 3 years Last use: 08/06/22 Lack of Transportation: No Lack of Food: Never True Current Housing: I Have Housing Concerned About Future Housing: No Difficulty Paying Gas/Electric Bills: No Difficulty Paying for Meds: No Currently Unemployed: No Education: Trade/Vocational Certificate Difficulty w/ Childcare or Family Care: No Living arrangements: with family Occupation/Education: retired Gender identity (if verbalized by the patient): Male Spiritual care concerns: No Meds Home Medications and Allergies Home Medications Medication Instructions Recorded Confirmed Type nitroglycerin 0.4 mg sublingual 0.4 mg sublingual Q5M PRN Chest 08/07/22 03/08/23 History tablet Pain apixaban 5 mg tablet (Eliquis) 5 mg PO Q12HR #60 tabs 09/14/22 03/08/23 Rx atorvastatin 80 mg tablet 80 mg PO DAILY #30 tabs 09/14/22 03/08/23 Rx ezetimibe 10 mg tablet 10 mg PO DAILY #30 tabs 09/14/22 03/08/23 Rx thiamine HCl (vitamin B1)
[2023-03-09 07:44] LABS: Glucose Point of Care 167 mg/dl (65-105)
[2023-03-09 08:00] VITALS: BP 94/67; PULSE 89; RESP 18; TEMP 36.3; O2SAT 96
[2023-03-09] MEDS: EMPAGLIFLOZIN 10 MG TABLET PO (09:25)
[2023-03-09] MEDS: ATORVASTATIN 40 MG TABLET 80 MG PO (09:25)
[2023-03-09] MEDS: CLOPIDOGREL BISULFATE 75 MG TABLET PO (09:25)
[2023-03-09] MEDS: SACUBITRIL/VALSARTAN 24-26 MG TABLET 1 TAB PO ×2 (09:25→20:50)
[2023-03-09 09:26] VITALS: PULSE 88
[2023-03-09] MEDS: EZETIMIBE 10 MG TABLET PO (09:26)
[2023-03-09] MEDS: THIAMINE HCL 100 MG TABLET PO (09:26)
[2023-03-09] MEDS: APIXABAN 2.5 MG TABLET 5 MG PO ×2 (09:26→20:51)
[2023-03-09] MEDS: METOPROLOL SUCCINATE EXT REL 50 MG TABCR PO (09:26)
[2023-03-09] MEDS: FAMOTIDINE 20 MG TABLET PO ×2 (09:26→17:31)
[2023-03-09] MEDS: dilTIAZem HCL CD 180 MG CAP.24HR PO (09:26)
[2023-03-09] MEDS: FOLIC ACID 0.4 MG TABLET 0.8 MG PO (09:31)
[2023-03-09 11:42] LABS: Glucose Point of Care 205 mg/dl (65-105)
[2023-03-09] MEDS: INSULIN HUMAN LISPRO (*BKC) 1,000 UNITS/10 ML VIAL SUB-Q (12:06)
--- NOTE | 2023-03-09 12:38 | PHAR ---
Meds from home identified RX#[id number] [facility] -- Vilazodone HCL 20 mg tablets - Take 1 tablet daily
[2023-03-09 16:00] VITALS: BP 112/68; PULSE 89; RESP 17; TEMP 36.6; O2SAT 96
[2023-03-09 17:13] LABS: Glucose Point of Care 157 mg/dl (65-105)
[2023-03-09] MEDS: buPROPion HCL SR (12 HR) 150 MG TAB PO ×2 (17:32→20:50)
[2023-03-09] MEDS: FLUTICASONE/UMECLIDIN/VILANTER 100-62.5-25 MCG ELLIPTA 1 PUFF INHALATION (17:32)
[2023-03-09 20:00] VITALS: PULSE 82; RESP 16; O2SAT 98
[2023-03-09] MEDS: MELATONIN 5 MG TABLET 10 MG PO (20:50)
[2023-03-09] MEDS: QUEtiapine FUMARATE 25 MG TABLET 12.5 MG PO (20:51)
[2023-03-09 20:58] LABS: Glucose Point of Care 255 mg/dl (65-105)
[2023-03-10] VITALS (11 sets, daily range): BP systolic 84–136; BP diastolic 41–85; PULSE 74–89; RESP 15–16; TEMP 36.4–36.7; O2SAT 98
--- NOTE | 2023-03-10 08:08 | PM.EVENT ---
Event Note Event Note Event Note: Patient has been having constipation and prn miralax has been ordered as well as bid colace. Patient denies needing anything else at this time and states that he is doing well.
[2023-03-10] MEDS: SACUBITRIL/VALSARTAN 24-26 MG TABLET 1 TAB PO ×2 (09:08→20:49)
[2023-03-10] MEDS: dilTIAZem HCL CD 180 MG CAP.24HR PO (09:08)
[2023-03-10] MEDS: FOLIC ACID 0.4 MG TABLET 0.8 MG PO (09:08)
[2023-03-10] MEDS: ATORVASTATIN 40 MG TABLET 80 MG PO (09:08)
[2023-03-10] MEDS: EZETIMIBE 10 MG TABLET PO (09:08)
[2023-03-10] MEDS: THIAMINE HCL 100 MG TABLET PO (09:08)
[2023-03-10] MEDS: METOPROLOL SUCCINATE EXT REL 50 MG TABCR PO (09:08)
[2023-03-10] MEDS: FAMOTIDINE 20 MG TABLET PO ×2 (09:08→18:10)
[2023-03-10] MEDS: APIXABAN 2.5 MG TABLET 5 MG PO ×2 (09:08→20:49)
[2023-03-10] MEDS: DOCUSATE SODIUM 100 MG CAPSULE PO ×2 (09:08→20:49)
[2023-03-10] MEDS: CLOPIDOGREL BISULFATE 75 MG TABLET PO (09:09)
[2023-03-10] MEDS: EMPAGLIFLOZIN 10 MG TABLET PO (09:09)
[2023-03-10] MEDS: buPROPion HCL SR (12 HR) 150 MG TAB PO ×2 (09:09→20:49)
[2023-03-10] MEDS: INSULIN HUMAN LISPRO (*BKC) 1,000 UNITS/10 ML VIAL SUB-Q (12:22)
--- NOTE | 2023-03-10 12:26 | PHAR ---
verified pt.'s home med varenicline (chantix) 1mg tab po bid.
--- NOTE | 2023-03-10 13:00 | PC.NURSE ---
Pt came to the nurses station to report that her just don't look right. Stated his voice was weak and he seemed different. This nurse went to the room to find pt laying in bed with no signs of distress noted. Neuro check performed with no deficits noted and blood pressure obtained.
--- NOTE | 2023-03-10 14:15 | PC.NURSE ---
Nadine Billposter, notified of pt's condition. bolus and head ct ordered.
[2023-03-10] MEDS: SODIUM CHLORIDE 0.9% IV 1,000 ML 999 ML IV CONT (14:30)
--- NOTE | 2023-03-10 15:12 | PCPTNOTE ---
Attempted to see patient this afternoon, but did not perform treatment due to patient status. Upon entry, patient's notes an increase in slurred speech and that she could not understand him. Patient reports that he has felt dizzy the last 10 minutes. Vitals were taken following patient's statement. Blood pressure was 83/59 mmHg, SpO2 was 98%, and heart rate was 83 bpm. Blood pressure was assessed again after roughly 2 minutes, and read 73/57 mmHg. Nursing was then notified of low stats, and arrived with a manual cuff.
--- NOTE | 2023-03-10 15:26 | PCOTNOTE ---
The patient presents with low BP upon treatment time. Patient's nurse reports they are giving him fluids due to slurred speech and decreased alertness. Therapist withheld at this time per nursing.
[2023-03-10 16:54] LABS: Glucose Point of Care 100 mg/dl (65-105)
--- NOTE | 2023-03-10 17:32 | PC.NURSE ---
Addendum entered by Edwina Stephenson RN 03/10/23 17:57: Time of this incident occurred at 1405 03/10/2023 Original Note: Kassi from pt called out from room stating pt had low blood pressure. Upon entering room, pt was sitting in chair with eyes closed. His manual blood pressure was too low to measure and pt face had become very pale and unresponsive. Pt was assisted into bed with help of two nurses and placed into trendelenburg position. IV was started along with fluid bolus. Pt began to be responsive and a neuro assessment was performed in which he was found to have very slurred speech. Fluid bolus was completed and pt was transported to ct. By time pt returned from ct, his speech was clear and appropriate.
[2023-03-10] MEDS: FLUTICASONE/UMECLIDIN/VILANTER 100-62.5-25 MCG ELLIPTA 1 PUFF INHALATION (18:09)
[2023-03-10] MEDS: VARENICLINE 1 MG TABLET PO (18:10)
[2023-03-10] MEDS: MELATONIN 5 MG TABLET 10 MG PO (20:49)
[2023-03-10] MEDS: QUEtiapine FUMARATE 25 MG TABLET 12.5 MG PO (20:49)
[2023-03-10] MEDS: ACETAMINOPHEN 325 MG TABLET 650 MG PO (20:50)
[2023-03-10 20:54] LABS: Glucose Point of Care 170 mg/dl (65-105)
[2023-03-11] VITALS: BP 114/66; PULSE 77; RESP 16; TEMP 36.7; O2SAT 97
[2023-03-11 07:39] LABS: Glucose Point of Care 372 mg/dl (65-105)
[2023-03-11 07:44] VITALS: BP 102/79; PULSE 100; RESP 16; TEMP 36.3; O2SAT 99
[2023-03-11] MEDS: INSULIN HUMAN LISPRO (*BKC) 1,000 UNITS/10 ML VIAL SUB-Q (08:23)
[2023-03-11] MEDS: APIXABAN 2.5 MG TABLET 5 MG PO ×2 (08:25→20:42)
[2023-03-11] MEDS: ATORVASTATIN 40 MG TABLET 80 MG PO (08:26)
[2023-03-11] MEDS: EMPAGLIFLOZIN 10 MG TABLET PO (08:26)
[2023-03-11 08:27] VITALS: PULSE 100
[2023-03-11] MEDS: METOPROLOL SUCCINATE EXT REL 50 MG TABCR PO (08:27)
[2023-03-11] MEDS: THIAMINE HCL 100 MG TABLET PO (08:27)
[2023-03-11] MEDS: EZETIMIBE 10 MG TABLET PO (08:27)
[2023-03-11] MEDS: CLOPIDOGREL BISULFATE 75 MG TABLET PO (08:28)
[2023-03-11] MEDS: buPROPion HCL SR (12 HR) 150 MG TAB PO ×2 (08:28→20:42)
[2023-03-11] MEDS: FOLIC ACID 0.4 MG TABLET 0.8 MG PO (08:28)
[2023-03-11] MEDS: dilTIAZem HCL CD 180 MG CAP.24HR PO (08:29)
[2023-03-11] MEDS: FAMOTIDINE 20 MG TABLET PO ×2 (08:29→17:06)
[2023-03-11] MEDS: DOCUSATE SODIUM 100 MG CAPSULE PO ×2 (08:29→20:42)
[2023-03-11] MEDS: VARENICLINE 1 MG TABLET PO ×2 (08:30→17:06)
[2023-03-11] MEDS: FLUTICASONE/UMECLIDIN/VILANTER 100-62.5-25 MCG ELLIPTA 1 PUFF INHALATION (08:30)
[2023-03-11 11:38] LABS: Glucose Point of Care 127 mg/dl (65-105)
[2023-03-11 16:00] VITALS: BP 125/73; PULSE 80; RESP 16; TEMP 36.8; O2SAT 98
[2023-03-11 16:35] LABS: Glucose Point of Care 126 mg/dl (65-105)
[2023-03-11 20:00] VITALS: PULSE 80; RESP 16; O2SAT 98
[2023-03-11] MEDS: MELATONIN 5 MG TABLET 10 MG PO (20:42)
[2023-03-11] MEDS: QUEtiapine FUMARATE 25 MG TABLET 12.5 MG PO (20:43)
[2023-03-11] MEDS: ACETAMINOPHEN 325 MG TABLET 650 MG PO (20:43)
[2023-03-11] MEDS: SACUBITRIL/VALSARTAN 24-26 MG TABLET 1 TAB PO (20:43)
[2023-03-11 20:46] LABS: Glucose Point of Care 157 mg/dl (65-105)
[2023-03-12] VITALS: BP 137/81; PULSE 95; RESP 16; TEMP 36.5; O2SAT 98
[2023-03-12 07:37] LABS: Glucose Point of Care 177 mg/dl (65-105)
[2023-03-12 07:49] VITALS: BP 133/78; PULSE 16; RESP 16; TEMP 36.6; O2SAT 98
[2023-03-12] MEDS: buPROPion HCL SR (12 HR) 150 MG TAB PO ×2 (08:42→21:08)
[2023-03-12] MEDS: EMPAGLIFLOZIN 10 MG TABLET PO (08:42)
[2023-03-12] MEDS: SACUBITRIL/VALSARTAN 24-26 MG TABLET 1 TAB PO (08:42)
[2023-03-12] MEDS: ATORVASTATIN 40 MG TABLET 80 MG PO (08:42)
[2023-03-12] MEDS: FOLIC ACID 0.4 MG TABLET 0.8 MG PO (08:43)
[2023-03-12] MEDS: DOCUSATE SODIUM 100 MG CAPSULE PO ×2 (08:43→21:09)
[2023-03-12] MEDS: APIXABAN 2.5 MG TABLET 5 MG PO ×2 (08:43→21:08)
[2023-03-12 08:44] VITALS: PULSE 96
[2023-03-12] MEDS: METOPROLOL SUCCINATE EXT REL 50 MG TABCR PO (08:44)
[2023-03-12] MEDS: dilTIAZem HCL CD 180 MG CAP.24HR PO (08:44)
[2023-03-12] MEDS: EZETIMIBE 10 MG TABLET PO (08:44)
[2023-03-12] MEDS: FAMOTIDINE 20 MG TABLET PO ×2 (08:45→16:49)
[2023-03-12] MEDS: VARENICLINE 1 MG TABLET PO ×2 (08:45→16:49)
[2023-03-12] MEDS: CLOPIDOGREL BISULFATE 75 MG TABLET PO (08:45)
[2023-03-12] MEDS: THIAMINE HCL 100 MG TABLET PO (08:45)
[2023-03-12] MEDS: FLUTICASONE/UMECLIDIN/VILANTER 100-62.5-25 MCG ELLIPTA 1 PUFF INHALATION (08:46)
[2023-03-12 11:45] LABS: Glucose Point of Care 252 mg/dl (65-105)
[2023-03-12] MEDS: INSULIN HUMAN LISPRO (*BKC) 1,000 UNITS/10 ML VIAL SUB-Q (12:06)
[2023-03-12] MEDS: MIDODRINE HCL 2.5 MG TABLET 5 MG PO (12:13)
--- NOTE | 2023-03-12 13:35 | PC.NURSE ---
Telegraph Operator assisted patient with transfer from bed to chair for lunch and patient c/o dizziness upon sitting up in bed. Telegraph Operator assessed patient's BP and found it to be 103/53. Patient dangled feet for a few minutes before transfer, and food writer alerted SOLUTION CONSULTANT to BP findings. SOLUTION CONSULTANT advised food writer to give midodrine and made other changes to patient's current BP medications. Before transfer back to bed, patient's BP had continued to drop and is now at 97/67. Patient in bed resting. Will continue to monitor VS.
--- NOTE | 2023-03-12 13:54 | PC.NURSE ---
Patient's looked over her medication list for patient and discovered that while patient was a Darci, patient was receiving 1 mg Entresto instead of 0.5 mg Entresto. Patient's records from [facility] stated patient was on 1mg Entresto. INSTRUCTOR BALLROOM DANCING changed patient's Entresto to 0.5 mg as originally prescribed by patient's clinical trials nurse.
[2023-03-12 14:25] LABS: Basophils Absolute Auto 0.05 K/mm3 (0.00-0.10); Basophils Percent Auto 0.5 % (0.0-1.0); Eosinophils Absolute Auto 0.04 K/mm3 (0.02-0.50); Eosinophils Percent Auto 0.4 % (1.0-6.0); Hematocrit 34.9 % (37.0-46.0); Hemoglobin 11.3 g/dL (12.4-15.3); Immature Granulocyte Absolute 0.03 K/mm3 (0.00-0.00); Immature Granulocyte Percent A 0.3 % (0.0-0.0); Lymphocytes Absolute Auto 1.45 K/mm3 (1.10-4.50); Lymphocytes Percent Auto 15.5 % (18.0-42.0); Mean Corpuscular HGB Conc 32.4 g/dL (32.0-36.0); Mean Corpuscular Hemoglobin 31.5 pg (27.0-31.0); Mean Corpuscular Volume 97.2 fL (78.0-102.0); Mean Platelet Volume 10.9 fl (8.7-11.0); Monocytes Absolute Auto 0.73 K/mm3 (0.10-0.90); Monocytes Percent Auto 7.8 % (2.0-11.0); Neutrophils Absolute Auto 7.1 K/mm3 (1.7-7.2); Neutrophils Percent Auto 75.5 % (50.0-70.0); Platelet Count Result 315 K/mm3 (150-420); Red Blood Count 3.59 M/mm3 (4.70-6.10); Red Cell Distribution Width 14.4 % (11.6-14.4); White Blood Count 9.4 K/mm3 (4.8-10.8)
[2023-03-12 14:39] LABS: Albumin Level 2.3 g/dL (3.4-5.0); Anion Gap 10 mmol/L (8-16); Blood Urea Nitrogen 12 mg/dL (7-18); Calcium 9.1 mg/dL (8.5-10.1); Carbon Dioxide 26 mmol/L (21-32); Chloride 106 mmol/L (98-108); Estimated CRCL calculation 62 ml/min; Estimated Glomerular Filt Rate > 60; Glucose 170 mg/dL (70-99); Osmolality Calculated 297 mOsm/kg (285-295); Potassium 3.7 mmol/L (3.5-5.1); Sodium 142 mmol/L (136-145)
--- NOTE | 2023-03-12 15:53 | P.PNCROSS_ITS ---
Event Note Event Note Event Note: RN reported that BP was soft and patient was dizzy with sitting up/standing. P atient has decreased oral intake. Orders reviewed. Blood pressure medications cut in half and midodrine parameters adjusted. RN informed to give a dose of midodrine at time of assessment. Patient has prior Echo with severe systolic failure, likely improved since then but last in our system at time of his Stroke showed EF 15-20%. We do not want to fluid overload. Patient appears stable just moderately tired and symptomatically dizzy upon position change. No tachycardia, no respiratory distress. Patient awake and oriented. Normal skin color. No abdominal tenderness. Labs ordered and reviewed. Normal renal function and grossly normal chemistry panel. Mild anemia on CBC but grossly unremarkable. Will continue to monitor blood pressure and orthostatic symptoms. May need to make patient acute care tomorrow if still affected.
[2023-03-12 16:00] VITALS: BP 123/78; PULSE 83; RESP 18; TEMP 36.6; O2SAT 97
[2023-03-12 16:48] LABS: Glucose Point of Care 136 mg/dl (65-105)
[2023-03-12 20:00] VITALS: PULSE 83; RESP 18; O2SAT 97
[2023-03-12] MEDS: MELATONIN 5 MG TABLET 10 MG PO (21:08)
[2023-03-12] MEDS: SACUBITRIL/VALSARTAN 24-26 MG TABLET 0.5 TAB PO (21:09)
[2023-03-12] MEDS: ACETAMINOPHEN 325 MG TABLET 650 MG PO (21:10)
[2023-03-12] MEDS: QUEtiapine FUMARATE 25 MG TABLET 12.5 MG PO (21:10)
[2023-03-12 21:12] LABS: Glucose Point of Care 184 mg/dl (65-105)
[2023-03-13] VITALS: BP 136/81; PULSE 97; RESP 17; TEMP 36.5; O2SAT 98
--- NOTE | 2023-03-13 06:11 | PC.NURSE ---
Previously, patient's BP was reported to be low, and medication changes were made to increase BP. Last night, patient's BP was 136/81. Patient slept, but was awake 4 times to urinate, using the urinal. Patient had a very large BM before bedtime.
[2023-03-13 08:00] VITALS: BP 126/86; PULSE 101; RESP 14; TEMP 36.6; O2SAT 98
[2023-03-13] MEDS: FLUTICASONE/UMECLIDIN/VILANTER 100-62.5-25 MCG ELLIPTA 1 PUFF INHALATION (08:52)
[2023-03-13] MEDS: SACUBITRIL/VALSARTAN 24-26 MG TABLET 0.5 TAB PO ×2 (08:53→20:22)
[2023-03-13] MEDS: EZETIMIBE 10 MG TABLET PO (08:54)
[2023-03-13] MEDS: buPROPion HCL SR (12 HR) 150 MG TAB PO ×2 (08:54→20:21)
[2023-03-13] MEDS: CLOPIDOGREL BISULFATE 75 MG TABLET PO (08:55)
[2023-03-13] MEDS: FAMOTIDINE 20 MG TABLET PO ×2 (08:55→16:54)
[2023-03-13] MEDS: EMPAGLIFLOZIN 10 MG TABLET PO (08:55)
[2023-03-13] MEDS: dilTIAZem HCL CD 180 MG CAP.24HR PO (08:55)
[2023-03-13 08:56] VITALS: PULSE 101
[2023-03-13] MEDS: METOPROLOL SUCCINATE EXT REL 25 MG TABCR PO (08:56)
[2023-03-13] MEDS: FOLIC ACID 0.4 MG TABLET 0.8 MG PO (08:56)
[2023-03-13] MEDS: APIXABAN 2.5 MG TABLET 5 MG PO ×2 (08:57→20:21)
[2023-03-13] MEDS: THIAMINE HCL 100 MG TABLET PO (08:57)
[2023-03-13] MEDS: ATORVASTATIN 40 MG TABLET 80 MG PO (08:58)
[2023-03-13] MEDS: DOCUSATE SODIUM 100 MG CAPSULE PO ×2 (08:58→20:21)
[2023-03-13] MEDS: VARENICLINE 1 MG TABLET PO ×2 (08:59→16:56)
[2023-03-13 12:09] LABS: Glucose Point of Care 176 mg/dl (65-105)
[2023-03-13 12:09] LABS: Glucose Point of Care 345 mg/dl (65-105)
[2023-03-13] MEDS: INSULIN HUMAN LISPRO (*BKC) 1,000 UNITS/10 ML VIAL SUB-Q (12:11)
--- NOTE | 2023-03-13 14:06 | PC.NURSE ---
Pt has been in bed for 10 minutes resting. States he feels better. B/P 107/70, 86 p, O@
[2023-03-13 15:52] VITALS: BP 116/74; PULSE 94; RESP 18; TEMP 36.6; O2SAT 98
[2023-03-13 16:31] LABS: Glucose Point of Care 147 mg/dl (65-105)
--- NOTE | 2023-03-13 16:45 | PC.NURSE ---
Pt assisted c use of nabor steady to chair for dinner, he cooperates and is able to tolerate activity well.
--- NOTE | 2023-03-13 18:25 | PC.NURSE ---
Pt assisted back to bed per request, pt positions self in bed s difficulty, Watching TV c at bedside, call julio in reach.
[2023-03-13 19:23] VITALS: PULSE 94; RESP 18; O2SAT 98
[2023-03-13 20:19] LABS: Glucose Point of Care 398 mg/dl (65-105)
[2023-03-13] MEDS: MELATONIN 5 MG TABLET 10 MG PO (20:21)
[2023-03-13] MEDS: QUEtiapine FUMARATE 25 MG TABLET 12.5 MG PO (20:21)
[2023-03-13] MEDS: ACETAMINOPHEN 325 MG TABLET 650 MG PO (20:22)
[2023-03-13 20:25] LABS: Glucose Point of Care 171 mg/dl (65-105)
[2023-03-13 23:56] VITALS: BP 128/69; PULSE 88; RESP 16; TEMP 36.8; O2SAT 98
[2023-03-14 07:59] LABS: Glucose Point of Care 295 mg/dl (65-105)
[2023-03-14 08:00] VITALS: BP 120/71; PULSE 101; RESP 14; TEMP 36.4; O2SAT 97
[2023-03-14] MEDS: INSULIN HUMAN LISPRO (*BKC) 1,000 UNITS/10 ML VIAL SUB-Q ×2 (08:15→12:45)
[2023-03-14 09:12] VITALS: PULSE 101
[2023-03-14] MEDS: buPROPion HCL SR (12 HR) 150 MG TAB PO ×2 (09:12→20:26)
[2023-03-14] MEDS: METOPROLOL SUCCINATE EXT REL 25 MG TABCR PO (09:12)
[2023-03-14] MEDS: FLUTICASONE/UMECLIDIN/VILANTER 100-62.5-25 MCG ELLIPTA 1 PUFF INHALATION (09:12)
[2023-03-14] MEDS: EZETIMIBE 10 MG TABLET PO (09:13)
[2023-03-14] MEDS: dilTIAZem HCL CD 180 MG CAP.24HR PO (09:13)
[2023-03-14] MEDS: CLOPIDOGREL BISULFATE 75 MG TABLET PO (09:13)
[2023-03-14] MEDS: FOLIC ACID 0.4 MG TABLET 0.8 MG PO (09:13)
[2023-03-14] MEDS: EMPAGLIFLOZIN 10 MG TABLET PO (09:14)
[2023-03-14] MEDS: THIAMINE HCL 100 MG TABLET PO (09:14)
[2023-03-14] MEDS: ATORVASTATIN 40 MG TABLET 80 MG PO (09:14)
[2023-03-14] MEDS: DOCUSATE SODIUM 100 MG CAPSULE PO ×2 (09:14→20:23)
[2023-03-14] MEDS: APIXABAN 2.5 MG TABLET 5 MG PO ×2 (09:14→20:23)
[2023-03-14] MEDS: VARENICLINE 1 MG TABLET PO ×2 (09:15→17:04)
[2023-03-14] MEDS: SACUBITRIL/VALSARTAN 24-26 MG TABLET 0.5 TAB PO ×2 (09:41→20:22)
[2023-03-14] MEDS: FAMOTIDINE 20 MG TABLET PO ×2 (09:43→17:04)
[2023-03-14 11:56] LABS: Glucose Point of Care 279 mg/dl (65-105)
--- NOTE | 2023-03-14 15:19 | PC.NURSE ---
Pt sitting bedside c PT and doing therapy, tolerating well. Pts concerned about pts urination and going frequently and only small amts. States he had UTI in past but off since leaving [place]. Charge nurse consulted
[2023-03-14 15:26] VITALS: BP 107/73; PULSE 97; RESP 20; TEMP 36.4; O2SAT 98
--- NOTE | 2023-03-14 16:02 | PC.NURSE ---
Nii Funez, METAL BONDING WORKER/Hospitalist, notified that patient's was concerned that patient has frequent urination with small amounts of urine each time. New orders recieved for bladder scan and UA.
--- NOTE | 2023-03-14 16:02 | PC.NURSE ---
Instructed pt to notify this RN when urinating and it will be collected for UA and then a post bladder scan will be done. Pt and stated understanding.
[2023-03-14 16:31] LABS: Glucose Point of Care 163 mg/dl (65-105)
--- NOTE | 2023-03-14 17:00 | PC.NURSE ---
Bladder scan post void results of 435 ml urine retention. Orders obtained.
[2023-03-14 17:08] LABS: Appearance Urine Clear (Clear); Bilirubin Urine Negative (Negative); Blood Urine Negative (Negative); Color Urine Yellow (Yellow); Glucose Urine UA 3+ (Negative); Ketones Urine Negative (Negative); Leukocyte Esterase Ur Negative LEU/UL (Negative); Nitrate Urine Negative (Negative); Protein Urine Negative (Negative); Urobilinogen Urine 0.2 mg/dL (0.2-1.0)
[2023-03-14 17:13] LABS: Add Urine Microscopic? YES; Bacteria Urine None seen /hpf; RBC Urine None seen /hpf (0-2); Squamous Epithelial Cell Urine Rare /hpf (Few); WBC Urine None seen /hpf (0-3)
--- NOTE | 2023-03-14 17:32 | PC.NURSE ---
Bladder scan results called to Nii Funez Hospitalist. New orders received to straight cath x1 and start Flomax 0.4 mg at HS.
--- NOTE | 2023-03-14 18:20 | PC.NURSE ---
Straight cath tolerated well, 425ml clear yellow urine drained. Pt reports feeling better. Pt repositioned in bed, new depend placed, lights dimmed, call julio at pt side.
[2023-03-14] MEDS: MELATONIN 5 MG TABLET 10 MG PO (20:23)
[2023-03-14] MEDS: TAMSULOSIN HCL 0.4 MG CAPSULE PO (20:23)
[2023-03-14] MEDS: QUEtiapine FUMARATE 25 MG TABLET 12.5 MG PO (20:23)
[2023-03-14 20:27] LABS: Glucose Point of Care 226 mg/dl (65-105)
[2023-03-14 23:07] VITALS: BP 142/75; PULSE 91; RESP 19; TEMP 36.9; O2SAT 98
--- NOTE | 2023-03-15 05:25 | PC.NURSE ---
Pt changed out of soiled gown and depend after incontinent void.
[2023-03-15 07:53] LABS: Glucose Point of Care 162 mg/dl (65-105)
[2023-03-15 08:00] VITALS: BP 141/77; PULSE 100; RESP 14; TEMP 36.4; O2SAT 97
[2023-03-15] MEDS: VARENICLINE 1 MG TABLET PO ×2 (09:17→17:11)
[2023-03-15] MEDS: FLUTICASONE/UMECLIDIN/VILANTER 100-62.5-25 MCG ELLIPTA 1 PUFF INHALATION (09:17)
[2023-03-15 09:18] VITALS: PULSE 100
[2023-03-15] MEDS: METOPROLOL SUCCINATE EXT REL 25 MG TABCR PO (09:18)
[2023-03-15] MEDS: SACUBITRIL/VALSARTAN 24-26 MG TABLET 0.5 TAB PO ×2 (09:18→20:50)
[2023-03-15] MEDS: FOLIC ACID 0.4 MG TABLET 0.8 MG PO (09:19)
[2023-03-15] MEDS: EZETIMIBE 10 MG TABLET PO (09:20)
[2023-03-15] MEDS: buPROPion HCL SR (12 HR) 150 MG TAB PO ×2 (09:20→20:50)
[2023-03-15] MEDS: ATORVASTATIN 40 MG TABLET 80 MG PO (09:20)
[2023-03-15] MEDS: THIAMINE HCL 100 MG TABLET PO (09:20)
[2023-03-15] MEDS: CLOPIDOGREL BISULFATE 75 MG TABLET PO (09:21)
[2023-03-15] MEDS: DOCUSATE SODIUM 100 MG CAPSULE PO ×2 (09:21→20:49)
[2023-03-15] MEDS: APIXABAN 2.5 MG TABLET 5 MG PO ×2 (09:21→20:50)
[2023-03-15] MEDS: FAMOTIDINE 20 MG TABLET PO ×2 (09:21→17:11)
[2023-03-15] MEDS: dilTIAZem HCL CD 180 MG CAP.24HR PO (09:21)
[2023-03-15 11:39] LABS: Glucose Point of Care 193 mg/dl (65-105)
--- NOTE | 2023-03-15 15:21 | PC.NURSE ---
Pt up walking c PT and this RN assist, noted pt swaying and having difficulty walking this afternoon compared to earlier today. Pt c/o feeling dizzy when getting up out of bed and then standing. Pt assisted back to bedside sitting and BP taken, noted BP 84/70 and then p sitting a minute retake of 108/72. Pt assisted back to bed, charge auditor informed.
[2023-03-15 15:45] VITALS: BP 122/68; PULSE 85; RESP 20; TEMP 36.6; O2SAT 98
[2023-03-15 15:48] VITALS: BP 76/53; PULSE 95; RESP 24; O2SAT 97
--- NOTE | 2023-03-15 15:53 | PC.NURSE ---
Orthostatic BP taken and noted in pts chart, charger notified in drop of BP and pt c/o dizziness. Awaiting orders.
[2023-03-15 15:55] VITALS: BP 122/68; PULSE 95; RESP 20; TEMP 36.6; O2SAT 98
--- NOTE | 2023-03-15 16:04 | PM.EVENT ---
Event Note Event Note Event Note: Provider notified of symptomatic orthostasis. Blood pressures 70's/50's, HR 95. CMP and CBC ordered. LR bolus and asked nursing to give prn midodrine. Labs reviewed and were unremarkable. Blood pressure improved with fluids.
[2023-03-15] MEDS: MIDODRINE HCL 2.5 MG TABLET 5 MG PO (16:05)
[2023-03-15] MEDS: LACTATED RINGERS 1,000 ML 999 ML IV CONT (16:11)
[2023-03-15 16:30] LABS: Glucose Point of Care 190 mg/dl (65-105)
[2023-03-15 16:31] LABS: Basophils Absolute Auto 0.03 K/mm3 (0.00-0.10); Basophils Percent Auto 0.4 % (0.0-1.0); Eosinophils Absolute Auto 0.03 K/mm3 (0.02-0.50); Eosinophils Percent Auto 0.4 % (1.0-6.0); Hematocrit 34.7 % (37.0-46.0); Hemoglobin 11.2 g/dL (12.4-15.3); Immature Granulocyte Absolute 0.02 K/mm3 (0.00-0.00); Immature Granulocyte Percent A 0.3 % (0.0-0.0); Lymphocytes Absolute Auto 1.28 K/mm3 (1.10-4.50); Lymphocytes Percent Auto 18.3 % (18.0-42.0); Mean Corpuscular HGB Conc 32.3 g/dL (32.0-36.0); Mean Corpuscular Hemoglobin 31.5 pg (27.0-31.0); Mean Corpuscular Volume 97.7 fL (78.0-102.0); Mean Platelet Volume 10.4 fl (8.7-11.0); Monocytes Absolute Auto 0.56 K/mm3 (0.10-0.90); Neutrophils Absolute Auto 5.1 K/mm3 (1.7-7.2); Neutrophils Percent Auto 72.6 % (50.0-70.0); Platelet Count Result 295 K/mm3 (150-420); Red Blood Count 3.55 M/mm3 (4.70-6.10); Red Cell Distribution Width 14.4 % (11.6-14.4)
[2023-03-15 16:58] LABS: Alanine Aminotransferase 38 U/L (16-63); Albumin Level 2.2 g/dL (3.4-5.0); Alkaline Phosphatase 192 U/L (46-116); Anion Gap 8 mmol/L (8-16); Aspartate Amino Transferase 38 U/L (15-37); Bilirubin,Total 0.4 mg/dL (0.00-1.00); Blood Urea Nitrogen 10 mg/dL (7-18); Calcium 9.3 mg/dL (8.5-10.1); Carbon Dioxide 29 mmol/L (21-32); Chloride 106 mmol/L (98-108); Estimated CRCL calculation 62 ml/min; Estimated Glomerular Filt Rate > 60; Glucose 186 mg/dL (70-99); Osmolality Calculated 300 mOsm/kg (285-295); Potassium 3.5 mmol/L (3.5-5.1); Sodium 143 mmol/L (136-145); Total Protein 6.2 g/dL (6.4-8.2)
--- NOTE | 2023-03-15 17:49 | PC.NURSE ---
Pt ate dinner well and states he is feeling better and has no dizziness. BP now 130/68. Pt assisted c walker and gait belt back to bed and tolerated well.
[2023-03-15 19:26] VITALS: PULSE 95; RESP 20; O2SAT 98
[2023-03-15] MEDS: QUEtiapine FUMARATE 25 MG TABLET 12.5 MG PO (20:49)
[2023-03-15] MEDS: MELATONIN 5 MG TABLET 10 MG PO (20:49)
[2023-03-15] MEDS: TAMSULOSIN HCL 0.4 MG CAPSULE PO (20:49)
[2023-03-15] MEDS: ACETAMINOPHEN 325 MG TABLET 650 MG PO (20:50)
[2023-03-15 20:53] LABS: Glucose Point of Care 243 mg/dl (65-105)
[2023-03-16] VITALS: BP 141/79; PULSE 93; RESP 17; TEMP 36.8; O2SAT 99
[2023-03-16 07:40] LABS: Glucose Point of Care 131 mg/dl (65-105)
[2023-03-16 07:47] VITALS: BP 129/85; PULSE 97; RESP 16; TEMP 36.7; O2SAT 99
[2023-03-16] MEDS: VARENICLINE 1 MG TABLET PO ×2 (08:10→17:00)
[2023-03-16] MEDS: FLUTICASONE/UMECLIDIN/VILANTER 100-62.5-25 MCG ELLIPTA 1 PUFF INHALATION (08:10)
[2023-03-16 08:11] VITALS: PULSE 97
[2023-03-16] MEDS: FAMOTIDINE 20 MG TABLET PO ×2 (08:11→17:00)
[2023-03-16] MEDS: METOPROLOL SUCCINATE EXT REL 25 MG TABCR PO (08:11)
[2023-03-16] MEDS: dilTIAZem HCL CD 180 MG CAP.24HR PO (08:11)
[2023-03-16] MEDS: SACUBITRIL/VALSARTAN 24-26 MG TABLET 0.5 TAB PO ×2 (08:12→20:47)
[2023-03-16] MEDS: THIAMINE HCL 100 MG TABLET PO (08:12)
[2023-03-16] MEDS: CLOPIDOGREL BISULFATE 75 MG TABLET PO (08:13)
[2023-03-16] MEDS: ATORVASTATIN 40 MG TABLET 80 MG PO (08:13)
[2023-03-16] MEDS: DOCUSATE SODIUM 100 MG CAPSULE PO ×2 (08:13→20:49)
[2023-03-16] MEDS: EZETIMIBE 10 MG TABLET PO (08:13)
[2023-03-16] MEDS: APIXABAN 2.5 MG TABLET 5 MG PO ×2 (08:13→20:48)
[2023-03-16] MEDS: FOLIC ACID 0.4 MG TABLET 0.8 MG PO (08:14)
[2023-03-16] MEDS: EMPAGLIFLOZIN 10 MG TABLET PO (08:14)
[2023-03-16] MEDS: buPROPion HCL SR (12 HR) 150 MG TAB PO ×2 (08:14→20:48)
--- NOTE | 2023-03-16 08:24 | PM.IMPN ---
Progress Note: A&P Assessment and Plan (1) Orthostatic hypotension: Code(s): I95.1 - Orthostatic hypotension Status: Acute Assessment and Plan: Recurrent problem this admission 03/10-- 80's/50's with position changes and + dizziness. Blood pressure medications were decreased and small fluid bolus received. 03/16--70/40's with position changes and + dizziness. 1 L fluid bolus and gave midodrine. Blood pressures are stable this morning SBP 140-120's. Will add Florinef today. (2) Physical debility: Code(s): R53.81 - Other malaise Status: Acute Assessment and Plan: PT/OT for acute rehab, Swing bed admission, plan to return home after stay. (3) Pneumonia: Code(s): J18.9 - Pneumonia, unspecified organism Status: Acute Assessment and Plan: Right upper lobe pneumonia per CT scan, see above. Completed IV antibiotics at [facility], on room air with no dyspnea. (4) S/P lobectomy of lung: Code(s): Z90.2 - Acquired absence of lung [part of] Status: Acute Assessment and Plan: Right middle and right lower lobe lobectomy early February 2023 at [facility]. (5) History of CVA with residual deficit: Code(s): I69.30 - Unspecified sequelae of cerebral infarction Status: Acute Assessment and Plan: Residual left sided weakness and left facial droop. PT/OT and Speech Therapy consulted for rehab. (6) Atrial fibrillation: Code(s): I48.91 - Unspecified atrial fibrillation Status: Acute Assessment and Plan: Controlled ventricular rate, continue Eliquis, metoprolol and other home medications. (7) Tobacco abuse: Code(s): Z72.0 - Tobacco use Status: Acute Assessment and Plan: Wellbutrin for smoking cessation. Offered nicotine patch, declined at this time. (8) Diabetes: Code(s): E11.9 - Type 2 diabetes mellitus without complications Status: Acute Assessment and Plan: ACHS fingerstick glucose with low dose correction and continue home Jardiance. Plan Swing bed with goal to return home. Subjective Date/time seen: 03/16/23 08:24 Interval history: HPI obtained from the chart, This is a 67-year-old male patient being admitted to swing bed status for rehabilitation related to Physical debility s/p pneumonia s/p right middle and lower lobectomy with history of CVA with left sided residual defects.? Patient had right middle and lower lobe lobectomy at [facility] about 3 weeks ago for a lung nodule that was presumed to be cancerous.? Patient has a history of COPD and smoking, atrial fibrillation, diabetes, hypertension and hyperlipidemia.? After lobectomy at [facility] patient was going to be discharged to acute rehabilitation but insurance did not approve of such so patient went home.? While at home he developed altered mental status after a couple of days and had to be brought to the emergency department where he was admitted to [facility] due to altered mental status, pneumonia and UTI.? Status improved after IV antibiotics.? However, patient remains too weak to resume all normal activities in a home setting.? For this reason patient is admitted to [facility] bed for acute rehabilitation PT and OT.? Speech therapy will also be consulted due to residual dysphagia and left-sided facial droop.? Patient previously had G-tube in place but no longer does.? Overall patient feels well today just feeling a little short of breath.? Patient seemed unaware that he would no longer a deep breath on the right side status post lobectomy. 03/16: Mr Mcallister looks well today. He is up in the chair. He denies any complaints today. He does mention having low blood pressure and dizziness yesterday in the afternoon. He says that the dizziness and low blood pressure happens with position changes and midodrine usually helps. He states he knows he does not drink enough liquids. I recommended he drink 1.5 L a day but no more given his CHF. He currently siva
[2023-03-16] MEDS: FLUDROCORTISONE ACETATE 0.1 MG TABLET PO (09:46)
[2023-03-16 11:48] LABS: Glucose Point of Care 232 mg/dl (65-105)
[2023-03-16] MEDS: INSULIN HUMAN LISPRO (*BKC) 1,000 UNITS/10 ML VIAL SUB-Q (11:51)
[2023-03-16 16:00] VITALS: BP 119/70; PULSE 94; RESP 16; TEMP 37.2; O2SAT 99
[2023-03-16 16:43] LABS: Glucose Point of Care 183 mg/dl (65-105)
[2023-03-16 20:00] VITALS: PULSE 94; RESP 16; O2SAT 99
[2023-03-16] MEDS: MELATONIN 5 MG TABLET 10 MG PO (20:48)
[2023-03-16] MEDS: ACETAMINOPHEN 325 MG TABLET 650 MG PO (20:49)
[2023-03-16] MEDS: QUEtiapine FUMARATE 25 MG TABLET 12.5 MG PO (20:49)
[2023-03-16] MEDS: TAMSULOSIN HCL 0.4 MG CAPSULE PO (20:49)
[2023-03-16 20:52] LABS: Glucose Point of Care 204 mg/dl (65-105)
[2023-03-17] VITALS (8 sets, daily range): BP systolic 86–133; BP diastolic 54–74; PULSE 88–102; RESP 16–18; TEMP 36.6–36.8; O2SAT 94–99
--- NOTE | 2023-03-17 05:55 | PC.NURSE ---
Patient had melatonin and tylenol at 2048 last night, and slept well. He did awake twice, confused, and wanting to get up. He set off the bed alarm, but did not get out of bed. Patient was redirected, and able to go back to sleep afterward. Patient did not use his urinal last night, and was incontinent and changed twice.
[2023-03-17] MEDS: FOLIC ACID 0.4 MG TABLET 0.8 MG PO (09:02)
[2023-03-17] MEDS: DOCUSATE SODIUM 100 MG CAPSULE PO ×2 (09:03→21:36)
[2023-03-17] MEDS: APIXABAN 2.5 MG TABLET 5 MG PO ×2 (09:03→21:35)
[2023-03-17] MEDS: METOPROLOL SUCCINATE EXT REL 25 MG TABCR PO (09:03)
[2023-03-17] MEDS: EZETIMIBE 10 MG TABLET PO (09:04)
[2023-03-17] MEDS: SACUBITRIL/VALSARTAN 24-26 MG TABLET 0.5 TAB PO ×2 (09:06→21:34)
[2023-03-17] MEDS: ATORVASTATIN 40 MG TABLET 80 MG PO (09:06)
[2023-03-17] MEDS: FLUDROCORTISONE ACETATE 0.1 MG TABLET PO (09:06)
[2023-03-17] MEDS: THIAMINE HCL 100 MG TABLET PO (09:07)
[2023-03-17] MEDS: FAMOTIDINE 20 MG TABLET PO ×2 (09:07→16:33)
[2023-03-17] MEDS: buPROPion HCL SR (12 HR) 150 MG TAB PO ×2 (09:07→21:35)
[2023-03-17] MEDS: CLOPIDOGREL BISULFATE 75 MG TABLET PO (09:07)
[2023-03-17] MEDS: FLUTICASONE/UMECLIDIN/VILANTER 100-62.5-25 MCG ELLIPTA 1 PUFF INHALATION (09:07)
[2023-03-17] MEDS: dilTIAZem HCL CD 180 MG CAP.24HR PO (09:07)
[2023-03-17] MEDS: EMPAGLIFLOZIN 10 MG TABLET PO (09:07)
[2023-03-17] MEDS: VARENICLINE 1 MG TABLET PO ×2 (09:08→16:33)
--- NOTE | 2023-03-17 09:17 | PM.EVENT ---
Event Note Event Note Event Note: No acute events overnight. Patient is doing well today. No complaints. Vitals reviewed.
[2023-03-17 11:40] LABS: Glucose Point of Care 151 mg/dl (65-105)
[2023-03-17] MEDS: INSULIN HUMAN LISPRO (*BKC) 1,000 UNITS/10 ML VIAL SUB-Q ×2 (12:01→16:33)
[2023-03-17] MEDS: MIDODRINE HCL 2.5 MG TABLET 5 MG PO (13:01)
--- NOTE | 2023-03-17 14:03 | PC.NURSE ---
1300 pt at ok claims patient c/o dizziness and bp 68/48. has patient in bed. bp 86/54 while lying down. prn med given. claims not as dizzy since lying down. at bedside. 1400 bp 104/64 at this time. no furthor c/o dizziness.
[2023-03-17 16:14] LABS: Glucose Point of Care 268 mg/dl (65-105)
--- NOTE | 2023-03-17 16:59 | PCOTNOTE ---
The patient's BP was low upon OT arrival this afternoon. Checked with nursing, per nursing, to hold off on therapy at this time to let patient rest upon lying down.
[2023-03-17] MEDS: QUEtiapine FUMARATE 25 MG TABLET 12.5 MG PO (21:33)
[2023-03-17] MEDS: TAMSULOSIN HCL 0.4 MG CAPSULE PO (21:35)
[2023-03-18 02:17] LABS: Glucose Point of Care 268 mg/dl (65-105)
[2023-03-18 02:21] VITALS: BP 128/80; PULSE 100; TEMP 36.5; O2SAT 96
[2023-03-18 07:43] LABS: Glucose Point of Care 225 mg/dl (65-105)
[2023-03-18 08:00] VITALS: BP 145/84; PULSE 93; RESP 14; TEMP 36.7; O2SAT 98
[2023-03-18] MEDS: INSULIN HUMAN LISPRO (*BKC) 1,000 UNITS/10 ML VIAL SUB-Q ×2 (08:15→12:40)
[2023-03-18] MEDS: FLUTICASONE/UMECLIDIN/VILANTER 100-62.5-25 MCG ELLIPTA 1 PUFF INHALATION (08:57)
[2023-03-18] MEDS: ATORVASTATIN 40 MG TABLET 80 MG PO (08:59)
[2023-03-18] MEDS: VARENICLINE 1 MG TABLET PO ×2 (08:59→17:23)
[2023-03-18] MEDS: EMPAGLIFLOZIN 10 MG TABLET PO (09:00)
[2023-03-18] MEDS: SACUBITRIL/VALSARTAN 24-26 MG TABLET 0.5 TAB PO ×2 (09:00→20:32)
[2023-03-18] MEDS: THIAMINE HCL 100 MG TABLET PO (09:00)
[2023-03-18] MEDS: DOCUSATE SODIUM 100 MG CAPSULE PO ×2 (09:00→20:32)
[2023-03-18] MEDS: FLUDROCORTISONE ACETATE 0.1 MG TABLET PO (09:00)
[2023-03-18] MEDS: FAMOTIDINE 20 MG TABLET PO ×2 (09:01→17:23)
[2023-03-18] MEDS: APIXABAN 2.5 MG TABLET 5 MG PO ×2 (09:01→20:31)
[2023-03-18 09:02] VITALS: PULSE 84
[2023-03-18] MEDS: dilTIAZem HCL CD 180 MG CAP.24HR PO (09:02)
[2023-03-18] MEDS: METOPROLOL SUCCINATE EXT REL 25 MG TABCR PO (09:02)
[2023-03-18] MEDS: buPROPion HCL SR (12 HR) 150 MG TAB PO ×2 (09:02→20:32)
[2023-03-18] MEDS: FOLIC ACID 0.4 MG TABLET 0.8 MG PO (09:02)
[2023-03-18] MEDS: EZETIMIBE 10 MG TABLET PO (09:03)
[2023-03-18] MEDS: CLOPIDOGREL BISULFATE 75 MG TABLET PO (09:03)
[2023-03-18 11:48] LABS: Glucose Point of Care 220 mg/dl (65-105)
[2023-03-18 16:00] VITALS: BP 131/73; PULSE 88; RESP 16; TEMP 36.6; O2SAT 96
[2023-03-18 16:55] LABS: Glucose Point of Care 159 mg/dl (65-105)
[2023-03-18] MEDS: MELATONIN 5 MG TABLET 10 MG PO (20:32)
[2023-03-18] MEDS: TAMSULOSIN HCL 0.4 MG CAPSULE PO (20:32)
[2023-03-18] MEDS: QUEtiapine FUMARATE 25 MG TABLET 12.5 MG PO (20:33)
[2023-03-18 20:35] LABS: Glucose Point of Care 130 mg/dl (65-105)
[2023-03-18 23:17] VITALS: BP 141/84; PULSE 99; RESP 20; TEMP 36.6; O2SAT 97
[2023-03-19 07:57] LABS: Glucose Point of Care 234 mg/dl (65-105)
[2023-03-19 08:00] VITALS: BP 86/61; PULSE 113; RESP 14; TEMP 36.6; O2SAT 100
[2023-03-19] MEDS: MIDODRINE HCL 2.5 MG TABLET 5 MG PO (08:02)
--- NOTE | 2023-03-19 08:22 | PC.NURSE ---
B/P of reported to MARYAN Mccoy. Prn medication given for B/P.
[2023-03-19] MEDS: FOLIC ACID 0.4 MG TABLET 0.8 MG PO (08:47)
[2023-03-19 08:48] VITALS: PULSE 113
[2023-03-19] MEDS: dilTIAZem HCL CD 180 MG CAP.24HR PO (08:48)
[2023-03-19] MEDS: DOCUSATE SODIUM 100 MG CAPSULE PO ×2 (08:48→20:14)
[2023-03-19] MEDS: SACUBITRIL/VALSARTAN 24-26 MG TABLET 0.5 TAB PO ×2 (08:48→20:13)
[2023-03-19] MEDS: METOPROLOL SUCCINATE EXT REL 25 MG TABCR PO (08:48)
[2023-03-19] MEDS: THIAMINE HCL 100 MG TABLET PO (08:48)
[2023-03-19] MEDS: ATORVASTATIN 40 MG TABLET 80 MG PO (08:49)
[2023-03-19] MEDS: CLOPIDOGREL BISULFATE 75 MG TABLET PO (08:50)
[2023-03-19] MEDS: APIXABAN 2.5 MG TABLET 5 MG PO ×2 (08:50→20:14)
[2023-03-19] MEDS: FAMOTIDINE 20 MG TABLET PO ×2 (08:50→17:08)
[2023-03-19] MEDS: EZETIMIBE 10 MG TABLET PO (08:50)
[2023-03-19] MEDS: buPROPion HCL SR (12 HR) 150 MG TAB PO ×2 (08:50→20:14)
[2023-03-19] MEDS: EMPAGLIFLOZIN 10 MG TABLET PO (08:51)
[2023-03-19] MEDS: VARENICLINE 1 MG TABLET PO ×2 (08:51→17:08)
[2023-03-19] MEDS: FLUTICASONE/UMECLIDIN/VILANTER 100-62.5-25 MCG ELLIPTA 1 PUFF INHALATION (08:52)
[2023-03-19] MEDS: INSULIN HUMAN LISPRO (*BKC) 1,000 UNITS/10 ML VIAL SUB-Q (09:28)
--- NOTE | 2023-03-19 12:10 | PC.NURSE ---
Patients blood sugar resulted greater than 450, Blood sugar retaken blood sugar resulted at 210.
[2023-03-19 12:11] LABS: Glucose Point of Care > 450 mg/dl (65-105)
[2023-03-19 12:11] LABS: Glucose Point of Care 210 mg/dl (65-105)
[2023-03-19 16:40] VITALS: BP 117/68; PULSE 97; RESP 18; TEMP 36.8; O2SAT 97
[2023-03-19 17:13] LABS: Glucose Point of Care 186 mg/dl (65-105)
[2023-03-19] MEDS: QUEtiapine FUMARATE 25 MG TABLET 12.5 MG PO (20:14)
[2023-03-19] MEDS: TAMSULOSIN HCL 0.4 MG CAPSULE PO (20:14)
[2023-03-19] MEDS: MELATONIN 5 MG TABLET 10 MG PO (20:15)
[2023-03-19 20:23] LABS: Glucose Point of Care 115 mg/dl (65-105)
[2023-03-19 23:58] VITALS: BP 146/93; PULSE 93; RESP 20; TEMP 36.6; O2SAT 98
[2023-03-20] MEDS: GABAPENTIN 100 MG CAPSULE PO ×2 (02:05→09:33)
[2023-03-20 07:38] LABS: Glucose Point of Care 159 mg/dl (65-105)
[2023-03-20 08:00] VITALS: BP 87/66; PULSE 120; RESP 16; TEMP 36.5; O2SAT 97
[2023-03-20] MEDS: SACUBITRIL/VALSARTAN 24-26 MG TABLET 0.5 TAB PO ×2 (09:30→20:45)
[2023-03-20] MEDS: VARENICLINE 1 MG TABLET PO ×2 (09:31→17:54)
[2023-03-20] MEDS: FLUTICASONE/UMECLIDIN/VILANTER 100-62.5-25 MCG ELLIPTA 1 PUFF INHALATION (09:31)
[2023-03-20] MEDS: MIDODRINE HCL 2.5 MG TABLET 5 MG PO ×2 (09:32→17:54)
[2023-03-20] MEDS: APIXABAN 2.5 MG TABLET 5 MG PO ×2 (09:33→20:43)
[2023-03-20] MEDS: FOLIC ACID 0.4 MG TABLET 0.8 MG PO (09:34)
[2023-03-20] MEDS: THIAMINE HCL 100 MG TABLET PO (09:34)
[2023-03-20] MEDS: ATORVASTATIN 40 MG TABLET 80 MG PO (09:34)
[2023-03-20] MEDS: DOCUSATE SODIUM 100 MG CAPSULE PO ×2 (09:34→20:44)
[2023-03-20] MEDS: CLOPIDOGREL BISULFATE 75 MG TABLET PO (09:34)
[2023-03-20] MEDS: buPROPion HCL SR (12 HR) 150 MG TAB PO ×2 (09:34→20:44)
[2023-03-20 09:35] VITALS: PULSE 110
[2023-03-20] MEDS: FAMOTIDINE 20 MG TABLET PO ×2 (09:35→17:54)
[2023-03-20] MEDS: dilTIAZem HCL CD 180 MG CAP.24HR PO (09:35)
[2023-03-20] MEDS: EMPAGLIFLOZIN 10 MG TABLET PO (09:35)
[2023-03-20] MEDS: EZETIMIBE 10 MG TABLET PO (09:35)
[2023-03-20] MEDS: METOPROLOL SUCCINATE EXT REL 25 MG TABCR PO (09:35)
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
[2023-03-20 09:57] LABS: Basophils Absolute Auto 0.02 K/mm3 (0.00-0.10); Basophils Percent Auto 0.3 % (0.0-1.0); Eosinophils Absolute Auto 0.06 K/mm3 (0.02-0.50); Eosinophils Percent Auto 0.8 % (1.0-6.0); Hemoglobin 11.7 g/dL (12.4-15.3); Immature Granulocyte Absolute 0.03 K/mm3 (0.00-0.00); Immature Granulocyte Percent A 0.4 % (0.0-0.0); Lymphocytes Absolute Auto 1.26 K/mm3 (1.10-4.50); Lymphocytes Percent Auto 16.4 % (18.0-42.0); Mean Corpuscular HGB Conc 31.6 g/dL (32.0-36.0); Mean Corpuscular Hemoglobin 31.4 pg (27.0-31.0); Mean Corpuscular Volume 99.2 fL (78.0-102.0); Mean Platelet Volume 10.1 fl (8.7-11.0); Monocytes Absolute Auto 0.52 K/mm3 (0.10-0.90); Monocytes Percent Auto 6.8 % (2.0-11.0); Neutrophils Absolute Auto 5.8 K/mm3 (1.7-7.2); Neutrophils Percent Auto 75.3 % (50.0-70.0); Platelet Count Result 379 K/mm3 (150-420); Red Blood Count 3.73 M/mm3 (4.70-6.10); Red Cell Distribution Width 14.4 % (11.6-14.4); White Blood Count 7.7 K/mm3 (4.8-10.8)
[2023-03-20 10:17] LABS: Alanine Aminotransferase 30 U/L (16-63); Albumin Level 2.5 g/dL (3.4-5.0); Alkaline Phosphatase 192 U/L (46-116); Anion Gap 7 mmol/L (8-16); Aspartate Amino Transferase 14 U/L (15-37); Bilirubin,Total 0.4 mg/dL (0.00-1.00); Blood Urea Nitrogen 11 mg/dL (7-18); Calcium 9.6 mg/dL (8.5-10.1); Carbon Dioxide 31 mmol/L (21-32); Chloride 102 mmol/L (98-108); Estimated CRCL calculation 57 ml/min; Estimated Glomerular Filt Rate > 60; Glucose 225 mg/dL (70-99); Osmolality Calculated 296 mOsm/kg (285-295); Potassium 4.3 mmol/L (3.5-5.1); Sodium 140 mmol/L (136-145); Total Protein 7.1 g/dL (6.4-8.2)
--- NOTE | 2023-03-20 11:12 | PC.NURSE ---
Pt given medadrine at 0830. B/P @ 1030 was 117/75. MIRA
[2023-03-20 11:23] LABS: Appearance Urine Clear (Clear); Bilirubin Urine Negative (Negative); Blood Urine Negative (Negative); Color Urine Yellow (Yellow); Glucose Urine UA 3+ (Negative); Ketones Urine Negative (Negative); Leukocyte Esterase Ur Negative LEU/UL (Negative); Nitrate Urine Negative (Negative); Protein Urine Negative (Negative); Urobilinogen Urine 0.2 mg/dL (0.2-1.0)
[2023-03-20 11:30] LABS: Add Urine Microscopic? YES; Bacteria Urine Rare /hpf; RBC Urine None seen /hpf (0-2); WBC Urine None seen /hpf (0-3)
[2023-03-20 11:52] LABS: Glucose Point of Care 191 mg/dl (65-105)
[2023-03-20] MEDS: INSULIN HUMAN LISPRO (*BKC) 1,000 UNITS/10 ML VIAL SUB-Q (12:00)
[2023-03-20 12:19] LABS: Glucose Point of Care 207 mg/dl (65-105)
[2023-03-20 16:00] VITALS: BP 104/84; PULSE 95; RESP 16; TEMP 36.1; O2SAT 99
[2023-03-20 17:13] LABS: Glucose Point of Care 175 mg/dl (65-105)
[2023-03-20 20:00] VITALS: PULSE 95; RESP 16; O2SAT 99
[2023-03-20] MEDS: TAMSULOSIN HCL 0.4 MG CAPSULE PO (20:44)
[2023-03-20] MEDS: MELATONIN 5 MG TABLET 10 MG PO (20:44)
[2023-03-20] MEDS: QUEtiapine FUMARATE 25 MG TABLET PO (20:44)
[2023-03-20] MEDS: ACETAMINOPHEN 325 MG TABLET 650 MG PO (20:45)
[2023-03-21] VITALS: BP 123/69; PULSE 98; RESP 16; TEMP 37.3; O2SAT 97
--- NOTE | 2023-03-21 07:43 | PM.IMPN ---
Progress Note: A&P Assessment and Plan (1) Orthostatic hypotension: Code(s): I95.1 - Orthostatic hypotension Status: Acute Assessment and Plan: Recurrent problem this admission 03/10-- 80's/50's with position changes and + dizziness. Blood pressure medications were decreased and small fluid bolus received. 03/16--70/40's with position changes and + dizziness. 1 L fluid bolus and gave midodrine. Blood pressures are stable this morning SBP 140-120's. Will add Florinef today. D/C'd florinef on day 2 as it can worsen heart failure and he already has an EF of 15-20%. 03/20: Midodrine was scheduled 03/21: Reaching out to cardiology today to see if they can offer any other advice. Asked to stop Entresto for now. (2) Physical debility: Code(s): R53.81 - Other malaise Status: Acute Assessment and Plan: PT/OT for acute rehab, Swing bed admission, plan to return home after stay. (3) Pneumonia: Code(s): J18.9 - Pneumonia, unspecified organism Status: Acute Assessment and Plan: Right upper lobe pneumonia per CT scan, see above. Completed IV antibiotics at [place], on room air with no dyspnea. Resolved. (4) S/P lobectomy of lung: Code(s): Z90.2 - Acquired absence of lung [part of] Status: Acute Assessment and Plan: Right middle and right lower lobe lobectomy early February 2023 at [facility]. (5) History of CVA with residual deficit: Code(s): I69.30 - Unspecified sequelae of cerebral infarction Status: Acute Assessment and Plan: Residual left sided weakness and left facial droop. PT/OT and Speech Therapy consulted for rehab. (6) Atrial fibrillation: Code(s): I48.91 - Unspecified atrial fibrillation Status: Acute Assessment and Plan: Controlled ventricular rate, continue Eliquis, metoprolol and other home medications. 03/21: elevated heart rate in the 130's when I checked his vitals at bedside. EKG shows a-fib, rate 120's now. Will give his am medications and see if this helps. (7) Tobacco abuse: Code(s): Z72.0 - Tobacco use Status: Acute Assessment and Plan: Wellbutrin for smoking cessation. Offered nicotine patch, declined at this time. 03/21: holding chantix to see if this is contributing to his confusion. (8) Diabetes: Code(s): E11.9 - Type 2 diabetes mellitus without complications Status: Acute Assessment and Plan: ACHS fingerstick glucose with low dose correction and continue home Jardiance. Plan Swing bed with goal to return home. Blood pressures continue to be labile impeding his progression with therapy. Scheduled midodrine on 03/20 Speaking to cardiology at [place] today 03/21 Re-cert order as patient has been having difficulty progressing with therapy. Subjective Date/time seen: 03/21/23 07:43 Interval history: HPI obtained from the chart, This is a 67-year-old male patient being admitted to swing bed status for rehabilitation related to Physical debility s/p pneumonia s/p right middle and lower lobectomy with history of CVA with left sided residual defects.? Patient had right middle and lower lobe lobectomy at [facility] about 3 weeks ago for a lung nodule that was presumed to be cancerous.? Patient has a history of COPD and smoking, atrial fibrillation, diabetes, hypertension and hyperlipidemia.? After lobectomy at [facility] patient was going to be discharged to acute rehabilitation but insurance did not approve of such so patient went home.? While at home he developed altered mental status after a couple of days and had to be brought to the emergency department where he was admitted to [facility] due to altered mental status, pneumonia and UTI.? Status improved after IV antibiotics.? However, patient remains too weak to resume all normal activities in a home setting.? For this reason patient is admitted to swing bed for acute rehabilitation PT and OT.? Speech therapy will
[2023-03-21 07:47] LABS: Glucose Point of Care 152 mg/dl (65-105)
[2023-03-21 08:00] VITALS: BP 134/66; PULSE 110; RESP 18; TEMP 36.8; O2SAT 96
--- NOTE | 2023-03-21 08:32 | ECG_ITS ---
Measurements Intervals [place] Rate: 121 P: [place]: 0 QRS: 116 QRSD: 136 T: -5 QT: 330 QTc: 470 Interpretive Statements ATRIAL FIBRILLATION WITH RAPID VENTRICULAR RESPONSE RIGHT BUNDLE BRANCH BLOCK LEFT POSTERIOR FASCICULAR BLOCK BASELINE ARTIFACT- I, II, III, AVR, AVL, AVF, V1-V3 ABNORMAL ECG COMPARED TO ECG 03/02/2023 14:59:58 LEFT POSTERIOR FASCICULAR BLOCK NOW PRESENT Electronically Signed On 03-21-2023 8:44:43 VENETIAN BLIND ASSEMBLER by Inderjit Garcia D.O.
[2023-03-21 08:50] LABS: Troponin I 9.9 ng/L (0.00-60.4)
[2023-03-21] MEDS: MIDODRINE HCL 2.5 MG TABLET 5 MG PO (08:50)
[2023-03-21] MEDS: FLUTICASONE/UMECLIDIN/VILANTER 100-62.5-25 MCG ELLIPTA 1 PUFF INHALATION (08:50)
[2023-03-21] MEDS: DOCUSATE SODIUM 100 MG CAPSULE PO (08:50)
[2023-03-21] MEDS: EZETIMIBE 10 MG TABLET PO (08:50)
[2023-03-21 08:51] VITALS: PULSE 120
[2023-03-21] MEDS: APIXABAN 2.5 MG TABLET 5 MG PO (08:51)
[2023-03-21] MEDS: THIAMINE HCL 100 MG TABLET PO (08:51)
[2023-03-21] MEDS: CLOPIDOGREL BISULFATE 75 MG TABLET PO (08:51)
[2023-03-21] MEDS: METOPROLOL SUCCINATE EXT REL 25 MG TABCR PO (08:51)
[2023-03-21] MEDS: EMPAGLIFLOZIN 10 MG TABLET PO (08:51)
[2023-03-21] MEDS: ATORVASTATIN 40 MG TABLET 80 MG PO (08:52)
[2023-03-21] MEDS: FOLIC ACID 0.4 MG TABLET 0.8 MG PO (08:52)
[2023-03-21] MEDS: FAMOTIDINE 20 MG TABLET PO (08:52)
[2023-03-21] MEDS: dilTIAZem HCL CD 180 MG CAP.24HR PO (08:52)
[2023-03-21] MEDS: VARENICLINE 1 MG TABLET PO (08:53)
[2023-03-21] MEDS: buPROPion HCL SR (12 HR) 150 MG TAB PO (08:53)
[2023-03-21 08:58] LABS: Ammonia < 10 umol/L (11-32)
--- NOTE | 2023-03-21 10:24 | PC.NURSE ---
patient unable to sit straight up on side of bed this am. words are garbled and can not make sense of it. will not follow commands as you ask. almost like an octopus with many arms and legs. up with nabor valentino to recliner. pulls self up with min assist once you get him to put hands and feet in proper place. 2 assisted for safety. then his hr is over 120-130. po meds given. picked at breakfast. words at times are clearer and then not. confused only alert to self. back to bed with nabor valentino and pt. still able to pop right up when his hands and feet are in proper place. takes a minute to get him to put them where they belong and leave them there. wears out fast.
[2023-03-21 10:42] VITALS: BP 136/78; PULSE 144; RESP 20; TEMP 38; O2SAT 96
[2023-03-21 11:53] LABS: Troponin I 10.1 ng/L (0.00-60.4)
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
--- NOTE | 2023-03-21 15:27 | PC.NURSE ---
[address] [facility] and readmitted into an obs bed. awaiting bed at [place]. hr still 120-140's. restless at times. at bedside. aware of status changes and waiting transfer.
--- NOTE | 2023-03-21 16:38 | TS_ITS ---
This report was moved to the correct visit on 04/03/2023. The original report was signed by Kim Hawkins APRN on 03/21/23 1643. ADDENDUM COVID positive. Will give Remdesivir x 3 days due to current lung condition. Addendum Documented By: Kim Hawkins 03/21/23 1740 Addendum Signed By: <Electronically signed by Kim Hawkins>03/21/23 1 740 Transfer Discharge Sum: Prov Provider Date of admission: 03/21/23 11:21 Primary care physician: Vladimir Sloan MD Admitting clinician: Claude Mina MD DS: Admitting Diagnosis Discharge Date 03/21 Admitting Diagnosis weakness DS: Discharge Diagnosis Discharge Diagnosis Plan (1) Orthostatic hypotension: ?Code(s): I95.1 - Orthostatic hypotension ?Status:?Acute ?Assessment and Plan: Recurrent problem this admission * 03/10-- 80's/50's with position changes and + dizziness. Blood pressure medications were decreased and small fluid bolus received. * 03/16--70/40's with position changes and + dizziness. 1 L fluid bolus and gave midodrine. * Blood pressures are stable this morning SBP 140-120's. Will add Florinef today. * D/C'd florinef on day 2 as it can worsen heart failure and he already has an EF of 15-20%. * 03/20: Midodrine was scheduled * 03/21: Reaching out to cardiology today to see if they can offer any other advice. Asked to stop Entresto for now.(2) Physical debility: ?Code(s): R53.81 - Other malaise ?Status:?Acute ?Assessment and Plan: PT/OT for acute rehab, Swing bed admission, plan to return home after stay. (3) Pneumonia: ?Code(s): J18.9 - Pneumonia, unspecified organism ?Status:?Acute ?Assessment and Plan: Right upper lobe pneumonia per CT scan, see above.? Completed IV antibiotics at [place], on room air with no dyspnea. Resolved. (4) S/P lobectomy of lung: ?Code(s): Z90.2 - Acquired absence of lung [part of] ?Status:?Acute ?Assessment and Plan: Right middle and right lower lobe lobectomy early February 2023 at [facility]. (5) History of CVA with residual deficit: ?Code(s): I69.30 - Unspecified sequelae of cerebral infarction ?Status:?Acute ?Assessment and Plan: Residual left sided weakness and left facial droop.? PT/OT and Speech Therapy consulted for rehab. (6) Atrial fibrillation: ?Code(s): I48.91 - Unspecified atrial fibrillation ?Status:?Acute ?Assessment and Plan: Controlled ventricular rate, continue Eliquis, metoprolol and other home medications. 03/21: elevated heart rate in the 130's when I checked his vitals at bedside. EKG shows a-fib, rate 120's now. Will give his am medications and see if this helps. (7) Tobacco abuse: ?Code(s): Z72.0 - Tobacco use ?Status:?Acute ?Assessment and Plan: Wellbutrin for smoking cessation. Offered nicotine patch, declined at this time. 03/21: holding chantix to see if this is contributing to his confusion. (8) Diabetes: ?Code(s): E11.9 - Type 2 diabetes mellitus without complications ?Status:?Acute ?Assessment and Plan: ACHS fingerstick glucose with low dose correction and continue home Jardiance. Plan Swing bed with goal to return home. Blood pressures continue to be labile impeding his progression with therapy. Scheduled midodrine on 03/20 Speaking to cardiology at [place] today 03/21 Re-cert order as patient has been having difficulty progressing with therapy. Transfer Discharge Sum: Med Medications Active and Home Medications: Home Medications nitroglycerin 0.4 mg sublingual tablet 0.4 mg
[2023-04-10 07:16] LABS: Glucose Point of Care 202 mg/dl (65-105)
[2023-04-10 07:16] LABS: Glucose Point of Care 157 mg/dl (65-105)
== END 2023-03-21 11:20 | disposition critical access hospital (66) | DRG 948 ==
PROVIDERS: Nurse Practitioner; Nurse Practitioner Acute Care; Admitting Provider Internal Medicine; PCP Emergency Medicine; Visit Provider Internal Medicine
DX: R53.81 Other malaise (principal); I69.354 Hemiplegia and hemiparesis following cerebral infarction affecting left non-dominant side; I48.20 Chronic atrial fibrillation, unspecified; I50.22 Chronic systolic (congestive) heart failure; I11.0 Hypertensive heart disease with heart failure; I95.1 Orthostatic hypotension; J44.9 Chronic obstructive pulmonary disease, unspecified; E11.9 Type 2 diabetes mellitus without complications; E78.5 Hyperlipidemia, unspecified; I69.391 Dysphagia following cerebral infarction; I69.392 Facial weakness following cerebral infarction; K59.00 Constipation, unspecified; R32 Unspecified urinary incontinence; R41.0 Disorientation, unspecified; F17.210 Nicotine dependence, cigarettes, uncomplicated; Z79.01 Long term (current) use of anticoagulants; Z90.2 Acquired absence of lung [part of]; Z79.02 Long term (current) use of antithrombotics/antiplatelets
CPT/HCPCS: 36415; 70450; 71045; 80053; 80069; 81001; 82140; 82948; 84484; 85025; 92507; 92523; 93005; 96125; 97110; 97161; 97165; 97530; 97535; A9270; J1815; J7030; J7120

== ENCOUNTER 2023-03-21 11:21 | Observation (INO) | payer MEDICARE, SELFPAY ==
[2023-03-21] VITALS (12 sets, daily range): BP systolic 124–142; BP diastolic 68–85; PULSE 114–142; RESP 18–20; TEMP 38.1–38.6; O2SAT 96–98; BMI 18.3
[2023-03-21 11:47] LABS: Basophils Absolute Auto 0.04 K/mm3 (0.00-0.10); Basophils Percent Auto 0.5 % (0.0-1.0); Eosinophils Absolute Auto 0.02 K/mm3 (0.02-0.50); Eosinophils Percent Auto 0.2 % (1.0-6.0); Hemoglobin 11.1 g/dL (12.4-15.3); Immature Granulocyte Absolute 0.02 K/mm3 (0.00-0.00); Immature Granulocyte Percent A 0.2 % (0.0-0.0); Lymphocytes Absolute Auto 0.52 K/mm3 (1.10-4.50); Lymphocytes Percent Auto 6.5 % (18.0-42.0); Mean Corpuscular HGB Conc 30.8 g/dL (32.0-36.0); Mean Corpuscular Hemoglobin 31.1 pg (27.0-31.0); Mean Corpuscular Volume 100.8 fL (78.0-102.0); Mean Platelet Volume 10.8 fl (8.7-11.0); Monocytes Absolute Auto 0.57 K/mm3 (0.10-0.90); Monocytes Percent Auto 7.1 % (2.0-11.0); Neutrophils Absolute Auto 6.9 K/mm3 (1.7-7.2); Neutrophils Percent Auto 85.5 % (50.0-70.0); Platelet Count Result 345 K/mm3 (150-420); Red Blood Count 3.57 M/mm3 (4.70-6.10); Red Cell Distribution Width 14.3 % (11.6-14.4); White Blood Count 8.1 K/mm3 (4.8-10.8)
[2023-03-21] MEDS: SODIUM CHLORIDE 0.9% IV 1,000 ML 500 ML IV CONT (11:58)
[2023-03-21 11:59] LABS: Alanine Aminotransferase 32 U/L (16-63); Albumin Level 2.4 g/dL (3.4-5.0); Alkaline Phosphatase 187 U/L (46-116); Anion Gap 10 mmol/L (8-16); Aspartate Amino Transferase 35 U/L (15-37); Bilirubin,Total 0.6 mg/dL (0.00-1.00); Blood Urea Nitrogen 12 mg/dL (7-18); Calcium 9.6 mg/dL (8.5-10.1); Carbon Dioxide 27 mmol/L (21-32); Chloride 103 mmol/L (98-108); Estimated Glomerular Filt Rate > 60; Glucose 178 mg/dL (70-99); Magnesium 1.9 mg/dL (1.8-2.4); Osmolality Calculated 293 mOsm/kg (285-295); Potassium 4.1 mmol/L (3.5-5.1); Sodium 140 mmol/L (136-145); Total Protein 6.8 g/dL (6.4-8.2)
[2023-03-21] MEDS: dilTIAZem 100 MG/100 ML 100 MG/100 ML BAG IV CONT ×2 (12:00→14:05)
--- NOTE | 2023-03-21 13:23 | PC.NURSE ---
1121 patient transfered from [facility] to obs bed at this time for a-fib with rvr. hr 130-140's. is aware and at bedside. we are waiting for bed at [place] at this time. 1200 #20 iv started in l hand. cardizem gtt starts. tele in place. a-fib with rvr. rates 140's. bp 148/62. encouraged to watch him. not let him have water pitcher and assist with lunch. keeps guzzling water or dumping it all over because not able to get to his mouth. at times he can and others not. agrees. keeps pocketing solid food in mouth. not able to swallow it at this time. hr 130's and bp 158/84. cardizem gtt cont. 1230 still waiting for bed. remains restless in bed. hr 130's. bp 148/84. cont iv gtt. 1300 hr remains over 120-140's at times is restless and over times sleeps. at times words are clear and then are garbled. still at bedside. 1330 director diversity aware of hr 140's. restless at this time. wiggles down in bed and repositioned repeatedly. bp 160/84
--- NOTE | 2023-03-21 13:40 | PHAR ---
VERIFIED PT HOME MED VILAZODONE 20MG TABLET BY MOUTH DAILY
[2023-03-21] MEDS: dilTIAZem HCl INJ 25 MG/5 ML VIAL 15 MG IV PUSH ×2 (13:41→16:58)
--- NOTE | 2023-03-21 13:45 | PC.NURSE ---
prior vs bp 148/78. hr 134. 15mg ivp cardizem given. hr 106. bp 123/67 after. spo2 99% with 2l o2 per nc.
[2023-03-21 15:11] LABS: Troponin I 11.1 ng/L (0.00-60.4)
--- NOTE | 2023-03-21 15:19 | PC.NURSE ---
141 titrated cardizem to 10mg. a-fib with rvr with rates 120-130's. bp 136/84. can be restless at times. in and out of room.
--- NOTE | 2023-03-21 16:21 | PC.NURSE ---
jayde aware of no changes in hr and cardizem gtt at 15mg. temp 101.5. him being restless in bed. new orders are being put in by membership solicitor.
[2023-03-21] MEDS: ACETAMINOPHEN 325 MG TABLET 650 MG PO (16:23)
[2023-03-21] MEDS: FAMOTIDINE 20 MG TABLET PO (16:23)
[2023-03-21 16:28] LABS: Glucose Point of Care 107 mg/dl (65-105)
--- NOTE | 2023-03-21 16:28 | PM.TDS ---
Transfer Discharge Sum: Prov Provider Date of admission: 03/21/23 11:21 Primary care physician: Vladimir Sloan MD Admitting clinician: Claude Mina MD DS: Admitting Diagnosis Discharge Date 03/21 Admitting Diagnosis weakness DS: Discharge Diagnosis Discharge Diagnosis Plan (1) Orthostatic hypotension: ?Code(s): I95.1 - Orthostatic hypotension ?Status:?Acute ?Assessment and Plan: Recurrent problem this admission 03/10-- 80's/50's with position changes and + dizziness. Blood pressure medications were decreased and small fluid bolus received. 03/16--70/40's with position changes and + dizziness. 1 L fluid bolus and gave midodrine. Blood pressures are stable this morning SBP 140-120's. Will add Florinef today. D/C'd florinef on day 2 as it can worsen heart failure and he already has an EF of 15-20%. 03/20: Midodrine was scheduled 03/21: Reaching out to cardiology today to see if they can offer any other advice. Asked to stop Entresto for now.(2) Physical debility: ?Code(s): R53.81 - Other malaise ?Status:?Acute ?Assessment and Plan: PT/OT for acute rehab, Swing bed admission, plan to return home after stay. (3) Pneumonia: ?Code(s): J18.9 - Pneumonia, unspecified organism ?Status:?Acute ?Assessment and Plan: Right upper lobe pneumonia per CT scan, see above.? Completed IV antibiotics at [facility], on room air with no dyspnea. Resolved. (4) S/P lobectomy of lung: ?Code(s): Z90.2 - Acquired absence of lung [part of] ?Status:?Acute ?Assessment and Plan: Right middle and right lower lobe lobectomy early February 2023 at [facility]. (5) History of CVA with residual deficit: ?Code(s): I69.30 - Unspecified sequelae of cerebral infarction ?Status:?Acute ?Assessment and Plan: Residual left sided weakness and left facial droop.? PT/OT and Speech Therapy consulted for rehab. (6) Atrial fibrillation: ?Code(s): I48.91 - Unspecified atrial fibrillation ?Status:?Acute ?Assessment and Plan: Controlled ventricular rate, continue Eliquis, metoprolol and other home medications. 03/21: elevated heart rate in the 130's when I checked his vitals at bedside. EKG shows a-fib, rate 120's now. Will give his am medications and see if this helps. (7) Tobacco abuse: ?Code(s): Z72.0 - Tobacco use ?Status:?Acute ?Assessment and Plan: Wellbutrin for smoking cessation. Offered nicotine patch, declined at this time. 03/21: holding chantix to see if this is contributing to his confusion. (8) Diabetes: ?Code(s): E11.9 - Type 2 diabetes mellitus without complications ?Status:?Acute ?Assessment and Plan: ACHS fingerstick glucose with low dose correction and continue home Jardiance. Plan Swing bed with goal to return home. Blood pressures continue to be labile impeding his progression with therapy. Scheduled midodrine on 03/20 Speaking to cardiology at [facility] today 03/21 Re-cert order as patient has been having difficulty progressing with therapy. Transfer Discharge Sum: Med Medications Active and Home Medications: Home Medications nitroglycerin 0.4 mg sublingual tablet 0.4 mg sublingual Q5M PRN Chest Pain 08/07/22 [History Confirmed 03/21/23] apixaban 5 mg tablet (Eliquis) 5 mg PO Q12HR #60 tabs 09/14/22 [Rx Confirmed 03/21/23] atorvastatin 80 mg tablet 80 mg PO DAILY #30 tabs 09/14/22 [Rx Confirmed 03/21/23] ezetimibe 10 mg tablet 10 mg PO DAILY #30 tabs 09/14/22 [Rx Confirmed 03/21/23] thiamine HCl (vitamin B1) 100 mg tablet (Vitamin B-1) 100 mg PO QAM #30 tabs 09/14/22 [Rx Confirmed 03/21/23] quetiapine 25 mg tablet (Seroquel) 12.5 mg PO HS 11/08/22 [History Confirmed 03/21/23] clopidogrel 75 mg tablet 75 mg PO DAILY 11/11/22 [History Confirmed 03/21/23] bupropion HCl (smoking deter) 150 mg tablet,12 hr sustained-release(smoking deterrent) 150 mg PO BID 12/05/22 [History Confirmed 03/21/23] empagliflozin 10 mg tablet (Jardiance) 10 mg PO
--- NOTE | 2023-03-21 16:46 | PC.NURSE ---
jayde notified of hr, temp and restlessness, pt is alert to self and place at this time, has requested to stay overnight with him if possible, urinal emptied by , waiting on pharmacy to verify medications
[2023-03-21] MEDS: SODIUM CHLORIDE 0.9% IV 1,000 ML 999 ML IV CONT (16:58)
[2023-03-21 17:11] LABS: Lactic Acid Reflex 0.8 mmol/L (0.4-2.0)
[2023-03-21 17:29] LABS: Influenza A QL RT-PCR Negative (Negative); Influenza B QL RT-PCR Negative (Negative); SARS-CoV-2 RNA PCR Positive (Negative)
[2023-03-21 17:33] LABS: RSV RNA, RT-PCR Negative (Negative)
--- NOTE | 2023-03-21 17:43 | PC.NURSE ---
jayde has notified house painter at [facility] of pt's covid status, waiting on bed at this time
[2023-03-21] MEDS: SODIUM CHLORIDE 0.9% IV 1,000 ML 100 ML IV CONT (18:11)
[2023-03-21 18:13] LABS: Prothrombin Time 11.1 Seconds (9.50-12.10)
--- NOTE | 2023-03-21 18:48 | PC.NURSE ---
marco has given report to macey ontiveros @ [facility]. saas called for ALS and no rig in town at this time. brittanys called and will be in route.
--- NOTE | 2023-03-21 19:29 | PC.NURSE ---
pt picked up by [facility] , sent with ivs intact, cardizem running at 15mg, vanc running secondary with puma, 02 at 2L
--- NOTE | 2023-03-21 19:44 | PC.NURSE ---
home medications and belongings sent with , pt is wearing his glasses
[2023-03-22 07:22] LABS: Procalcitonin 0.1 ng/mL
--- NOTE | 2023-03-29 09:23 | PM.IMHP ---
H&P: HPI History of Present Illness Date/Time: 03/29/23 09:23 Chief Complaint: AMS, A-fib RVR Narrative: This is a 67-year-old male patient being admitted to swing bed status for rehabilitation related to Physical debility s/p pneumonia s/p right middle and lower lobectomy with history of CVA with left sided residual defects.? Patient had right middle and lower lobe lobectomy at [facility] about 3 weeks ago for a lung nodule that was presumed to be cancerous.? Patient has a history of COPD and smoking, atrial fibrillation, diabetes, hypertension and hyperlipidemia.? After lobectomy at [facility] patient was going to be discharged to acute rehabilitation but insurance did not approve of such so patient went home.? While at home he developed altered mental status after a couple of days and had to be brought to the emergency department where he was admitted to [facility] due to altered mental status, pneumonia and UTI.? Status improved after IV antibiotics.? However, patient remains too weak to resume all normal activities in a home setting.? For this reason patient is admitted to swing bed for acute rehabilitation PT and OT.? Speech therapy will also be consulted due to residual dysphagia and left-sided facial droop.? Patient previously had G-tube in place but no longer does.? Overall patient feels well today just feeling a little short of breath.? Patient seemed unaware that he would no longer a deep breath on the right side status post lobectomy. Patient has been a swing bed at [facility] but given his acute a-fib RVR he is being changed to an inpatient admission. 03/21: Jere continues to be confused today. He thinks he is at an audition for a play. He is restless and impulsive. Can check a ammonia level. He is sitting in the chair and states that he wants his blood pressure checked because he feels dizzy. Blood pressure is 90's/60's but his heart rate is elevated in the 130-140's. He is short of breath. Stat EKG, chest XR, and labs ordered. I spoke with Dr Sellers, returned materials inspector at [facility] who is familiar with this patient. I reviewed concerns for his persistent orthostasis. She has recommending just stopping his Entresto for now. Okay to continue with scheduled midodrine. EKG shows a-fib RVR 120's but he has not had his daily medications yet. Will give oral agents and recheck response. Nursing reminded me that possibly his Chantix could be causing his confusion. Will hold this medication starting tomorrow as he has already had it today. 1030-heart rate is still and the 140s despite oral medications.? Placed on telemetry.? Will start with diltiazem drip now as well as a 500 mL bolus.? I spoke with Dr. Padron who is accepting him to [facility] with in IMU bed.? Will need Cardiology consult.? He is also being worked up for his confusion.? No clear signs of infection yet and so far he has been afebrile. 1325-heart rate remains in the 130s.? Blood pressures are stable.? I did not realize the initial diltiazem drip did not come with a bolus dose.? Will bolus with 15 mg of diltiazem now.? Titration orders added. 1630-patient is max on his diltiazem drip at 15 milligrams/hour and heart rate remains elevated in the 120s.? Repeat 2nd 15 mg bolus of diltiazem now and increased dose max to 20 milligrams/hour.? He is also now afebrile 101.5, blood pressure 142/75.? 97% on room air.? Chest x-ray this morning showed mild opacity along right mid to lower lung thought to be scarring or atelectasis.? However, now that he is febrile will treat him for hospital-acquired pneumonia.? Repeat 1 L saline bolus and placed on maintenance fluids.? Starting meropenem and vancomycin.? Lactic, procal, CRP, blood cultures pending.? Still awaiting IMU bed [facility].? Swabbed for COVID, RSV, flu. Review of Systems Review of Systems: ROS unobtainable: Yes unobtainable due to mental status PMFSH Past Medical History Medical History (Updated 03/23/23 @ 13:37 by Carmen Block MD)
--- NOTE | 2023-03-29 09:27 | PM.DS ---
DS: Admitting Diagnosis Discharge Date 03/21/23 Admitting Diagnosis afib rvr DS: Discharge Diagnosis Discharge Diagnosis (1) CAD (coronary artery disease): Code(s): I25.10 - Atherosclerotic heart disease of [place] coronary artery without angina pectoris Status: Acute (2) Acute metabolic encephalopathy: Code(s): G93.41 - Metabolic encephalopathy Status: Acute (3) Acute on chronic systolic heart failure: Code(s): I50.23 - Acute on chronic systolic (congestive) heart failure Status: Acute (4) Sepsis: Code(s): A41.9 - Sepsis, unspecified organism Status: Acute (5) Pneumonia due to COVID-19 virus: Code(s): U07.1 - COVID-19; J12.82 - Pneumonia due to coronavirus disease 2019 Status: Acute (6) Atrial fibrillation: Code(s): I48.91 - Unspecified atrial fibrillation Status: Acute Plan Plan (1) Orthostatic hypotension: ?Code(s): I95.1 - Orthostatic hypotension ?Status:?Acute ?Assessment and Plan: Recurrent problem this admission 03/10-- 80's/50's with position changes and + dizziness. Blood pressure medications were decreased and small fluid bolus received. 03/16--70/40's with position changes and + dizziness. 1 L fluid bolus and gave midodrine. Blood pressures are stable this morning SBP 140-120's. Will add Florinef today. D/C'd florinef on day 2 as it can worsen heart failure and he already has an EF of 15-20%. 03/20: Midodrine was scheduled 03/21: Reaching out to cardiology today to see if they can offer any other advice. Asked to stop Entresto for now.(2) Physical debility:?Code(s): R53.81 - Other malaise ?Status:?Acute ?Assessment and Plan: PT/OT for acute rehab, Swing bed admission, plan to return home after stay. (3) Pneumonia: ?Code(s): J18.9 - Pneumonia, unspecified organism ?Status:?Acute ?Assessment and Plan: Right upper lobe pneumonia per CT scan, see above.? Completed IV antibiotics at [place], on room air with no dyspnea. Resolved. (4) S/P lobectomy of lung: ?Code(s): Z90.2 - Acquired absence of lung [part of] ?Status:?Acute ?Assessment and Plan: Right middle and right lower lobe lobectomy early February 2023 at [facility]. (5) History of CVA with residual deficit: ?Code(s): I69.30 - Unspecified sequelae of cerebral infarction ?Status:?Acute ?Assessment and Plan: Residual left sided weakness and left facial droop.? PT/OT and Speech Therapy consulted for rehab. (6) Atrial fibrillation: ?Code(s): I48.91 - Unspecified atrial fibrillation ?Status:?Acute ?Assessment and Plan: Controlled ventricular rate, continue Eliquis, metoprolol and other home medications. 03/21: elevated heart rate in the 130's when I checked his vitals at bedside. EKG shows a-fib, rate 120's now. Will give his am medications and see if this helps. (7) Tobacco abuse: ?Code(s): Z72.0 - Tobacco use ?Status:?Acute ?Assessment and Plan: Wellbutrin for smoking cessation. Offered nicotine patch, declined at this time. 03/21: holding chantix to see if this is contributing to his confusion. (8) Diabetes: ?Code(s): E11.9 - Type 2 diabetes mellitus without complications ?Status:?Acute ?Assessment and Plan: ACHS fingerstick glucose with low dose correction and continue home Jardiance. Plan Swing bed with goal to return home. Blood pressures continue to be labile impeding his progression with therapy. Scheduled midodrine on 03/20 Speaking to cardiology at [place] today 03/21 Re-cert order as patient has been having difficulty progressing with therapy. DS: Summary Hospital Course Hospital Course: This is a 67-year-old male patient being admitted to swing bed status for rehabilitation related to Physical debility s/p pneumonia s/p right middle and lower lobectomy with history of CVA with left sided residual defects.? Patient [place] lobe [place]
[2023-04-27 09:04] LABS: Glucose Point of Care 220 mg/dl (65-105)
== END 2023-03-21 19:30 | disposition short-term general hospital (02) ==
PROVIDERS: Nurse Practitioner Acute Care; Admitting Provider Internal Medicine; PCP Emergency Medicine; Visit Provider Internal Medicine
DX: I48.91 Unspecified atrial fibrillation (principal); I95.1 Orthostatic hypotension; U07.1 COVID-19; J12.82 Pneumonia due to coronavirus disease 2019; I25.10 Atherosclerotic heart disease of native coronary artery without angina pectoris; G93.41 Metabolic encephalopathy; R13.10 Dysphagia, unspecified; I69.392 Facial weakness following cerebral infarction; I69.354 Hemiplegia and hemiparesis following cerebral infarction affecting left non-dominant side; I50.23 Acute on chronic systolic (congestive) heart failure; I11.0 Hypertensive heart disease with heart failure; J44.9 Chronic obstructive pulmonary disease, unspecified; G47.00 Insomnia, unspecified; R32 Unspecified urinary incontinence; F17.200 Nicotine dependence, unspecified, uncomplicated; E78.5 Hyperlipidemia, unspecified; R07.9 Chest pain, unspecified; E11.9 Type 2 diabetes mellitus without complications; F17.210 Nicotine dependence, cigarettes, uncomplicated; F10.90 Alcohol use, unspecified, uncomplicated; Z93.1 Gastrostomy status; Z90.2 Acquired absence of lung [part of]; Z79.01 Long term (current) use of anticoagulants; Z79.02 Long term (current) use of antithrombotics/antiplatelets; Z79.84 Long term (current) use of oral hypoglycemic drugs; Z79.51 Long term (current) use of inhaled steroids; Z79.891 Long term (current) use of opiate analgesic; Z79.899 Other long term (current) drug therapy
CPT/HCPCS: 36415; 80053; 82948; 83605; 83735; 84145; 84484; 85025; 85610; 86140; 87040; 87086; 87637; 96365; 96366; 96367; 96376; A9270; G0378; G0379; J3370; J7030

== ENCOUNTER 2023-03-22 04:29 | Inpatient (IN) | payer MEDICARE, SELFPAY ==
[2023-03-21 20:25] VITALS: BP 116/64; PULSE 103; RESP 20; TEMP 37.1; O2SAT 98
[2023-03-21 20:30] VITALS: PULSE 101
[2023-03-21] MEDS: dilTIAZem 100 MG/100 ML 100 MG/100 ML BAG 15 MG IV CONT (20:30)
--- NOTE | 2023-03-21 21:02 | ADMGEN ---
This patient, Jere Mcallister, was admitted to IMU Room 232-01 @ 2030 Patient/family oriented to hospital policies and general routines including ID bracelet, bed and alarms, visiting hours, pain management, procedures, bathroom and other care routines, personal items, smoking policy, room service/diet, and visiting hours. Information on how to activate the Rapid Response Team has been discussed. Patient/Family are encouraged to report perceived risks to care and to ask questions if they do not understand what they are told or what they should do.
[2023-03-21 22:00] VITALS: PULSE 104
[2023-03-22] VITALS (21 sets, daily range): BP systolic 128–145; BP diastolic 61–73; PULSE 83–110; RESP 16–22; TEMP 36.6–37.3; O2SAT 95–100
--- NOTE | ~2023-03-22 | XR_ITS ---
XR chest 1V portable 04/05/2023 15:06 Indication: Increased oxygen needs. Procedure: AP portable chest Comparison: Comparison to multiple prior studies sequentially, with oldest reviewed study dated 03/15. Findings: Stable right hydropneumothorax. Stable bilateral airspace disease, consistent with pneumoni a. Small right pleural effusion. No acute osseous abnormality. There are surgical changes of the righ t lower thorax. Impression: 1: Stable bilateral airspace disease, consistent with pneumonia. 2: Stable small right hydropneumothorax. Reviewed, dictated and finalized at location B. [employer] Impression: 1: Stable bilateral airspace disease, consistent with pneumonia. 2: Stable small right hydropneumothorax.
--- NOTE | ~2023-03-22 | XR_ITS ---
EXAMINATION: XR chest 1V portable DATE: 03/26/2023 05:53 INDICATION: Lung cancer. COVID-19 pneumonia. TECHNIQUE: A single frontal view of the chest was obtained. COMPARISON: Chest single view 03/22/2023, chest CT 03/22/2023 FINDINGS: Again seen is a small right hydropneumothorax. There are changes of right lower lobectomy. There are airspace opacities in right mid and lower lung zones and left lower lung zone. Cardiomegaly is noted. There are healing fractures of right seventh and eighth ribs. IMPRESSION: 1. Stable small right hydropneumothorax. 2. Stable airspace opacities in right mid and lower lung zones and left lower lung zone, consistent w ith pneumonia. Reviewed, dictated and finalized at location E. [employer] IMPRESSION: 1. Stable small right hydropneumothorax. 2. Stable airspace opacities in right mid and lower lung zones and left lower l laura zone, consistent with pneumonia.
--- NOTE | ~2023-03-22 | CT_ITS ---
EXAMINATION: CT brain wo con INDICATION: Head injury COMPARISON: 03/20/2023 TECHNIQUE: Standard unenhanced head CT. The dose-length product (DLP) was 756.67 mGy-cm. The mA was a djusted according to patient size. Iterative reconstruction technique was employed. FINDINGS: No acute intraparenchymal hemorrhage. No evidence of mass lesion. No evidence of acute infa rction. There is an old posterior right frontal lobe infarct. Also noted are punctate areas of infarc tion in the bilateral basal ganglia. There is mild periventricular and subcortical hypodensity probab ly related to small vessel ischemic disease. There is mild prominence of the sulci and ventricles rel ated to cerebral atrophy. Intracranial calcified cerebral atherosclerosis is noted. No extra-axial co llections. No mass effect or midline shift. The orbits and soft tissues are unremarkable. There is mi ld mucosal thickening of the paranasal sinuses. IMPRESSION: 1. Areas of prior infarction without acute intracranial abnormality. 2. Age related findings. Reviewed, dictated and finalized at location B. PHONIC RN
--- NOTE | ~2023-03-22 | CT_ITS ---
EXAMINATION: CT cervical spine wo con DATE: 03/22/2023 12:57 INDICATION: Head injury TECHNIQUE: Computed tomography (CT) of the cervical spine was performed without intravenous contrast. The dose-length product (DLP) was 246.10 mGy-cm. Automated exposure control and iterative reconstruc tion technique were employed. COMPARISON: 08/07/2022 FINDINGS: Bone alignment is normal. There is no fracture. The vertebral body heights and intervertebr al disc spaces are maintained. Degenerative osteophytes project from the anterior endplates of multip le vertebral bodies. The odontoid process is intact. There is multilevel moderate facet and uncoverte bral joint osteoarthritis. There is moderate neuroforaminal stenosis on the right at C5-6. IMPRESSION: 1. Moderate cervical spondylosis without acute findings. Reviewed, dictated and finalized at location B. [employer] TECHNICIAN
--- NOTE | ~2023-03-22 | CT_ITS ---
EXAMINATION: CT brain wo con INDICATION: Altered mental status COMPARISON: 03/22/2023 TECHNIQUE: Standard unenhanced head CT. The dose-length product (DLP) was 681.00 mGy-cm. The mA was a djusted according to patient size. Iterative reconstruction technique was employed. FINDINGS: No acute intraparenchymal hemorrhage. No evidence of mass lesion. No evidence of acute infa rction. Again noted are areas of prior infarction in the posterior right frontal lobe and in the bila teral basal ganglia. There is mild periventricular and subcortical hypodensity probably related to sm all vessel ischemic disease. There is mild prominence of the sulci and ventricles related to cerebral atrophy. Intracranial calcified cerebral atherosclerosis is noted. No extra-axial collections. No ma ss effect or midline shift. The orbits and soft tissues are unremarkable. There is mild mucosal thick ening of the paranasal sinuses. IMPRESSION: 1. Areas of prior infarction without acute intracranial abnormality. 2. Age related findings. Reviewed, dictated and finalized at location F. OMER SERVICE REPRESENTATIVE TEACHER
--- NOTE | ~2023-03-22 | CT_ITS ---
EXAMINATION: CT chest abdomen wo con DATE: 04/05/2023 17:12 INDICATION: respiratory distress . TECHNIQUE: Computed tomography (CT) of the chest, abdomen, was performed with 100 mL Omnipaque-350 in travenous contrast. Automated exposure control and iterative reconstruction technique were employed. The dose-length product was 373.37 mGy-cm. COMPARISON: 03/29/2023 FINDINGS: Exam limited by noncontrast technique, arm down positioning, and motion. CHEST: Thoracic aorta: Moderate arch calcification. No significant dilation. Lung parenchyma and airways: Unchanged right lung and left lower lobe tree-in-bud and centrilobular n odular opacities. Dependent consolidation in the right lung. Status post right middle and lower lobe pneumonectomies. Bilateral dependent airway debris. Thoracic inlet, axillae and chest wall: No thyroid or soft tissue mass. No axillary lymphadenopathy. Mediastinum: No mass or lymphadenopathy. Heart and pericardium: Normal heart size. No pericardial effusion. Coronary artery calcifications: Moderate. Pleura: Moderate block Fox, or inferior fluid and gas collection in the right pleural space. Gas dasia bles within the heterogeneous fluid. Overall unchanged. Thoracic bones: No acute osseous finding in the chest. ABDOMEN: Liver: Normal. Biliary/Gallbladder: Gallbladder is normal. No bile duct dilation. Pancreas: No mass or duct dilation. Mild atrophy. Spleen: Normal. Adrenals:No mass. Kidneys: No suspicious mass, obstructing stone, or hydronephrosis. Bilateral perinephric stranding. GI tract: No small or large bowel dilation. Normal appendix. Mesentery/Peritoneum: No ascites, mass, or free air. Retroperitoneum: No mass Atherosclerotic abdominal aortic and/or arterial calcifications. Soft Tissues: Soft tissues and body wall unremarkable. Abdominal bones: No acute osseous finding in the abdomen. IMPRESSION: Unchanged pulmonary opacities likely representing infection, possibly with a component of aspiration. Unchanged moderate, possibly loculated, hydropneumothorax. Reviewed, dictated and finalized at location K. NING DOFFER IMPRESSION: Unchanged pulmonary opacities likely representing infection, possibly with a co mponent of aspiration. Unchanged moderate, possibly loculated, hydropneumothorax.
--- NOTE | ~2023-03-22 | XR_ITS ---
Portable chest x-ray Comparison: 03/29/2023 at 5:33 AM Clinical History: Shortness of breath Findings: Stable right basilar pneumothorax and/or trapped lung with suture lines present. Haziness in the aerated right lung is again present. Left lung clear. Cardiomediastinal silhouette is stable. Stable fracture deformities of the right seventh and eighth ribs. Impression: Stable right basilar pneumothorax and/or trapped lung with postoperative change. Hazy airspace disease in the aerated right lung. Correlate for pneumonia or atelectatic change. Reviewed, dictated and finalized at [facility]. AL COMMODITY MANAGER Impression: Stable right basilar pneumothorax and/or trapped lung with postoperative change . Hazy airspace disease in the aerated right lung. Correlate for pneumonia or ate lectatic change.
--- NOTE | ~2023-03-22 | CT_ITS ---
Clinical Indication: Shortness of breath CT Scan of the Chest with Contrast: Technique: Contiguous sections were acquired throughout the chest after intravenous administration of 100 cc of Omnipaque 350. Dose reduction technique was used on this scan by utilizing automated expos ure control and iterative reconstruction technique. The dose-length product (DLP) was 319.62 mGy-cm. COMPARISON: 03/02/2023 Findings: There is no evidence of any significant mediastinal, hilar or axillary lymphadenopathy. There is no f illing defect in the pulmonary arterial tree to suggest pulmonary embolus. There is no evidence of ao rtic dissection or aneurysm. No pericardial effusion. Patient is again noted to be status post right middle and lower lobectomies. There is right basilar h ydropneumothorax with increased fluid in the cavity as compared to prior exam. There is patchy consol idation involving the right upper lobe, predominantly at the posterior/dependent portion. There are t ree-in-bud opacities and patchy groundglass opacities in the left lower lobe. Images through the upper abdomen reveal no abnormalities. Impression: No evidence of pulmonary embolus, aortic dissection, or aortic aneurysm. Status post right upper and lower lobectomies, with right basilar hydropneumothorax, with increased f luid as compared to prior exam. Right upper lobe patchy pneumonia with additional, more mild involvement in the left lower lobe. Reviewed, dictated and finalized at [facility]. IONHOLDER INFORMATION CLERK Impression: No evidence of pulmonary embolus, aortic dissection, or aortic aneurysm. Status post right upper and lower lobectomies, with right basilar hydropneumoth orax, with increased fluid as compared to prior exam. Right upper lobe patchy pneumonia with additional, more mild involvement in the left lower lobe.
--- NOTE | ~2023-03-22 | XR_ITS ---
EXAMINATION: XR chest 1V portable DATE: 04/03/2023 06:25 INDICATION: Shortness of breath. TECHNIQUE: A single frontal view of the chest was obtained. COMPARISON: Chest single view 03/31/2023 FINDINGS: There is a small right hydropneumothorax. Staple lines overlie right lung. There are airspa ce opacities in all right lung zones and in left lower lung zone. The heart size is normal. IMPRESSION: 1. Stable small right hydropneumothorax. 2. Stable airspace opacities in right lung and left lower lung zone, consistent with pneumonia. Reviewed, dictated and finalized at location E. ING SHOW HOST
--- NOTE | ~2023-03-22 | XR_ITS ---
Portable chest x-ray Comparison: 03/21/2023 Clinical History: Pneumonia Findings: There is persistent lucency at the right lung base, compatible with right basilar pneumoth orax and possible trapped lung. Stable hazy airspace disease at the right lung base. There is patchy haziness the left lung base. Cardiomediastinal silhouette is stable. Bones and soft tissues are unre markable. Impression: Bibasilar pulmonary haziness could reflect mild pulmonary edema versus infection. Correlate clinicall y. Stable right basilar pneumothorax with possible trapped lung. Reviewed, dictated and finalized at location M. CHIPPER Impression: Bibasilar pulmonary haziness could reflect mild pulmonary edema versus infectio n. Correlate clinically. Stable right basilar pneumothorax with possible trapped lung.
--- NOTE | ~2023-03-22 | XR_ITS ---
EXAMINATION: XR chest 1V portable INDICATION: Respiratory failure TECHNIQUE: Portable AP chest at 0514 hours COMPARISON: 04/05/2023 FINDINGS: The endotracheal tube is within 1 cm of the virgen coursing towards the origin of the right mainstem bronchus. The nasogastric tube is followed as far as the stomach. Its tip is beyond the inf erior margin of the radiograph. There are patchy airspace opacities of the right mid and upper lung z ones and the left lung base. A moderate right-sided hydropneumothorax is not significantly changed. T he cardiomediastinal silhouette is normal. IMPRESSION: 1. Endotracheal tube within 1 cm of the virgen coursing towards right mainstem bronchus. Consider rep ositioning. 2. Airspace opacities of the right mid and upper lung zones and left lung base, consistent with pneum onia. 3. Stable moderate-sized right hydropneumothorax. Reviewed, dictated and finalized at location F. OPERATOR IMPRESSION: 1. Endotracheal tube within 1 cm of the virgen coursing towards right mainstem bronchus. Consider repositioning. 2. Airspace opacities of the right mid and upper lung zones and left lung base, consistent with pneumonia. 3. Stable moderate-sized right hydropneumothorax.
--- NOTE | ~2023-03-22 | XR_ITS ---
Portable chest x-ray Comparison: 03/26/2023 Clinical History: Shortness of breath Findings: Stable right basilar pneumothorax and/or trapped lung. Suture lines are noted in the right hemithorax. Minimal haziness in the aerated right lung is present. Left lung clear. Cardiomediastin al silhouette is stable. Bones and soft tissues are unremarkable. Impression: Stable right basilar pneumothorax and/or trapped lung with postoperative change. Mild haziness in the inferior right lung, unchanged. Reviewed, dictated and finalized at location M. OR INSIGHT MANAGER Impression: Stable right basilar pneumothorax and/or trapped lung with postoperative change . Mild haziness in the inferior right lung, unchanged.
--- NOTE | ~2023-03-22 | XR_ITS ---
EXAMINATION: XR abdomen gastric tube insert INDICATION: OG placement TECHNIQUE: Portable AP KUB-NG at 0053 hours COMPARISON: 04/05/2023 FINDINGS: The OG tube has been advanced. Its tip remains in the stomach. There are airspace opacities of the left lung base and right midlung zone. Again noted is a moderate-sized postoperative right hy dropneumothorax. IMPRESSION: 1. Nasogastric tube in the stomach and advanced since the comparison. Reviewed, dictated and finalized at location F. RED CAR GUARD AND DRIVER
--- NOTE | ~2023-03-22 | XR_ITS ---
EXAMINATION: XR chest ET placement Exam Date/Time: 04/05/2023 23:35 FIELD PRODUCER HISTORY: After intubation to confirm ET placement AND OG TUBE Comparison: 04/05/2023 2:57 PM; CT chest and abdomen 04/05/2023. RESULT: Lines, tubes, and devices: Endotracheal tube terminating 2.7 cm above the virgen. NG tube tip over t he stomach, side port at the GE junction. Lungs and pleura: Post surgical change in the right lung with volume loss. Loculated appearing infer ior hydropneumothorax. Scattered nodular opacities in the lungs consistent with infection. Cardiomediastinal silhouette: Stable. Other: No acute osseous or upper abdominal finding. IMPRESSION: Endotracheal tube terminates 2.7 cm above the virgen. Shallow positioned NG tube, consider advancing 4 cm. Reviewed, dictated and finalized at location K. D PRODUCER IMPRESSION: Endotracheal tube terminates 2.7 cm above the virgen. Shallow positioned NG tub e, consider advancing 4 cm.
--- NOTE | ~2023-03-22 | XR_ITS ---
EXAMINATION: XR chest 1V portable DATE: 03/31/2023 05:38 INDICATION: Shortness of breath. TECHNIQUE: A single frontal view of the chest was obtained. COMPARISON: Chest single view 03/29/2023, chest CT 03/29/2023 FINDINGS: There is a small right hydropneumothorax. Stable lines overlie right lung. There are airspa ce opacities in all right lung zones. There are airspace opacities in left lower lung zone. The heart size is normal. There is an old healed rib fracture. IMPRESSION: 1. Stable small right hydropneumothorax. 2. Stable airspace opacities in right lung and left lower lung zone, consistent with pneumonia. Reviewed, dictated and finalized at location A. T METAL LAYOUT MECHANIC
--- NOTE | ~2023-03-22 | CT_ITS ---
EXAMINATION: CT chst ab kashif peterson wo DATE: 03/22/2023 12:58 INDICATION: Pain after fall TECHNIQUE: Transaxial computed tomographic images of the chest, abdomen, pelvis, thoracic, and lumbar spine were obtained without intravenous contrast. The dose-length product (DLP) was 643.00 mGy-cm. A utomated exposure control and iterative reconstruction technique were employed. COMPARISON: 02/15/2018, 03/02/2023 FINDINGS: CHEST CT: There are changes of recent thoracotomy with right middle and lower lobectomies. There is a persisten t right hydropneumothorax with interval increase in the fluid component. There is loculated material within the fluid component as well. There are airspace opacities of the right upper lobe as well as p atchy airspace opacities throughout the left lung. There is a small left pleural effusion. Cardiomega ly is noted. There is increasing right hilar and mediastinal lymphadenopathy. Changes in the right se venth and eighth ribs are consistent with recent thoracotomy. There is calcified coronary artery athe rosclerosis. ABDOMEN/PELVIS CT: Respiratory motion artifact slightly limits the examination. The liver, spleen, pancreas, gallbladder , and adrenal glands appear normal. There is a 9 mm cyst of the right kidney. The left kidney is norm al. Atherosclerosis No pathologically enlarged abdominal or pelvic lymph nodes are identified. No clemencia e intraperitoneal gas or evidence of bowel obstruction. There is fecal impaction of the rectum. The a ppendix is normal. THORACIC SPINE CT: Bone alignment is normal. There is no fracture. The vertebral body heights are maintained. There is m ild loss of intervertebral disc space height at multiple levels in the thoracic spine. There are brid ging osteophytes at multiple levels in the spine, consistent with diffuse idiopathic skeletal hyperos tosis (DISH). LUMBAR SPINE CT: Bone alignment is normal. There is no fracture. There are bridging osteophytes at multiple levels in the upper lumbar spine, consistent with diffuse idiopathic skeletal hyperostosis (DISH). The vertebra l body heights are maintained. There is multilevel moderate facet joint osteoarthritis. IMPRESSION: 1. Thoracotomy changes on the right with persistent right hydropneumothorax and interval increase in the fluid component. 2. Right hilar and mediastinal lymphadenopathy, likely reactive. 3. Bilateral multifocal pneumonia. 4. No acute findings of the abdomen or pelvis. 5. Diffuse idiopathic skeletal hyperostosis and mild spondylosis without acute findings of the thorac ic or lumbar spine. Reviewed, dictated and finalized at location B. ICATIONS COORDINATOR IMPRESSION: 1. Thoracotomy changes on the right with persistent right hydropneumothorax and interval increase in the fluid component. 2. Right hilar and mediastinal lymphadenopathy, likely reactive. 3. Bilateral multifocal pneumonia. 4. No acute findings of the abdomen or pelvis. 5. Diffuse idiopathic skeletal hyperostosis and mild spondylosis without acute findings of the thoracic or lumbar spine.
[2023-03-22 04:55] LABS: Basophils Percent Auto 0.2 % (0.2-1.2); Hematocrit 31.5 % (42.0-52.0); Hemoglobin 9.6 g/dL (14.0-18.0); Immature Granulocyte Absolute 0.04 K/mm3 (0.00-0.031); Immature Granulocyte Percent A 0.6 % (0-0.5); Lymphocytes Absolute Auto 0.46 K/mm3 (0.9-3.2); Lymphocytes Percent Auto 7.1 % (18.3-44.2); Mean Corpuscular HGB Conc 30.5 g/dl (32-36); Mean Corpuscular Hemoglobin 30.8 pg (26-34); Monocytes Absolute Auto 0.6 K/mm3 (0.1-0.6); Monocytes Percent Auto 8.7 % (2.6-8.5); Neutrophils Absolute Auto 5.4 K/mm3 (1.3-6.7); Neutrophils Percent Auto 83.4 % (45.5-73.1); Platelet Count Result 283 k/mm3 (150-375); Red Blood Count 3.12 M/mm3 (4.6-6.20); Red Cell Distribution Width 14.3 % (11.5-14.5); White Blood Count 6.5 K/mm3 (4.5-10.0)
[2023-03-22 05:09] LABS: INR 1.2; Prothrombin Time 16.2 Seconds (11.1-14.7)
[2023-03-22 05:10] LABS: Anion Gap 6 mmol/L (8-16); Blood Urea Nitrogen 8 mg/dL (9-20); Calcium 8.9 mg/dL (8.4-10.2); Carbon Dioxide 25 mmol/L (22-30); Chloride 105 mmol/L (98-107); Estimated Glomerular Filt Rate > 60; Glucose 94 mg/dL (65-110); Magnesium 1.7 mg/dL (1.6-2.3); Partial Thromboplastin Time 42.2 SECONDS (22.3-36.8); Phosphorus 3.2 mg/dL (2.5-4.5); Potassium 3.7 mmol/L (3.4-5.0); Sodium 136 mmol/L (137-145)
[2023-03-22] MEDS: MEROPENEM 1 GM/NS 100 ML BAG IVPB (06:26)
[2023-03-22] MEDS: FLUTICASONE/UMECLIDIN/VILANTER 100-62.5-25 MCG ELLIPTA 1 PUFF INHALATION (07:35)
[2023-03-22 09:11] LABS: Glucose Point of Care 80 mg/dl (65-105)
[2023-03-22] MEDS: APIXABAN 5 MG TABLET PO ×2 (10:14→20:23)
[2023-03-22] MEDS: ACETAMINOPHEN 325 MG TABLET 650 MG PO ×2 (10:15→13:46)
[2023-03-22] MEDS: FOLIC ACID 0.4 MG TABLET 0.8 MG PO (10:15)
[2023-03-22] MEDS: buPROPion HCL SR (12 HR) 150 MG TAB PO ×2 (10:15→20:23)
[2023-03-22] MEDS: ATORVASTATIN 40 MG TABLET 80 MG PO (10:15)
[2023-03-22] MEDS: THIAMINE HCL 100 MG TABLET PO (10:15)
[2023-03-22] MEDS: METOPROLOL SUCCINATE EXT REL 25 MG TABCR PO (10:15)
[2023-03-22] MEDS: FAMOTIDINE 20 MG TABLET PO ×2 (10:16→20:23)
[2023-03-22] MEDS: dilTIAZem 100 MG/100 ML 100 MG/100 ML BAG 15 MG IV CONT (10:16)
[2023-03-22] MEDS: CLOPIDOGREL BISULFATE 75 MG TABLET PO (10:16)
--- NOTE | 2023-03-22 12:39 | PM.CNCAR ---
Assessment and Plan Assessment and plan (1) Atrial fibrillation with rapid ventricular response: Code(s): I48.91 - Unspecified atrial fibrillation Status: Acute Assessment and Plan: He is rate controlled. As he is known to have persistent atrial fibrillation, will pursue a rate control strategy. Stop IV Diltiazem drip, start PO Diltiazem. Continue Metoprolol. Continue Eliquis for anticoagulation (if no concerns for bleeding after his hospital fall from this morning). (2) Cardiomyopathy: Code(s): I42.9 - Cardiomyopathy, unspecified Status: Acute Assessment and Plan: His LVEF has now normalized per our most recent outpatient echocardiogram from October 2022. LVEF is now 70-75%. Continue Metoprolol. Stopped the Entresto due to significant orthostatic hypotension. (3) Orthostatic hypotension: Code(s): I95.1 - Orthostatic hypotension Status: Acute Assessment and Plan: Entresto was stopped due to significant orthostatic hypotension. Recommend obtaining repeat orthostatic vital signs. (4) History of CVA with residual deficit: Code(s): I69.30 - Unspecified sequelae of cerebral infarction Status: Acute Assessment and Plan: Continue statin. On Eliquis. (5) Hypertension: Code(s): I10 - Essential (primary) hypertension Status: Acute Assessment and Plan: Stable. (6) Hyperlipidemia: Code(s): E78.5 - Hyperlipidemia, unspecified Status: Acute Assessment and Plan: Continue statin. History of Present Illness History of Present Illness Consult date/time: 03/22/23 12:39 Requesting physician: Wanda Conway MD Consult reason: atrial fibrillation Reason For Visit: Rapid AFIB RVR Narrative: We are consulted for atrial fibrillation with RVR. This is a patient who follows with Dr. Foley. Patient is a 68-year-old male with persistent atrial fibrillation, heart failure with recovered ejection fraction, right middle and lower lobe lobectomy for a lung nodule, COPD, history of CVA, diabetes who was transferred from [place] for atrial fibrillation with RVR, orthostatic hypotension, found to be COVID positive. Patient had issues with altered mental status at [place] as well. Right before my evaluation, a rapid response was called on the patient as he fell out of bed and hurt his back. Patient otherwise states he feels okay. No chest pain, palptiations. Tele shows rate controlled atrial fibrillation. Review of Systems Review of Systems: All systems reviewed & are unremarkable except as noted in HPI and below (HPI) [facility] Past Medical History Medical History Atrial fibrillation Blood in stool Colon cancer screening COPD (chronic obstructive pulmonary disease) CVA (cerebral vascular accident) Diabetes Gastrostomy tube in place Heart failure with reduced ejection fraction Hyperlipidemia Hypertension Surgical History Surgical History S/P lobectomy of lung Family History Family History Father Diabetes mellitus Gout Hypertension Mother Diabetes mellitus Hypertension Social History Social History Smoking packs per day: 2 Smoking cigarettes per day: 40.0 Years smoked: 45 Smoking pack-years: 90.00 Smoking status: Never smoker Tobacco type: cigarettes Second hand tobacco smoke exposure: No Additional smoking assessment comments: currently down to 2 cigarettes per day Alcohol intake: never Drinks per week: 10 Alcohol use details: occasionally Substance use: never Substance use type: does not use Other substance usage details: patient states drinks 1/2 bottle of vodka everyday for last 3 years Last use: 08/06/22 Lack of Transportation: No Lack of Food: Never True Current Housing: I Have [facility]
[2023-03-22 12:41] LABS: MRSA (PCR) NOT DETECTED (NOT DETECTE)
--- NOTE | 2023-03-22 12:50 | PM.IMHP ---
H&P: HPI History of Present Illness Date/Time: 03/22/23 12:50 Chief Complaint: Cough, fever, heart racing Narrative: Patient is confused, poor historian, history taking from transfer note This is a 67-year-old male patient history of CAD, severe systolic heart failure EF 15-20% on echocardiogram July 2022, chronic AFib, diabetes, lung cancer status post right middle and lower lobe lobectomy 3 months ago, COPD, ? After lobectomy at [facility] patient was going to be discharged to acute rehabilitation but insurance did not approve of such so patient went home.? While at home he developed altered mental status after a couple of days and had to be brought to the emergency department where he was admitted to [facility] due to altered mental status, pneumonia and UTI.? Status improved after IV antibiotics.? However, patient remains too weak to resume all normal activities in a home setting.? For this reason patient is admitted to swing bed for acute rehabilitation PT and OT.? Speech therapy will also be consulted due to residual dysphagia and left-sided facial droop.? Patient previously had G-tube in place but no longer does.? Overall patient flet well till yesterday. Patient developed shortness breath, and patient was found have fever 101.9,. Patient also found to have AFib RVR. X-ray shows patchy infiltrate, COVID-19 positive. Patient received vancomycin, imipenem in the rehab, and patient was transferred to [facility] for further evaluation and treatment. Upon arrival, heart rate was better controlled on Cardizem drip. Chest x-ray repeated again, showed patchy infiltrates both lung. EKG showed AFib RVR, no specific ST T-wave changes. Patient had general weakness, patient slipped out of bed and fell on the floor, patient complained back pain, but no focal weakness. Patient denies loss consciousness, and no seizure activity was noticed. Review of Systems Review of Systems: ROS negative except above PMFSH Past Medical History Medical History Atrial fibrillation Blood in stool Colon cancer screening COPD (chronic obstructive pulmonary disease) CVA (cerebral vascular accident) Diabetes Gastrostomy tube in place Heart failure with reduced ejection fraction Hyperlipidemia Hypertension Surgical History Surgical History S/P lobectomy of lung Family History Family History Father Diabetes mellitus Gout Hypertension Mother Diabetes mellitus Hypertension Social History Social History Smoking packs per day: 2 Smoking cigarettes per day: 40.0 Years smoked: 45 Smoking pack-years: 90.00 Smoking status: Never smoker Tobacco type: cigarettes Second hand tobacco smoke exposure: No Additional smoking assessment comments: currently down to 2 cigarettes per day Alcohol intake: never Drinks per week: 10 Alcohol use details: occasionally Substance use: never Substance use type: does not use Other substance usage details: patient states drinks 1/2 bottle of vodka everyday for last 3 years Last use: 08/06/22 Lack of Transportation: No Lack of Food: Never True Current Housing: I Have Housing Concerned About Future Housing: No Difficulty Paying Gas/Electric Bills: No Difficulty Paying for Meds: No Currently Unemployed: No Education: High School Diploma/GED Difficulty w/ Childcare or Family Care: No Living arrangements: with family Occupation/Education: retired Gender identity (if verbalized by the patient): Male Spiritual care concerns: No Meds Home Medications and Allergies Home Medications Medication Instructions Recorded Confirmed Type nitroglycerin 0.4 mg sublingual 0.4 mg sublingual Q5M PRN Chest 08/07/22 03/21/23 History tablet Pain apixaban 5
[2023-03-22 13:36] LABS: Base Excess ABG -0.8 mEq/l (+/-2.0); Fractional Inspired Oxygen 21 %; HCO3 ABG 22.7 mEq/l (22.0-26.0); Oxygen Content ABG 11.8 %vol (16.0-22.0); Oxygen Saturation ABG 89.8 % (95.0-100.0); PCO2 ABG 33.3 mmHg (35.0-45.0); PO2 ABG 53.9 mmHg (80.0-100.0); PO2 FiO2 Ratio Arterial Blood 2.57 %; Total Hemoglobin 9.6 g/dL (12.0-18.0); pH ABG 7.452 (7.350-7.450)
[2023-03-22 13:38] LABS: Modified Allen's Test Pass; Oxyhemoglobin 87.1 % THb (90.0-100.0); Site Drawn RIGHT RADIAL
[2023-03-22] MEDS: IPRATROPIUM BR 0.02% INH SOLN 0.5 MG/2.5 ML VIAL INHALATION ×2 (13:40→21:10)
[2023-03-22] MEDS: LEVALBUTEROL NEB 1.25 MG/3 ML 0.63 MG INHALATION ×2 (13:40→21:10)
[2023-03-22] MEDS: VANCOMYCIN 1,250 MG/NS 250 ML 1,250 MG/250 ML BAG 166.67 MG IVPB (13:42)
[2023-03-22] MEDS: dilTIAZem HCL CD 180 MG CAP.24HR PO (13:45)
[2023-03-22 13:46] LABS: Glucose Point of Care 115 mg/dl (65-105)
[2023-03-22] MEDS: FUROSEMIDE INJ 40 MG/4 ML VIAL IV PUSH (14:22)
[2023-03-22] MEDS: REMDESIVIR 200 MG/NS 250 ML 200 MG/250 ML BAG 250 MG IVPB (14:22)
--- NOTE | 2023-03-22 14:59 | PHAR ---
PT'S HOME MED VILAZODONE 20 MG TAB HAS BEEN VERIFIED BY PHARMACY
--- NOTE | 2023-03-22 15:42 | PCCCNOTE ---
On 03/22/23, the student, [Braydon Fish], provided care and completed [facility] documentation on this patient. I have reviewed the student's documentation and agree with the findings.
[2023-03-22] MEDS: PIPERACILLIN/TAZ 4.5G/NS 100ML 4.5 GM/100 ML BAG IVPB (17:50)
--- NOTE | 2023-03-22 19:24 | PM.CNPUL ---
Assessment and Plan Assessment and plan (1) Pneumonia due to COVID-19 virus: Code(s): U07.1 - COVID-19; J12.82 - Pneumonia due to coronavirus disease 2018 Status: Acute Assessment and Plan: (+) serology Nov 7, has COVID pneumonia on Remdesivir, dexamethasone x 10 days. he is mildly hypoxemic, won't wear O2. He has patchy infiltrates in the lungs, and with hospital admissions much of the last 7 months, is on coverage for Pseudomonas- Zosyn and he is on vanco even though his nasal MRSA swab negative, but the vanco my help cover other organisms. He has cancer, but has not been on chemo yet, so he is not at risk for OI Has no sputum to test. Continue to follow, supportive care for management of COVID pneumonia. (2) Adenocarcinoma, lung: Code(s): C34.90 - Malignant neoplasm of unspecified part of unspecified bronchus or lung Status: Acute Assessment and Plan: Biopsy December 09 at [facility], IR biopsy RLL 1.2 cm nodule; T4N2 adenocarcinoma; resected Sept , persistent hydropneumothorax. Has not had treatment yet. (3) COPD (chronic obstructive pulmonary disease): Code(s): J44.9 - Chronic obstructive pulmonary disease, unspecified Status: Acute Assessment and Plan: Long history tobacco 2 ppd, quit earlier this year. Bronchodilators, add Cornet for secretion clearance. (4) Acute respiratory failure: Code(s): J96.00 - Acute respiratory failure, unspecified whether with hypoxia or hypercapnia Status: Acute Assessment and Plan: His pO2 is 53 on room air, and he won't wear O2 due to his confusion, poor ability to comprehend why he needs it. Saturation recorded is 95% and might be on room air, or with O2 on then he takes it off. Plan He has sepsis, rapid atrial fib now better controlled, DM, stroke in July, peripheral arterial disease, CAD. He is fragile, at risk to deteriorate. supportive care. Discussed with Dr Conway. History of Present Illness History of Present Illness Consult date: 03/22/23 Requesting physician: Wanda Conway MD Chief complaint: Rapid AFIB RVR Narrative: Patient is seen March 22 at 19:27 in Room 232 NEW: Jere Mcallister is a 68-year-old man known to our service from our pulmonary clinic admitted with increased shortness of breath, fever 101.9, has COVID confirmed 03/21/23. He has COPD, systolic CHF, chronic atrial fibrillation, had non small cell lung cancer resected at [facility] Sept 21 including RML and part of RLL with persistent hydropneumothorax, went to rehab, and while there, worsened, was transferred here. He fell, is confused and weak. He did not have any injury with the fall. He had an episode of rapid atrial fibrillation and a Rapid Response was called. He has persistent atrial fib, rate is now controlled. He was on Cardizem drip, cardiology changed this to oral diltiazem and metoprolol. He is pleasant, will not wear O2. He has no sputum, no wheezing, no abdominal pain, no diarrhea. He says that he has lost weight but eats normally. No pleuritic chest pain. Labs this admission: wbc 6.5, H/H 9.6/31.5, plt 283; Na 136, K+ 3.5, chloride 101, Co2 27, BUN 16, creat 0.7, MRSA nasal swab (-), ABG on rom air : 7.452/33/53.9/89.3 UA normal except 3+ glucose, viral negative influenza A,B, RSV, + SARS-CoV-2 PMH: DM, COPD, Systolic CHF EF 15-20% July 2022; CAD,chronic atrial fibrillation has not been complaint with Eliquis in the past with [facility] July 2022, L weakness and slurred speech, non-small cell lung caner resected RML and some of RLL Sept 21 at [facility] w persistnet hydropneumothorax; went to rehab afterwards. He did not get rehab after his lung cancer surgery, went home, a few days later was admi
[2023-03-22] MEDS: QUEtiapine FUMARATE 25 MG TABLET PO (20:23)
[2023-03-22] MEDS: VILAZODONE HCL 20 MG 1 EACH PO (20:24)
[2023-03-22 21:01] LABS: Glucose Point of Care 206 mg/dl (65-105)
[2023-03-23] VITALS (14 sets, daily range): BP systolic 124–140; BP diastolic 66–83; PULSE 80–125; RESP 16–20; TEMP 36.6–36.9; O2SAT 95–100; BMI 16.9
[2023-03-23] MEDS: PIPERACILLIN/TAZ 4.5G/NS 100ML 4.5 GM/100 ML BAG IVPB ×3 (00:55→18:08)
[2023-03-23 06:24] LABS: Glucose Point of Care 129 mg/dl (65-105)
[2023-03-23] MEDS: REMDESIVIR 100 MG/NS 250 ML 100 MG/250 ML BAG 250 MG IVPB (09:01)
[2023-03-23] MEDS: FAMOTIDINE 20 MG TABLET PO ×2 (09:02→21:14)
[2023-03-23] MEDS: buPROPion HCL SR (12 HR) 150 MG TAB PO ×2 (09:02→21:14)
[2023-03-23] MEDS: ATORVASTATIN 40 MG TABLET 80 MG PO (09:02)
[2023-03-23] MEDS: THIAMINE HCL 100 MG TABLET PO (09:02)
[2023-03-23] MEDS: FOLIC ACID 0.4 MG TABLET 0.8 MG PO (09:02)
[2023-03-23] MEDS: METOPROLOL SUCCINATE EXT REL 25 MG TABCR PO (09:02)
[2023-03-23] MEDS: dilTIAZem HCL CD 180 MG CAP.24HR PO (09:03)
[2023-03-23] MEDS: APIXABAN 5 MG TABLET PO ×2 (09:03→21:14)
[2023-03-23] MEDS: CLOPIDOGREL BISULFATE 75 MG TABLET PO (09:03)
[2023-03-23 09:06] LABS: Glucose Point of Care 130 mg/dl (65-105)
--- NOTE | 2023-03-23 09:20 | PM.IMPN ---
Progress Note: A&P Assessment and Plan (1) Pneumonia due to COVID-19 virus: Code(s): U07.1 - COVID-19; J12.82 - Pneumonia due to coronavirus disease 2018 Status: Acute (2) Pneumonia: Code(s): J18.9 - Pneumonia, unspecified organism Status: Acute (3) Sepsis: Code(s): A41.9 - Sepsis, unspecified organism Status: Acute (4) AMS (altered mental status): Code(s): R41.82 - Altered mental status, unspecified Status: Acute (5) S/P lobectomy of lung: Code(s): Z90.2 - Acquired absence of lung [part of] Status: Acute (6) CVA (cerebral vascular accident): Code(s): I63.9 - Cerebral infarction, unspecified Status: Acute (7) Acute respiratory failure: Code(s): J96.00 - Acute respiratory failure, unspecified whether with hypoxia or hypercapnia Status: Acute (8) Hypertension: Code(s): I10 - Essential (primary) hypertension Status: Acute (9) Diabetes: Code(s): E11.9 - Type 2 diabetes mellitus without complications Status: Acute (10) T2DM (type 2 diabetes mellitus): Code(s): E11.9 - Type 2 diabetes mellitus without complications Status: Acute (11) Atrial fibrillation with rapid ventricular response: Code(s): I48.91 - Unspecified atrial fibrillation Status: Acute (12) Acute on chronic systolic heart failure: Code(s): I50.23 - Acute on chronic systolic (congestive) heart failure Status: Acute (13) Acute metabolic encephalopathy: Code(s): G93.41 - Metabolic encephalopathy Status: Acute (14) CAD (coronary artery disease): Code(s): I25.10 - Atherosclerotic heart disease of [place] coronary artery without angina pectoris Status: Acute Plan COPD exacerbation, acute respiratory failure, COVID-19 pneumonia possible superimposed with better pneumonia Patient received vancomycin and imipenem Flu negative, COVID positive on the test yesterday X-ray shows patchy infiltrate bilaterally Start remdesivir IV Dexamethasone 6 mg IV once and daily Start DuoNeb scheduled albuterol nebulizer as needed Pulse ox monitor continuously Start O2 therapy to keep pulse ox above 94 patient has history of CAD CT reveals Thoracotomy changes on the right with persistent right hydropneumothorax and interval increase in the fluid component.?Bilateral multifocal pneumonia. Consult business services analyst for evaluation and treat Appreciate pulmonary's consultation , will continue vancomycin and Zosyn, remdesivir and dexamethasone Sepsis Patient has high-grade fever 101.9 Blood culture and urine culture pending Gentle IV fluid Given severe systolic heart failure and fluid overload, will not give fluid resuscitation Acute encephalopathy Patient is confused, although patient is alert, not oriented to time and person CT head showed no acute intracranial to yesterday Patient had a fall 03/22, CT scan of head, whole spine and pelvics no fractures Neuro check AFib RVR Likely secondary to sepsis respiratory failure, COPD exacerbation Discontinue cardizem drip Continue home medication Cardizem p.o. 180 mg daily Eliquis p.o. metoprolol p.o. Consult outsole skiver for evaluation treatment Acute on chronic systolic heart failure EF 15-20% on echocardiogram August 08, 2022, outpatient echocardiogram from October 2022. LVEF is now 70-75%. Continue Metoprolol. Stopped the Entresto due to significant orthostatic hypotension. X-ray shows pulmonary congestion Lasix 40 mg once Consult outsole skiver for evaluation treatment History of CAD, Continue aspirin 81 mg daily p.o., Plavix 75 mg daily p.o. Patient denies chest pain Management per outsole skiver up History of CVA Patient is on aspirin and Plavix No new focal deficit Neuro check Consult PT OT healthcare specialist for evaluation and assisting placement Subjective Date/time seen: 03/23/23 09:20 Interval history: I saw exam tesha
[2023-03-23] MEDS: FLUTICASONE/UMECLIDIN/VILANTER 100-62.5-25 MCG ELLIPTA 1 PUFF INHALATION (09:21)
[2023-03-23] MEDS: LEVALBUTEROL NEB 1.25 MG/3 ML 0.63 MG INHALATION ×2 (09:21→13:40)
[2023-03-23] MEDS: IPRATROPIUM BR 0.02% INH SOLN 0.5 MG/2.5 ML VIAL INHALATION ×2 (09:21→13:39)
[2023-03-23 09:51] LABS: Basophils Percent Auto 0.1 % (0.2-1.2); Hematocrit 32.5 % (42.0-52.0); Hemoglobin 10.2 g/dL (14.0-18.0); Immature Granulocyte Absolute 0.01 K/mm3 (0.00-0.031); Immature Granulocyte Percent A 0.1 % (0-0.5); Lymphocytes Absolute Auto 0.56 K/mm3 (0.9-3.2); Mean Corpuscular HGB Conc 31.4 g/dl (32-36); Mean Corpuscular Hemoglobin 30.1 pg (26-34); Mean Corpuscular Volume 95.9 fl (80-100); Monocytes Absolute Auto 0.3 K/mm3 (0.1-0.6); Monocytes Percent Auto 4.6 % (2.6-8.5); Neutrophils Absolute Auto 6.1 K/mm3 (1.3-6.7); Neutrophils Percent Auto 87.2 % (45.5-73.1); Platelet Count Result 338 k/mm3 (150-375); Red Blood Count 3.39 M/mm3 (4.6-6.20); Red Cell Distribution Width 13.9 % (11.5-14.5)
[2023-03-23 10:04] LABS: Anion Gap 8 mmol/L (8-16); Blood Urea Nitrogen 16 mg/dL (9-20); Calcium 8.9 mg/dL (8.4-10.2); Carbon Dioxide 27 mmol/L (22-30); Chloride 101 mmol/L (98-107); Estimated CRCL calculation 69 ml/min; Estimated Glomerular Filt Rate > 60; Glucose 169 mg/dL (65-110); Potassium 3.5 mmol/L (3.4-5.0); Sodium 136 mmol/L (137-145)
--- NOTE | 2023-03-23 10:25 | PM.PNCARD ---
Progress Note: A&P Assessment and Plan (1) Atrial fibrillation with rapid ventricular response: Code(s): I48.91 - Unspecified atrial fibrillation Status: Acute Assessment and Plan: Slightly tachycardic overnight, heart rates above goal of 110bpm or less. As he is known to have persistent atrial fibrillation, will pursue a rate control strategy. Stop IV Diltiazem drip 03/22. Start PO Diltiazem, first dose given 03/23. As he just received the first dose of PO Diltiazem this morning, will see how his rate responds. Continue Metoprolol. Can increase Diltiazem or Metoprolol as needed for additional rate control. Continue Eliquis for anticoagulation. (2) Cardiomyopathy: Code(s): I42.9 - Cardiomyopathy, unspecified Status: Acute Assessment and Plan: Appears euvolemic. His LVEF has now normalized per our most recent outpatient echocardiogram from October 2022. LVEF is now 70-75%. Continue Metoprolol. Stopped the Entresto due to significant orthostatic hypotension. (3) Orthostatic hypotension: Code(s): I95.1 - Orthostatic hypotension Status: Acute Assessment and Plan: Entresto was stopped due to significant orthostatic hypotension. Recommend obtaining repeat orthostatic vital signs. (4) History of CVA with residual deficit: Code(s): I69.30 - Unspecified sequelae of cerebral infarction Status: Acute Assessment and Plan: Continue statin. On Eliquis. (5) Hypertension: Code(s): I10 - Essential (primary) hypertension Status: Acute Assessment and Plan: Stable. (6) Hyperlipidemia: Code(s): E78.5 - Hyperlipidemia, unspecified Status: Acute Assessment and Plan: Continue statin. Subjective Date/time seen: 03/23/23 10:25 Interval history: Reason for visit: Atrial fibrillation with RVR HPI: We are consulted for atrial fibrillation with RVR. This is a patient who follows with Dr. Foley. Patient is a 68-year-old male with persistent atrial fibrillation, heart failure with recovered ejection fraction, right middle and lower lobe lobectomy for a lung nodule, COPD, history of CVA, diabetes who was transferred from [place] for atrial fibrillation with RVR, orthostatic hypotension, found to be COVID positive. Patient had issues with altered mental status at [place] as well. Right before my evaluation, a rapid response was called on the patient as he fell out of bed and hurt his back. Patient otherwise states he feels okay. No chest pain, palptiations. Tele shows rate controlled atrial fibrillation. Date of service 03/23: Jere denies any chest pain or palpitations. Reports he has been having some phlegm. Tele with slightly elevated heart rates in atrial fibrillation. Otherwise, he is feeling okay. Review of Systems Review of Systems: All systems reviewed & are unremarkable except as noted in HPI and below (HPI) Exam Const: General: no acute distress Eyes: General: appearance normal, both eyes and all related structures Sclera: sclerae normal Resp: Effort & Inspection: normal respiratory effort Cardio: Rhythm: abnormal rhythm irregularly irregular Neuro: Speech: normal speech Psych: Mental Status: mental status grossly normal Affect: normal affect Objective Data Vital Signs Vital Signs: Vital Signs - 24 hr 03/22/23 12:50 03/22/23 13:40 03/22/23 13:48 Temperature Pulse Rate 83 94 95 Respiratory Rate 18 18 Blood Pressure Pulse Oximetry 95 Oxygen Delivery Oxygen Flow Rate 03/22/23 12:28 03/22/23 16:00 03/22/23 12:00 Temperature 36.9 C Pulse Rate 86 102 H 85 Respiratory Rate 18 18 Blood Pressure 145/63 H 141/61 H Pulse Oximetry 95 100 Oxygen Delivery Oxygen Flow Rate 03/22/23 16:00 03/22/23 14:00 03/22/23 18:00 Temperature Pulse Rate 96 89 94 Respiratory Rate Blood Pressure Pulse Oximetry Oxygen Delivery Oxygen Flow Rate 03/22/23 16:00 03/22/23 12:00
[2023-03-23 12:39] LABS: Procalcitonin 0.1 ng/mL
[2023-03-23 12:40] LABS: Glucose Point of Care 167 mg/dl (65-105)
--- NOTE | 2023-03-23 13:25 | PM.PNPUL ---
Progress Note: A&P Assessment and Plan (1) Pneumonia due to COVID-19 virus: Code(s): U07.1 - COVID-19; J12.82 - Pneumonia due to coronavirus disease 2018 Status: Acute Assessment and Plan: (+) serology Mar 21, has COVID pneumonia on Remdesivir, dexamethasone x?10 days. He is mildly hypoxemic, won't wear O2. He has patchy infiltrates in the lungs, and with hospital admissions much of the last 7 months, is on coverage for Pseudomonas- Zosyn and he is on vanco even though his nasal MRSA swab negative; vanco my help cover other organisms. He has cancer, but has not been on chemo yet, so he is not at risk for OI Has no sputum to test. Continue to follow, supportive care for management of COVID pneumonia. (2) Adenocarcinoma, lung: Qualifiers: Laterality: right Qualified Code(s): C34.91 - Malignant neoplasm of unspecified part of right bronchus or lung Code(s): C34.90 - Malignant neoplasm of unspecified part of unspecified bronchus or lung Status: Acute Assessment and Plan: Biopsy December 09 at [place], RLL 1.2 cm nodule; adenocarcinoma; resected Sept 21, persistent hydropneumothorax. Has not had treatment yet. Has persistent hydropneumothorax. (3) COPD (chronic obstructive pulmonary disease): Code(s): J44.9 - Chronic obstructive pulmonary disease, unspecified Status: Acute Assessment and Plan: Long history tobacco 2 ppd, quit earlier this year. Bronchodilators, Cornet for secretion clearance. (4) Acute respiratory failure: Qualifiers: Respiratory failure complication: hypoxia Qualified Code(s): J96.01 - Acute respiratory failure with hypoxia Code(s): J96.00 - Acute respiratory failure, unspecified whether with hypoxia or hypercapnia Status: Acute Assessment and Plan: His pO2 is 53 on room air, and he won't wear O2 due to his confusion, poor ability to comprehend why he needs it.? Saturation recorded is 95% and might be on room air, or with O2 on then he takes it off. Plan Procalcitonin; if this returns negative, could de-escalte antibiotics. Maybe all this is COVID viral pneumonia. Cornet valve to help clear secretions. Subjective Date/time seen: 03/23/23 13:25 Interval history: ESTABLISHED: 03/23: Patient is seen in follow up for COVID pneumonia, COPD, acute hypoxemic respiratory failure. He is pleasant, not wearing O2. He is not really short of breath, has a moist cough however is not expectorating secretions. wbc 7, chemistry unremarkable, same as yesterday. R 16, BP 133/66, p 102, sat 98% probably on room air because he won't use O2. Appetite is fair. He is not in distress. 03/22: - new consult--Jere Mcallister is a 68-year-old man known to our service from our pulmonary clinic admitted with increased shortness of breath, fever 101.9, has COVID confirmed 03/21/23. He has COPD, systolic CHF, chronic atrial fibrillation, had non small cell lung cancer resected at [facility] Feb 02 including RML and part of RLL with persistent hydropneumothorax, went to rehab, and while there, worsened, was transferred here. He fell, is confused and weak. He did not have any injury with the fall. He had an episode of rapid atrial fibrillation and a Rapid Response was called. He has persistent atrial fib, rate is now controlled. He was on Cardizem drip, cardiology changed this to oral diltiazem and metoprolol. He is pleasant, will not wear O2. He has no sputum, no wheezing, no abdominal pain, no diarrhea. He says that he has lost weight but eats normally. No pleuritic chest pain. Labs this admission: wbc 6.5, H/H 9.6/31.5, plt 283; Na 136, K+ 3.5, chloride 101, Co2 27, BUN 16, creat 0.7, MRSA nasal swab (-), ABG o
[2023-03-23 17:31] LABS: Glucose Point of Care 173 mg/dl (65-105)
[2023-03-23 20:47] LABS: Glucose Point of Care 253 mg/dl (65-105)
[2023-03-23] MEDS: LEVALBUTEROL HFA (*SP) 15 GM INHALER 2 PUFF INHALATION (21:13)
[2023-03-23] MEDS: QUEtiapine FUMARATE 25 MG TABLET PO (21:14)
[2023-03-24] VITALS (10 sets, daily range): BP systolic 124–148; BP diastolic 71–89; PULSE 50–120; RESP 16–20; TEMP 36.1–36.9; O2SAT 95–100
[2023-03-24] MEDS: PIPERACILLIN/TAZ 4.5G/NS 100ML 4.5 GM/100 ML BAG IVPB ×4 (00:04→17:03)
[2023-03-24 05:03] LABS: Basophils Percent Auto 0.1 % (0.2-1.2); Hematocrit 30.7 % (42.0-52.0); Hemoglobin 9.9 g/dL (14.0-18.0); Immature Granulocyte Absolute 0.04 K/mm3 (0.00-0.031); Immature Granulocyte Percent A 0.5 % (0-0.5); Lymphocytes Absolute Auto 0.69 K/mm3 (0.9-3.2); Lymphocytes Percent Auto 8.6 % (18.3-44.2); Mean Corpuscular HGB Conc 32.2 g/dl (32-36); Mean Corpuscular Hemoglobin 30.4 pg (26-34); Mean Corpuscular Volume 94.2 fl (80-100); Monocytes Absolute Auto 0.6 K/mm3 (0.1-0.6); Monocytes Percent Auto 7.5 % (2.6-8.5); Neutrophils Absolute Auto 6.7 K/mm3 (1.3-6.7); Neutrophils Percent Auto 83.3 % (45.5-73.1); Platelet Count Result 317 k/mm3 (150-375); Red Blood Count 3.26 M/mm3 (4.6-6.20); Red Cell Distribution Width 13.9 % (11.5-14.5); White Blood Count 8.1 K/mm3 (4.5-10.0)
[2023-03-24 05:09] LABS: INR 1.3; Prothrombin Time 17.2 Seconds (11.1-14.7)
[2023-03-24 05:12] LABS: Alanine Aminotransferase 46 U/L (6-50); Alkaline Phosphatase 149 U/L (38-126); Aspartate Amino Transferase 56 U/L (17-59); Bilirubin,Total 0.7 mg/dL (0.2-1.3)
[2023-03-24 05:14] LABS: Anion Gap 5 mmol/L (8-16); Blood Urea Nitrogen 18 mg/dL (9-20); Calcium 8.8 mg/dL (8.4-10.2); Carbon Dioxide 29 mmol/L (22-30); Chloride 105 mmol/L (98-107); Estimated CRCL calculation 72 ml/min; Estimated Glomerular Filt Rate > 60; Glucose 158 mg/dL (65-110); Potassium 3.1 mmol/L (3.4-5.0); Sodium 139 mmol/L (137-145)
[2023-03-24 08:46] LABS: Glucose Point of Care 139 mg/dl (65-105)
[2023-03-24] MEDS: FLUTICASONE/UMECLIDIN/VILANTER 100-62.5-25 MCG ELLIPTA 1 PUFF INHALATION (09:21)
[2023-03-24] MEDS: LEVALBUTEROL HFA (*SP) 15 GM INHALER 2 PUFF INHALATION ×2 (09:21→20:04)
[2023-03-24] MEDS: CLOPIDOGREL BISULFATE 75 MG TABLET PO (10:05)
[2023-03-24] MEDS: REMDESIVIR 100 MG/NS 250 ML 100 MG/250 ML BAG 250 MG IVPB (10:05)
[2023-03-24] MEDS: FAMOTIDINE 20 MG TABLET PO ×2 (10:06→22:10)
[2023-03-24] MEDS: THIAMINE HCL 100 MG TABLET PO (10:06)
[2023-03-24] MEDS: dilTIAZem HCL CD 180 MG CAP.24HR PO (10:06)
[2023-03-24] MEDS: FOLIC ACID 0.4 MG TABLET 0.8 MG PO (10:07)
[2023-03-24] MEDS: ATORVASTATIN 40 MG TABLET 80 MG PO (10:07)
[2023-03-24] MEDS: buPROPion HCL SR (12 HR) 150 MG TAB PO ×2 (10:07→22:10)
[2023-03-24] MEDS: APIXABAN 5 MG TABLET PO ×2 (10:08→22:10)
[2023-03-24] MEDS: METOPROLOL SUCCINATE EXT REL 25 MG TABCR PO (10:08)
--- NOTE | 2023-03-24 10:18 | PM.PNCARD ---
Progress Note: A&P Assessment and Plan (1) Atrial fibrillation with rapid ventricular response: Code(s): I48.91 - Unspecified atrial fibrillation Status: Acute Assessment and Plan: Slightly tachycardic overnight, heart rates above goal of 110bpm or less. As he is known to have persistent atrial fibrillation, will pursue a rate control strategy. Stop IV Diltiazem drip 03/22. Start PO Diltiazem, first dose given 03/23. As he just received the first dose of PO Diltiazem this morning, will see how his rate responds. Continue Metoprolol. Can increase Diltiazem or Metoprolol as needed for additional rate control. Continue Eliquis for anticoagulation. (2) Cardiomyopathy: Code(s): I42.9 - Cardiomyopathy, unspecified Status: Acute Assessment and Plan: Appears euvolemic. His LVEF has now normalized per our most recent outpatient echocardiogram from October 2022. LVEF is now 70-75%. Continue Metoprolol. Stopped the Entresto due to significant orthostatic hypotension. (3) Orthostatic hypotension: Code(s): I95.1 - Orthostatic hypotension Status: Acute Assessment and Plan: Entresto was stopped due to significant orthostatic hypotension. Recommend obtaining repeat orthostatic vital signs. (4) History of CVA with residual deficit: Code(s): I69.30 - Unspecified sequelae of cerebral infarction Status: Acute Assessment and Plan: Continue statin. On Eliquis. (5) Hypertension: Code(s): I10 - Essential (primary) hypertension Status: Acute Assessment and Plan: Stable. (6) Hyperlipidemia: Code(s): E78.5 - Hyperlipidemia, unspecified Status: Acute Assessment and Plan: Continue statin. Subjective Date/time seen: 03/24/23 10:18 Interval history: Reason for visit: Atrial fibrillation with RVR HPI: We are consulted for atrial fibrillation with RVR. This is a patient who follows with Dr. Foley. Patient is a 68-year-old male with persistent atrial fibrillation, heart failure with recovered ejection fraction, right middle and lower lobe lobectomy for a lung nodule, COPD, history of CVA, diabetes who was transferred from [place] for atrial fibrillation with RVR, orthostatic hypotension, found to be COVID positive. Patient had issues with altered mental status at [place] as well. Right before my evaluation, a rapid response was called on the patient as he fell out of bed and hurt his back. Patient otherwise states he feels okay. No chest pain, palpitations. Tele shows rate controlled atrial fibrillation. Date of service 03/23: Jere denies any chest pain or palpitations. Reports he has been having some phlegm. Tele with slightly elevated heart rates in atrial fibrillation. Otherwise, he is feeling okay. Date of service 03/25/2023: Exam Const: General: no acute distress HENMT: Other: In a cervical collar Eyes: General: appearance normal, both eyes and all related structures Sclera: sclerae normal Neck: Neck: supple Resp: Effort & Inspection: normal respiratory effort Cardio: Rhythm: abnormal rhythm irregularly irregular Skin: General skin exam: normal color Neuro: Speech: normal speech Psych: Mental Status: mental status grossly normal Affect: normal affect Objective Data Vital Signs Vital Signs: Vital Signs - 24 hr 03/23/23 12:00 03/23/23 13:40 03/23/23 13:56 Temperature 36.6 C Pulse Rate 102 H 97 105 H Respiratory Rate 16 18 18 Blood Pressure 133/66 Pulse Oximetry 98 Oxygen Delivery 03/23/23 16:00 03/23/23 20:00 03/23/23 12:00 Temperature 36.6 C 36.9 C Pulse Rate 125 H 104 H 98 Respiratory Rate 20 18 Blood Pressure 127/76 133/66 Pulse Oximetry 99 99 Oxygen Delivery 03/23/23 16:00 03/23/23 20:00 03/23/23 20:00 Temperature Pulse Rate 118 H 105 H Respiratory Rate Blood Pressure Pulse Oximetry 99 Oxygen Delivery Room Air 03/24/23 00:00 03/24/23 00:00
--- NOTE | 2023-03-24 10:37 | PCPTNOTE ---
Attempted PT evaluation, pt refused. RN aware. Will follow.
[2023-03-24] MEDS: POTASSIUM CHLORIDE 20 MEQ PACKET (FOR LIQUID) 40 MEQ PO (12:01)
[2023-03-24 12:17] LABS: Glucose Point of Care 191 mg/dl (65-105)
--- NOTE | 2023-03-24 13:32 | PC.NURSE ---
This patient, Jere Mcallister, was transferred to [[id number] ] on 03/24/23 at 1325. Personal belongings sent with patient. Report given to [Jalyn ]. Appropriate documentation sent with patient.
--- NOTE | 2023-03-24 13:49 | PC.NURSE ---
This patient, Jere Mcallister, was received from [ [id number]] on 03/24/23 at 1325. Patient/family oriented to unit policies and routines
[2023-03-24] MEDS: traMADol HCL (*CRX) 50 MG TABLET PO (14:23)
--- NOTE | 2023-03-24 14:37 | PCNFU ---
Nutrition Follow-Up Complete: Last recorded weight is 57.9 kg. Weight down 4 lbs/3% x 2 days. Hx CHF - fluid possibly contributing to weight changes. Bowel Motility: BM 03/23/23, GI: abd WNL Labs Reviewed: Hgb 9.9, Hct 30.7, K+ 3.1, glucose 158 Meds Noted: Mylanta, Lipitor, Decadron, Pepcid, folic acid, Zofran, KCl, Remdesivir, vitamin B1, Ultram Skin: No pressure ulcers noted Additional Notes: COVID dx - started on Decadron and Remdesivir. No nausea, vomiting, diarrhea, constipation noted per EHR. Unintentional weight loss related to reduced appetite and intake as evidenced by noted EMR weight change, refusal of meals (Continue, intake slowly improving). Pt current nutrition is carbohydrate controlled, 2g Na, Ensure Compact TID with meals. Nutrition recommendation: 1. Continue with current diet order. Consider diet liberalization on follow-up if intake not improved. 2. Continue replacing K+. 3. Monitor for a daily appetite stimulant. 4. Ensure Compact TID. Goal: PO intake of meals (<75% x 2-3 meals), acceptance of Ensure Monitor intake, weight, labs, need for dietary changes. Follow up in 3 days.
--- NOTE | 2023-03-24 15:41 | PM.PNPUL ---
Progress Note: A&P Assessment and Plan (1) Pneumonia due to COVID-19 virus: Code(s): U07.1 - COVID-19; J12.82 - Pneumonia due to coronavirus disease 2018 Status: Acute Assessment and Plan: (+) serology Mar 21, has COVID pneumonia on Remdesivir, dexamethasone x?10 days. He is mildly hypoxemic, won't wear O2. He has patchy infiltrates in the lungs, and with hospital admissions much of the last 7 months, is on coverage for Pseudomonas- Zosyn. Nasal MRSA swab negative; vanco my help cover other organisms. He has cancer, but has not been on chemo yet, so he is not at risk for OI Has no sputum to test. Continue to follow, supportive care for management of COVID pneumonia. (2) Adenocarcinoma, lung: Qualifiers: Laterality: right Qualified Code(s): C34.91 - Malignant neoplasm of unspecified part of right bronchus or lung Code(s): C34.90 - Malignant neoplasm of unspecified part of unspecified bronchus or lung Status: Acute Assessment and Plan: Biopsy December 09 at [place], RLL 1.2 cm nodule; adenocarcinoma; resected Sept 21, persistent hydropneumothorax. Has not had treatment yet. (3) COPD (chronic obstructive pulmonary disease): Code(s): J44.9 - Chronic obstructive pulmonary disease, unspecified Status: Acute Assessment and Plan: Long history tobacco 2 ppd, quit earlier this year. Bronchodilators, Cornet for secretion clearance. Plan Not infected with a bacterial spurce. Better, needs O2 with exertion. Home O2 study before discharge. Cornet valve to help clear secretions. Subjective Date/time seen: 03/24/23 15:41 Interval history: ESTABLISHED: 03/24: He is better, moved to Room 240. He is on room air; tells me that he was completely out of breath when he tried to have Physical Therapy. He could only take 3 steps without having to stop and rest. That is due to needing O2 but not wearing it. He has extremely limited pulmonary reserve, huge hydropneumothorax on the right side, emphysema, lung cancer ->resected. Procalcitonin 0.1, negative. He does not have bacterial infection, just COVID. 03/23: Patient is seen in follow up for COVID pneumonia, COPD, acute hypoxemic respiratory failure. He is pleasant, not wearing O2. He is not really short of breath, has a moist cough however is not expectorating secretions. wbc 7, chemistry unremarkable, same as yesterday. R 16, BP 133/66, p 102, sat 98% probably on room air because he won't use O2. Appetite is fair. He is not in distress. 03/22: - new consult--Jere Mcallister is a 68-year-old man known to our service from our pulmonary clinic admitted with increased shortness of breath, fever 101.9, has COVID confirmed 03/21/23. He has COPD, systolic CHF, chronic atrial fibrillation, had non small cell lung cancer resected at [facility] Feb 02 including RML and part of RLL with persistent hydropneumothorax, went to rehab, and while there, worsened, was transferred here. He fell, is confused and weak. He did not have any injury with the fall. He had an episode of rapid atrial fibrillation and a Rapid Response was called. He has persistent atrial fib, rate is now controlled. He was on Cardizem drip, cardiology changed this to oral diltiazem and metoprolol. He is pleasant, will not wear O2. He has no sputum, no wheezing, no abdominal pain, no diarrhea. He says that he has lost weight but eats normally. No pleuritic chest pain. Labs this admission: wbc 6.5, H/H 9.6/31.5, plt 283; Na 136, K+ 3.5, chloride 101, Co2 27, BUN 16, creat 0.7, MRSA nasal swab (-), ABG on rom air : 7.452/33/53.9/89.3 UA normal except 3+ glucose, viral negative influenza A,B, RSV, + SARS-CoV-2 PMH: DM, COPD, Systolic CHF EF 15-20% July 2022; CAD stent in RCA 2011 [facility],chronic atrial fibrillation has
[2023-03-24 17:50] LABS: Glucose Point of Care 225 mg/dl (65-105)
[2023-03-24] MEDS: QUEtiapine FUMARATE 25 MG TABLET PO (22:10)
[2023-03-24] MEDS: INSULIN ASPART (*BKC) 100 UNITS/ML SUB-Q (22:12)
[2023-03-24 23:17] LABS: Glucose Point of Care 352 mg/dl (65-105)
[2023-03-25] VITALS (10 sets, daily range): BP systolic 137–148; BP diastolic 71–81; PULSE 86–108; RESP 16–20; TEMP 36.3–36.6; O2SAT 97–99
[2023-03-25] MEDS: PIPERACILLIN/TAZ 4.5G/NS 100ML 4.5 GM/100 ML BAG IVPB ×3 (00:06→11:32)
[2023-03-25] MEDS: LEVALBUTEROL HFA (*SP) 15 GM INHALER 2 PUFF INHALATION ×2 (02:12→07:51)
[2023-03-25] MEDS: FLUTICASONE/UMECLIDIN/VILANTER 100-62.5-25 MCG ELLIPTA 1 PUFF INHALATION (07:51)
[2023-03-25 08:06] LABS: Hematocrit 30.3 % (42.0-52.0); Hemoglobin 9.6 g/dL (14.0-18.0); Immature Granulocyte Absolute 0.04 K/mm3 (0.00-0.031); Immature Granulocyte Percent A 0.5 % (0-0.5); Lymphocytes Absolute Auto 0.89 K/mm3 (0.9-3.2); Lymphocytes Percent Auto 11.5 % (18.3-44.2); Mean Corpuscular HGB Conc 31.7 g/dl (32-36); Mean Corpuscular Hemoglobin 30.3 pg (26-34); Mean Corpuscular Volume 95.6 fl (80-100); Monocytes Absolute Auto 0.6 K/mm3 (0.1-0.6); Monocytes Percent Auto 7.4 % (2.6-8.5); Neutrophils Absolute Auto 6.3 K/mm3 (1.3-6.7); Neutrophils Percent Auto 80.6 % (45.5-73.1); Platelet Count Result 312 k/mm3 (150-375); Red Blood Count 3.17 M/mm3 (4.6-6.20); Red Cell Distribution Width 14.1 % (11.5-14.5); White Blood Count 7.8 K/mm3 (4.5-10.0)
[2023-03-25 08:18] LABS: Anion Gap 7 mmol/L (8-16); Blood Urea Nitrogen 15 mg/dL (9-20); Carbon Dioxide 31 mmol/L (22-30); Chloride 105 mmol/L (98-107); Estimated CRCL calculation 78 ml/min; Estimated Glomerular Filt Rate > 60; Glucose 181 mg/dL (65-110); Potassium 3.8 mmol/L (3.4-5.0); Sodium 143 mmol/L (137-145)
[2023-03-25] MEDS: dilTIAZem HCL CD 180 MG CAP.24HR PO (08:23)
[2023-03-25] MEDS: FOLIC ACID 0.4 MG TABLET 0.8 MG PO (08:23)
[2023-03-25] MEDS: METOPROLOL SUCCINATE EXT REL 25 MG TABCR PO (08:23)
[2023-03-25] MEDS: ATORVASTATIN 40 MG TABLET 80 MG PO (08:23)
[2023-03-25] MEDS: buPROPion HCL SR (12 HR) 150 MG TAB PO ×2 (08:23→20:46)
[2023-03-25] MEDS: CLOPIDOGREL BISULFATE 75 MG TABLET PO (08:23)
[2023-03-25] MEDS: THIAMINE HCL 100 MG TABLET PO (08:23)
[2023-03-25] MEDS: POTASSIUM CHLORIDE 20 MEQ PACKET (FOR LIQUID) 40 MEQ PO (08:23)
[2023-03-25] MEDS: FAMOTIDINE 20 MG TABLET PO ×2 (08:23→20:47)
[2023-03-25] MEDS: APIXABAN 5 MG TABLET PO ×2 (08:23→20:47)
--- NOTE | 2023-03-25 08:28 | PM.IMPN ---
Progress Note: A&P Assessment and Plan (1) Pneumonia due to COVID-19 virus: Code(s): U07.1 - COVID-19; J12.82 - Pneumonia due to coronavirus disease 2019 Status: Acute (2) Pneumonia: Code(s): J18.9 - Pneumonia, unspecified organism Status: Acute (3) Sepsis: Code(s): A41.9 - Sepsis, unspecified organism Status: Acute (4) AMS (altered mental status): Code(s): R41.82 - Altered mental status, unspecified Status: Acute (5) S/P lobectomy of lung: Code(s): Z90.2 - Acquired absence of lung [part of] Status: Acute (6) CVA (cerebral vascular accident): Code(s): I63.9 - Cerebral infarction, unspecified Status: Acute (7) Acute respiratory failure: Qualifiers: Respiratory failure complication: hypoxia Qualified Code(s): J96.01 - Acute respiratory failure with hypoxia Code(s): J96.00 - Acute respiratory failure, unspecified whether with hypoxia or hypercapnia Status: Acute (8) Hypertension: Code(s): I10 - Essential (primary) hypertension Status: Acute (9) Diabetes: Code(s): E11.9 - Type 2 diabetes mellitus without complications Status: Acute (10) T2DM (type 2 diabetes mellitus): Code(s): E11.9 - Type 2 diabetes mellitus without complications Status: Acute (11) Atrial fibrillation with rapid ventricular response: Code(s): I48.91 - Unspecified atrial fibrillation Status: Acute (12) Acute on chronic systolic heart failure: Code(s): I50.23 - Acute on chronic systolic (congestive) heart failure Status: Acute (13) Acute metabolic encephalopathy: Code(s): G93.41 - Metabolic encephalopathy Status: Acute (14) CAD (coronary artery disease): Code(s): I25.10 - Atherosclerotic heart disease of [place] coronary artery without angina pectoris Status: Acute Plan COPD exacerbation, acute respiratory failure, COVID-19 pneumonia possible superimposed with better pneumonia Patient received vancomycin and imipenem Flu negative, COVID positive ct revealed huge hydropneumothorax on the right side, emphyseam, X-ray shows patchy infiltrate bilaterally Start remdesivir IV Dexamethasone 6 mg IV once and daily Start DuoNeb scheduled albuterol nebulizer as needed Pulse ox monitor continuously Started O2 therapy to keep pulse ox above 94 patient has history of CAD CT reveals Thoracotomy changes on the right with persistent right hydropneumothorax and interval increase in the fluid component.?Bilateral multifocal pneumonia. Consult cloth shrinking machine operator helper for evaluation and treat now off O2 Appreciate pulmonary's consultation , discontinue vancomycin and Zosyn, continue remdesivir and dexamethasone tiil tomorrow Sepsis Patient had high-grade fever 101.9 POA Blood culture and urine culture NEGATIVE of bacteria received Gentle IV fluid Given severe systolic heart failure and fluid overload, will not give fluid resuscitation Acute encephalopathy Patient is confused, although patient is alert, not oriented to time and person CT head showed no acute intracranial to yesterday Patient had a fall 03/22, CT scan of head, whole spine and pelvics no fractures Neuro check AFib RVR Likely secondary to sepsis respiratory failure, COPD exacerbation Discontinue cardizem drip Continue home medication Cardizem p.o. 180 mg daily Eliquis p.o. metoprolol p.o. Consult city marshal for evaluation treatment Acute on chronic systolic heart failure EF 15-20% on echocardiogram August 08, 2022, outpatient echocardiogram from October 2022. LVEF is now 70-75%. Continue Metoprolol. Stopped the Entresto due to significant orthostatic hypotension. X-ray shows pulmonary congestion Lasix 40 mg once Consult city marshal for evaluation treatment History of CAD, Continue aspirin 81 mg daily p.o., Plavix 75 mg daily p.o. Patient denies chest pain Management per city marshal up History of CVA
[2023-03-25 08:42] LABS: Glucose Point of Care 157 mg/dl (65-105)
[2023-03-25] MEDS: REMDESIVIR 100 MG/NS 250 ML 100 MG/250 ML BAG 250 MG IVPB (09:55)
--- NOTE | 2023-03-25 11:07 | PM.PNPUL ---
Progress Note: A&P Assessment and Plan (1) Pneumonia due to COVID-19 virus: Code(s): U07.1 - COVID-19; J12.82 - Pneumonia due to coronavirus disease 2019 Status: Acute Assessment and Plan: (+) serology Mar 21, has COVID pneumonia on Remdesivir, dexamethasone x?10 days. 03/24 He is mildly hypoxemic, won't wear O2. He has patchy infiltrates in the lungs, and with hospital admissions much of the last 7 months, is on coverage for Pseudomonas- Zosyn and he is on vanco even though his nasal MRSA swab negative; vanco my help cover other organisms. He has cancer, but has not been on chemo yet, so he is not at risk for OI Has no sputum to test. Continue to follow, supportive care for management of COVID pneumonia. 03/25: Patient states that he is breathing normally at rest. He has dyspnea on exertion with any activity. He still has an increased cough compared to normal with an increased amount of phlegm that he swallows. He denies hemoptysis. White blood cell count 9.8, creatinine 0.6, he is afebrile. Currently is room air saturations are 99%. Plan: Patient is currently on room air at rest. Overall he was responded to remdesivir and dexamethasone, today is day 4. His procalcitonin is 0.1 on 03/21 and 03/23. Complete 5 days of remdesivir and dexamethasone which will be tomorrow. He does not need antibiotics from a pulmonary perspective. I will check an overnight oximetry on room air to assess for nocturnal hypoxemia. I will check chest x-ray in the morning to serve as baseline. Will follow with you. (2) Adenocarcinoma, lung: Qualifiers: Laterality: right Qualified Code(s): C34.91 - Malignant neoplasm of unspecified part of right bronchus or lung Code(s): C34.90 - Malignant neoplasm of unspecified part of unspecified bronchus or lung Status: Acute Assessment and Plan: Biopsy December 09 at [place], RLL 1.2 cm nodule; adenocarcinoma; resected Sept 21, persistent hydropneumothorax. Has not had treatment yet. Has persistent hydropneumothorax. To follow with oncology. (3) COPD (chronic obstructive pulmonary disease): Code(s): J44.9 - Chronic obstructive pulmonary disease, unspecified Status: Acute Assessment and Plan: Long history tobacco 2 ppd, quit earlier this year. Bronchodilators, Cornet for secretion clearance. 03/25 no evidence of a COPD exacerbation at this time. Plan: Continue home dose of trelegy 100-60 2.5-25 at 1 puff q.day. I will switch his levalbuterol from standing to p.r.n. peers the patient is being evaluated by [facility] and [facility]. Subjective Date/time seen: 03/25/23 11:07 Interval history: 03/22: - new consult--Jere Mcallister is a 68-year-old man known to our service from our pulmonary clinic admitted with increased shortness of breath, fever 101.9, has COVID confirmed 03/21/23.? He has COPD, systolic CHF, chronic atrial fibrillation, had non small cell lung cancer resected at [facility] Feb 02 including RML and part of RLL with persistent hydropneumothorax, went to rehab, and while there, worsened, was transferred here. He fell, is confused and weak. He did not have any injury with the fall.? He had an episode of rapid atrial fibrillation and a Rapid Response was called. He has persistent atrial fib, rate is now controlled. He was on Cardizem drip, cardiology changed this to oral diltiazem and metoprolol. He is pleasant, will not wear O2. He has no sputum, no wheezing, no abdominal pain, no diarrhea. He says that he has lost weight but eats normally. No pleuritic chest pain. Labs this admission: wbc 6.5, H/H 9.6/31.5, plt 283; Na 136, K+ 3.5, chloride 101, Co2 27, BUN 16, creat 0.7, MRSA nasal swab (-), ABG on rom air : 7.452/33/53.9/89.3 UA normal except 3+ glucose, viral negative influenza A,B, RSV, + SARS-CoV-2 PMH:? DM, COPD, Systolic CHF EF 15-20% July 2022; CAD stent in RCA 2011 [facility],chronic atrial fibrilla
[2023-03-25 12:03] LABS: Glucose Point of Care 200 mg/dl (65-105)
[2023-03-25 17:15] LABS: Glucose Point of Care 292 mg/dl (65-105)
[2023-03-25] MEDS: INSULIN ASPART (*BKC) 100 UNITS/ML SUB-Q ×2 (17:24→20:44)
[2023-03-25 20:35] LABS: Glucose Point of Care 357 mg/dl (65-105)
[2023-03-25] MEDS: QUEtiapine FUMARATE 25 MG TABLET PO (20:47)
[2023-03-26] VITALS (11 sets, daily range): BP systolic 114–146; BP diastolic 59–77; PULSE 79–108; RESP 16–22; TEMP 36.2–36.7; O2SAT 98–100
[2023-03-26 06:07] LABS: INR 1.2; Prothrombin Time 15.3 Seconds (11.1-14.7)
[2023-03-26 06:11] LABS: Alanine Aminotransferase 53 U/L (6-50); Albumin Level 3.3 g/dL (3.5-5.1); Alkaline Phosphatase 142 U/L (38-126); Aspartate Amino Transferase 55 U/L (17-59); Bilirubin,Total 0.6 mg/dL (0.2-1.3)
--- NOTE | 2023-03-26 07:56 | PM.IMPN ---
Progress Note: A&P Assessment and Plan (1) Pneumonia due to COVID-19 virus: Code(s): U07.1 - COVID-19; J12.82 - Pneumonia due to coronavirus disease 2019 Status: Acute (2) Pneumonia: Code(s): J18.9 - Pneumonia, unspecified organism Status: Acute (3) Sepsis: Code(s): A41.9 - Sepsis, unspecified organism Status: Acute (4) AMS (altered mental status): Code(s): R41.82 - Altered mental status, unspecified Status: Acute (5) S/P lobectomy of lung: Code(s): Z90.2 - Acquired absence of lung [part of] Status: Acute (6) CVA (cerebral vascular accident): Code(s): I63.9 - Cerebral infarction, unspecified Status: Acute (7) Acute respiratory failure: Qualifiers: Respiratory failure complication: hypoxia Qualified Code(s): J96.01 - Acute respiratory failure with hypoxia Code(s): J96.00 - Acute respiratory failure, unspecified whether with hypoxia or hypercapnia Status: Acute (8) Hypertension: Code(s): I10 - Essential (primary) hypertension Status: Acute (9) Diabetes: Code(s): E11.9 - Type 2 diabetes mellitus without complications Status: Acute (10) T2DM (type 2 diabetes mellitus): Code(s): E11.9 - Type 2 diabetes mellitus without complications Status: Acute (11) Atrial fibrillation with rapid ventricular response: Code(s): I48.91 - Unspecified atrial fibrillation Status: Acute (12) Acute on chronic systolic heart failure: Code(s): I50.23 - Acute on chronic systolic (congestive) heart failure Status: Acute (13) Acute metabolic encephalopathy: Code(s): G93.41 - Metabolic encephalopathy Status: Acute (14) CAD (coronary artery disease): Code(s): I25.10 - Atherosclerotic heart disease of [place] coronary artery without angina pectoris Status: Acute Plan COPD exacerbation, acute respiratory failure, COVID-19 pneumonia possible superimposed with better pneumonia Patient received vancomycin and imipenem Flu negative, COVID positive ct revealed huge hydropneumothorax on the right side, emphyseam, X-ray shows patchy infiltrate bilaterally Start remdesivir IV Dexamethasone 6 mg IV once and daily Start DuoNeb scheduled albuterol nebulizer as needed Pulse ox monitor continuously Started O2 therapy to keep pulse ox above 94 patient has history of CAD CT reveals Thoracotomy changes on the right with persistent right hydropneumothorax and interval increase in the fluid component.?Bilateral multifocal pneumonia. Consult software architect for evaluation and treat now off O2 Appreciate pulmonary's consultation , discontinue vancomycin and Zosyn on March 25 Completed remdesivir and dexamethasone March 26 Sepsis Patient had high-grade fever 101.9 POA Blood culture and urine culture NEGATIVE of bacteria received Gentle IV fluid Given severe systolic heart failure and fluid overload, will not give fluid resuscitation Acute encephalopathy Patient is confused, although patient is alert, not oriented to time and person CT head showed no acute intracranial to yesterday Patient had a fall 03/22, CT scan of head, whole spine and pelvics no fractures Neuro check AFib RVR Likely secondary to sepsis respiratory failure, COPD exacerbation Discontinue cardizem drip Continue home medication Cardizem p.o. 180 mg daily Eliquis p.o. metoprolol p.o. Consult financial services director for evaluation treatment Acute on chronic systolic heart failure EF 15-20% on echocardiogram August 08, 2022, outpatient echocardiogram from October 2022. LVEF is now 70-75%. Continue Metoprolol. Stopped the Entresto due to significant orthostatic hypotension. X-ray shows pulmonary congestion Lasix 40 mg once Consult financial services director for evaluation treatment History of CAD, Continue aspirin 81 mg daily p.o., Plavix 75 mg daily p.o. Patient denies chest pain Management per financial services director up
[2023-03-26 08:01] LABS: Glucose Point of Care 193 mg/dl (65-105)
--- NOTE | 2023-03-26 08:19 | PM.PNPUL ---
Progress Note: A&P Assessment and Plan (1) Pneumonia due to COVID-19 virus: Code(s): U07.1 - COVID-19; J12.82 - Pneumonia due to coronavirus disease 2019 Status: Acute Assessment and Plan: (+) serology Mar 21, has COVID pneumonia on Remdesivir, dexamethasone x?10 days. 03/24 He is mildly hypoxemic, won't wear O2. He has patchy infiltrates in the lungs, and with hospital admissions much of the last 7 months, is on coverage for Pseudomonas- Zosyn and he is on vanco even though his nasal MRSA swab negative; vanco my help cover other organisms. He has cancer, but has not been on chemo yet, so he is not at risk for OI Has no sputum to test. Continue to follow, supportive care for management of COVID pneumonia. 03/25:? Patient states that he is breathing normally at rest.? He has dyspnea on exertion with any activity.? He still has an increased cough compared to normal with an increased amount of phlegm that he swallows.? He denies hemoptysis.? White blood cell count 9.8, creatinine 0.6, he is afebrile.? Currently is room air saturations are 99%. Plan:? Patient is currently on room air at rest.? Overall he was responded to remdesivir and dexamethasone, today is day 4.? His procalcitonin is 0.1 on 03/21 and 03/23. Complete 5 days of remdesivir and dexamethasone which will be tomorrow.? He does not need antibiotics from a pulmonary perspective.? I will check an overnight oximetry on room air to assess for nocturnal hypoxemia.? I will check chest x-ray in the morning to serve as baseline. 03/26: No respiratory complaints at rest but has dyspnea on exertion when taking a few steps. Room air saturations are 99%. Chest x-ray shows continued right hydropneumothorax, stable right made and lower lung and left upper lobe infiltrates compared to 03/22/2023. Patient had an overnight oximetry on room air with recording duration 7 hours and 1 minute. Average saturation 98%, low saturation 97%. Time with saturation less than or equal to 88% was 0 minutes. Oxygen desaturation index was 0. Plan: Patient continues to improve from a COVID pneumonia viewpoint. Today is day 5 of remdesivir and dexamethasone and he is on room air at rest and needs no supplemental oxygen at night. I would discontinue remdesivir and dexamethasone after today's dose. From a pulmonary perspective patient is ready to be discharged on these pulmonary medications: Trilogy 100-60 2.5-25 at 1 puff q.day Albuterol rescue 2 puffs q.4 hours p.r.n. shortness of breath or wheezing Oxygen at rest and with activity per facility protocol. Currently is on room air with saturations 99%. Follow-up in the Pulmonary Clinic with previously scheduled appointment on 04/03/2023 at 3:[address] Herbert, will sign off, call with questions (2) Adenocarcinoma, lung: Qualifiers: Laterality: right Qualified Code(s): C34.91 - Malignant neoplasm of unspecified part of right bronchus or lung Code(s): C34.90 - Malignant neoplasm of unspecified part of unspecified bronchus or lung Status: Acute Assessment and Plan: Biopsy December 09 at [facility], RLL 1.2 cm nodule; adenocarcinoma; resected Sept 21, persistent hydropneumothorax. Has not had treatment yet. Has persistent hydropneumothorax. To follow with oncology. (3) COPD (chronic obstructive pulmonary disease): Code(s): J44.9 - Chronic obstructive pulmonary disease, unspecified Status: Acute Assessment and Plan: Long history tobacco 2 ppd, quit earlier this year. Bronchodilators,? Cornet for secretion clearance. 03/25 no evidence of a COPD exacerbation at this time.? Plan: Continue home dose of trelegy 100-60 2.5-25 at 1 puff q.day. I will switch his levalbuterol from standing to p.r.n. appears the patient is being evaluated?by [facility], [facility] and [facility]. Subjective Date/time seen: 03/26/23 08:19 Interval history: Interval history:
[2023-03-26] MEDS: CLOPIDOGREL BISULFATE 75 MG TABLET PO (08:20)
[2023-03-26] MEDS: THIAMINE HCL 100 MG TABLET PO (08:20)
[2023-03-26] MEDS: POTASSIUM CHLORIDE 20 MEQ PACKET (FOR LIQUID) 40 MEQ PO (08:20)
[2023-03-26] MEDS: dilTIAZem HCL CD 180 MG CAP.24HR PO (08:20)
[2023-03-26] MEDS: ATORVASTATIN 40 MG TABLET 80 MG PO (08:20)
[2023-03-26] MEDS: FAMOTIDINE 20 MG TABLET PO ×2 (08:20→20:59)
[2023-03-26] MEDS: METOPROLOL SUCCINATE EXT REL 25 MG TABCR PO (08:20)
[2023-03-26] MEDS: FOLIC ACID 0.4 MG TABLET 0.8 MG PO (08:20)
[2023-03-26] MEDS: buPROPion HCL SR (12 HR) 150 MG TAB PO ×2 (08:20→20:59)
[2023-03-26] MEDS: APIXABAN 5 MG TABLET PO ×2 (08:20→20:59)
[2023-03-26] MEDS: FLUTICASONE/UMECLIDIN/VILANTER 100-62.5-25 MCG ELLIPTA 1 PUFF INHALATION (08:39)
[2023-03-26] MEDS: REMDESIVIR 100 MG/NS 250 ML 100 MG/250 ML BAG 250 MG IVPB (09:48)
[2023-03-26 11:29] LABS: Glucose Point of Care 334 mg/dl (65-105)
[2023-03-26] MEDS: INSULIN ASPART (*BKC) 100 UNITS/ML SUB-Q ×3 (11:38→20:59)
[2023-03-26 16:49] LABS: Glucose Point of Care 413 mg/dl (65-105)
[2023-03-26] MEDS: INSULIN GLARGINE (*BKC) 100 UNITS/ML 20 UNITS SUB-Q (17:06)
[2023-03-26 20:26] LABS: Glucose Point of Care 351 mg/dl (65-105)
[2023-03-26] MEDS: QUEtiapine FUMARATE 25 MG TABLET PO (20:59)
[2023-03-27] VITALS (10 sets, daily range): BP systolic 127–143; BP diastolic 76–91; PULSE 83–99; RESP 16–18; TEMP 36.4–36.8; O2SAT 100
--- NOTE | 2023-03-27 07:09 | PM.IMPN ---
Progress Note: A&P Assessment and Plan (1) Pneumonia due to COVID-19 virus: Code(s): U07.1 - COVID-19; J12.82 - Pneumonia due to coronavirus disease 2019 Status: Acute (2) Pneumonia: Code(s): J18.9 - Pneumonia, unspecified organism Status: Acute (3) Sepsis: Code(s): A41.9 - Sepsis, unspecified organism Status: Acute (4) AMS (altered mental status): Code(s): R41.82 - Altered mental status, unspecified Status: Acute (5) S/P lobectomy of lung: Code(s): Z90.2 - Acquired absence of lung [part of] Status: Acute (6) CVA (cerebral vascular accident): Code(s): I63.9 - Cerebral infarction, unspecified Status: Acute (7) Acute respiratory failure: Qualifiers: Respiratory failure complication: hypoxia Qualified Code(s): J96.01 - Acute respiratory failure with hypoxia Code(s): J96.00 - Acute respiratory failure, unspecified whether with hypoxia or hypercapnia Status: Acute (8) Hypertension: Code(s): I10 - Essential (primary) hypertension Status: Acute (9) Diabetes: Code(s): E11.9 - Type 2 diabetes mellitus without complications Status: Acute (10) T2DM (type 2 diabetes mellitus): Code(s): E11.9 - Type 2 diabetes mellitus without complications Status: Acute (11) Atrial fibrillation with rapid ventricular response: Code(s): I48.91 - Unspecified atrial fibrillation Status: Acute (12) Acute on chronic systolic heart failure: Code(s): I50.23 - Acute on chronic systolic (congestive) heart failure Status: Acute (13) Acute metabolic encephalopathy: Code(s): G93.41 - Metabolic encephalopathy Status: Acute (14) CAD (coronary artery disease): Code(s): I25.10 - Atherosclerotic heart disease of [place] coronary artery without angina pectoris Status: Acute Plan COPD exacerbation, acute respiratory failure, COVID-19 pneumonia possible superimposed with better pneumonia Patient received vancomycin and imipenem Flu negative, COVID positive ct revealed huge hydropneumothorax on the right side, emphyseam, X-ray shows patchy infiltrate bilaterally Started remdesivir IV started Dexamethasone 6 mg IV once and daily Received duoNeb scheduled levalbuterol as needed Pulse ox monitor continuously Started O2 therapy to keep pulse ox above 94 patient has history of CAD CT reveals Thoracotomy changes on the right with persistent right hydropneumothorax and interval increase in the fluid component.?Bilateral multifocal pneumonia. Consult cloth designer for evaluation and treat now off O2 Appreciate pulmonary's consultation , discontinue vancomycin and Zosyn on March 25 Completed remdesivir and dexamethasone March 26 Patient has no obvious distress,, denies short of breath at rest. Continue home medication and continue levalbuterol as needed, I discussed the case with Dr Noriega, he agreed to dc pt today Sepsis Patient had high-grade fever 101.9 POA Blood culture and urine culture NEGATIVE of bacteria received Gentle IV fluid Given severe systolic heart failure and fluid overload, will not give fluid resuscitation resolves Acute encephalopathy Patient is confused, although patient is alert, not oriented to time and person CT head showed no acute intracranial to yesterday Patient had a fall 03/22, CT scan of head, whole spine and pelvics no fractures Neuro check now pt is alert oriented x3 Patient's concern about general weakness, requests to consult neurologist Dr. Stevan Singer RVR Likely secondary to sepsis respiratory failure, COPD exacerbation Discontinue cardizem drip Continue home medication Cardizem p.o. 180 mg daily Eliquis p.o. metoprolol p.o. Consult finding fastener for evaluation treatment Rate is controlled Acute on chronic systolic heart failure EF 15-20% on echocardiogram August 08, 2022, outpatient echocardiogram from October 2022. LVE
[2023-03-27 08:28] LABS: Glucose Point of Care 156 mg/dl (65-105)
[2023-03-27] MEDS: FAMOTIDINE 20 MG TABLET PO ×2 (08:35→21:06)
[2023-03-27] MEDS: METOPROLOL SUCCINATE EXT REL 25 MG TABCR PO (08:35)
[2023-03-27] MEDS: APIXABAN 5 MG TABLET PO ×2 (08:35→21:06)
[2023-03-27] MEDS: buPROPion HCL SR (12 HR) 150 MG TAB PO ×2 (08:35→21:06)
[2023-03-27] MEDS: ATORVASTATIN 40 MG TABLET 80 MG PO (08:35)
[2023-03-27] MEDS: FOLIC ACID 0.4 MG TABLET 0.8 MG PO (08:35)
[2023-03-27] MEDS: dilTIAZem HCL CD 180 MG CAP.24HR PO (08:35)
[2023-03-27] MEDS: CLOPIDOGREL BISULFATE 75 MG TABLET PO (08:35)
[2023-03-27] MEDS: THIAMINE HCL 100 MG TABLET PO (08:35)
[2023-03-27] MEDS: POTASSIUM CHLORIDE 20 MEQ PACKET (FOR LIQUID) 40 MEQ PO (08:36)
[2023-03-27] MEDS: INSULIN GLARGINE (*BKC) 100 UNITS/ML 20 UNITS SUB-Q (08:42)
[2023-03-27] MEDS: FLUTICASONE/UMECLIDIN/VILANTER 100-62.5-25 MCG ELLIPTA 1 PUFF INHALATION (08:51)
--- NOTE | 2023-03-27 10:15 | PM.DS ---
DS: Admitting Diagnosis Discharge Date 03/27/23 Admitting Diagnosis (1) Pneumonia due to COVID-19 virus: ?Code(s): U07.1 - COVID-19; J12.82 - Pneumonia due to coronavirus disease 2019 ?Status:?Acute (2) Pneumonia: ?Code(s): J18.9 - Pneumonia, unspecified organism ?Status:?Acute (3) Sepsis: ?Code(s): A41.9 - Sepsis, unspecified organism ?Status:?Acute (4) AMS (altered mental status): ?Code(s): R41.82 - Altered mental status, unspecified ?Status:?Acute (5) S/P lobectomy of lung: ?Code(s): Z90.2 - Acquired absence of lung [part of] ?Status:?Acute (6) CVA (cerebral vascular accident): ?Code(s): I63.9 - Cerebral infarction, unspecified ?Status:?Acute (7) Acute respiratory failure: DS: Summary Time Spent with Patient Time attestation: Total time spent providing and/or coordinating discharge services: Exam Narrative: GENERAL: Pleasant, ill-appearing in no acute distress. Well-nourished. - EYES: EOMI. Anicteric. - HENT: Moist mucous membranes. - LUNGS: Decreased air entry right lower base, coarse breath sound, - CARDIOVASCULAR: Irregular irregular rhythm, tachycardia No murmur. No JVD. - ABDOMEN: Soft, non-tender and non-distended. No palpable masses. - EXTREMITIES: No edema. Peripheral pulses 2+. Non-tender. - NEUROLOGIC: No focal neurological deficits. CN II-XII grossly intact. - PSYCHIATRIC: Awake, Alert and not oriented to time and person,. Appropriate mood and affect. - SKIN: No rashes or lesions. Warm. - LYMPH: No cervical lymphadenopathy. DS: Data Data Completed and Pending Labs on day of discharge: Labs from last 24 hours 03/27/23 03/26/23 03/26/23 08:25 20:18 16:42 POC Capillary Glucose 156 H 351 H 413 H 03/26/23 11:26 POC Capillary Glucose 334 H Discharge Plan Discharge Attending physician on discharge: Wanda Conway Consulting providers: Hari Yao; Carmen Block; Joel Foley; Mara Calles Discharging Clinician: Wanda Conway Anticipated Discharge Date/Time: 03/27/23 15:08 Patient Disposition: Inpatient Rehab Facility Activity: no straining and as tolerated Diet: as tolerated and heart healthy Discharge Instructions: afib Stand Alone Forms: General Discharge Information Follow-up/Referrals: Carmen Block MD [Physician] - (See career center advisor at scheduled appointment) Vladimir Sloan MD [Primary Care Provider] - (See primary care doctor in 1 week) Discharge Medications: New levalbuterol tartrate [Xopenex HFA] 45 mcg/actuation Hfa Aerosol Inhaler 2 puff inhalation Q6HRT PRN (Reason: Wheezing) Qty: 1 1RF Continued diltiazem HCl 100 mg Recon Soln 15 mg continuous IV infusion ONCE Qty: 10 0RF meropenem 1 gram Recon Soln 1 g IV Q8HR Qty: 10 0RF metoprolol succinate [Toprol XL] 25 mg Tablet Extended Release 24 Hr 25 mg PO QAM Qty: 10 0RF quetiapine [Seroquel] 25 mg Tablet 25 mg PO HS Qty: 7 0RF vancomycin 1.25 gram Recon Soln 1,250 mg IV Q24H Qty: 10 0RF nitroglycerin 0.4 mg Tablet, Sublingual 0.4 mg SUBLINGUAL Q5M PRN (Reason: Chest Pain) Rx Instructions: do not exceed 3 doses per episode clopidogrel 75 mg tablet 75 mg PO DAILY famotidine 20 mg tablet 20 mg PO BID Jardiance 10 mg tablet 10 mg PO QAM bupropion HCl (smoking deter) 150 mg tablet extended release 12 hr 150 mg PO BID folic acid 800 mcg Tablet 0.8 mg PO DAILY melatonin 10 mg Capsule 10 mg PO HS PRN (Reason: Insomnia) diltiazem HCl 180 mg capsule,extended release 24hr 180 mg PO DAILY Hold Instructions: Resume on 03/22/23. tramadol 50 mg tablet 50 mg PO Q6H PRN (Reason: Moderate Pain (Scale Score 5-6)) midodrine 5 mg tablet 5 mg PO DAILY PRN (Reason: Hypotension) Rx Instructions: PRN for systolic BP less then 90 vilazodone 20 mg tablet 20 mg PO DAILY Treleesteban Ellipta 100-62.5-25 mcg bl
[2023-03-27 10:24] LABS: Basophils Percent Auto 0.1 % (0.2-1.2); Hematocrit 30.3 % (42.0-52.0); Hemoglobin 9.3 g/dL (14.0-18.0); Immature Granulocyte Absolute 0.05 K/mm3 (0.00-0.031); Immature Granulocyte Percent A 0.5 % (0-0.5); Lymphocytes Absolute Auto 1.27 K/mm3 (0.9-3.2); Lymphocytes Percent Auto 11.6 % (18.3-44.2); Mean Corpuscular HGB Conc 30.7 g/dl (32-36); Mean Corpuscular Hemoglobin 29.9 pg (26-34); Mean Corpuscular Volume 97.4 fl (80-100); Mean Platelet Volume 10.3 fl (7.4-10.4); Monocytes Absolute Auto 0.5 K/mm3 (0.1-0.6); Monocytes Percent Auto 4.5 % (2.6-8.5); Neutrophils Absolute Auto 9.1 K/mm3 (1.3-6.7); Neutrophils Percent Auto 83.3 % (45.5-73.1); Nucleated Red Blood Cells Perc 0.2 % (0.0-0.2); Platelet Count Result 354 k/mm3 (150-375); Red Blood Count 3.11 M/mm3 (4.6-6.20); Red Cell Distribution Width 14.1 % (11.5-14.5)
[2023-03-27 10:37] LABS: Anion Gap 9 mmol/L (8-16); Blood Urea Nitrogen 14 mg/dL (9-20); Calcium 9.5 mg/dL (8.4-10.2); Carbon Dioxide 31 mmol/L (22-30); Chloride 100 mmol/L (98-107); Estimated CRCL calculation 97 ml/min; Estimated Glomerular Filt Rate > 60; Glucose 219 mg/dL (65-110); Potassium 3.7 mmol/L (3.4-5.0); Sodium 140 mmol/L (137-145)
[2023-03-27 11:44] LABS: Glucose Point of Care 298 mg/dl (65-105)
[2023-03-27] MEDS: INSULIN ASPART (*BKC) 100 UNITS/ML SUB-Q ×3 (12:13→21:04)
[2023-03-27 17:03] LABS: Glucose Point of Care 333 mg/dl (65-105)
[2023-03-27 20:12] LABS: Glucose Point of Care 272 mg/dl (65-105)
[2023-03-27] MEDS: QUEtiapine FUMARATE 25 MG TABLET PO (21:06)
[2023-03-28] VITALS (12 sets, daily range): BP systolic 125–143; BP diastolic 72–82; PULSE 78–118; RESP 16–18; TEMP 36.4–37.1; O2SAT 88–98
[2023-03-28 06:26] LABS: Basophils Percent Auto 0.1 % (0.2-1.2); Hematocrit 31.4 % (42.0-52.0); Hemoglobin 9.8 g/dL (14.0-18.0); Immature Granulocyte Absolute 0.05 K/mm3 (0.00-0.031); Immature Granulocyte Percent A 0.4 % (0-0.5); Lymphocytes Absolute Auto 1.19 K/mm3 (0.9-3.2); Lymphocytes Percent Auto 9.4 % (18.3-44.2); Mean Corpuscular HGB Conc 31.2 g/dl (32-36); Mean Platelet Volume 10.4 fl (7.4-10.4); Monocytes Absolute Auto 0.8 K/mm3 (0.1-0.6); Neutrophils Absolute Auto 10.6 K/mm3 (1.3-6.7); Neutrophils Percent Auto 84.1 % (45.5-73.1); Platelet Count Result 350 k/mm3 (150-375); Red Blood Count 3.27 M/mm3 (4.6-6.20); Red Cell Distribution Width 14.2 % (11.5-14.5); White Blood Count 12.6 K/mm3 (4.5-10.0)
[2023-03-28 06:36] LABS: Anion Gap 7 mmol/L (8-16); Blood Urea Nitrogen 14 mg/dL (9-20); Calcium 9.6 mg/dL (8.4-10.2); Carbon Dioxide 30 mmol/L (22-30); Chloride 101 mmol/L (98-107); Estimated CRCL calculation 82 ml/min; Estimated Glomerular Filt Rate > 60; Glucose 201 mg/dL (65-110); Sodium 138 mmol/L (137-145)
[2023-03-28 08:10] LABS: Glucose Point of Care 225 mg/dl (65-105)
[2023-03-28] MEDS: ATORVASTATIN 40 MG TABLET 80 MG PO (08:32)
[2023-03-28] MEDS: APIXABAN 5 MG TABLET PO ×2 (08:32→20:26)
[2023-03-28] MEDS: CLOPIDOGREL BISULFATE 75 MG TABLET PO (08:32)
[2023-03-28] MEDS: buPROPion HCL SR (12 HR) 150 MG TAB PO ×2 (08:32→20:25)
[2023-03-28] MEDS: FAMOTIDINE 20 MG TABLET PO ×2 (08:33→20:25)
[2023-03-28] MEDS: dilTIAZem HCL CD 180 MG CAP.24HR PO (08:33)
[2023-03-28] MEDS: METOPROLOL SUCCINATE EXT REL 25 MG TABCR PO (08:33)
[2023-03-28] MEDS: FOLIC ACID 0.4 MG TABLET 0.8 MG PO (08:33)
[2023-03-28] MEDS: THIAMINE HCL 100 MG TABLET PO (08:34)
[2023-03-28] MEDS: INSULIN ASPART (*BKC) 100 UNITS/ML SUB-Q ×4 (08:38→20:22)
[2023-03-28] MEDS: INSULIN GLARGINE (*BKC) 100 UNITS/ML 20 UNITS SUB-Q (08:40)
[2023-03-28] MEDS: FLUTICASONE/UMECLIDIN/VILANTER 100-62.5-25 MCG ELLIPTA 1 PUFF INHALATION (08:42)
[2023-03-28 11:50] LABS: Glucose Point of Care 287 mg/dl (65-105)
[2023-03-28] MEDS: LEVALBUTEROL HFA (*SP) 15 GM INHALER 2 PUFF INHALATION (12:16)
--- NOTE | 2023-03-28 15:48 | PM.IMPN ---
Progress Note: A&P Assessment and Plan (1) Pneumonia due to COVID-19 virus: Code(s): U07.1 - COVID-19; J12.82 - Pneumonia due to coronavirus disease 2019 Status: Acute (2) Pneumonia: Code(s): J18.9 - Pneumonia, unspecified organism Status: Acute (3) Sepsis: Code(s): A41.9 - Sepsis, unspecified organism Status: Acute (4) AMS (altered mental status): Code(s): R41.82 - Altered mental status, unspecified Status: Acute (5) S/P lobectomy of lung: Code(s): Z90.2 - Acquired absence of lung [part of] Status: Acute (6) CVA (cerebral vascular accident): Code(s): I63.9 - Cerebral infarction, unspecified Status: Acute (7) Acute respiratory failure: Qualifiers: Respiratory failure complication: hypoxia Qualified Code(s): J96.01 - Acute respiratory failure with hypoxia Code(s): J96.00 - Acute respiratory failure, unspecified whether with hypoxia or hypercapnia Status: Acute (8) Hypertension: Code(s): I10 - Essential (primary) hypertension Status: Acute (9) Diabetes: Code(s): E11.9 - Type 2 diabetes mellitus without complications Status: Acute (10) T2DM (type 2 diabetes mellitus): Code(s): E11.9 - Type 2 diabetes mellitus without complications Status: Acute (11) Atrial fibrillation with rapid ventricular response: Code(s): I48.91 - Unspecified atrial fibrillation Status: Acute (12) Acute on chronic systolic heart failure: Code(s): I50.23 - Acute on chronic systolic (congestive) heart failure Status: Acute (13) Acute metabolic encephalopathy: Code(s): G93.41 - Metabolic encephalopathy Status: Acute (14) CAD (coronary artery disease): Code(s): I25.10 - Atherosclerotic heart disease of [place] coronary artery without angina pectoris Status: Acute Plan COPD exacerbation, acute respiratory failure, COVID-19 pneumonia possible superimposed with better pneumonia Patient received vancomycin and imipenem Flu negative, COVID positive ct revealed huge hydropneumothorax on the right side, emphyseam, X-ray shows patchy infiltrate bilaterally Started remdesivir IV started Dexamethasone 6 mg IV once and daily Received duoNeb scheduled levalbuterol as needed Pulse ox monitor continuously Started O2 therapy to keep pulse ox above 94 patient has history of CAD CT reveals Thoracotomy changes on the right with persistent right hydropneumothorax and interval increase in the fluid component.?Bilateral multifocal pneumonia. Consult pest control service representative for evaluation and treat now off O2 Appreciate pulmonary's consultation , discontinue vancomycin and Zosyn on March 25 Completed remdesivir and dexamethasone March 26 Pt is medically better awaiting placement Sepsis Patient had high-grade fever 101.9 POA Blood culture and urine culture NEGATIVE of bacteria received Gentle IV fluid Resolved Acute encephalopathy Patient is confused, although patient is alert, not oriented to time and person CT head showed no acute intracranial to yesterday Patient had a fall 03/22, CT scan of head, whole spine and pelvics no fractures Neuro check now pt is alert oriented x3 Patient's concern about general weakness, requests to consult neurologist Dr. Calles Awaiting neurology consult AFib RVR Likely secondary to sepsis respiratory failure, COPD exacerbation Discontinue cardizem drip Continue home medication Cardizem p.o. 180 mg daily Eliquis p.o. metoprolol p.o. Consult refrigerator repairman for evaluation treatment Rate is controlled, pt is medically better Acute on chronic systolic heart failure EF 15-20% on echocardiogram August 08, 2022, outpatient echocardiogram from October 2022. LVEF is now 70-75%. Continue Metoprolol. Stopped the Entresto due to significant orthostatic hypotension. X-ray shows pulmonary congestion Lasix 40 mg once cardiology signed off Histo
[2023-03-28 16:49] LABS: Glucose Point of Care 251 mg/dl (65-105)
--- NOTE | 2023-03-28 18:27 | PC.NURSE ---
Patient c/o feeling SOB, sat 88% on RA. Placed on oxygen 2 liters and sat was then 93%/ On tele and tachy 115. Dr Correa notified orders for chest xray in am.
[2023-03-28 20:07] LABS: Glucose Point of Care 205 mg/dl (65-105)
[2023-03-28] MEDS: MELATONIN 5 MG TABLET 10 MG PO (20:26)
[2023-03-28] MEDS: QUEtiapine FUMARATE 25 MG TABLET PO (20:26)
[2023-03-29] VITALS (11 sets, daily range): BP systolic 124–138; BP diastolic 50–75; PULSE 78–130; RESP 17–18; TEMP 36.5–36.7; O2SAT 92–100
[2023-03-29 06:20] LABS: Basophils Percent Auto 0.2 % (0.2-1.2); Eosinophils Percent Auto 0.1 % (0-4.4); Hematocrit 31.1 % (42.0-52.0); Hemoglobin 9.9 g/dL (14.0-18.0); Immature Granulocyte Absolute 0.13 K/mm3 (0.00-0.031); Immature Granulocyte Percent A 0.6 % (0-0.5); Lymphocytes Absolute Auto 0.92 K/mm3 (0.9-3.2); Mean Corpuscular HGB Conc 31.8 g/dl (32-36); Mean Corpuscular Volume 94.2 fl (80-100); Mean Platelet Volume 10.7 fl (7.4-10.4); Monocytes Absolute Auto 1.2 K/mm3 (0.1-0.6); Monocytes Percent Auto 5.2 % (2.6-8.5); Neutrophils Absolute Auto 20.7 K/mm3 (1.3-6.7); Neutrophils Percent Auto 89.9 % (45.5-73.1); Platelet Count Result 423 k/mm3 (150-375); Red Cell Distribution Width 14.4 % (11.5-14.5)
[2023-03-29 06:28] LABS: Anion Gap 9 mmol/L (8-16); Blood Urea Nitrogen 20 mg/dL (9-20); Calcium 9.7 mg/dL (8.4-10.2); Carbon Dioxide 29 mmol/L (22-30); Chloride 101 mmol/L (98-107); Estimated CRCL calculation 72 ml/min; Estimated Glomerular Filt Rate > 60; Glucose 166 mg/dL (65-110); Potassium 3.9 mmol/L (3.4-5.0); Sodium 139 mmol/L (137-145)
[2023-03-29 07:21] LABS: Platelet Estimate Increased (Adequate)
[2023-03-29 07:25] LABS: Burr Cells 1+ (NORMAL); Large Platelets Present; Poikilocytosis 1+ (NORMAL); Schistocytes None Seen (NORMAL)
[2023-03-29] MEDS: FLUTICASONE/UMECLIDIN/VILANTER 100-62.5-25 MCG ELLIPTA 1 PUFF INHALATION (08:20)
[2023-03-29 08:28] LABS: Glucose Point of Care 176 mg/dl (65-105)
[2023-03-29] MEDS: dilTIAZem HCL CD 180 MG CAP.24HR PO (08:37)
[2023-03-29] MEDS: FOLIC ACID 0.4 MG TABLET 0.8 MG PO (08:37)
[2023-03-29] MEDS: FAMOTIDINE 20 MG TABLET PO ×2 (08:37→21:34)
[2023-03-29] MEDS: CLOPIDOGREL BISULFATE 75 MG TABLET PO (08:37)
[2023-03-29] MEDS: THIAMINE HCL 100 MG TABLET PO (08:37)
[2023-03-29] MEDS: METOPROLOL SUCCINATE EXT REL 25 MG TABCR PO (08:37)
[2023-03-29] MEDS: buPROPion HCL SR (12 HR) 150 MG TAB PO ×2 (08:37→21:40)
[2023-03-29] MEDS: APIXABAN 5 MG TABLET PO ×2 (08:37→21:34)
[2023-03-29] MEDS: ATORVASTATIN 40 MG TABLET 80 MG PO (08:37)
[2023-03-29] MEDS: DEXAMETHASONE 2 MG TABLET 6 MG PO (08:37)
[2023-03-29] MEDS: INSULIN GLARGINE (*BKC) 100 UNITS/ML 20 UNITS SUB-Q (08:42)
[2023-03-29 12:16] LABS: Glucose Point of Care 289 mg/dl (65-105)
[2023-03-29] MEDS: INSULIN ASPART (*BKC) 100 UNITS/ML SUB-Q ×3 (13:12→21:33)
[2023-03-29] MEDS: METOPROLOL SUCCINATE EXT REL 50 MG TABCR PO (13:15)
[2023-03-29 17:14] LABS: Glucose Point of Care 363 mg/dl (65-105)
--- NOTE | 2023-03-29 18:45 | PM.IMPN ---
Progress Note: A&P Assessment and Plan (1) Pneumonia due to COVID-19 virus: Code(s): U07.1 - COVID-19; J12.82 - Pneumonia due to coronavirus disease 2019 Status: Acute (2) Pneumonia: Code(s): J18.9 - Pneumonia, unspecified organism Status: Acute (3) Sepsis: Code(s): A41.9 - Sepsis, unspecified organism Status: Acute (4) AMS (altered mental status): Code(s): R41.82 - Altered mental status, unspecified Status: Acute (5) S/P lobectomy of lung: Code(s): Z90.2 - Acquired absence of lung [part of] Status: Acute (6) CVA (cerebral vascular accident): Code(s): I63.9 - Cerebral infarction, unspecified Status: Acute (7) Acute respiratory failure: Qualifiers: Respiratory failure complication: hypoxia Qualified Code(s): J96.01 - Acute respiratory failure with hypoxia Code(s): J96.00 - Acute respiratory failure, unspecified whether with hypoxia or hypercapnia Status: Acute (8) Hypertension: Code(s): I10 - Essential (primary) hypertension Status: Acute (9) Diabetes: Code(s): E11.9 - Type 2 diabetes mellitus without complications Status: Acute (10) T2DM (type 2 diabetes mellitus): Code(s): E11.9 - Type 2 diabetes mellitus without complications Status: Acute (11) Atrial fibrillation with rapid ventricular response: Code(s): I48.91 - Unspecified atrial fibrillation Status: Acute (12) Acute on chronic systolic heart failure: Code(s): I50.23 - Acute on chronic systolic (congestive) heart failure Status: Acute (13) Acute metabolic encephalopathy: Code(s): G93.41 - Metabolic encephalopathy Status: Acute (14) CAD (coronary artery disease): Code(s): I25.10 - Atherosclerotic heart disease of [place] coronary artery without angina pectoris Status: Acute Plan COPD exacerbation, acute respiratory failure, COVID-19 pneumonia possible superimposed with better pneumonia Patient received vancomycin and imipenem Flu negative, COVID positive ct revealed huge hydropneumothorax on the right side, emphyseam, X-ray shows patchy infiltrate bilaterally Started remdesivir IV started Dexamethasone 6 mg IV once and daily Received duoNeb scheduled levalbuterol as needed Pulse ox monitor continuously Started O2 therapy to keep pulse ox above 94 patient has history of CAD CT reveals Thoracotomy changes on the right with persistent right hydropneumothorax and interval increase in the fluid component.?Bilateral multifocal pneumonia. Consult high scaler for evaluation and treat now off O2 Appreciate pulmonary's consultation , discontinue vancomycin and Zosyn on March 25 Completed remdesivir and dexamethasone March 26 Pt is hypoxic again on [address] pe shows pneumonia and pulmonary edema restart IV lasix IV rocephin and IV zithromax reconsult pulmology pt has only one lung Sepsis on admission resolved Patient had high-grade fever 101.9 POA Blood culture and urine culture NEGATIVE of bacteria Acute encephalopathy Patient is confused, although patient is alert, not oriented to time and person CT head showed no acute intracranial to yesterday Patient had a fall 03/22, CT scan of head, whole spine and pelvics no fractures Neuro check now pt is alert oriented x3 Patient's concern about general weakness, requests to consult neurologist Dr. Calles Awaiting neurology consult AFib RVR Likely secondary to sepsis respiratory failure, COPD exacerbation Discontinue cardizem drip Continue home medication Cardizem p.o. 180 mg daily Eliquis p.o. metoprolol p.o. Consult reflesher for evaluation treatment Rate is controlled, pt is medically better Acute on chronic systolic heart failure EF 15-20% on echocardiogram August 08, 2022, outpatient echocardiogram from October 2022. LVEF is now 70-75%. Continue Metoprolol. Stopped the Entresto due to significan
[2023-03-29] MEDS: AZITHROMYCIN 500 MG/NS 250 ML 500 MG/250 ML BAG 250 MG IVPB (20:26)
[2023-03-29 21:25] LABS: Glucose Point of Care 205 mg/dl (65-105)
[2023-03-29] MEDS: QUEtiapine FUMARATE 25 MG TABLET PO (21:34)
[2023-03-30] VITALS (14 sets, daily range): BP systolic 121–135; BP diastolic 64–78; PULSE 76–106; RESP 16–18; TEMP 36.3–37; O2SAT 96–99
[2023-03-30 06:06] LABS: Hematocrit 30.4 % (42.0-52.0); Hemoglobin 9.5 g/dL (14.0-18.0); Mean Corpuscular HGB Conc 31.3 g/dl (32-36); Mean Corpuscular Hemoglobin 29.5 pg (26-34); Mean Corpuscular Volume 94.4 fl (80-100); Mean Platelet Volume 10.8 fl (7.4-10.4); Platelet Count Result 399 k/mm3 (150-375); Red Blood Count 3.22 M/mm3 (4.6-6.20); Red Cell Distribution Width 14.3 % (11.5-14.5); White Blood Count 21.6 K/mm3 (4.5-10.0)
[2023-03-30 06:22] LABS: Anion Gap 7 mmol/L (8-16); Blood Urea Nitrogen 18 mg/dL (9-20); Calcium 10.3 mg/dL (8.4-10.2); Carbon Dioxide 30 mmol/L (22-30); Chloride 103 mmol/L (98-107); Estimated CRCL calculation 80 ml/min; Estimated Glomerular Filt Rate > 60; Glucose 129 mg/dL (65-110); Potassium 4.7 mmol/L (3.4-5.0); Sodium 140 mmol/L (137-145)
[2023-03-30] MEDS: FLUTICASONE/UMECLIDIN/VILANTER 100-62.5-25 MCG ELLIPTA 1 PUFF INHALATION (07:00)
[2023-03-30] MEDS: INSULIN GLARGINE (*BKC) 100 UNITS/ML 20 UNITS SUB-Q (08:40)
[2023-03-30] MEDS: FOLIC ACID 0.4 MG TABLET 0.8 MG PO (08:43)
[2023-03-30] MEDS: dilTIAZem HCL CD 180 MG CAP.24HR PO (08:43)
[2023-03-30] MEDS: CLOPIDOGREL BISULFATE 75 MG TABLET PO (08:43)
[2023-03-30] MEDS: DEXAMETHASONE 2 MG TABLET 6 MG PO (08:43)
[2023-03-30 08:44] LABS: Glucose Point of Care 119 mg/dl (65-105)
[2023-03-30] MEDS: THIAMINE HCL 100 MG TABLET PO (08:44)
[2023-03-30] MEDS: buPROPion HCL SR (12 HR) 150 MG TAB PO ×2 (08:44→19:59)
[2023-03-30] MEDS: FAMOTIDINE 20 MG TABLET PO ×2 (08:44→19:59)
[2023-03-30] MEDS: FUROSEMIDE INJ 40 MG/4 ML VIAL 20 MG IV PUSH (08:44)
[2023-03-30] MEDS: APIXABAN 5 MG TABLET PO ×2 (08:44→19:59)
[2023-03-30] MEDS: METOPROLOL SUCCINATE EXT REL 50 MG TABCR PO ×2 (08:44→17:30)
[2023-03-30] MEDS: ATORVASTATIN 40 MG TABLET 80 MG PO (08:44)
--- NOTE | 2023-03-30 10:40 | WPDNEURCNPN ---
Assessment and Plan Assessment and plan (1) Generalized weakness: Code(s): R53.1 - Weakness Status: Acute (2) History of CVA with residual deficit: Code(s): I69.30 - Unspecified sequelae of cerebral infarction Status: Acute (3) Pneumonia due to COVID-19 virus: Code(s): U07.1 - COVID-19; J12.82 - Pneumonia due to coronavirus disease 2019 Status: Acute (4) Acute metabolic encephalopathy: Code(s): G93.41 - Metabolic encephalopathy Status: Acute Plan Jere Mcallister is a 68 year old male with a history of atrial fibrillation, HTN, HLD, DM, chronic smoking, prior stroke in the posterior R frontal lobe, concern for lung cancer s/p R sided lobectomy a few months ago. He is currently admitted for pneumonia/COVID-19 infection. Course has been complicated by generalized weakness. On my exam is strength seems fairly consistent with his last office visit exam. Subjective feeling of weakness may be due to car attendant hospitalizations/deconditioning. Will need to re-evaluate after patient has completed rehabilitation. Consult date: 03/30/23 Reason for consult: Generalized weakness HPI: Jere Mcallister is a 68 year old male with a history of atrial fibrillation, HTN, HLD, DM, chronic smoking, prior stroke in the posterior R frontal lobe, concern for lung cancer s/p R sided lobectomy a few months ago. After patient underwent lobectomy at [facility], he was discharged to home instead of rehab due to his insurance not approving. While at home he developed AMS and lethargy so he was taken to [place]. He is currently admitted for sepsis, COVID positive status, pneumonia being treated with a number of antibiotics. He remained encephalopathic early in admission, but mental status has improved since then. There have been concerned regarding generalized weakness. He is on Lipitor 80mg daily and scheduled dexamethasone. At baseline he has L sided weakness, dysarthria, and dysphagia from his stroke. Review of Systems Constitutional: Constitutional: Denies chills, Reports fatigue, Denies fever(s), Reports weakness and Denies weight loss Eyes: Eyes: Denies diplopia and Denies loss of vision ENT: Reports dizziness, Denies hearing loss and Denies tinnitus Cardiovascular: Cardiovascular: Denies chest pain, Denies syncope and Reports dyspnea Respiratory: Respiratory: Denies cough, Reports dyspnea and Denies wheezing Gastrointestinal: Gastrointestinal: Denies abdominal pain, Denies change in bowel habits and Denies vomiting Comments: dysphagia Genitourinary: Genitourinary: Denies urinary incontinence Musculoskeletal: Musculoskeletal: Denies arthralgias and Denies joint swelling Integumentary/Breasts: Skin/Breast: Denies new lesions and Denies rash Neurologic: Reports as per HPI, Denies dizziness, Denies syncope and Denies loss of vision Psychiatric: Psychiatric: Denies anxiety and Denies depression Hematologic/Lymphatic: Hematologic/Lymphatic: Reports easy bleeding and Reports easy bruising Allergic/Immunologic: Allergic/Immunologic: Denies no additional allergic/immunologic complaints and Denies wheezing PMFSH Past Medical History Medical History Atrial fibrillation Blood in stool Colon cancer screening COPD (chronic obstructive pulmonary disease) CVA (cerebral vascular accident) Diabetes Gastrostomy tube in place Heart failure with reduced ejection fraction Hyperlipidemia Hypertension Surgical History Surgical History S/P lobectomy of lung Family History Family History Father Diabetes mellitus Gout Hypertension Mother Diabetes mellitus Hypertension Social History Social History Smoking packs per day: 2 Smoking cigarettes per day: 40.0 Years smoked: 45 Smoking
--- NOTE | 2023-03-30 10:42 | PCNFU ---
Nutrition Follow-Up Complete: Unintentional weight loss related to reduced appetite and intake as evidenced by noted EMR weight change, refusal of meals Goal: PO intake of meals, acceptance of Ensure Patient is not meeting goal. We will continue current goal. Pt current nutrition is DBCC/2 gm Na. Last recorded weight is 56 kg, down from 59.7 kg on admit. Bowel Motility:+BM reported 03/27 Labs Reviewed:Glu 129, Cr 0.6,Hct 30.4,Hgb 9.5 Meds Noted:Eliquis, Lipitor, Folic Acid, Lasix Skin: WNL Additional Notes:Patient remains on a DBCC /2 gm Na diet. Intake has been poor 5-10% of meals. Diet supplements remain of Ensure compact TID providing and additional 220 kcals and 9 gms protein. PO intake encouraged. Agree with diet orders. Monitor intake, wt, labs. Follow up in 5 days.
--- NOTE | 2023-03-30 11:23 | PCPTNOTE ---
Attempted to see patient for PT, however patient refused. Patient reported he did not feel like it right now. Encouraged patient to participate, patient continued to refuse.
--- NOTE | 2023-03-30 11:40 | PM.IMPN ---
Progress Note: A&P Assessment and Plan (1) Pneumonia due to COVID-19 virus: Code(s): U07.1 - COVID-19; J12.82 - Pneumonia due to coronavirus disease 2019 Status: Acute (2) Pneumonia: Code(s): J18.9 - Pneumonia, unspecified organism Status: Acute (3) Sepsis: Code(s): A41.9 - Sepsis, unspecified organism Status: Acute (4) AMS (altered mental status): Code(s): R41.82 - Altered mental status, unspecified Status: Acute (5) S/P lobectomy of lung: Code(s): Z90.2 - Acquired absence of lung [part of] Status: Acute (6) CVA (cerebral vascular accident): Code(s): I63.9 - Cerebral infarction, unspecified Status: Acute (7) Acute respiratory failure: Qualifiers: Respiratory failure complication: hypoxia Qualified Code(s): J96.01 - Acute respiratory failure with hypoxia Code(s): J96.00 - Acute respiratory failure, unspecified whether with hypoxia or hypercapnia Status: Acute (8) Hypertension: Code(s): I10 - Essential (primary) hypertension Status: Acute (9) Diabetes: Code(s): E11.9 - Type 2 diabetes mellitus without complications Status: Acute (10) T2DM (type 2 diabetes mellitus): Code(s): E11.9 - Type 2 diabetes mellitus without complications Status: Acute (11) Atrial fibrillation with rapid ventricular response: Code(s): I48.91 - Unspecified atrial fibrillation Status: Acute (12) Acute on chronic systolic heart failure: Code(s): I50.23 - Acute on chronic systolic (congestive) heart failure Status: Acute (13) Acute metabolic encephalopathy: Code(s): G93.41 - Metabolic encephalopathy Status: Acute (14) CAD (coronary artery disease): Code(s): I25.10 - Atherosclerotic heart disease of [place] coronary artery without angina pectoris Status: Acute Plan COPD exacerbation, acute respiratory failure, COVID-19 pneumonia possible superimposed with better pneumonia Patient received vancomycin and imipenem Flu negative, COVID positive ct revealed huge hydropneumothorax on the right side, emphyseam, X-ray shows patchy infiltrate bilaterally Started remdesivir IV started Dexamethasone 6 mg IV once and daily Received duoNeb scheduled levalbuterol as needed Pulse ox monitor continuously Started O2 therapy to keep pulse ox above 94 patient has history of CAD CT reveals Thoracotomy changes on the right with persistent right hydropneumothorax and interval increase in the fluid component.?Bilateral multifocal pneumonia. Consult program/music director for evaluation and treat now off O2 Appreciate pulmonary's consultation , discontinue vancomycin and Zosyn on March 25 Completed remdesivir and dexamethasone March 26 Pt was awaiting to go to Rehab but unfortunately became hypoxic again Pt needing [address] PE showed pneumonia and pulmonary edema no pE restart IV lasix IV rocephin and IV zithromax pt has only one lung Order CXR keep pt npo order swallow evaluation to rule out as aspiration pneumonia Can reconsult pulmonology Sepsis on admission resolved Patient had high-grade fever 101.9 POA Blood culture and urine culture NEGATIVE of bacteria WCC still high reorder BC today Acute encephalopathy Patient is confused, although patient is alert, not oriented to time and person CT head showed no acute intracranial to yesterday Patient had a fall 03/22, CT scan of head, whole spine and pelvics no fractures Neuro check now pt is alert oriented x3 Patient's concern about general weakness, requests to consult neurologist Dr. Calles Pt seen by neurology KRANTHI carrington secondary to infection AFib RVR Likely secondary to sepsis respiratory failure, COPD exacerbation Discontinue cardizem drip Continue home medication Cardizem p.o. 180 mg daily Eliquis p.o. metoprolol p.o. Consult embedded software manager for evaluation treatment Rate is controlled Acute on chronic
[2023-03-30 11:49] LABS: Glucose Point of Care 220 mg/dl (65-105)
--- NOTE | 2023-03-30 14:18 | PCSTNOTE ---
Please refer to the Bedside Swallow Evaluation in the EMR. Please note, silent aspiration cannot be ruled out at bedside.
--- NOTE | 2023-03-30 15:34 | PCPTNOTE ---
Attempted to see patient for PT, however patient refused. Educated patient on the importance of therapy, patient continued to refuse.
[2023-03-30 17:06] LABS: Glucose Point of Care 234 mg/dl (65-105)
[2023-03-30] MEDS: INSULIN ASPART (*BKC) 100 UNITS/ML SUB-Q ×2 (17:29→20:05)
[2023-03-30] MEDS: QUEtiapine FUMARATE 25 MG TABLET PO (19:59)
[2023-03-30] MEDS: AZITHROMYCIN 500 MG/NS 250 ML 500 MG/250 ML BAG 250 MG IVPB (19:59)
[2023-03-30 20:33] LABS: Glucose Point of Care 238 mg/dl (65-105)
[2023-03-31] VITALS (12 sets, daily range): BP systolic 125–144; BP diastolic 63–86; PULSE 74–99; RESP 16–19; TEMP 36.4–36.8; O2SAT 93–100
[2023-03-31 06:14] LABS: Hematocrit 29.7 % (42.0-52.0); Mean Corpuscular HGB Conc 30.3 g/dl (32-36); Mean Corpuscular Volume 95.8 fl (80-100); Platelet Count Result 371 k/mm3 (150-375); Red Cell Distribution Width 14.2 % (11.5-14.5); White Blood Count 15.3 K/mm3 (4.5-10.0)
[2023-03-31 09:00] LABS: Glucose Point of Care 153 mg/dl (65-105)
[2023-03-31] MEDS: FLUTICASONE/UMECLIDIN/VILANTER 100-62.5-25 MCG ELLIPTA 1 PUFF INHALATION (09:20)
[2023-03-31] MEDS: DEXAMETHASONE 2 MG TABLET 6 MG PO (10:08)
[2023-03-31] MEDS: buPROPion HCL SR (12 HR) 150 MG TAB PO ×2 (10:09→21:08)
[2023-03-31] MEDS: ATORVASTATIN 40 MG TABLET 80 MG PO (10:09)
[2023-03-31] MEDS: APIXABAN 5 MG TABLET PO ×2 (10:09→21:08)
[2023-03-31] MEDS: FAMOTIDINE 20 MG TABLET PO ×2 (10:10→21:08)
[2023-03-31] MEDS: FOLIC ACID 0.4 MG TABLET 0.8 MG PO (10:10)
[2023-03-31] MEDS: dilTIAZem HCL CD 180 MG CAP.24HR PO (10:10)
[2023-03-31] MEDS: CLOPIDOGREL BISULFATE 75 MG TABLET PO (10:10)
[2023-03-31] MEDS: FUROSEMIDE INJ 40 MG/4 ML VIAL 20 MG IV PUSH (10:11)
[2023-03-31] MEDS: INSULIN GLARGINE (*BKC) 100 UNITS/ML 20 UNITS SUB-Q (10:12)
[2023-03-31] MEDS: METOPROLOL SUCCINATE EXT REL 50 MG TABCR PO ×2 (10:12→17:08)
[2023-03-31] MEDS: THIAMINE HCL 100 MG TABLET PO (10:13)
[2023-03-31 12:32] LABS: Glucose Point of Care 207 mg/dl (65-105)
[2023-03-31] MEDS: INSULIN ASPART (*BKC) 100 UNITS/ML SUB-Q ×3 (12:51→21:05)
[2023-03-31 16:45] LABS: Glucose Point of Care 312 mg/dl (65-105)
--- NOTE | 2023-03-31 18:00 | PM.IMPN ---
Progress Note: A&P Assessment and Plan (1) Pneumonia due to COVID-19 virus: Code(s): U07.1 - COVID-19; J12.82 - Pneumonia due to coronavirus disease 2019 Status: Acute (2) Pneumonia: Code(s): J18.9 - Pneumonia, unspecified organism Status: Acute (3) Sepsis: Code(s): A41.9 - Sepsis, unspecified organism Status: Acute (4) AMS (altered mental status): Code(s): R41.82 - Altered mental status, unspecified Status: Acute (5) S/P lobectomy of lung: Code(s): Z90.2 - Acquired absence of lung [part of] Status: Acute (6) CVA (cerebral vascular accident): Code(s): I63.9 - Cerebral infarction, unspecified Status: Acute (7) Acute respiratory failure: Qualifiers: Respiratory failure complication: hypoxia Qualified Code(s): J96.01 - Acute respiratory failure with hypoxia Code(s): J96.00 - Acute respiratory failure, unspecified whether with hypoxia or hypercapnia Status: Acute (8) Hypertension: Code(s): I10 - Essential (primary) hypertension Status: Acute (9) Diabetes: Code(s): E11.9 - Type 2 diabetes mellitus without complications Status: Acute (10) T2DM (type 2 diabetes mellitus): Code(s): E11.9 - Type 2 diabetes mellitus without complications Status: Acute (11) Atrial fibrillation with rapid ventricular response: Code(s): I48.91 - Unspecified atrial fibrillation Status: Acute (12) Acute on chronic systolic heart failure: Code(s): I50.23 - Acute on chronic systolic (congestive) heart failure Status: Acute (13) Acute metabolic encephalopathy: Code(s): G93.41 - Metabolic encephalopathy Status: Acute (14) CAD (coronary artery disease): Code(s): I25.10 - Atherosclerotic heart disease of [place] coronary artery without angina pectoris Status: Acute Plan # cOPD exacerbation, acute respiratory failure, COVID-19 pneumonia possible superimposed with better pneumonia Patient received vancomycin and imipenem Flu negative, COVID positive ct revealed huge hydropneumothorax on the right side, emphyseam, persistent right hydro pneumothorax is related to recent thoracotomy X-ray shows patchy infiltrate bilaterally Finished remdesivir course and Decadron course Received duoNeb scheduled levalbuterol as needed Pulse ox monitor continuously Started O2 therapy to keep pulse ox above 94 patient has history of CAD CT reveals Thoracotomy changes on the right with persistent right hydropneumothorax and interval increase in the fluid component.?Bilateral multifocal pneumonia. Consult loom technician for evaluation and treat now off O2 Pt was awaiting to go to Rehab but unfortunately became hypoxic again Pt needing [address] PE showed pneumonia and pulmonary edema no pE restart IV lasix IV rocephin and IV zithromax pt has only one lung # sepsis on admission resolved Patient had high-grade fever 101.9 POA Blood culture and urine culture NEGATIVE of bacteria WCC still high reordered bc. improved today. # acute encephalopathy Patient is confused, although patient is alert, not oriented to time and person CT head showed no acute intracranial to yesterday Patient had a fall 03/22, CT scan of head, whole spine and pelvics no fractures Neuro check now pt is alert oriented x3 Patient's concern about general weakness, requests to consult neurologist Dr. Calles Pt seen by neurology KRANTHI carrington secondary to infection # aFib RVR Likely secondary to sepsis respiratory failure, COPD exacerbation Discontinue cardizem drip Continue home medication Cardizem p.o. 180 mg daily Eliquis p.o. metoprolol p.o. Consult preparation room manager for evaluation treatment Rate is controlled # acute on chronic systolic heart failure EF 15-20% on echocardiogram August 08, 2022, outpatient echocardiogram from October 2022. LVEF is now 70-75%. Continue Metoprolol. Stopped the Entresto d
[2023-03-31 20:37] LABS: Glucose Point of Care 264 mg/dl (65-105)
[2023-03-31] MEDS: QUEtiapine FUMARATE 25 MG TABLET PO (21:09)
[2023-03-31] MEDS: AZITHROMYCIN 500 MG/NS 250 ML 500 MG/250 ML BAG 250 MG IVPB (21:10)
[2023-04-01] VITALS (14 sets, daily range): BP systolic 140–142; BP diastolic 60–81; PULSE 70–98; RESP 16–19; TEMP 36.4–36.7; O2SAT 96–100
[2023-04-01 05:52] LABS: Basophils Percent Auto 0.2 % (0.2-1.2); Hematocrit 28.5 % (42.0-52.0); Hemoglobin 8.9 g/dL (14.0-18.0); Immature Granulocyte Absolute 0.11 K/mm3 (0.00-0.031); Immature Granulocyte Percent A 0.8 % (0-0.5); Lymphocytes Absolute Auto 0.54 K/mm3 (0.9-3.2); Lymphocytes Percent Auto 3.9 % (18.3-44.2); Mean Corpuscular HGB Conc 31.2 g/dl (32-36); Mean Corpuscular Hemoglobin 29.8 pg (26-34); Mean Corpuscular Volume 95.3 fl (80-100); Mean Platelet Volume 11.1 fl (7.4-10.4); Monocytes Absolute Auto 0.5 K/mm3 (0.1-0.6); Monocytes Percent Auto 3.6 % (2.6-8.5); Neutrophils Absolute Auto 12.7 K/mm3 (1.3-6.7); Neutrophils Percent Auto 91.5 % (45.5-73.1); Platelet Count Result 373 k/mm3 (150-375); Red Blood Count 2.99 M/mm3 (4.6-6.20); Red Cell Distribution Width 14.2 % (11.5-14.5); White Blood Count 13.9 K/mm3 (4.5-10.0)
[2023-04-01 06:14] LABS: Alanine Aminotransferase 49 U/L (6-50); Albumin Level 2.9 g/dL (3.5-5.1); Alkaline Phosphatase 131 U/L (38-126); Anion Gap 8 mmol/L (8-16); Aspartate Amino Transferase 38 U/L (17-59); Bilirubin,Total 0.5 mg/dL (0.2-1.3); Blood Urea Nitrogen 21 mg/dL (9-20); Calcium 9.5 mg/dL (8.4-10.2); Carbon Dioxide 28 mmol/L (22-30); Chloride 103 mmol/L (98-107); Estimated CRCL calculation 80 ml/min; Estimated Glomerular Filt Rate > 60; Glucose 178 mg/dL (65-110); Magnesium 1.9 mg/dL (1.6-2.3); Potassium 3.7 mmol/L (3.4-5.0); Sodium 139 mmol/L (137-145)
[2023-04-01 06:33] LABS: Hypochromasia 1+ (NORMAL); Platelet Estimate Adequate (Adequate); Poikilocytosis 1+ (NORMAL); Schistocytes None Seen (NORMAL)
[2023-04-01] MEDS: FLUTICASONE/UMECLIDIN/VILANTER 100-62.5-25 MCG ELLIPTA 1 PUFF INHALATION (07:00)
[2023-04-01 08:17] LABS: Glucose Point of Care 155 mg/dl (65-105)
[2023-04-01] MEDS: APIXABAN 5 MG TABLET PO ×2 (09:20→20:32)
[2023-04-01] MEDS: ATORVASTATIN 40 MG TABLET 80 MG PO (09:20)
[2023-04-01] MEDS: FAMOTIDINE 20 MG TABLET PO ×2 (09:21→20:32)
[2023-04-01] MEDS: CLOPIDOGREL BISULFATE 75 MG TABLET PO (09:21)
[2023-04-01] MEDS: dilTIAZem HCL CD 180 MG CAP.24HR PO (09:21)
[2023-04-01] MEDS: buPROPion HCL SR (12 HR) 150 MG TAB PO ×2 (09:21→20:32)
[2023-04-01] MEDS: INSULIN GLARGINE (*BKC) 100 UNITS/ML 20 UNITS SUB-Q (09:22)
[2023-04-01] MEDS: FUROSEMIDE INJ 40 MG/4 ML VIAL 20 MG IV PUSH (09:22)
[2023-04-01] MEDS: FOLIC ACID 0.4 MG TABLET 0.8 MG PO (09:22)
[2023-04-01] MEDS: METOPROLOL SUCCINATE EXT REL 50 MG TABCR PO ×2 (09:22→17:26)
[2023-04-01] MEDS: THIAMINE HCL 100 MG TABLET PO (09:23)
[2023-04-01] MEDS: MICAFUNGIN SODIUM 100 MG in SODIUM CHLORIDE 0.9% IV 100 ML IVPB (10:49)
[2023-04-01 12:29] LABS: Glucose Point of Care 202 mg/dl (65-105)
[2023-04-01] MEDS: INSULIN ASPART (*BKC) 100 UNITS/ML SUB-Q (12:38)
--- NOTE | 2023-04-01 13:45 | PM.IMPN ---
Progress Note: A&P Assessment and Plan (1) Pneumonia due to COVID-19 virus: Code(s): U07.1 - COVID-19; J12.82 - Pneumonia due to coronavirus disease 2019 Status: Acute (2) Pneumonia: Code(s): J18.9 - Pneumonia, unspecified organism Status: Acute (3) Sepsis: Code(s): A41.9 - Sepsis, unspecified organism Status: Acute (4) AMS (altered mental status): Code(s): R41.82 - Altered mental status, unspecified Status: Acute (5) S/P lobectomy of lung: Code(s): Z90.2 - Acquired absence of lung [part of] Status: Acute (6) CVA (cerebral vascular accident): Code(s): I63.9 - Cerebral infarction, unspecified Status: Acute (7) Acute respiratory failure: Qualifiers: Respiratory failure complication: hypoxia Qualified Code(s): J96.01 - Acute respiratory failure with hypoxia Code(s): J96.00 - Acute respiratory failure, unspecified whether with hypoxia or hypercapnia Status: Acute (8) Hypertension: Code(s): I10 - Essential (primary) hypertension Status: Acute (9) Diabetes: Code(s): E11.9 - Type 2 diabetes mellitus without complications Status: Acute (10) T2DM (type 2 diabetes mellitus): Code(s): E11.9 - Type 2 diabetes mellitus without complications Status: Acute (11) Atrial fibrillation with rapid ventricular response: Code(s): I48.91 - Unspecified atrial fibrillation Status: Acute (12) Acute on chronic systolic heart failure: Code(s): I50.23 - Acute on chronic systolic (congestive) heart failure Status: Acute (13) Acute metabolic encephalopathy: Code(s): G93.41 - Metabolic encephalopathy Status: Acute (14) CAD (coronary artery disease): Code(s): I25.10 - Atherosclerotic heart disease of [place] coronary artery without angina pectoris Status: Acute Plan # cOPD exacerbation, acute respiratory failure, COVID-19 pneumonia possible superimposed with better pneumonia Patient received vancomycin and imipenem Flu negative, COVID positive ct revealed huge hydropneumothorax on the right side, emphyseam, persistent right hydro pneumothorax is related to recent thoracotomy X-ray shows patchy infiltrate bilaterally Finished remdesivir course and Decadron course Received duoNeb scheduled levalbuterol as needed Pulse ox monitor continuously Started O2 therapy to keep pulse ox above 94 patient has history of CAD CT reveals Thoracotomy changes on the right with persistent right hydropneumothorax and interval increase in the fluid component.?Bilateral multifocal pneumonia. Consult hot top liner helper for evaluation and treat now off O2 Pt was awaiting to go to Rehab but unfortunately became hypoxic again Pt needing [address] PE showed pneumonia and pulmonary edema no pE restart IV lasix IV rocephin and IV zithromax pt has only one lung # sepsis on admission resolved Patient had high-grade fever 101.9 POA Blood culture and urine culture NEGATIVE of bacteria WCC still high reordered bc. continues to improve Blood culture coming back positive for budding yeast. Will start micafungin. Repeat blood culture were ordered again. # acute encephalopathy Patient is confused, although patient is alert, not oriented to time and person CT head showed no acute intracranial to yesterday Patient had a fall 03/22, CT scan of head, whole spine and pelvics no fractures Neuro check now pt is alert oriented x3 Patient's concern about general weakness, requests to consult neurologist Dr. Calles Pt seen by neurology KRANTHI carrington secondary to infection # aFib RVR Likely secondary to sepsis respiratory failure, COPD exacerbation Discontinue cardizem drip Continue home medication Cardizem p.o. 180 mg daily Eliquis p.o. metoprolol p.o. Consult contract manager for evaluation treatment Rate is controlled # acute on chronic systolic heart failure EF 15-20% on echocardiogra
[2023-04-01 17:31] LABS: Glucose Point of Care 126 mg/dl (65-105)
[2023-04-01] MEDS: AZITHROMYCIN 500 MG/NS 250 ML 500 MG/250 ML BAG 250 MG IVPB (20:26)
[2023-04-01 20:28] LABS: Glucose Point of Care 166 mg/dl (65-105)
[2023-04-01] MEDS: QUEtiapine FUMARATE 25 MG TABLET PO (20:32)
[2023-04-02] VITALS (11 sets, daily range): BP systolic 128–130; BP diastolic 72–77; PULSE 72–108; RESP 16–18; TEMP 36.3–36.8; O2SAT 94–98
[2023-04-02 06:17] LABS: Alanine Aminotransferase 56 U/L (6-50); Albumin Level 2.8 g/dL (3.5-5.1); Alkaline Phosphatase 141 U/L (38-126); Anion Gap 5 mmol/L (8-16); Aspartate Amino Transferase 49 U/L (17-59); Basophils Percent Auto 0.2 % (0.2-1.2); Bilirubin,Total 0.6 mg/dL (0.2-1.3); Blood Urea Nitrogen 21 mg/dL (9-20); Calcium 9.5 mg/dL (8.4-10.2); Carbon Dioxide 30 mmol/L (22-30); Chloride 104 mmol/L (98-107); Estimated CRCL calculation 82 ml/min; Estimated Glomerular Filt Rate > 60; Glucose 102 mg/dL (65-110); Hematocrit 29.2 % (42.0-52.0); Hemoglobin 9.1 g/dL (14.0-18.0); Immature Granulocyte Absolute 0.11 K/mm3 (0.00-0.031); Immature Granulocyte Percent A 0.7 % (0-0.5); Lymphocytes Absolute Auto 0.82 K/mm3 (0.9-3.2); Lymphocytes Percent Auto 5.3 % (18.3-44.2); Magnesium 1.7 mg/dL (1.6-2.3); Mean Corpuscular HGB Conc 31.2 g/dl (32-36); Mean Corpuscular Hemoglobin 29.3 pg (26-34); Mean Corpuscular Volume 93.9 fl (80-100); Mean Platelet Volume 11.1 fl (7.4-10.4); Monocytes Percent Auto 6.5 % (2.6-8.5); Neutrophils Absolute Auto 13.5 K/mm3 (1.3-6.7); Neutrophils Percent Auto 87.3 % (45.5-73.1); Platelet Count Result 389 k/mm3 (150-375); Potassium 3.3 mmol/L (3.4-5.0); Red Blood Count 3.11 M/mm3 (4.6-6.20); Red Cell Distribution Width 14.4 % (11.5-14.5); Sodium 139 mmol/L (137-145); White Blood Count 15.5 K/mm3 (4.5-10.0)
[2023-04-02] MEDS: FLUTICASONE/UMECLIDIN/VILANTER 100-62.5-25 MCG ELLIPTA 1 PUFF INHALATION (08:23)
[2023-04-02 08:25] LABS: Glucose Point of Care 101 mg/dl (65-105)
--- NOTE | 2023-04-02 08:29 | PM.IMPN ---
Progress Note: A&P Assessment and Plan (1) Pneumonia due to COVID-19 virus: Code(s): U07.1 - COVID-19; J12.82 - Pneumonia due to coronavirus disease 2019 Status: Acute (2) Pneumonia: Code(s): J18.9 - Pneumonia, unspecified organism Status: Acute (3) Sepsis: Code(s): A41.9 - Sepsis, unspecified organism Status: Acute (4) AMS (altered mental status): Code(s): R41.82 - Altered mental status, unspecified Status: Acute (5) S/P lobectomy of lung: Code(s): Z90.2 - Acquired absence of lung [part of] Status: Acute (6) CVA (cerebral vascular accident): Code(s): I63.9 - Cerebral infarction, unspecified Status: Acute (7) Acute respiratory failure: Qualifiers: Respiratory failure complication: hypoxia Qualified Code(s): J96.01 - Acute respiratory failure with hypoxia Code(s): J96.00 - Acute respiratory failure, unspecified whether with hypoxia or hypercapnia Status: Acute (8) Hypertension: Code(s): I10 - Essential (primary) hypertension Status: Acute (9) Diabetes: Code(s): E11.9 - Type 2 diabetes mellitus without complications Status: Acute (10) T2DM (type 2 diabetes mellitus): Code(s): E11.9 - Type 2 diabetes mellitus without complications Status: Acute (11) Atrial fibrillation with rapid ventricular response: Code(s): I48.91 - Unspecified atrial fibrillation Status: Acute (12) Acute on chronic systolic heart failure: Code(s): I50.23 - Acute on chronic systolic (congestive) heart failure Status: Acute (13) Acute metabolic encephalopathy: Code(s): G93.41 - Metabolic encephalopathy Status: Acute (14) CAD (coronary artery disease): Code(s): I25.10 - Atherosclerotic heart disease of [place] coronary artery without angina pectoris Status: Acute Plan # cOPD exacerbation, acute respiratory failure, COVID-19 pneumonia possible superimposed with better pneumonia Patient received vancomycin and imipenem Flu negative, COVID positive ct revealed huge hydropneumothorax on the right side, emphyseam, persistent right hydro pneumothorax is related to recent thoracotomy X-ray shows patchy infiltrate bilaterally Finished remdesivir course and Decadron course Received duoNeb scheduled levalbuterol as needed Pulse ox monitor continuously Started O2 therapy to keep pulse ox above 94 patient has history of CAD CT reveals Thoracotomy changes on the right with persistent right hydropneumothorax and interval increase in the fluid component.?Bilateral multifocal pneumonia. Consult production control expert for evaluation and treat now off O2 Pt was awaiting to go to Rehab but unfortunately became hypoxic again Pt needing [address] PE showed pneumonia and pulmonary edema no pE restart IV lasix IV rocephin and IV zithromax pt has only one lung # sepsis on admission resolved Patient had high-grade fever 101.9 POA Blood culture and urine culture NEGATIVE of bacteria WCC still high reordered bc. continues to improve Blood culture coming back positive for budding yeast. Will start micafungin. Repeat blood culture were ordered again. Identified as Holly glabrata Completed azithromycin # acute encephalopathy Patient is confused, although patient is alert, not oriented to time and person CT head showed no acute intracranial to yesterday Patient had a fall 03/22, CT scan of head, whole spine and pelvics no fractures Neuro check now pt is alert oriented x3 Patient's concern about general weakness, requests to consult neurologist Dr. Calles Pt seen by neurology KRANTHI carrington secondary to infection # aFib RVR Likely secondary to sepsis respiratory failure, COPD exacerbation Discontinue cardizem drip Continue home medication Cardizem p.o. 180 mg daily Eliquis p.o. metoprolol p.o. Consult blacktop paver operator for evaluation treatment Rate is controlled # acute on chr
[2023-04-02] MEDS: POTASSIUM CHLORIDE 20 MEQ ER TABLET 40 MEQ PO (09:33)
[2023-04-02] MEDS: CLOPIDOGREL BISULFATE 75 MG TABLET PO (09:34)
[2023-04-02] MEDS: buPROPion HCL SR (12 HR) 150 MG TAB PO ×2 (09:34→20:31)
[2023-04-02] MEDS: APIXABAN 5 MG TABLET PO ×2 (09:34→20:31)
[2023-04-02] MEDS: ATORVASTATIN 40 MG TABLET 80 MG PO (09:34)
[2023-04-02] MEDS: FAMOTIDINE 20 MG TABLET PO ×2 (09:35→20:31)
[2023-04-02] MEDS: dilTIAZem HCL CD 180 MG CAP.24HR PO (09:35)
[2023-04-02] MEDS: METOPROLOL SUCCINATE EXT REL 50 MG TABCR PO ×2 (09:36→17:52)
[2023-04-02] MEDS: THIAMINE HCL 100 MG TABLET PO (09:36)
[2023-04-02] MEDS: FOLIC ACID 0.4 MG TABLET 0.8 MG PO (09:36)
[2023-04-02] MEDS: FUROSEMIDE INJ 40 MG/4 ML VIAL 20 MG IV PUSH (09:37)
[2023-04-02] MEDS: INSULIN GLARGINE (*BKC) 100 UNITS/ML 20 UNITS SUB-Q (09:38)
[2023-04-02] MEDS: MICAFUNGIN SODIUM 100 MG in SODIUM CHLORIDE 0.9% IV 100 ML IVPB (09:48)
[2023-04-02 12:31] LABS: Glucose Point of Care 172 mg/dl (65-105)
[2023-04-02 17:02] LABS: Glucose Point of Care 135 mg/dl (65-105)
[2023-04-02] MEDS: QUEtiapine FUMARATE 25 MG TABLET PO (20:31)
[2023-04-02 21:28] LABS: Glucose Point of Care 101 mg/dl (65-105)
[2023-04-03] VITALS (13 sets, daily range): BP systolic 121–186; BP diastolic 69–86; PULSE 78–108; RESP 18–22; TEMP 36.2–36.6; O2SAT 94–98
[2023-04-03 06:06] LABS: Basophils Percent Auto 0.2 % (0.2-1.2); Eosinophils Percent Auto 0.1 % (0-4.4); Hematocrit 31.7 % (42.0-52.0); Hemoglobin 9.6 g/dL (14.0-18.0); Immature Granulocyte Percent A 0.6 % (0-0.5); Lymphocytes Absolute Auto 0.83 K/mm3 (0.9-3.2); Lymphocytes Percent Auto 5.1 % (18.3-44.2); Mean Corpuscular HGB Conc 30.3 g/dl (32-36); Mean Corpuscular Hemoglobin 28.7 pg (26-34); Mean Corpuscular Volume 94.6 fl (80-100); Mean Platelet Volume 11.1 fl (7.4-10.4); Monocytes Absolute Auto 0.8 K/mm3 (0.1-0.6); Monocytes Percent Auto 4.7 % (2.6-8.5); Neutrophils Absolute Auto 14.5 K/mm3 (1.3-6.7); Neutrophils Percent Auto 89.3 % (45.5-73.1); Platelet Count Result 421 k/mm3 (150-375); Red Blood Count 3.35 M/mm3 (4.6-6.20); Red Cell Distribution Width 14.6 % (11.5-14.5); White Blood Count 16.2 K/mm3 (4.5-10.0)
[2023-04-03 06:18] LABS: Alanine Aminotransferase 58 U/L (6-50); Alkaline Phosphatase 161 U/L (38-126); Anion Gap 7 mmol/L (8-16); Aspartate Amino Transferase 48 U/L (17-59); Bilirubin,Total 0.8 mg/dL (0.2-1.3); Blood Urea Nitrogen 19 mg/dL (9-20); Calcium 9.5 mg/dL (8.4-10.2); Carbon Dioxide 30 mmol/L (22-30); Chloride 104 mmol/L (98-107); Estimated CRCL calculation 80 ml/min; Estimated Glomerular Filt Rate > 60; Glucose 87 mg/dL (65-110); Magnesium 1.9 mg/dL (1.6-2.3); Potassium 3.6 mmol/L (3.4-5.0); Sodium 141 mmol/L (137-145)
[2023-04-03] MEDS: FLUTICASONE/UMECLIDIN/VILANTER 100-62.5-25 MCG ELLIPTA 1 PUFF INHALATION (07:44)
[2023-04-03 08:19] LABS: Glucose Point of Care 88 mg/dl (65-105)
--- NOTE | 2023-04-03 09:48 | PC.NURSE ---
Assessment and care performed by Dustin Bucio Student Nurse/[facility] under supervision of health and safety instructor or staff. Assessment and any interventions reviewed. Agree with same.
[2023-04-03] MEDS: ATORVASTATIN 40 MG TABLET 80 MG PO (09:51)
[2023-04-03] MEDS: dilTIAZem HCL CD 180 MG CAP.24HR PO (09:52)
[2023-04-03] MEDS: METOPROLOL SUCCINATE EXT REL 50 MG TABCR PO ×2 (09:52→17:19)
[2023-04-03] MEDS: FAMOTIDINE 20 MG TABLET PO ×2 (09:52→20:22)
[2023-04-03] MEDS: FOLIC ACID 0.4 MG TABLET 0.8 MG PO (09:52)
[2023-04-03] MEDS: MICAFUNGIN SODIUM 100 MG in SODIUM CHLORIDE 0.9% IV 100 ML IVPB (09:52)
[2023-04-03] MEDS: APIXABAN 5 MG TABLET PO ×2 (09:52→20:22)
[2023-04-03] MEDS: CLOPIDOGREL BISULFATE 75 MG TABLET PO (09:52)
[2023-04-03] MEDS: buPROPion HCL SR (12 HR) 150 MG TAB PO (09:52)
[2023-04-03] MEDS: THIAMINE HCL 100 MG TABLET PO (09:52)
[2023-04-03] MEDS: FUROSEMIDE INJ 40 MG/4 ML VIAL 20 MG IV PUSH (10:04)
--- NOTE | 2023-04-03 11:46 | PCPTNOTE ---
Patient refused treatment this session. Patient reported he felt like he couldn't breath and did not want to do therapy right now. Patient's O2 SATs 94%. Educated patient on the importance of therapy, patient continued to refuse.
--- NOTE | 2023-04-03 11:52 | PC.NURSE ---
@ approximately 1105 strip deburrer notified myself and nurse retail service technician that pt was trying to get out of bed and upon entering the room patient was found lying on right side on floor. notified charge nurse, provider, and . Patient not complaining of pain and is now resting comfortably. Fall reassessment done.
[2023-04-03 12:50] LABS: Glucose Point of Care 151 mg/dl (65-105)
--- NOTE | 2023-04-03 12:52 | PM.IMPN ---
Progress Note: A&P Assessment and Plan (1) Pneumonia due to COVID-19 virus: Code(s): U07.1 - COVID-19; J12.82 - Pneumonia due to coronavirus disease 2019 Status: Acute (2) Pneumonia: Code(s): J18.9 - Pneumonia, unspecified organism Status: Acute (3) Sepsis: Code(s): A41.9 - Sepsis, unspecified organism Status: Acute (4) AMS (altered mental status): Code(s): R41.82 - Altered mental status, unspecified Status: Acute (5) S/P lobectomy of lung: Code(s): Z90.2 - Acquired absence of lung [part of] Status: Acute (6) CVA (cerebral vascular accident): Code(s): I63.9 - Cerebral infarction, unspecified Status: Acute (7) Acute respiratory failure: Qualifiers: Respiratory failure complication: hypoxia Qualified Code(s): J96.01 - Acute respiratory failure with hypoxia Code(s): J96.00 - Acute respiratory failure, unspecified whether with hypoxia or hypercapnia Status: Acute (8) Hypertension: Code(s): I10 - Essential (primary) hypertension Status: Acute (9) Diabetes: Code(s): E11.9 - Type 2 diabetes mellitus without complications Status: Acute (10) T2DM (type 2 diabetes mellitus): Code(s): E11.9 - Type 2 diabetes mellitus without complications Status: Acute (11) Atrial fibrillation with rapid ventricular response: Code(s): I48.91 - Unspecified atrial fibrillation Status: Acute (12) Acute on chronic systolic heart failure: Code(s): I50.23 - Acute on chronic systolic (congestive) heart failure Status: Acute (13) Acute metabolic encephalopathy: Code(s): G93.41 - Metabolic encephalopathy Status: Acute (14) CAD (coronary artery disease): Code(s): I25.10 - Atherosclerotic heart disease of [place] coronary artery without angina pectoris Status: Acute Plan # cOPD exacerbation, acute respiratory failure, COVID-19 pneumonia possible superimposed with better pneumonia Patient received vancomycin and imipenem Flu negative, COVID positive ct revealed huge hydropneumothorax on the right side, emphyseam, persistent right hydro pneumothorax is related to recent thoracotomy X-ray shows patchy infiltrate bilaterally Finished remdesivir course and Decadron course Received duoNeb scheduled levalbuterol as needed Pulse ox monitor continuously Started O2 therapy to keep pulse ox above 94 patient has history of CAD CT reveals Thoracotomy changes on the right with persistent right hydropneumothorax and interval increase in the fluid component.?Bilateral multifocal pneumonia. Consult environmental systems coordinator for evaluation and treat now off O2 Pt was awaiting to go to Rehab but unfortunately became hypoxic again Pt needing [address] PE showed pneumonia and pulmonary edema no pE restart IV lasix IV rocephin and IV zithromax pt has only one lung # sepsis on admission resolved Patient had high-grade fever 101.9 POA Blood culture and urine culture NEGATIVE of bacteria WCC still high reordered bc. continues to improve Blood culture coming back positive for budding yeast. Will start micafungin. Repeat blood culture were ordered again. Identified as Holly glabrata Completed azithromycin. finish ceftriaxone today. # acute encephalopathy Patient is confused, although patient is alert, not oriented to time and person CT head showed no acute intracranial to yesterday Patient had a fall 03/22, CT scan of head, whole spine and pelvics no fractures Neuro check now pt is alert oriented x3 Patient's concern about general weakness, requests to consult neurologist Dr. Calles Pt seen by neurology KRANTHI carrington secondary to infection # aFib RVR Likely secondary to sepsis respiratory failure, COPD exacerbation Discontinue cardizem drip Continue home medication Cardizem p.o. 180 mg daily Eliquis p.o. metoprolol p.o. Consult broomcorn press feeder for evaluation treatment Rate is c
--- NOTE | 2023-04-03 14:35 | PCOTNOTE ---
Patient refused to participate in therapy services this date. Per Patient's Patient is having some increased confusion this date and will not be able to complete tasks well. Patient's requested to try back in the morning and she will be here to motivate him.
[2023-04-03 17:04] LABS: Glucose Point of Care 143 mg/dl (65-105)
[2023-04-03] MEDS: QUEtiapine FUMARATE 25 MG TABLET PO (20:22)
[2023-04-04] VITALS (13 sets, daily range): BP systolic 112–138; BP diastolic 66–80; PULSE 74–102; RESP 16–18; TEMP 36.2–36.8; O2SAT 95–100
[2023-04-04] MEDS: MELATONIN 5 MG TABLET 10 MG PO (00:49)
[2023-04-04 02:58] LABS: Glucose Point of Care 170 mg/dl (65-105)
[2023-04-04 06:08] LABS: Basophils Percent Auto 0.1 % (0.2-1.2); Eosinophils Percent Auto 0.3 % (0-4.4); Hematocrit 29.7 % (42.0-52.0); Hemoglobin 9.1 g/dL (14.0-18.0); Immature Granulocyte Absolute 0.08 K/mm3 (0.00-0.031); Immature Granulocyte Percent A 0.7 % (0-0.5); Lymphocytes Absolute Auto 1.03 K/mm3 (0.9-3.2); Lymphocytes Percent Auto 8.4 % (18.3-44.2); Mean Corpuscular HGB Conc 30.6 g/dl (32-36); Mean Corpuscular Hemoglobin 28.8 pg (26-34); Mean Platelet Volume 11.1 fl (7.4-10.4); Monocytes Absolute Auto 0.5 K/mm3 (0.1-0.6); Monocytes Percent Auto 4.3 % (2.6-8.5); Neutrophils Absolute Auto 10.5 K/mm3 (1.3-6.7); Neutrophils Percent Auto 86.2 % (45.5-73.1); Platelet Count Result 407 k/mm3 (150-375); Red Blood Count 3.16 M/mm3 (4.6-6.20); Red Cell Distribution Width 14.6 % (11.5-14.5); White Blood Count 12.2 K/mm3 (4.5-10.0)
[2023-04-04 06:29] LABS: Alanine Aminotransferase 42 U/L (6-50); Albumin Level 3.1 g/dL (3.5-5.1); Alkaline Phosphatase 175 U/L (38-126); Anion Gap 9 mmol/L (8-16); Aspartate Amino Transferase 31 U/L (17-59); Bilirubin,Total 0.8 mg/dL (0.2-1.3); Blood Urea Nitrogen 23 mg/dL (9-20); Calcium 9.7 mg/dL (8.4-10.2); Carbon Dioxide 29 mmol/L (22-30); Chloride 103 mmol/L (98-107); Estimated CRCL calculation 71 ml/min; Estimated Glomerular Filt Rate > 60; Glucose 126 mg/dL (65-110); Potassium 3.9 mmol/L (3.4-5.0); Sodium 141 mmol/L (137-145)
[2023-04-04] MEDS: FLUTICASONE/UMECLIDIN/VILANTER 100-62.5-25 MCG ELLIPTA 1 PUFF INHALATION (07:57)
[2023-04-04 08:15] LABS: Glucose Point of Care 127 mg/dl (65-105)
[2023-04-04] MEDS: INSULIN GLARGINE (*BKC) 100 UNITS/ML 20 UNITS SUB-Q (09:13)
[2023-04-04] MEDS: MICAFUNGIN SODIUM 100 MG in SODIUM CHLORIDE 0.9% IV 100 ML IVPB (09:13)
[2023-04-04] MEDS: FUROSEMIDE INJ 40 MG/4 ML VIAL 20 MG IV PUSH (09:13)
[2023-04-04] MEDS: ATORVASTATIN 40 MG TABLET 80 MG PO (09:20)
[2023-04-04] MEDS: dilTIAZem HCL CD 180 MG CAP.24HR PO (09:20)
[2023-04-04] MEDS: FOLIC ACID 0.4 MG TABLET 0.8 MG PO (09:20)
[2023-04-04] MEDS: METOPROLOL SUCCINATE EXT REL 50 MG TABCR PO ×2 (09:20→17:41)
[2023-04-04] MEDS: THIAMINE HCL 100 MG TABLET PO (09:21)
[2023-04-04] MEDS: APIXABAN 5 MG TABLET PO ×2 (09:21→21:28)
[2023-04-04] MEDS: FAMOTIDINE 20 MG TABLET PO ×2 (09:21→21:28)
[2023-04-04] MEDS: CLOPIDOGREL BISULFATE 75 MG TABLET PO (09:21)
[2023-04-04] MEDS: polyethylene glycoL 3350 17 GM POWD.PACK PO (09:25)
[2023-04-04] MEDS: BISACODYL 5 MG TABLET EC PO (09:25)
--- NOTE | 2023-04-04 10:14 | PCOTNOTE ---
Attempted to see Patient with his and daughter in-law present. Patient refusing to participate in any activities. Patient getting very frustrated and angry. Patient's family very disappointed.
--- NOTE | 2023-04-04 10:55 | PCNFU ---
Nutrition Follow-Up Complete: Unintentional weight loss related to reduced appetite and intake as evidenced by noted EMR weight change, refusal of meals Goal: PO intake of meals, acceptance of Ensure Patient has limited progress towards goal. We will continue current goal. Pt current nutrition is DBCC/2gm Na Minced and Moist, Level 5 with Mild Thick liquids, Level 2. Last recorded weight is 56.5 kg, down from 59.7 kg on admit Bowel Motility:+Bm reported 03/27-Miralax given. Labs Reviewed:Glu 126, BUN 23, Alb 3.1 Meds Noted:Folic Acid, Miralax,Lipitor. Skin: WNL Additional Notes: Oral Intake has been poor with 10-50% of meals reported. Patient continues to receive Ensure compact TID providing an additional 220 kcals and 9 gms protein. PO intake encouraged. Agree with diet orders . Monitor intake, wt, labs. Follow up in 5 days.
[2023-04-04 12:22] LABS: Glucose Point of Care 250 mg/dl (65-105)
[2023-04-04] MEDS: INSULIN ASPART (*BKC) 100 UNITS/ML SUB-Q (12:49)
--- NOTE | 2023-04-04 13:42 | PM.IMPN ---
Progress Note: A&P Assessment and Plan (1) Pneumonia due to COVID-19 virus: Code(s): U07.1 - COVID-19; J12.82 - Pneumonia due to coronavirus disease 2019 Status: Acute (2) Pneumonia: Code(s): J18.9 - Pneumonia, unspecified organism Status: Acute (3) Sepsis: Code(s): A41.9 - Sepsis, unspecified organism Status: Acute (4) AMS (altered mental status): Code(s): R41.82 - Altered mental status, unspecified Status: Acute (5) S/P lobectomy of lung: Code(s): Z90.2 - Acquired absence of lung [part of] Status: Acute (6) CVA (cerebral vascular accident): Code(s): I63.9 - Cerebral infarction, unspecified Status: Acute (7) Acute respiratory failure: Qualifiers: Respiratory failure complication: hypoxia Qualified Code(s): J96.01 - Acute respiratory failure with hypoxia Code(s): J96.00 - Acute respiratory failure, unspecified whether with hypoxia or hypercapnia Status: Acute (8) Hypertension: Code(s): I10 - Essential (primary) hypertension Status: Acute (9) Diabetes: Code(s): E11.9 - Type 2 diabetes mellitus without complications Status: Acute (10) T2DM (type 2 diabetes mellitus): Code(s): E11.9 - Type 2 diabetes mellitus without complications Status: Acute (11) Atrial fibrillation with rapid ventricular response: Code(s): I48.91 - Unspecified atrial fibrillation Status: Acute (12) Acute on chronic systolic heart failure: Code(s): I50.23 - Acute on chronic systolic (congestive) heart failure Status: Acute (13) Acute metabolic encephalopathy: Code(s): G93.41 - Metabolic encephalopathy Status: Acute (14) CAD (coronary artery disease): Code(s): I25.10 - Atherosclerotic heart disease of [place] coronary artery without angina pectoris Status: Acute Plan # cOPD exacerbation, acute respiratory failure, COVID-19 pneumonia possible superimposed with better pneumonia Patient received vancomycin and imipenem Flu negative, COVID positive ct revealed huge hydropneumothorax on the right side, emphyseam, persistent right hydro pneumothorax is related to recent thoracotomy X-ray shows patchy infiltrate bilaterally Finished remdesivir course and Decadron course Received duoNeb scheduled levalbuterol as needed Pulse ox monitor continuously Started O2 therapy to keep pulse ox above 94 patient has history of CAD CT reveals Thoracotomy changes on the right with persistent right hydropneumothorax and interval increase in the fluid component.?Bilateral multifocal pneumonia. Consult delivery supervisor for evaluation and treat now off O2 Pt was awaiting to go to Rehab but unfortunately became hypoxic again Pt needing [address] PE showed pneumonia and pulmonary edema no pE restart IV lasix IV rocephin and IV zithromax. Finished antibiotic course pt has only one lung # sepsis on admission resolved Patient had high-grade fever 101.9 POA Blood culture and urine culture NEGATIVE of bacteria WCC still high reordered bc. continues to improve Blood culture coming back positive for budding yeast. Started on micafungin. Repeat blood culture were ordered again. Identified as Holly glabrata. Repeat blood culture today to ensure clearance Completed azithromycin. And ceftriaxone # acute encephalopathy Patient is confused, although patient is alert, not oriented to time and person CT head showed no acute intracranial to yesterday Patient had a fall 03/22, CT scan of head, whole spine and pelvics no fractures Neuro check now pt is alert oriented x3 Patient's concern about general weakness, requests to consult neurologist Dr. Calles Pt seen by neurology KRANTHI carrington secondary to infection Poor motivation and appetite. Will add Remeron. Discussed with family # aFib RVR Likely secondary to sepsis respiratory failure, COPD exacerbation Discontinue cardizem drip
--- NOTE | 2023-04-04 14:35 | PCOTNOTE ---
Patient's family not present at this time. Therapist attempting OT treatment this P.M. Patient very frustrated, wanting his nurse, states he is so sick and having pain . RN notified and following up with Patient. Patient refused to participate this afternoon.
--- NOTE | 2023-04-04 15:45 | PCPTNOTE ---
Patient refused treatment this session. Educated patient on the importance of working with therapy and getting out of bed to increase his strength. Patient continued to refuse and reported he will tomorrow.
[2023-04-04 17:06] LABS: Glucose Point of Care 94 mg/dl (65-105)
[2023-04-04 21:19] LABS: Glucose Point of Care 158 mg/dl (65-105)
[2023-04-04] MEDS: MIRTAZAPINE 7.5 MG TABLET PO (21:28)
[2023-04-04] MEDS: QUEtiapine FUMARATE 25 MG TABLET PO (21:28)
[2023-04-05] VITALS (28 sets, daily range): BP systolic 132–153; BP diastolic 74–99; PULSE 82–124; RESP 18–43; TEMP 36.1–37.1; O2SAT 95–100
[2023-04-05 06:13] LABS: Basophils Percent Auto 0.1 % (0.2-1.2); Eosinophils Percent Auto 0.4 % (0-4.4); Hematocrit 29.9 % (42.0-52.0); Hemoglobin 9.1 g/dL (14.0-18.0); Immature Granulocyte Absolute 0.04 K/mm3 (0.00-0.031); Immature Granulocyte Percent A 0.4 % (0-0.5); Lymphocytes Absolute Auto 1.33 K/mm3 (0.9-3.2); Lymphocytes Percent Auto 12.3 % (18.3-44.2); Mean Corpuscular HGB Conc 30.4 g/dl (32-36); Mean Corpuscular Hemoglobin 28.4 pg (26-34); Mean Corpuscular Volume 93.4 fl (80-100); Mean Platelet Volume 11.2 fl (7.4-10.4); Monocytes Absolute Auto 0.5 K/mm3 (0.1-0.6); Monocytes Percent Auto 4.8 % (2.6-8.5); Neutrophils Absolute Auto 8.9 K/mm3 (1.3-6.7); Platelet Count Result 428 k/mm3 (150-375); Red Cell Distribution Width 14.7 % (11.5-14.5); White Blood Count 10.8 K/mm3 (4.5-10.0)
[2023-04-05 06:24] LABS: Alanine Aminotransferase 43 U/L (6-50); Alkaline Phosphatase 171 U/L (38-126); Anion Gap 10 mmol/L (8-16); Aspartate Amino Transferase 34 U/L (17-59); Bilirubin,Total 0.7 mg/dL (0.2-1.3); Blood Urea Nitrogen 21 mg/dL (9-20); Calcium 9.2 mg/dL (8.4-10.2); Carbon Dioxide 28 mmol/L (22-30); Chloride 103 mmol/L (98-107); Estimated CRCL calculation 70 ml/min; Estimated Glomerular Filt Rate > 60; Glucose 132 mg/dL (65-110); Potassium 3.2 mmol/L (3.4-5.0); Sodium 141 mmol/L (137-145)
[2023-04-05] MEDS: FLUTICASONE/UMECLIDIN/VILANTER 100-62.5-25 MCG ELLIPTA 1 PUFF INHALATION (07:12)
--- NOTE | 2023-04-05 07:46 | PM.IMPN ---
Progress Note: A&P Assessment and Plan (1) Pneumonia due to COVID-19 virus: Code(s): U07.1 - COVID-19; J12.82 - Pneumonia due to coronavirus disease 2019 Status: Acute (2) Pneumonia: Code(s): J18.9 - Pneumonia, unspecified organism Status: Acute (3) Sepsis: Code(s): A41.9 - Sepsis, unspecified organism Status: Acute (4) AMS (altered mental status): Code(s): R41.82 - Altered mental status, unspecified Status: Acute (5) S/P lobectomy of lung: Code(s): Z90.2 - Acquired absence of lung [part of] Status: Acute (6) CVA (cerebral vascular accident): Code(s): I63.9 - Cerebral infarction, unspecified Status: Acute (7) Acute respiratory failure: Qualifiers: Respiratory failure complication: hypoxia Qualified Code(s): J96.01 - Acute respiratory failure with hypoxia Code(s): J96.00 - Acute respiratory failure, unspecified whether with hypoxia or hypercapnia Status: Acute (8) Hypertension: Code(s): I10 - Essential (primary) hypertension Status: Acute (9) Diabetes: Code(s): E11.9 - Type 2 diabetes mellitus without complications Status: Acute (10) T2DM (type 2 diabetes mellitus): Code(s): E11.9 - Type 2 diabetes mellitus without complications Status: Acute (11) Atrial fibrillation with rapid ventricular response: Code(s): I48.91 - Unspecified atrial fibrillation Status: Acute (12) Acute on chronic systolic heart failure: Code(s): I50.23 - Acute on chronic systolic (congestive) heart failure Status: Acute (13) Acute metabolic encephalopathy: Code(s): G93.41 - Metabolic encephalopathy Status: Acute (14) CAD (coronary artery disease): Code(s): I25.10 - Atherosclerotic heart disease of [place] coronary artery without angina pectoris Status: Acute Plan # cOPD exacerbation, acute respiratory failure, COVID-19 pneumonia possible superimposed with better pneumonia Patient received vancomycin and imipenem Flu negative, COVID positive ct revealed huge hydropneumothorax on the right side, emphyseam, persistent right hydro pneumothorax is related to recent thoracotomy X-ray shows patchy infiltrate bilaterally Finished remdesivir course and Decadron course Received duoNeb scheduled levalbuterol as needed Pulse ox monitor continuously Started O2 therapy to keep pulse ox above 94 patient has history of CAD CT reveals Thoracotomy changes on the right with persistent right hydropneumothorax and interval increase in the fluid component.?Bilateral multifocal pneumonia. Consulted tinsel machine operator for evaluation and treat Pt was awaiting to go to Rehab but unfortunately became hypoxic again Pt needing [address] PE showed pneumonia and pulmonary edema no pE restart IV lasix IV rocephin and IV zithromax. Finished antibiotic course pt has only one lung # sepsis on admission resolved Patient had high-grade fever 101.9 POA Blood culture and urine culture NEGATIVE of bacteria Blood culture coming back positive for budding yeast. Started on micafungin April 01. Repeat blood culture were ordered again. Identified as Holly glabrata. 04/04 Repeat blood culture today to ensure clearance Completed azithromycin. And ceftriaxone 04/05 no growth so far # acute encephalopathy Patient is confused, although patient is alert, not oriented to time and person CT head showed no acute intracranial to yesterday Patient had a fall 03/22, CT scan of head, whole spine and pelvics no fractures Neuro check now pt is alert oriented x3 Patient's concern about general weakness, requests to consult neurologist Dr. Calles Pt seen by neurology KRANTHI carrington secondary to infection Poor motivation and appetite. on Remeron. Discussed with family # aFib RVR Likely secondary to sepsis respiratory failure, COPD exacerbation Discontinue cardizem drip Continue home medic
[2023-04-05] MEDS: THIAMINE HCL 100 MG TABLET PO (08:33)
[2023-04-05] MEDS: ATORVASTATIN 40 MG TABLET 80 MG PO (08:33)
[2023-04-05] MEDS: CLOPIDOGREL BISULFATE 75 MG TABLET PO (08:33)
[2023-04-05] MEDS: FOLIC ACID 0.4 MG TABLET 0.8 MG PO (08:33)
[2023-04-05] MEDS: APIXABAN 5 MG TABLET PO (08:33)
[2023-04-05] MEDS: METOPROLOL SUCCINATE EXT REL 50 MG TABCR PO (08:33)
[2023-04-05] MEDS: FAMOTIDINE 20 MG TABLET PO (08:33)
[2023-04-05] MEDS: dilTIAZem HCL CD 180 MG CAP.24HR PO (08:33)
[2023-04-05 08:38] LABS: Glucose Point of Care 126 mg/dl (65-105)
[2023-04-05] MEDS: INSULIN GLARGINE (*BKC) 100 UNITS/ML 20 UNITS SUB-Q (08:51)
[2023-04-05] MEDS: MICAFUNGIN SODIUM 100 MG in SODIUM CHLORIDE 0.9% IV 100 ML IVPB (11:03)
--- NOTE | 2023-04-05 11:29 | PCPTNOTE ---
Attempted to see patient for PT, patient agreeable to attempt sitting edge of bed. Patient performed supine to sit with stand by assistance, however patient did not want to remain sitting edge of bed and laid himself back down right after sitting up. Patient reported due to not feeling good. Patient then refused to participate in any other activities. Educated patient on the importance of therapy and getting stronger. Patient reported I'm done.
[2023-04-05 12:03] LABS: Glucose Point of Care 204 mg/dl (65-105)
[2023-04-05] MEDS: INSULIN ASPART (*BKC) 100 UNITS/ML SUB-Q (12:32)
[2023-04-05] MEDS: IPRATROPIUM BR 0.02% INH SOLN 0.5 MG/2.5 ML VIAL (14:07)
[2023-04-05] MEDS: ALBUTEROL SULFATE NEB 2.5 MG/3 ML INH (14:07)
[2023-04-05] MEDS: FUROSEMIDE INJ 40 MG/4 ML VIAL IV PUSH ×2 (14:56→15:37)
[2023-04-05 15:02] LABS: Alveolar/Arterial O2 Gradient 147.1 mmHg; Base Excess ABG -1.2 mEq/l (+/-2.0); Fractional Inspired Oxygen 36 %; Oxygen Content ABG 13.8 %vol (16.0-22.0); Oxygen Saturation ABG 90.6 % (95.0-100.0); Oxyhemoglobin 88.2 % THb (90.0-100.0); PCO2 ABG 42.3 mmHg (35.0-45.0); PO2 ABG 60.5 mmHg (80.0-100.0); PO2 FiO2 Ratio Arterial Blood 1.68 %; Total Hemoglobin 11.1 g/dL (12.0-18.0); pH ABG 7.372 (7.350-7.450)
[2023-04-05 15:04] LABS: Device NASAL CANNULA; Modified Allen's Test Pass; Site Drawn RIGHT RADIAL
[2023-04-05] MEDS: FUROSEMIDE INJ 40 MG/4 ML VIAL (15:32)
[2023-04-05] MEDS: IPRATROPIUM BR 0.02% INH SOLN 0.5 MG/2.5 ML VIAL INHALATION ×2 (15:53→20:58)
--- NOTE | 2023-04-05 16:45 | PC.NURSE ---
This patient, Jere Mcallister, was transferred to [ICU-7] on 04/05/23 at 1615. Personal belongings sent with patient. Report given to [Stephanie JOSEPH]. Appropriate documentation sent with patient.
[2023-04-05] MEDS: PIPERACILLN/TAZ 3.375GM/NS50ML 3.375 GM/50 ML BAG IVPB (18:23)
[2023-04-05 19:00] LABS: NT Pro B Type Natriuretic Pept 1520 pg/mL (19.9-100)
[2023-04-05] MEDS: ALBUTEROL SULFATE NEB 2.5 MG/3 ML INH INHALATION (20:57)
[2023-04-05] MEDS: dexmedeTOMIDine 400 MCG/100 ML 400 MCG/100 ML BAG IV CONT (21:05)
[2023-04-05] MEDS: MINERAL OIL/WHITE PETROLATUM OINTMENT 1 APPLIC EACH EYE (21:05)
[2023-04-05 21:57] LABS: Glucose Point of Care 119 mg/dl (65-105)
--- NOTE | 2023-04-05 22:25 | PC.NURSE ---
Patient increasingly confused. Continues to pull off BiPap and struggling to catch his breath. Respiratory rate 35-45 breaths per minute. Precedex infusion titrated per Dr. Abbasi order to 0.6 to decrease agitation. Will continue to monitor.
[2023-04-05] MEDS: FENTANYL 2,500MCG/NS250ML(*CRX 2,500 MCG/250 ML BAG IV CONT (23:45)
[2023-04-05] MEDS: SODIUM CHLORIDE 0.9% IV 500 ML 999 ML (23:50)
[2023-04-05] MEDS: RAPID SEQUENCE INTUBATION KIT 1 EACH (23:51)
[2023-04-05] MEDS: MIDAZOLAM 100MG/NS 100ML(*CRX) 100 MG/100 ML BAG IV CONT (23:56)
[2023-04-06] VITALS (37 sets, daily range): BP systolic 82–123; BP diastolic 66–92; PULSE 94–125; RESP 22–27; TEMP 37.2–37.7; O2SAT 98–100
[2023-04-06] MEDS: PIPERACILLN/TAZ 3.375GM/NS50ML 3.375 GM/50 ML BAG IVPB ×4 (00:40→18:22)
[2023-04-06 00:41] LABS: Alveolar/Arterial O2 Gradient 212.2 mmHg; Base Excess ABG 0.6 mEq/l (+/-2.0); Carboxyhemoglobin 0.3 % THb (0-2.0); Fractional Inspired Oxygen 50 %; Methemoglobin ABG 0.4 %THb (0-1.5); Oxygen Content ABG 16.8 %vol (16.0-22.0); Oxygen Saturation ABG 97.7 % (95.0-100.0); Oxyhemoglobin 96.3 % THb (90.0-100.0); PCO2 ABG 39.5 mmHg (35.0-45.0); PO2 ABG 99.9 mmHg (80.0-100.0); Total Hemoglobin 12.3 g/dL (12.0-18.0); pH ABG 7.419 (7.350-7.450)
[2023-04-06 00:42] LABS: Device VENTILATOR; Modified Allen's Test Pass; Site Drawn RIGHT RADIAL
[2023-04-06 00:43] LABS: Arterial Blood Gas PEEP 5 cmH2O; Arterial Blood Gas Tidal Volume 450 ml; Arterial Blood Gas Vent Mode CMV; Arterial Blood Gas Ventilator rate 22 /MIN
--- NOTE | 2023-04-06 01:23 | P.PNCROSS_ITS ---
Event Note Event Note Event Note: Patient with increasing confusion and restlessness. Respiratory rate in the mid 30s. Precedex infusion titrated per Dr. Alex mortensen to 0.6 to decrease agitation. Despite medication, patient's respiratory rate increasing to mid 40s, continuing to pull off BiPAP to catch his breath. Discussed care with director medical affairs, will proceed with intubation. Dr. Curiel at the bedside. See procedure note. ETT 7.5, 25 at the lip. Post-RSI medication admin, pupils became 4-5 mm, reactive. Prior were 2-3 mm and reactive. RN monitoring and director medical affairs notified. Stat CXR showing Endotracheal tube terminates 2.7 cm above the virgen. Shallow positioned NG tube, consider advancing 4 cm. RN aware and repositioned NG tube. Shortly after intubation patient mildly hypotensive, sedation medication exchange from propofol to Versed. Currently on fentanyl 75 mcg/hr and Versed 2 mg/hr per director medical affairs. Initial settings 450/22/50%/5. Critical Care Time: I personally spent 30 minutes of direct patient care including (but not limited to) the physical examination, decision-making, bedside evaluation, review of medical records, review of labs and imaging, discussion with nursing staff and other providers for collaborative, critical care management of this patient. Procedures Intubation Intubation #1: Intubation Date: 04/05/23 Intubation Time: 23:25 Time out performed: Yes sedative: Etomidate Mg Given: 20 paralytic: Rocuronium Mg Given: 60 Laryngoscope: May Assist Device Used: fiber optic device Tube Size (cm): 7.5 Method of Intubation: orotracheal Number of Attempts: 2 Tube Secured Depth (cm): 25 Tube Secured Location: lips Tube Placement Confirmation: visualized tube passing through cords, equal breath sounds bilaterally (decreased on R, hx of s/p lobectomy of RML and RLL), no breath sounds over epigastrium and confirmation by capnometry Patient Tolerated Procedure: well Intubation Complications: hypoxia (brief, 1-2 mins. Bagged with rapid improvement ) Additional Comments: Pupils 2-3 mm and reactive prior to RSI physician primary care sports medicine. 4-5 mm, reactive post RSI medications. Molly Curiel MD at bedside to assist.
--- NOTE | 2023-04-06 01:36 | PC.NURSE ---
Patient's clinical condition deteriorating with increased respiratory rate of 35-45 breaths per minute. Patient increasingly altered with Precedex drip infusing and continued to remove BiPap mask. Unable to reorient patient. Dr. Abbasi notified and patient was intubated at 2320. Patient received 20 mg of Etomidate and 60 mg of Rocuronium per MD order. Patient intubated with 7.5 ETT, 25 at the lip. OG placed at 56 cm. CXR and KUB obtained. OG advanced to 60 cm per radiology report to advance tube 4 cm. Patient hypotensive post intubation; 500 cc NS bolus administered. BP stabilized post bolus administration.
--- NOTE | 2023-04-06 02:22 | PC.NURSE ---
Patient noted to have dilated pupils post intubation. Left is sluggish and right is more fixed. Dr. Abbasi notified of findings. No further orders at this time.
[2023-04-06] MEDS: IPRATROPIUM BR 0.02% INH SOLN 0.5 MG/2.5 ML VIAL INHALATION ×6 (03:08→20:28)
[2023-04-06] MEDS: ALBUTEROL SULFATE NEB 2.5 MG/3 ML INH INHALATION ×4 (03:08→20:28)
[2023-04-06 04:38] LABS: Basophils Absolute Auto 0.1 K/mm3 (0.0-0.1); Basophils Percent Auto 0.4 % (0.2-1.2); Hematocrit 32.8 % (42.0-52.0); Hemoglobin 9.8 g/dL (14.0-18.0); Immature Granulocyte Absolute 0.26 K/mm3 (0.00-0.031); Lymphocytes Percent Auto 3.4 % (18.3-44.2); Mean Corpuscular HGB Conc 29.9 g/dl (32-36); Mean Corpuscular Hemoglobin 28.8 pg (26-34); Mean Corpuscular Volume 96.5 fl (80-100); Mean Platelet Volume 11.2 fl (7.4-10.4); Monocytes Percent Auto 3.6 % (2.6-8.5); Neutrophils Absolute Auto 24.1 K/mm3 (1.3-6.7); Neutrophils Percent Auto 91.6 % (45.5-73.1); Platelet Count Result 460 k/mm3 (150-375); Red Cell Distribution Width 14.9 % (11.5-14.5); White Blood Count 26.4 K/mm3 (4.5-10.0)
[2023-04-06 04:54] LABS: Alanine Aminotransferase 73 U/L (6-50); Albumin Level 3.1 g/dL (3.5-5.1); Alkaline Phosphatase 177 U/L (38-126); Anion Gap 12 mmol/L (8-16); Aspartate Amino Transferase 75 U/L (17-59); Bilirubin,Total 1.1 mg/dL (0.2-1.3); Blood Urea Nitrogen 29 mg/dL (9-20); Calcium 9.2 mg/dL (8.4-10.2); Carbon Dioxide 26 mmol/L (22-30); Chloride 106 mmol/L (98-107); Estimated CRCL calculation 50 ml/min; Estimated Glomerular Filt Rate > 60; Glucose 117 mg/dL (65-110); Sodium 144 mmol/L (137-145); Triglycerides 99 mg/dL (<150)
[2023-04-06 05:22] LABS: Alveolar/Arterial O2 Gradient 174.1 mmHg; Base Excess ABG 0.2 mEq/l (+/-2.0); Fractional Inspired Oxygen 50 %; HCO3 ABG 29.1 mEq/l (22.0-26.0); Oxygen Content ABG 21.7 %vol (16.0-22.0); Oxygen Saturation ABG 97.2 % (95.0-100.0); Oxyhemoglobin 96.1 % THb (90.0-100.0); PO2 ABG 108.9 mmHg (80.0-100.0); PO2 FiO2 Ratio Arterial Blood 2.18 %
[2023-04-06 05:25] LABS: PCO2 ABG 65.3 mmHg (35.0-45.0); pH ABG 7.267 (7.350-7.450)
[2023-04-06 05:26] LABS: Arterial Blood Gas Vent Mode CMV; Arterial Blood Gas Ventilator rate 22 /MIN; Device VENTILATOR; Modified Allen's Test Pass; Site Drawn RIGHT RADIAL
[2023-04-06 05:27] LABS: Arterial Blood Gas PEEP 5 cmH2O; Arterial Blood Gas Tidal Volume 350 ml
[2023-04-06 05:29] LABS: Anisocytosis 2+ (NORMAL); Large Platelets Present; Platelet Estimate Increased (Adequate)
[2023-04-06 05:30] LABS: Macrocytosis 2+ (NORMAL); Schistocytes None Seen (NORMAL)
[2023-04-06 08:21] LABS: Glucose Point of Care 101 mg/dl (65-105)
[2023-04-06] MEDS: dilTIAZem HCL CD 180 MG CAP.24HR PO (08:43)
[2023-04-06] MEDS: FOLIC ACID 0.4 MG TABLET 0.8 MG PO (08:43)
[2023-04-06] MEDS: METOPROLOL SUCCINATE EXT REL 50 MG TABCR PO (08:43)
[2023-04-06] MEDS: ATORVASTATIN 40 MG TABLET 80 MG PO (08:44)
[2023-04-06] MEDS: THIAMINE HCL 100 MG TABLET PO (08:44)
[2023-04-06] MEDS: MINERAL OIL/WHITE PETROLATUM OINTMENT 1 APPLIC EACH EYE ×2 (08:45→21:10)
[2023-04-06] MEDS: MICAFUNGIN SODIUM 100 MG in SODIUM CHLORIDE 0.9% IV 100 ML IVPB (10:15)
[2023-04-06] MEDS: FAMOTIDINE 20 MG TABLET PO ×2 (10:16→21:03)
[2023-04-06] MEDS: CLOPIDOGREL BISULFATE 75 MG TABLET PO (10:16)
[2023-04-06] MEDS: APIXABAN 5 MG TABLET PO (10:16)
[2023-04-06] MEDS: LACTATED RINGERS 500 ML 999 ML IV CONT (10:30)
--- NOTE | 2023-04-06 10:50 | PCOTNOTE ---
Patient moved to the ICU and intubated yesterday, 04/05/23. Spoke with patient's nurse this AM. Patient will be put on therapy hold at this time.
--- NOTE | 2023-04-06 11:49 | PM.IMPN ---
Progress Note: A&P Assessment and Plan (1) Pneumonia due to COVID-19 virus: Code(s): U07.1 - COVID-19; J12.82 - Pneumonia due to coronavirus disease 2019 Status: Acute (2) Pneumonia: Code(s): J18.9 - Pneumonia, unspecified organism Status: Acute (3) Sepsis: Code(s): A41.9 - Sepsis, unspecified organism Status: Acute (4) AMS (altered mental status): Code(s): R41.82 - Altered mental status, unspecified Status: Acute (5) S/P lobectomy of lung: Code(s): Z90.2 - Acquired absence of lung [part of] Status: Acute (6) CVA (cerebral vascular accident): Code(s): I63.9 - Cerebral infarction, unspecified Status: Acute (7) Acute respiratory failure: Qualifiers: Respiratory failure complication: hypoxia Qualified Code(s): J96.01 - Acute respiratory failure with hypoxia Code(s): J96.00 - Acute respiratory failure, unspecified whether with hypoxia or hypercapnia Status: Acute (8) Hypertension: Code(s): I10 - Essential (primary) hypertension Status: Acute (9) Diabetes: Code(s): E11.9 - Type 2 diabetes mellitus without complications Status: Acute (10) T2DM (type 2 diabetes mellitus): Code(s): E11.9 - Type 2 diabetes mellitus without complications Status: Acute (11) Atrial fibrillation with rapid ventricular response: Code(s): I48.91 - Unspecified atrial fibrillation Status: Acute (12) Acute on chronic systolic heart failure: Code(s): I50.23 - Acute on chronic systolic (congestive) heart failure Status: Acute (13) Acute metabolic encephalopathy: Code(s): G93.41 - Metabolic encephalopathy Status: Acute (14) CAD (coronary artery disease): Code(s): I25.10 - Atherosclerotic heart disease of [place] coronary artery without angina pectoris Status: Acute Plan # cOPD exacerbation, acute respiratory failure, COVID-19 pneumonia possible superimposed with better pneumonia Patient received vancomycin and imipenem Flu negative, COVID positive ct revealed huge hydropneumothorax on the right side, emphyseam, persistent right hydro pneumothorax is related to recent thoracotomy X-ray shows patchy infiltrate bilaterally Finished remdesivir course and Decadron course Received duoNeb scheduled levalbuterol as needed Pulse ox monitor continuously Started O2 therapy to keep pulse ox above 94 patient has history of CAD CT reveals Thoracotomy changes on the right with persistent right hydropneumothorax and interval increase in the fluid component.?Bilateral multifocal pneumonia. Consulted material loader for evaluation and treat 04/06: Pt had acute respiratory decompensation, likely multifactorial but mainly due to untreated R hydropneumothorax. This facility does not have the capabilities to manage this problem. I discussed with the family, re: goals of care. I do not feel comfort care is appropriate at this time. This pt needs a thoracostomy tube and/or pleurodesis. His lung recovery will be extremely long from a recent R middle and lower lobe thoracotomy for suspected lung cancer. I have called the [facility] ICU exchange line for transfer. I have placed a call to his thoracic surgeon Dr. Malaika Akbar. His number is [phone]. His transfer is currently pending. This information was conveyed to raisin washer and the nursing staff. #Pt was awaiting to go to Rehab but unfortunately became hypoxic again Pt needing [address] PE showed pneumonia and pulmonary edema no pE restart IV lasix IV rocephin and IV zithromax. Finished antibiotic course pt has only one lung # sepsis on admission resolved Patient had high-grade fever 101.9 POA Blood culture and urine culture NEGATIVE of bacteria Blood culture coming back positive for budding yeast. Started on micafungin April 01. Repeat blood culture were ordered again. Identified as Holly glabrata. 04/04 Repeat blood cultur
[2023-04-06 12:31] LABS: Glucose Point of Care 98 mg/dl (65-105)
--- NOTE | 2023-04-06 13:58 | WPDCNINT ---
Assessment and Plan Assessment and plan (1) Acute respiratory failure: Qualifiers: Respiratory failure complication: hypoxia Qualified Code(s): J96.01 - Acute respiratory failure with hypoxia Code(s): J96.00 - Acute respiratory failure, unspecified whether with hypoxia or hypercapnia Status: Acute Assessment and Plan: Acute respiratory failure requiring intubation and mechanical ventilation Chest CT shows moderate possibly loculated hydropneumothorax aspiration pneumonia Chest x-ray reviewed and ETT withdrawn which led to improved meant in his peak pressures. Tidal volume increased to 400. Zosyn added to cover for aspiration pneumonia Patient is being transferred to [facility] I evaluation for hydropneumothorax in light of patient's Holly fungemia for evaluation for chest tube placement (2) Holly glabrata infection: Code(s): B37.9 - Candidiasis, unspecified Status: Acute Assessment and Plan: Patient had Holly glabrata grew in blood cultures. Patient is on micafungin. Repeat blood cultures have been negative Patient does have hydropneumothorax which is loculated which may be infected needs either a thoracentesis or chest tube. Patient also need ophthalmological exam to rule out ophthalmitis. Patient is being transferred to [facility] where he had surgery for thoracic surgery, Ophthalmology and Infectious Disease consultations (3) Sepsis: Code(s): A41.9 - Sepsis, unspecified organism Status: Acute Assessment and Plan: Secondary to Holly glabrata fungemia and aspiration pneumonia On Zosyn and micafungin (4) Atrial fibrillation: Code(s): I48.91 - Unspecified atrial fibrillation Status: Acute Assessment and Plan: In controlled ventricular rate Change long-acting Cardizem and metoprolol to short-acting pills for rate control On Eliquis for anticoagulation (5) Aspiration pneumonia: Code(s): J69.0 - Pneumonitis due to inhalation of food and vomit Status: Acute Assessment and Plan: Patient has history of CVA and was eating on the floor may have aspirated. On Zosyn for aspiration pneumonia (6) Encephalopathy: Code(s): G93.40 - Encephalopathy, unspecified Status: Acute Assessment and Plan: Since patient was on anticoagulation head CT was done to rule out any hemorrhage and showed areas of prior infarction Plan DVT prophylaxis -patient on Eliquis Stress ulcer prophylaxis -Pepcid Nutrition - Tube Feeds ordered Code Status - Full Code I had detailed discussion with patient's and children. Initially they were considering palliative care but later they decided to transfer patient to [facility] for above-mentioned evaluation before making further decision. Total Critical Care Time - 60minutes Due to a high probability of clinically significant, life threatening deterioration, the patient required my highest level of preparedness to intervene emergently and I personally spent this critical care time directly and personally managing the patient. This critical care time included obtaining a history; examining the patient; pulse oximetry; ordering and review of studies; arranging urgent treatment with development of a management plan; evaluation of patient's response to treatment; frequent reassessment; and discussions with other providers. It was exclusive of separately billable procedures and treating other patients and teaching time. Please see Assessment and Plan section and the rest of the note for further information on patient assessment and treatment Dial Polisher Consult Note Consult date: 04/06/23 Reason for consult: Acute respiratory failure HPI: Jere Mcallister is a 68 year old male with past grew yes he of CVA, aspiration pneumonia status post PEG, P 80 AFib with RVR, on anticoagulation, CHF, coronary disease and recent surgery in [facility] with right middle and lower lobe lobectomy for a cancer
--- NOTE | 2023-04-06 14:02 | PM.TDS ---
Transfer Discharge Sum: Prov Provider Date of admission: 03/21/23 20:08 Primary care physician: Vladimir Sloan MD Admitting clinician: Lorena Padron DO Consults: 03/22/23 Consult to Physician Routine Comment: Spoke with Dr Acuna @ 1358 - , Consulting Provider: Hari Yao freight caller/MD group to consult: On-call Cardiology Reason for consultation: AFib RVR, acute on chronic systolic- Has provider been notified: Yes Consult to Physician Routine Comment: Spoke with Dr. Block @1400- GC, Consulting Provider: Carmen Block freight caller/MD group to consult: On-call rn hemodialysis charge Reason for consultation: COPD exacerbation, COVID-19 pneumonia Has provider been notified: Yes Consult to Physician Routine Comment: spoke with Caryn Hernadez @0817 (,) Consulting Provider: Joel Foley Reason for consultation: Afib with RVR. Patient sees Dr. Foley Has provider been notified: Yes 03/27/23 Consult to Physician Routine Comment: spoke to dr Allison. @ 0830 Consulting Provider: Demarcus Smith Reason for consultation: Confusion/Weakness Has provider been notified: Yes 03/29/23 Consult to Physician Routine Comment: LM for dr Loyd. @ 0905--/ Consulting Provider: Demarcus Smith freight caller/ group to consult: neurology Reason for consultation: AMS Has provider been notified: Yes 04/05/23 Consult to Physician Routine Comment: Consulting Provider: Cristobal Abbasi Reason for consultation: respiratory distress Has provider been notified: Yes Attending physician on discharge: Abhilash White Discharging clinician: Abhilash White Receiving physician/facility: Dr. Aaron Mungu[facility] Dr. Malaika Akbar Cardiothoracic Surgery- [facility] [phone] DS: Admitting Diagnosis Discharge Date 04/06/23 Admitting Diagnosis AMS, A-fib RVR DS: Discharge Diagnosis Discharge Diagnosis Plan # cOPD exacerbation, acute respiratory failure, COVID-19 pneumonia possible superimposed with better pneumonia Patient received vancomycin and imipenem Flu negative, COVID positive ct revealed huge hydropneumothorax on the right side, emphyseam, persistent right hydro pneumothorax is related to recent thoracotomy X-ray shows patchy infiltrate bilaterally Finished remdesivir course and Decadron course Received duoNeb scheduled levalbuterol as needed Pulse ox monitor continuously Started O2 therapy to keep pulse ox above 94 patient has history of CAD CT reveals Thoracotomy changes on the right with persistent right hydropneumothorax and interval increase in the fluid component.?Bilateral multifocal pneumonia. Consulted rn hemodialysis charge for evaluation and treat 04/06: Pt had acute respiratory decompensation, likely multifactorial but mainly due to untreated R hydropneumothorax. This facility does not have the capabilities to manage this problem. I discussed with the family, re: goals of care. I do not feel comfort care is appropriate at this time. This pt needs a thoracostomy tube and/or pleurodesis. His lung recovery will be extremely long from a recent R middle and lower lobe thoracotomy for suspected lung cancer. I have called the [facility] ICU exchange line for transfer. I have placed a call to his thoracic surgeon Dr. Malaika Akbar. His number is [phone]. His transfer is currently pending. This information was conveyed to legal arbitrator and the nursing staff. #Pt was awaiting to go to Rehab but unfortunately became hypoxic again Pt needing [address] PE showed pneumonia and pulmonary edema no pE restart IV lasix IV rocephin and IV zithromax.? Finished antibiotic course pt has only one lung # sepsis on admission resolved Patient had high-grade fever 101.9 POA Blood culture and urine culture NEGATIVE of bacteria Blood culture coming back positive for budding yeast.? Started on micafungin April 01. ?Repeat blood culture were ordered again.? Identified as Holly glabrata.? 04/04 Repeat blood culture today to ensure clearance
[2023-04-06 16:42] LABS: Glucose Point of Care 97 mg/dl (65-105)
[2023-04-06] MEDS: METOPROLOL TARTRATE 25 MG TABLET FEED TUBE (21:03)
[2023-04-06] MEDS: QUEtiapine FUMARATE 25 MG TABLET PO (21:03)
== END 2023-04-06 21:32 | disposition short-term general hospital (02) | DRG 871 ==
LOC: ANHIMU 19:26 → ANH2MED 03-27 10:15 → ANHICU 04-10 06:18 → ANHIMU 04-10 06:18
PROVIDERS: Family Medicine; Hospitalist; Internal Medicine; Internal Medicine Critical Care Medicine; Student in an Organized Health Care Education/Training Program; Admitting Provider Internal Medicine; PCP Emergency Medicine; Visit Provider Internal Medicine
DX: A41.89 Other specified sepsis (principal); G93.41 Metabolic encephalopathy; I50.23 Acute on chronic systolic (congestive) heart failure; J12.82 Pneumonia due to coronavirus disease 2019; U07.1 COVID-19; J96.01 Acute respiratory failure with hypoxia; J69.0 Pneumonitis due to inhalation of food and vomit; J44.1 Chronic obstructive pulmonary disease with (acute) exacerbation; I48.19 Other persistent atrial fibrillation; I43 Cardiomyopathy in diseases classified elsewhere; C34.31 Malignant neoplasm of lower lobe, right bronchus or lung; J94.8 Other specified pleural conditions; I69.354 Hemiplegia and hemiparesis following cerebral infarction affecting left non-dominant side; Z90.2 Acquired absence of lung [part of]; B37.7 Candidal sepsis; I48.91 Unspecified atrial fibrillation; I25.10 Atherosclerotic heart disease of native coronary artery without angina pectoris; Z79.01 Long term (current) use of anticoagulants; I95.1 Orthostatic hypotension; I11.0 Hypertensive heart disease with heart failure; E78.5 Hyperlipidemia, unspecified; W06.XXXA Fall from bed, initial encounter; Z87.891 Personal history of nicotine dependence; E11.9 Type 2 diabetes mellitus without complications; I69.322 Dysarthria following cerebral infarction; I69.391 Dysphagia following cerebral infarction; R13.10 Dysphagia, unspecified
CPT/HCPCS: 31500; 36415; 36600; 70450; 71045; 71250; 71275; 72125; 72128; 72131; 74150; 74176; 80048; 80053; 80076; 82375; 82805; 82948; 83050; 83735; 83880; 84100; 84145; 84478; 85025; 85027; 85610; 85730; 87040; 87103; 87106; 87641; 92610; 94002; 94003; 94640; 94660; 94667; 94762; 97110; 97161; 97166; 97530; 97535; A9270; J0248; J0456; J0696; J1100; J1815; J1940; J2185; J2248; J2250; J2543; J3010; J3370; J7040; J7120; J8540; Q9967